=== PATIENT | female | born 1940 | race Caucasian/White ===

== ENCOUNTER 2017-09-27 11:45 | Emergency (ER) | payer MEDICARE, BC ==
[2017-09-27 11:53] VITALS: BP 145/64; PULSE 58; RESP 18; TEMP 97.5
--- NOTE | 2017-09-27 12:49 | ED ---
General Adult HPI - General Chief complaint: Recheck/Abnormal Lab/Rx Stated complaint: high liver enzymes Time Seen by Provider: 09/27/17 12:05 Source: patient Mode of arrival: ambulatory Limitations: no limitations - History of Present Illness Initial comments: Ewa Siegel is a 77 yo female with PMH listed below who presents to the emergency department today for evaluation of abnormal outpatient labs. Patient reports that she has been in her usual state of health lately, she has been able to attend her daily exercise classes and has been eating a normal diet. She denies any change from her daily routine her daily health. She reports that she had routine outpatient labs drawn on Wednesday in anticipation of seeing her roofer helper vinyl coating tomorrow. Her lab results were sent to her primary care physician's office and revealed acute elevation in her liver enzymes, she was called by a biomedical service engineer at her primary care office and advised to come to the ER for further evaluation as her primary care physician is currently out of the office for the week. Patient denies any complaints. She specifically denies any fevers, chills, nausea, vomiting, diarrhea, chest pain or shortness of breath. She denies any rashes or changes in her skin. She does report intermittent itching which seems to be worse on her lower back and thighs, however she attributes this to participating in a swim class multiple days out of the week and exposure to the chlorine in the pool. Patient denies any alcohol ingestion. She reports that she takes one to 2 Wysox pills daily and takes no other Tylenol. She denies any alcohol ingestion. She denies any IV drug use or high risk activity which would expose her to hepatitis. She denies any international travel or outdoor activities. - Related Data Home Medications Medication Instructions Recorded Confirmed Baclofen 10 mg PO HS 09/27/17 09/27/17 Furosemide [Lasix] 40 mg PO BID 09/27/17 09/27/17 HYDROcodone/APAP 7.5-325MG [Wysox 1 tab PO BID PRN 09/27/17 09/27/17 7.5-325] Krill Oil 500 mg PO DAILY 09/27/17 09/27/17 Metoprolol Tartrate [Lopressor] 25 mg PO TID 09/27/17 09/27/17 Potassium Chloride [K-Tab ER] 40 meq PO TID 09/27/17 09/27/17 Rivaroxaban [Xarelto] 20 mg PO AC-SUPPER 09/27/17 09/27/17 Allergies Allergy/AdvReac Type Severity Reaction Status Date / Time oxycodone Allergy Rash/Hives Verified 09/27/17 13:00 Penicillins Allergy Rash/Hives Verified 09/27/17 13:00 Review of Systems ROS Statement: Those systems with pertinent positive or pertinent negative responses have been documented in the HPI. ROS Other: All systems not noted in ROS Statement are negative. Past Medical History Past Medical History: Atrial Fibrillation, Hyperlipidemia, Osteoarthritis (OA) Additional Past Medical History / Comment(s): cardiac valve issues History of Any Multi-Drug Resistant Organisms: None Reported Past Surgical History: Back Surgery, Cardiac Valve Replacement, Joint Replacement Additional Past Surgical History / Comment(s): hipx2 knee replacement Past Psychological History: No Psychological Hx Reported Smoking Status: Never smoker Past Alcohol Use History: None Reported Past Drug Use History: None Reported General Exam Limitations: no limitations General appearance: alert, in no apparent distress Head exam: Present: atraumatic, normocephalic Eye exam: Present: normal appearance, PERRL, EOMI. Absent: scleral icterus, conjunctival injection, nystagmus ENT exam: Present: normal exam Neck exam: Present: normal inspection Respiratory exam: Present: normal lung sounds bilaterally. Absent: respiratory distress Cardiovascular Exam: Present: regular rate, normal rhythm, systolic murmur GI/Abdominal exam: Present: soft, normal bowel sounds. Absent: distended, tenderness, guarding, rebound, rigid, diminished bowel sounds, hyperactive bowel sounds, hypoactive bowel sounds, organomegaly, mass, bruit, pulsatile mass , hernia, other Rectal exam: Present: deferred Extremities exam: Present: normal inspection Neurological exam: Present: alert, oriented X3 Psychiatric exam: Present: normal affect, normal mood Skin exam: Present: warm, dry, intact, normal color, other (bruise to right AC consistent with recent blood draw) Course Vital Signs 09/27/17 09/27/17 11:49 14:49 Temperature 97.5 F L Pulse Rate 58 L Respiratory 18 18 Rate Blood Pressure 145/64 O2 Sat by Pulse 97 Oximetry Medical Decision Making - Medical Decision Making Patient was seen and evaluated, history was obtained from the patient as well as friend at bedside Patient in her usual state of health with no complaints, however outpatient labs revealed elevations of her liver enzymes and she was advised to come to the ER for further testing Patient with no risk factors for infectious hepatitis Patient with no scleral icterus, no abdominal pain, no GI symptoms Labs and ultrasound ordered Labs with elevation of the transaminases, elevated bilirubin, INR 1.7 Review of the patient's medications, she is onXarelto as well as Zetia both of which can cause mild elevations of the transaminases, this was discussed with the patient's roofer helper vinyl coating who states he does not feel that these medications are causing the elevations as he doesn't typically see elevations as high and does not usually see elevations of the bilirubin. He will evaluate the patient in office tomorrow and make further recommendations for any medication changes. In addition the patient will see her primary care physician next week for further evaluation. Results were discussed with patient as well as to her friends at bedside. At this point I do not feel there is any indication for admission to the hospital as the patient remains completely asymptomatic with no complaints. I discussed with the patient and her friends at bedside the need to return to the emergency department should she develop any abdominal pain, jaundice, easy bleeding or bruising or any new or concerning symptoms. Patient and her friends at bedside both were able to express understanding and agreement with the plan. Patient is scheduled to see her roofer helper vinyl coating tomorrow. All questions pertaining to care were answered to the best of my ability and the patient was discharged home in stable condition. - Lab Data Result diagrams: 09/27/17 12:50 09/27/17 12:50 Lab Results 09/27/17 09/27/17 09/27/17 Range/Units 12:50 12:50 12:50 WBC 7.7 (3.8-10.6) k/uL RBC 4.50 (3.80-5.40) m/uL Hgb 13.1 (11.4-16.0) gm/dL Hct 41.2 (34.0-46.0) % MCV 91.6 (80.0-100.0) fL MCH 29.2 (25.0-35.0) pg MCHC 31.9 (31.0-37.0) g/dL RDW 14.6 (11.5-15.5) % Plt Count 126 L (150-450) k/uL Neutrophils % (Manual) 70 % Lymphocytes % (Manual) 14 % Monocytes % (Manual) 14 % Eosinophils % (Manual) 2 % Neutrophils # (Manual) 5.39 (1.3-7.7) k/uL Lymphocytes # (Manual) 1.08 (1.0-4.8) k/uL Monocytes # (Manual) 1.08 H (0-1.0) k/uL Eosinophils # (Manual) 0.15 (0-0.7) k/uL Nucleated RBCs 0 (0-0) /100 WBC Poikilocytosis (manual Present Anisocytosis (manual) Present Target Cells Present PT (9.0-12.0) sec INR (<1.2) APTT (22.0-30.0) sec Sodium 142 (137-145) mmol/L Potassium 3.8 (3.5-5.1) mmol/L Chloride 100 (98-107) mmol/L Carbon Dioxide 30 (22-30) mmol/L Anion Gap 12 mmol/L BUN 28 H (7-17) mg/dL Creatinine 1.08 H (0.52-1.04) mg/dL Est GFR (CKD-EPI)AfAm 58 (>60 ml/min/1.73 sqM) Est GFR (CKD-EPI)NonAf 50 (>60 ml/min/1.73 sqM) Glucose 93 (74-99) mg/dL Calcium 9.4 (8.4-10.2) mg/dL Total Bilirubin 2.6 H (0.2-1.3) mg/dL AST 1435 H (14-36) U/L ALT 1329 H (9-52) U/L Alkaline Phosphatase 226 H (38-126) U/L Ammonia 13 (<30) umol/L Total Protein 7.1 (6.3-8.2) g/dL Albumin 3.6 (3.5-5.0) g/dL Lipase 96 (23-300) U/L 09/27/17 Range/Units 12:50 WBC (3.8-10.6) k/uL RBC (3.80-5.40) m/uL Hgb (11.4-16.0) gm/dL Hct (34.0-46.0) % MCV (80.0-100.0) fL MCH (25.0-35.0) pg MCHC (31.0-37.0) g/dL RDW (11.5-15.5) % Plt Count (150-450) k/uL Neutrophils % (Manual) % Lymphocytes % (Manual) % Monocytes % (Manual) % Eosinophils % (Manual) % Neutrophils # (Manual) (1.3-7.7) k/uL Lymphocytes # (Manual) (1.0-4.8) k/uL Monocytes # (Manual) (0-1.0) k/uL Eosinophils # (Manual) (0-0.7) k/uL Nucleated RBCs (0-0) /100 WBC Poikilocytosis (manual Anisocytosis (manual) Target Cells PT 15.6 H (9.0-12.0) sec INR 1.7 H (<1.2) APTT 29.5 (22.0-30.0) sec Sodium (137-145) mmol/L Potassium (3.5-5.1) mmol/L Chloride (98-107) mmol/L Carbon Dioxide (22-30) mmol/L Anion Gap mmol/L BUN (7-17) mg/dL Creatinine (0.52-1.04) mg/dL Est GFR (CKD-EPI)AfAm (>60 ml/min/1.73 sqM) Est GFR (CKD-EPI)NonAf (>60 ml/min/1.73 sqM) Glucose (74-99) mg/dL Calcium (8.4-10.2) mg/dL Total Bilirubin (0.2-1.3) mg/dL AST (14-36) U/L ALT (9-52) U/L Alkaline Phosphatase (38-126) U/L Ammonia (<30) umol/L Total Protein (6.3-8.2) g/dL Albumin (3.5-5.0) g/dL Lipase (23-300) U/L Disposition Clinical Impression: Liver enzyme elevation Disposition: HOME SELF-CARE Condition: Good Instructions: Jaundice (ED) Referrals: Bolivar Valiente DO [Primary Care Provider] - 1-2 days Time of Disposition: 15:18
[2017-09-27 13:20] LABS: HCT 41.2 % (34.0-46.0); HGB 13.1 gm/dL (11.4-16.0); MCH 29.2 pg (25.0-35.0); MCHC 31.9 g/dL (31.0-37.0); MCV 91.6 fL (80.0-100.0); Mean Platelet Volume 7.9; Platelet Count 126 k/uL (150-450); RDW 14.6 % (11.5-15.5); WBC 7.7 k/uL (3.8-10.6)
[2017-09-27 13:35] LABS: INR 1.7 (<1.2); Partial Thromboplastin Time 29.5 sec (22.0-30.0); Prothrombin Time 15.6 sec (9.0-12.0)
[2017-09-27 13:54] LABS: Albumin 3.6 g/dL (3.5-5.0); Calcium 9.4 mg/dL (8.4-10.2); Potassium 3.8 mmol/L (3.5-5.1); Total Bilirubin 2.6 mg/dL (0.2-1.3); Total Protein 7.1 g/dL (6.3-8.2)
[2017-09-27 13:57] LABS: Eosinophils # (M) 0.15 k/uL (0-0.7); Lymphocytes # (M) 1.08 k/uL (1.0-4.8); Monocytes # (M) 1.08 k/uL (0-1.0); Neutrophils # (M) 5.39 k/uL (1.3-7.7); Neutrophils % (M) 70 %; Nucleated Red Blood Cells 0 /100 WBC (0-0); Total Cells Counted 100
[2017-09-27 13:58] LABS: Anisocytosis (M) Present; Poikilocytosis (M) Present; Target Cells Present
--- NOTE | 2017-09-27 14:15 | US ---
EXAMINATION TYPE: US abdomen complete DATE OF EXAM: 09/27/2017 COMPARISON: NONE CLINICAL HISTORY: Pain. elevated enzymes EXAM MEASUREMENTS: Liver Length: 15.9 cm Gallbladder Wall: 0.1 cm CBD: 0.7 cm Spleen: 9.4 cm Right Kidney: 10.3 x 4.8 x 5.3 cm Left Kidney: 9.8 x 5.2 x 5.3 cm Pancreas: wnl Liver: 0.8 x 0.9 x 1.1 cm cyst left lobe, no masses identified Gallbladder: No stones seen Evidence for sonographic Coleman's sign: no CBD: Within normal limits for the patient's age Spleen: wnl Right Kidney: No hydronephrosis or masses seen Left Kidney: No hydronephrosis or masses seen Upper IVC: wnl Abd Aorta: Distal Aorta obscured by overlying bowel gas; proximal aorta measures 3.4 cm and mid jeanine ures 2.6 cm The liver is homogenous. The intrahepatic portion of the IVC and proximal abdominal aorta are within normal limits. There is no evidence of cholelithiasis. Common bile duct is unremarkable. The visu alized portions of the pancreas are homogenous. The spleen is unremarkable. Kidneys are symmetric a nd free of hydronephrosis. No renal lesions are seen. IMPRESSION: 1. Proximal abdominal aortic aneurysm measuring 3.4 cm. The mid abdominal aorta is within normal limi ts and distal abdominal aorta also appears within normal limits although the distal abdominal aorta p roximal to the aortoiliac bifurcation is obscured by bowel gas. 2. Simple benign-appearing left hepatic cyst.
== END 2017-09-27 15:45 | disposition home or self-care (01) ==
LOC: EC 11:45
DX: R17 Unspecified jaundice (principal); R74.0 Nonspecific elevation of levels of transaminase and lactic acid dehydrogenase [LDH]; I48.91 Unspecified atrial fibrillation; Z79.01 Long term (current) use of anticoagulants; Z79.899 Other long term (current) drug therapy; Z88.0 Allergy status to penicillin; Z88.8 Allergy status to other drugs, medicaments and biological substances
CPT/HCPCS: 36415; 76700; 80053; 82140; 83690; 85025; 85610; 85730; 99284

== ENCOUNTER 2021-01-31 01:35 | Emergency (ER) | payer MEDICARE ==
[2021-01-31 01:46] VITALS: BP 120/64; PULSE 91; RESP 17; TEMP 98.4
[2021-01-31] MEDS ORDERED: DIPH,PERTUS(ACELL)TETVAC-LF 0.5 ML VIAL IM ONE (02:03)
[2021-01-31] MEDS ORDERED: MORPHINE SULFATE 4 MG/ML SYRINGE IM STA (02:03)
[2021-01-31] MEDS ORDERED: BACITRACIN OINT 1 EACH PACKET TOPICAL ONE (02:04)
--- NOTE | 2021-01-31 02:34 | CT ---
EXAMINATION TYPE: CT brain linus sherman con DATE OF EXAM: 01/31/2021 COMPARISON: None HISTORY: fall. Headache. Neck pain CT DLP: 1580.3 mGycm Automated exposure control for dose reduction was used. Images obtained of the brain and cervical spine without contrast. There is mild cerebral atrophy. There is no mass effect nor midline shift. There is no sign of intrac ranial hemorrhage. Calvarium is intact. There is normal aeration of the mastoid sinuses. Skull base i s intact. Cervical vertebra have normal alignment. There is degenerative disc space narrowing from C4 to C7 wit h spurring of the endplates. Facet joints are intact. There is mild hypertrophic facet arthropathy. 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 No fracture. Mild cerebral atrophy appropriate for age. No acute intracranial abnormality.
--- NOTE | 2021-01-31 03:10 | XR ---
EXAMINATION TYPE: XR Hip LT and AP Pelvis DATE OF EXAM: 01/31/2021 COMPARISON: NONE HISTORY: Fall. Pain. TECHNIQUE: 3 views FINDINGS: The pelvic ring appears intact. There is bilateral hip prosthesis. There is a mild protrusi o of the right prosthetic acetabulum. Left hip prosthesis appears in good position. I see no fracture . Sacroiliac joints are intact. IMPRESSION: No acute abnormality the pelvis and left hip.
--- NOTE | 2021-01-31 03:14 | XR ---
EXAMINATION TYPE: XR shoulder complete BILAT DATE OF EXAM: 01/31/2021 COMPARISON: NONE HISTORY: Fall. Pain. TECHNIQUE: 3 views each shoulder FINDINGS: There is moderately severe narrowing of the shoulder joint spaces. There is severe subacrom ial joint space narrowing and impingement. 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 The humeral necks appear intact. The AC join ts are intact. 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 No fracture seen.
--- NOTE | 2021-01-31 03:15 | XR ---
EXAMINATION TYPE: XR knee complete LT DATE OF EXAM: 01/31/2021 COMPARISON: NONE HISTORY: Fall. Pain. TECHNIQUE: 3 views FINDINGS: There is left knee prosthesis. Components appear in anatomic position. There is no evidence of a fracture. IMPRESSION: No fracture seen.
--- NOTE | 2021-01-31 03:25 | ED ---
General Adult HPI - General Chief complaint: Fall Stated complaint: Fall Time Seen by Provider: 01/31/21 01:44 Source: patient, EMS, old records reviewed Mode of arrival: EMS Limitations: physical limitation - History of Present Illness Initial comments: 80-year-old female patient presents to the emergency department today for evaluation after having a fall this evening. Patient states approximately 45 minutes prior to arrival she was in her bathroom stumbled and fell landing between the counter and the toilet. States she injured both shoulders and is having left hip and left knee pain. She states that she did hit her head states that she "blacked out" for a couple of seconds. She denies any current headache, blurred vision, double vision, or neck pain. Patient has been having visual disturbance to the right eye for the last week or so. Does have an appointment with Dr. Gomes for this on Wednesday. States she did have a fall on Wednesday also from a trip and fall. States that she developed a hematoma to the left lower leg. She is unsure when her last tetanus vaccine was given. Patient denies any neck pain, back pain, chest pain, shortness of breath, dizziness, weakness, abdominal pain, nausea, vomiting, or difficulties with bowel movements or urination. - Related Data Home Medications Medication Instructions Recorded Confirmed Baclofen 10 mg PO HS 09/27/17 09/27/17 Furosemide [Lasix] 40 mg PO BID 09/27/17 09/27/17 HYDROcodone/APAP 7.5-325MG [Poth 1 tab PO BID PRN 09/27/17 09/27/17 7.5-325] Krill Oil 500 mg PO DAILY 09/27/17 09/27/17 Metoprolol Tartrate [Lopressor] 25 mg PO TID 09/27/17 09/27/17 Potassium Chloride [K-Tab ER] 40 meq PO TID 09/27/17 09/27/17 Rivaroxaban [Xarelto] 20 mg PO AC-SUPPER 09/27/17 09/27/17 Allergies Allergy/AdvReac Type Severity Reaction Status Date / Time oxycodone Allergy Rash/Hives Verified 09/27/17 13:00 Penicillins Allergy Rash/Hives Verified 09/27/17 13:00 Review of Systems ROS Statement: Those systems with pertinent positive or pertinent negative responses have been documented in the HPI. ROS Other: All systems not noted in ROS Statement are negative. Past Medical History Past Medical History: Atrial Fibrillation, Hyperlipidemia, Osteoarthritis (OA) Additional Past Medical History / Comment(s): cardiac valve issues History of Any Multi-Drug Resistant Organisms: None Reported Past Surgical History: Back Surgery, Cardiac Valve Replacement, Joint Replacement Additional Past Surgical History / Comment(s): hipx2 knee replacement Past Psychological History: No Psychological Hx Reported Smoking Status: Former smoker Past Alcohol Use History: None Reported Past Drug Use History: None Reported General Exam Limitations: physical limitation General appearance: alert, in no apparent distress, other (This is a well- developed, well-nourished elderly female patient in no acute distress. Vital signs upon presentation are temperature 98.4F, pulse 91, respirations 17, blood pressure 120/64, pulse ox 96% on room air.) Head exam: Present: atraumatic, normocephalic, normal inspection Eye exam: Present: normal appearance, PERRL, EOMI. Absent: scleral icterus, conjunctival injection, periorbital swelling ENT exam: Present: normal exam, normal oropharynx, mucous membranes moist Neck exam: Present: normal inspection, full ROM, other (Nontender, no step-off, no deformity to firm midline palpation of the posterior cervical spine. Full range of motion without pain or limitation.). Absent: tenderness, meningismus, lymphadenopathy Respiratory exam: Present: normal lung sounds bilaterally. Absent: respiratory distress, wheezes, rales, rhonchi, stridor Cardiovascular Exam: Present: regular rate, normal rhythm, normal heart sounds. Absent: systolic murmur, diastolic murmur, rubs, gallop, clicks GI/Abdominal exam: Present: soft, normal bowel sounds. Absent: distended, tenderness, guarding, rebound, rigid Extremities exam: Present: full ROM, tenderness (left lateral hip), normal capillary refill, other (Large hematoma to left anterior ankle with surrounding purple ecchymosis. Small skin tear left anterior lower leg. Small skin tear right elbow. Pedal and posttibial pulses 2+. Radial pulses 2+.). Absent: pedal edema, joint swelling, calf tenderness Back exam: Present: normal inspection. Absent: vertebral tenderness Neurological exam: Present: alert, oriented X3, CN II-XII intact Psychiatric exam: Present: normal affect, normal mood Skin exam: Present: warm, dry, intact, normal color. Absent: rash Course Vital Signs 01/31/21 01:37 Temperature 98.4 F Pulse Rate 91 Respiratory 17 Rate Blood Pressure 120/64 O2 Sat by Pulse 96 Oximetry Medical Decision Making - Medical Decision Making 80-year-old female patient presents for evaluation after experiencing a fall. She is reporting bilateral shoulder pain, left hip pain, left knee pain. Did have a large hematoma to the left ankle from a fall on Wednesday. She is neurologically intact with no focal deficits. Did have small skin tear to the right elbow, small skin tear to the left lower leg. Did update tetanus vaccine. CT brain and C-spine negative. X-rays of the bilateral shoulders, left hip and pelvis, left knee were all negative for any acute fractures. I did discuss findings and results with the patient. Applied pressure dressing over the hematoma and lower leg. Wounds were cleansed and dressed. She was discharged follow-up with her primary care physician for recheck in 1-2 days. Return parameters were discussed in detail. She verbalizes understanding and agrees with this plan. Case discussed with my attending Dr. Cuevas. - Radiology Data Radiology results: report reviewed, image reviewed Disposition Clinical Impression: Hematoma of left lower leg, Contusion of left hip, Skin tear of right elbow without complication, Contusion, knee Narrative: Bilateral knee Disposition: HOME SELF-CARE Condition: Good Instructions (If sedation given, give patient instructions): Fall Prevention for Older Adults (ED), Contusion in Adults (ED), Skin Tear (ED), Hematoma (ED) Additional Instructions: Keep wounds clean and dry. Cleanse twice daily with warm water and antibacterial soap. Use Moises wrap for compression of the left lower leg hematoma. Follow up with your primary care physician for recheck in 1-2 days. Return for any new, worsening, or concerning symptoms. Is patient prescribed a controlled substance at d/c from ED?: No Referrals: Bolivar Valiente DO [Primary Care Provider] - 1-2 days Time of Disposition: 03:25
[2021-01-31] MEDS ORDERED: ACET/COD 300 MG/30 MG STARTER PACK 6 TAB BTL PO STA (03:37)
== END 2021-01-31 03:57 | disposition home or self-care (01) ==
LOC: EC 01:35
DX: S51.011A Laceration without foreign body of right elbow, initial encounter (principal); S70.02XA Contusion of left hip, initial encounter; S80.02XA Contusion of left knee, initial encounter; I48.91 Unspecified atrial fibrillation; Z87.891 Personal history of nicotine dependence; Z88.0 Allergy status to penicillin; Z88.8 Allergy status to other drugs, medicaments and biological substances; Z79.01 Long term (current) use of anticoagulants; W01.198A Fall on same level from slipping, tripping and stumbling with subsequent striking against other object, initial encounter; Y92.091 Bathroom in other non-institutional residence as the place of occurrence of the external cause
CPT/HCPCS: 73030; 73502; 73562; 72125; 70450; 90715; 99284; 96372; 90471; J2270

== ENCOUNTER 2021-02-04 08:01 | Inpatient (IN) | payer MEDICARE ==
[2021-02-04 08:45] LABS: Basophils % (A) 0 %; Eosinophils # (A) 0.1 k/uL (0-0.7); Eosinophils % (A) 1 %; HCT 29.1 % (34.0-46.0); HGB 9.6 gm/dL (11.4-16.0); Hypochromasia Slight; Lymphocytes # (A) 1.5 k/uL (1.0-4.8); Lymphocytes % (A) 13 %; MCH 31.8 pg (25.0-35.0); MCHC 32.9 g/dL (31.0-37.0); MCV 96.6 fL (80.0-100.0); Mean Platelet Volume 8.2; Monocytes % (A) 9 %; Neutrophils # (A) 8.5 k/uL (1.3-7.7); Neutrophils % (A) 74 %; Platelet Count 332 k/uL (150-450); Poikilocytosis Slight; RBC 3.02 m/uL (3.80-5.40); RDW 13.8 % (11.5-15.5); WBC 11.6 k/uL (3.8-10.6)
--- NOTE | 2021-02-04 09:04 | ED ---
General Adult HPI - General Chief complaint: Fall Stated complaint: fall, back pain Time Seen by Provider: 02/04/21 08:04 Source: patient, EMS, RN notes reviewed, old records reviewed Mode of arrival: EMS Limitations: no limitations - History of Present Illness Initial comments: 72-year-old female presents status post fall. Patient has had several falls in the past one week. She is on Xarelto for history of atrial fibrillation. She states that she was seen in the emergency department earlier this week with a fall x-rays and CT imaging was performed at that time and the patient was subsequently discharged home. She does live at home alone. She states she has fallen again several times she has minor complaint of right lateral upper chest pain from the fall that occurred this morning which prompted an EMS call. Patient denies head trauma with this fall. She denies chest pain or abdominal pain. Denies focal numbness or weakness but states she is generally and having a difficult time getting around at home. Troponin minimally elevated in the setting of chronic kidney disease, no active chest pain. Repeat level will be ordered. - Related Data Home Medications Medication Instructions Recorded Confirmed Furosemide [Lasix] 40 mg PO BID 09/27/17 02/04/21 Metoprolol Tartrate [Lopressor] 50 mg PO BID 09/27/17 02/04/21 Potassium Chloride [K-Tab ER] 40 meq PO TID 09/27/17 02/04/21 DULoxetine HCL [Cymbalta] 30 mg PO BID 02/04/21 02/04/21 Rivaroxaban [Xarelto] 15 mg PO W/SUPPER 02/04/21 02/04/21 Spironolactone 25 mg PO DAILY 02/04/21 02/04/21 metOLazone [Zaroxolyn] 5 mg PO DIRECTED 02/04/21 02/04/21 Allergies Allergy/AdvReac Type Severity Reaction Status Date / Time oxycodone Allergy Rash/Hives Verified 02/04/21 09:27 Penicillins Allergy Rash/Hives Verified 02/04/21 09:27 Review of Systems ROS Statement: Those systems with pertinent positive or pertinent negative responses have been documented in the HPI. ROS Other: All systems not noted in ROS Statement are negative. Past Medical History Past Medical History: Atrial Fibrillation, Hyperlipidemia, Osteoarthritis (OA) Additional Past Medical History / Comment(s): cardiac valve issues History of Any Multi-Drug Resistant Organisms: None Reported Past Surgical History: Back Surgery, Cardiac Valve Replacement, Joint Replacement Additional Past Surgical History / Comment(s): hipx2 knee replacement Past Psychological History: No Psychological Hx Reported Smoking Status: Former smoker Past Alcohol Use History: None Reported Past Drug Use History: None Reported General Exam Limitations: no limitations General appearance: alert, in no apparent distress Head exam: Present: atraumatic, normocephalic Eye exam: Present: normal appearance, PERRL ENT exam: Present: mucous membranes dry Neck exam: Present: normal inspection. Absent: tenderness, meningismus Respiratory exam: Present: normal lung sounds bilaterally, chest wall tenderness (Right upper chest and axilla). Absent: respiratory distress, wheezes Cardiovascular Exam: Present: regular rate, irregular rhythm GI/Abdominal exam: Present: soft. Absent: distended, tenderness, guarding, rebound Extremities exam: Present: normal capillary refill. Absent: pedal edema Neurological exam: Present: alert, oriented X3, CN II-XII intact. Absent: motor sensory deficit Psychiatric exam: Present: normal affect, normal mood Skin exam: Present: warm, dry, other (Multiple skin tears and ecchymosis) Course Vital Signs 02/04/21 08:03 Temperature 98.0 F Pulse Rate 90 Respiratory 18 Rate Blood Pressure 108/63 O2 Sat by Pulse 100 Oximetry EKG Findings - EKG Comments: EKG Findings:: EKG: Atrial fibrillation, PVC, right bundle branch block, ventricular rate of 95, QRS duration 128, QTC 520, no ST segment elevation. Medical Decision Making - Medical Decision Making 80-year-old female presented with fall. This is a recurrent issue over the past one week. Chest x-ray obtained, negative for focal pneumonia, CT brain negative for renal hemorrhage or mass effect. Regarding her weakness and falls. She does have a mild leukocytosis, 11.6, hemoglobin 9.6 which appear stable for this patient. Her potassium is 2.2 which may be the cause of her weakness. She's given both oral and IV replacement. She will be admitted for a left lower replacement, monitoring possible placement. Primary care provider Dr. Valiente has been contacted. - Lab Data Result diagrams: 02/04/21 08:29 02/04/21 08:29 Lab Results 02/04/21 02/04/21 02/04/21 Range/Units 08:29 08:29 08:29 WBC 11.6 H (3.8-10.6) k/uL RBC 3.02 L (3.80-5.40) m/uL Hgb 9.6 L (11.4-16.0) gm/dL Hct 29.1 L (34.0-46.0) % MCV 96.6 (80.0-100.0) fL MCH 31.8 (25.0-35.0) pg MCHC 32.9 (31.0-37.0) g/dL RDW 13.8 (11.5-15.5) % Plt Count 332 (150-450) k/uL MPV 8.2 Neutrophils % 74 % Lymphocytes % 13 % Monocytes % 9 % Eosinophils % 1 % Basophils % 0 % Neutrophils # 8.5 H (1.3-7.7) k/uL Lymphocytes # 1.5 (1.0-4.8) k/uL Monocytes # 1.0 (0-1.0) k/uL Eosinophils # 0.1 (0-0.7) k/uL Basophils # 0.0 (0-0.2) k/uL Hypochromasia Slight Poikilocytosis Slight PT 12.7 H (9.0-12.0) sec INR 1.2 H (<1.2) APTT 24.9 (22.0-30.0) sec Sodium 133 L (137-145) mmol/L Potassium 2.2 L* (3.5-5.1) mmol/L Chloride 82 L (98-107) mmol/L Carbon Dioxide 39 H (22-30) mmol/L Anion Gap 12 mmol/L BUN 80 H (7-17) mg/dL Creatinine 1.78 H (0.52-1.04) mg/dL Est GFR (CKD-EPI)AfAm 31 (>60 ml/min/1.73 sqM) Est GFR (CKD-EPI)NonAf 27 (>60 ml/min/1.73 sqM) Glucose 125 H (74-99) mg/dL Plasma Lactic Acid Yonas (0.7-2.0) mmol/L Calcium 9.4 (8.4-10.2) mg/dL Magnesium 2.3 (1.6-2.3) mg/dL Total Bilirubin 0.9 (0.2-1.3) mg/dL AST 32 (14-36) U/L ALT 16 (4-34) U/L Alkaline Phosphatase 91 (38-126) U/L Troponin I (0.000-0.034) ng/mL Total Protein 6.6 (6.3-8.2) g/dL Albumin 3.9 (3.5-5.0) g/dL 02/04/21 02/04/21 Range/Units 08:29 08:29 WBC (3.8-10.6) k/uL RBC (3.80-5.40) m/uL Hgb (11.4-16.0) gm/dL Hct (34.0-46.0) % MCV (80.0-100.0) fL MCH (25.0-35.0) pg MCHC (31.0-37.0) g/dL RDW (11.5-15.5) % Plt Count (150-450) k/uL MPV Neutrophils % % Lymphocytes % % Monocytes % % Eosinophils % % Basophils % % Neutrophils # (1.3-7.7) k/uL Lymphocytes # (1.0-4.8) k/uL Monocytes # (0-1.0) k/uL Eosinophils # (0-0.7) k/uL Basophils # (0-0.2) k/uL Hypochromasia Poikilocytosis PT (9.0-12.0) sec INR (<1.2) APTT (22.0-30.0) sec Sodium (137-145) mmol/L Potassium (3.5-5.1) mmol/L Chloride (98-107) mmol/L Carbon Dioxide (22-30) mmol/L Anion Gap mmol/L BUN (7-17) mg/dL Creatinine (0.52-1.04) mg/dL Est GFR (CKD-EPI)AfAm (>60 ml/min/1.73 sqM) Est GFR (CKD-EPI)NonAf (>60 ml/min/1.73 sqM) Glucose (74-99) mg/dL Plasma Lactic Acid Yonas 1.5 (0.7-2.0) mmol/L Calcium (8.4-10.2) mg/dL Magnesium (1.6-2.3) mg/dL Total Bilirubin (0.2-1.3) mg/dL AST (14-36) U/L ALT (4-34) U/L Alkaline Phosphatase (38-126) U/L Troponin I 0.061 H* (0.000-0.034) ng/mL Total Protein (6.3-8.2) g/dL Albumin (3.5-5.0) g/dL Disposition Clinical Impression: Generalized weakness, Hypokalemia Disposition: ADMITTED IP TO THIS [facility] Condition: Stable Is patient prescribed a controlled substance at d/c from ED?: No Referrals: Bolivar Valiente DO [Primary Care Provider] - 1-2 days Decision to Admit Reason: Admit from EC Decision Date: 02/04/21 Decision Time: 10:09
[2021-02-04 09:06] LABS: Albumin 3.9 g/dL (3.5-5.0); Calcium 9.4 mg/dL (8.4-10.2); INR 1.2 (<1.2); Magnesium 2.3 mg/dL (1.6-2.3); Partial Thromboplastin Time 24.9 sec (22.0-30.0); Prothrombin Time 12.7 sec (9.0-12.0); Total Bilirubin 0.9 mg/dL (0.2-1.3); Total Protein 6.6 g/dL (6.3-8.2)
--- NOTE | 2021-02-04 09:23 | CT ---
EXAMINATION TYPE: CT brain linus wo con DATE OF EXAM: 02/04/2021 COMPARISON: 01/31/2021 HISTORY: Fall, back pain CT DLP: 1608 mGycm, Automated exposure control for dose reduction was used. CONTRAST: Patient injected with 0 mL of Isovue 300. CT of the brain is performed utilizing 3 mm thick sections through the posterior fossa and 3 mm thick sections through the remaining calvarium. Study is performed within 24 hours of arrival to the hospital. No abnormal hyperdensity is present to suggest an acute intracranial hemorrhage. No mass lesion is evident. No acute infarcts are evident. Tiny lacunar infarct is within the left caudate head. Ventricles and sulci and minimal prominence but are appropriate for the patient age. Paranasal sinuses and mastoid air cells within the [id number] are clear. IMPRESSIONS: 1. Normal CT brain. CT cervical spine. COMPARISON: None CT of the cervical spine is performed in the axial plane at 2 mm thick sections. Reconstructed image s in the coronal, and sagittal plane are reviewed on the computer. No acute fractures are evident. Vertebral body alignment is normal. Disc space narrowing is noted C5-6 C6-7 and C7-T1. Milder disc space narrowing may be present C4-5. A nterior vertebral body spurring is present C4 C5 C6. Prevertebral space appears normal. Vertebral body heights are preserved. No spinal canal stenosis is evident. Right foraminal stenosis from facet hypertrophy and uncovertebral joint hypertrophy is present at C3- 4. Mild foraminal narrowing is present on the right at C4-5 moderate to severe bilateral foraminal st enosis present C5-6 and C6-7. There is a calcification along the posterior lateral right T1 level on the right. Small meningioma co uld be considered. This was present previously significant posterior thecal sac compression is noted. IMPRESSIONS: 1. No acute osseous abnormality. 2. Degenerative disc changes mid to lower cervical spine. 3. Foraminal stenosis. C5-6 and C6-7 uncovertebral joint. 4. Tiny meningioma may be present in the posterior lateral right spinal canal without significant the kori sac compression T1 level.
[2021-02-04 09:28] LABS: Potassium 2.2 mmol/L (3.5-5.1)
--- NOTE | 2021-02-04 09:30 | XR ---
EXAMINATION TYPE: XR chest 2V DATE OF EXAM: 02/04/2021 COMPARISON: 05/30/2010 INDICATION: Weakness multiple falls TECHNIQUE: Frontal and lateral views of the chest are obtained. FINDINGS: The heart size is normal. The pulmonary vasculature is normal. The lungs are clear. No pneumothorax is evident. No displaced rib fractures are identified. Sternoto my wires are present from prior surgery. Chronic rotator cuff tears are likely present. IMPRESSION: 1. No acute pulmonary process.
[2021-02-04] MEDS ORDERED: HYDROmorphone 0.5 MG/0.5 ML SYRINGE IVP STA (09:33)
[2021-02-04] MEDS ORDERED: POTASSIUM CHLORIDE ER 20 MEQ TAB.ER PO STA (09:33)
[2021-02-04] MEDS ORDERED: NALOXONE 0.4 MG/ML 1 ML VIAL IV PRN (10:05)
[2021-02-04] MEDS: SODIUM CHLORIDE 0.9% 1,000 ML IV SCH (10:05)
[2021-02-04] MEDS ORDERED: ACETAMINOPHEN TAB 325 MG TAB PO PRN (10:05)
[2021-02-04] MEDS: POTASSIUM CHLORIDE 20 MEQ in WATER FOR INJECTION 1 100ML.BAG IVPB SCH ×2 (10:05→12:15)
[2021-02-04 10:27] LABS: Appearance,Urine Clear (Clear); Bilirubin,Urine Negative (Negative); Blood,Urine Negative (Negative); Color,Urine Yellow; Glucose,Urine (UA) Negative (Negative); Ketones,Urine Negative (Negative); Leukocyte Esterase,Urine Negative (Negative); Nitrite,Urine Negative (Negative); PH, Urine 6.5 (5.0-8.0); Protein,Urine Negative (Negative); Specific Gravity,Urine 1.012 (1.001-1.035); Urobilinogen,Urine <2.0 mg/dL (<2.0)
[2021-02-04] MEDS ORDERED: metOLazone 5 MG TAB PO SCH (21:00)
[2021-02-04] MEDS: METOPROLOL TARTRATE 50 MG TAB PO SCH (21:33)
[2021-02-04] MEDS: DULoxetine HCL 30 MG CAPSULE.DR PO SCH (21:33)
[2021-02-05] MEDS: SODIUM CHLORIDE 0.9% 1,000 ML IV SCH ×2 (01:26→10:00)
[2021-02-05 08:28] LABS: Basophils % (A) 0 %; Eosinophils # (A) 0.1 k/uL (0-0.7); Eosinophils % (A) 1 %; HCT 25.6 % (34.0-46.0); HGB 8.2 gm/dL (11.4-16.0); Hypochromasia Moderate; Lymphocytes # (A) 1.4 k/uL (1.0-4.8); Lymphocytes % (A) 14 %; MCH 31.8 pg (25.0-35.0); MCHC 31.9 g/dL (31.0-37.0); MCV 99.7 fL (80.0-100.0); Mean Platelet Volume 7.6; Monocytes # (A) 0.9 k/uL (0-1.0); Monocytes % (A) 9 %; Neutrophils # (A) 7.1 k/uL (1.3-7.7); Neutrophils % (A) 71 %; Platelet Count 298 k/uL (150-450); Poikilocytosis Slight; RBC 2.57 m/uL (3.80-5.40); RDW 13.3 % (11.5-15.5)
[2021-02-05 08:31] LABS: Albumin 3.3 g/dL (3.5-5.0); Calcium 8.9 mg/dL (8.4-10.2); Magnesium 2.3 mg/dL (1.6-2.3); Total Bilirubin 0.8 mg/dL (0.2-1.3); Total Protein 5.7 g/dL (6.3-8.2)
[2021-02-05 08:34] LABS: Potassium 2.7 mmol/L (3.5-5.1)
[2021-02-05] MEDS: METOPROLOL TARTRATE 50 MG TAB PO SCH ×2 (09:06→20:53)
[2021-02-05] MEDS: FUROSEMIDE 40 MG TAB PO SCH ×2 (09:07→16:55)
[2021-02-05] MEDS: SPIRONOLACTONE 25 MG TAB PO SCH (09:07)
[2021-02-05] MEDS: DULoxetine HCL 30 MG CAPSULE.DR PO SCH ×2 (09:07→20:52)
[2021-02-05] MEDS ORDERED: Potassium Replacement Protocol 1 EACH MISC MISCELLANE PRN (10:48)
--- NOTE | 2021-02-05 12:13 | XR ---
Left ankle HISTORY: Hematoma, trauma 3 views the left ankle There is soft tissue swelling present. Bone mineralization is reduced. Joint spaces and alignment are maintained. Lateral exam not optimally positioned. IMPRESSION: No fracture or dislocation. There is soft tissue swelling present.
--- NOTE | 2021-02-05 12:21 | P.CNOR ---
History of Present Illness - [facility] Consult date: 02/05/21 Consult reason: other (Left lower extremity hematoma, status post frequent falls) History of present illness: Patient is a 80-year-old female who presented to [facility] yesterday with regards to generalized weakness and frequent falls. Patient admits to multiple falls in the last week and half. She was evaluated and [facility] on 01/31/2021, should undergone multiple x-rays at that time and was subsequently discharged home. She presented on 02/04/2021 after sustaining another fall. Lab test did demonstrate severe abnormalities no electrolytes, she was admitted under internal medicine for further workup. Orthopedic team was consulted today with regards to the left lower extremity hematoma. Patient was evaluated today at bedside, she is resting comfortably. She notes most of discomfort in the lower left leg. At her visit on 01/31/2021, multiple x-rays were done, this including bilateral shoulders, hips/pelvis x-rays and also her left knee. X-rays were all negative for any acute fractures or dislocations. X-rays demonstrated severe osteoarthritis of the bilateral shoulders with rotator cuff arthropathy, left knee revealed stable total knee arthroplasty with no obvious signs of loosening. Pelvis and hip x-rays demonstrated stable total hip arthroplasty components with no obvious signs of loosening. With regards to bilateral hips, she's had both of her place, there was a revision surgery on her right hip in the early s Dr. Castro. Posterior t otal knee replacement surgery done by a surgeon at [facility], she feels that the most recent one was done in 2009. She has a known history of bilateral shoulder osteoarthritis, she does receive steroid injections in the bilateral shoulders from her medical provider a month to month basis. During her most recent fall yesterday, she did hit a chair in her home when she fell. She's having no worsening pain in the bilateral shoulders, bilateral hips or bilateral knees. She notes some discomfort in the left lower extremity. She denies any acute pain involving the right lower extremity. She denies any new onset cervical, thoracic or lumbar pain. She denies any numbness or tingling, loss of sensation in the bilateral upper or lower extremities. Review of Systems Constitutional: Reports as per HPI Past Medical History Past Medical History: Atrial Fibrillation, Hyperlipidemia, Osteoarthritis (OA) Additional Past Medical History / Comment(s): cardiac valve issues History of Any Multi-Drug Resistant Organisms: None Reported Past Surgical History: Back Surgery, Cardiac Valve Replacement, Joint Replacement Additional Past Surgical History / Comment(s): hipx2 knee replacement Past Anesthesia/Blood Transfusion Reactions: No Reported Reaction Past Psychological History: No Psychological Hx Reported Smoking Status: Former smoker Past Alcohol Use History: None Reported Past Drug Use History: None Reported Medications and Allergies Home Medications Medication Instructions Recorded Confirmed Type Furosemide [Lasix] 40 mg PO BID 09/27/17 02/04/21 History Metoprolol Tartrate [Lopressor] 50 mg PO BID 09/27/17 02/04/21 History Potassium Chloride [K-Tab ER] 40 meq PO TID 09/27/17 02/04/21 History DULoxetine HCL [Cymbalta] 30 mg PO BID 02/04/21 02/04/21 History Rivaroxaban [Xarelto] 15 mg PO W/SUPPER 02/04/21 02/04/21 History Spironolactone 25 mg PO DAILY 02/04/21 02/04/21 History metOLazone [Zaroxolyn] 5 mg PO DIRECTED 02/04/21 02/04/21 History Allergies Allergy/AdvReac Type Severity Reaction Status Date / Time oxycodone Allergy Rash/Hives Verified 02/04/21 09:27 Penicillins Allergy Rash/Hives Verified 02/04/21 09:27 Physical Examination General orthopedic exam: Exam of the left lower extremity demonstrates no obvious effusion present over the left knee, there is a well-healed incision over the anterior aspect. There is an obvious skin abrasion noted at the distal third of the tibia/fibula, there is a dressing placed on them. The dressing was removed and the lower leg, there is an obvious hematoma present just proximal to the left ankle, at the distal tibia and fibula. There is surrounding ecchymosis in that area. Patient has good sensation of light touch throughout that extremity. Plantar flexion, dorsiflexion, EHL, FHL are intact. She is nontender with palpation involving the medial and lateral malleolus. Calf is soft, no tenderness with palpation. Flexion and extension are intact at the knee, this is painless with range of motion. Logroll maneuver reproduces no pain. She is able to straight leg raise minimal difficulty. Dorsalis pedis pulses 2+ Right lower extremity demonstrates no obvious open lesions or sores, there is a well-healed incision over the anterior aspect of the knee. She is nontender with palpation throughout that extremity. Logroll maneuver reproduces no pain. Range of motion is intact with regards to hip flexion, knee extension, knee flexion, plantar flexion, dorsiflexion, EHL, FHL. Calf is soft, no tenderness with palpation. Sensory exam light touch is intact throughout the extremity, her dorsalis pedis pulses 2+. Bilateral upper extremity exam demonstrates no obvious open lesions or sores, there is no significant areas of soft tissue swelling or erythema. Her range of motion is limited in the bilateral shoulders. No severe point tenderness is appreciated, she does have generalized tenderness over the anterior glenoid humeral joint line of the bilateral shoulders. Sensation to light touch to bilateral upper extremities intact, her radial and ulnar pulses are 2+ aysha aterally Results - Labs Labs: Abnormal Lab Results - Last 24 Hours (Table) 02/04/21 02/05/21 02/05/21 Range/Units 13:40 07:01 07:01 RBC 2.57 L (3.80-5.40) m/uL Hgb 8.2 L (11.4-16.0) gm/dL Hct 25.6 L (34.0-46.0) % Sodium 133 L (137-145) mmol/L Potassium 2.7 L* (3.5-5.1) mmol/L Chloride 91 L (98-107) mmol/L Carbon Dioxide 32 H (22-30) mmol/L BUN 70 H (7-17) mg/dL Creatinine 1.44 H (0.52-1.04) mg/dL Glucose 108 H (74-99) mg/dL Troponin I 0.051 H* (0.000-0.034) ng/mL Total Protein 5.7 L (6.3-8.2) g/dL Albumin 3.3 L (3.5-5.0) g/dL H & H 02/04/21 02/05/21 Range/Units 08:29 07:01 Hgb 9.6 L 8.2 L (11.4-16.0) gm/dL Hct 29.1 L 25.6 L (34.0-46.0) % Coagulation 02/04/21 Range/Units 08:29 INR 1.2 H (<1.2) Result Diagrams: 02/05/21 07:01 02/05/21 07:01 - Diagnostic results Shoulder x-ray: report reviewed, image reviewed (Bilateral shoulder x-rays are reviewed from 01/31/2021, they demonstrate severe glenohumeral joint arthritis with evidence of a rotator cuff arthropathy. No acute fractures or dislocations present) Hip x-ray: report reviewed (X-rays reviewed of the pelvis along with left and right hip from 01/31/2021. Images demonstrate total hip arthroplasty components of the bilateral hips. 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 No acute fractures or dislocations are appreciated), image reviewed Knee x-ray: report reviewed, image reviewed (Left knee x-rays from 01/31/2021 were reviewed, images demonstrated no acute fractures or dislocations. No obvious evidence of loosening of components) Ankle/Foot x-ray: report reviewed, image reviewed (X-rays reviewed of the left ankle from 02/05/2021, no acute fractures or dislocations present. 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 Pa. No emergent orthopedic surgical intervention recommended at this time. I will order x-rays of the tib/fib on the left side for further evaluation Recommend local wound care to the skin abrasion on the lower left extremity Recommend consult for vascular surgery for left lower extremity hematoma Pain control, Tylenol and NSAIDs as needed GI and DVT prophylaxis per primary medical service Further recommendations to follow pending x-ray results Time with Patient: Less than 30
[2021-02-05] MEDS: POTASSIUM CHLORIDE ER 20 MEQ TAB.ER PO SCH ×5 (13:55→21:50)
--- NOTE | 2021-02-05 14:57 | XR ---
Left leg HISTORY: Trauma and hematoma, pain Frontal lateral views the left leg submitted on 4 images Patient is status post left knee arthroplasty. There is soft tissue swelling present. Bone mineraliza tion is reduced. No fracture or dislocation. There is anatomic alignment. IMPRESSION: Soft tissue swelling.
[2021-02-05] MEDS: Acetaminophen-Codeine 300-30mg TAB PO PRN ×2 (16:55→21:59)
[2021-02-05] MEDS: RIVAROXABAN 15 MG TAB PO SCH (16:55)
--- NOTE | 2021-02-05 17:03 | P.HPIM ---
History of Present Illness H&P Date: 02/05/21 Chief Complaint: Increasing weakness, status post fall, hypokalemia This is a 80-year-old female with past: History of chronic persistent atrial fibrillation, cardiac valve replacement, hyperlipidemia, former nicotine dependence, obesity, multiple joint replacements and multiple other medical issues, presented to the ER with complaints of increased weakness and discovered to be significant hypokalemic, with a potassium of 2.2. Patient states she was not taking her potassium supplements as ordered, because they were so big. Patient reports she has fallen 3 times in the last week without syncope. Denies head trauma. Patient had previously presented to the ER earlier in the week, and multiple radiology studies performed and released. Patient sustained another fall without syncope after being discharged from the ER sustaining injury of her left lower extremity. Denies chest pain, palpitations or shortness of breath. Troponins 0.061, 0.051. EKG reported atrial fibrillation with PVCs or aberrantly conducted complexes, right bundle branch block, inferior Afebrile, WBC initially 11.6, now within normal limits. Hemoglobin 8.2, platelets 298. Sodium 133. Received potassium supplements currently up to 2.7, receiving further supplements. On admission BUN 80, creatinine 1.78, improving with IV fluid hydration down to 70/1.44. Watch sugars controlled. Lactic acid within normal limits, magnesium 2.3. UA negative. Head CT reported normal CT of the brain, CT spine reported no acute osseous abnormality, degenerative disc changes made to lower cervical spine, foraminal stenosis C5-6 and C6-7 unconvertebral joint, tiny meningioma may be present in the posterior lateral right spinal canal without significant sac compression T1 level. Chest x-ray re ported no acute pulmonary process. Review of Systems ROS Statement: Those systems with pertinent positive or pertinent negative responses have been documented in the HPI. ROS Other: All systems not noted in ROS Statement are negative. Past Medical History Past Medical History: Atrial Fibrillation, Hyperlipidemia, Osteoarthritis (OA) Additional Past Medical History / Comment(s): cardiac valve issues History of Any Multi-Drug Resistant Organisms: None Reported Past Surgical History: Back Surgery, Cardiac Valve Replacement, Joint Replacement Additional Past Surgical History / Comment(s): hipx2 knee replacement Past Anesthesia/Blood Transfusion Reactions: No Reported Reaction Past Psychological History: No Psychological Hx Reported Smoking Status: Former smoker Past Alcohol Use History: None Reported Past Drug Use History: None Reported Medications and Allergies Home Medications Medication Instructions Recorded Confirmed Type Furosemide [Lasix] 40 mg PO BID 09/27/17 02/04/21 History Metoprolol Tartrate [Lopressor] 50 mg PO BID 09/27/17 02/04/21 History Potassium Chloride [K-Tab ER] 40 meq PO TID 09/27/17 02/04/21 History DULoxetine HCL [Cymbalta] 30 mg PO BID 02/04/21 02/04/21 History Rivaroxaban [Xarelto] 15 mg PO W/SUPPER 02/04/21 02/04/21 History Spironolactone 25 mg PO DAILY 02/04/21 02/04/21 History metOLazone [Zaroxolyn] 5 mg PO DIRECTED 02/04/21 02/04/21 History Allergies Allergy/AdvReac Type Severity Reaction Status Date / Time oxycodone Allergy Rash/Hives Verified 02/04/21 09:27 Penicillins Allergy Rash/Hives Verified 02/04/21 09:27 Physical Exam Vitals: Vital Signs Temp Pulse Resp BP Pulse Ox 02/05/21 14:00 82 18 02/05/21 12:00 82 18 109/57 100 02/05/21 08:10 95 02/05/21 08:00 98.1 F 94 18 113/53 99 02/05/21 04:00 89 18 111/59 95 02/04/21 23:46 99 18 93/51 95 02/04/21 20:00 98.2 F 98 18 113/60 100 Intake and Output 02/05/21 02/05/21 02/05/21 06:59 14:59 22:59 Intake Total 360 Balance 360 Intake: Oral 360 Other: Voiding Method Bedside Commode # Voids 1 4 Weight 175.5 kg PHYSICAL EXAM: VITAL SIGNS: As above GENERAL: Sitting up in bed, no acute distress HEENT: Conjunctivae normal. eyes normal. NECK: No JVD. No thyroid enlargement. No LNs CARDIOVASCULAR: S1, S2 regular, irregular.No murmur RESPIRATION: Breath sounds diminished in the bases. No rhonchi or crackles. No bronchial breathing. ABDOMEN: Soft, nontender . No guarding. no masses palpable. No ascites, No hepatosplenomegaly.Bowel sounds heard. LEGS: Positive edema, ecchymosis on multiple extremities, left anterior munson abrasion ,hematoma proximal to the left ankle, positive DP pulses. PSYCHIATRY: Alert and oriented X3, mood and affect normal. NERVOUS SYSTEM: Cranial N 2-12 grossly normal. Moves all 4 limbs. Diffuse weakness ,No focal deficits. Strength and sensation grossly intact.. Skin: Warm and dry,no rash Lymphatic system. No LN neck axilla. Results CBC & Chem 7: 02/05/21 07:01 02/05/21 07:01 Labs: Abnormal Lab Results - Last 24 Hours (Table) 02/05/21 02/05/21 Range/Units 07: 07:01 RBC 2.57 L (3.80-5.40) m/uL Hgb 8.2 L (11.4-16.0) gm/dL Hct 25.6 L (34.0-46.0) % Sodium 133 L (137-145) mmol/L Potassium 2.7 L* (3.5-5.1) mmol/L Chloride 91 L (98-107) mmol/L Carbon Dioxide 32 H (22-30) mmol/L BUN 70 H (7-17) mg/dL Creatinine 1.44 H (0.52-1.04) mg/dL Glucose 108 H (74-99) mg/dL Total Protein 5.7 L (6.3-8.2) g/dL Albumin 3.3 L (3.5-5.0) g/dL Thrombosis Risk Factor Assmnt - Choose All That Apply Each Risk Factor Represents 3 Points: Age 75 years or older Thrombosis Risk Factor Assessment Total Risk Factor Score: 3 Thrombosis Risk Factor Assessment Level: Moderate Risk Assessment and Plan Assessment: Increasing generalized weakness, status post multiple falls, suspect related to hypokalemia Severe Hypokalemia, potassium 2.2 on admission. Noncompliant with potassium supplements as ordered Mildly elevated troponins, denies chest pain, suspect related to acute renal failure. Third troponin and echo ordered. Left lower extremity hematoma Acute renal failure Possible chronic renal failure, stage IV Anemia, possibly of chronic disease Chronic persistent atrial fibrillation, anticoagulated on Xarelto Hyperlipidemia Hypertension Cardiac valve replacement Former nicotine dependence Multiple joint replacements Mild hyponatremia Morbid obesity, BMI 64.4 Plan: Continue on current medication regime ,monitoring and symptomatic treatment. Patient denies chest pain, third troponin level ordered . Echo ordered .Potassium supplements ordered, repeat follow-up potassium level at 1600. PT/OT/SW consulted for JESSIE at discharge. Left lower extremity x-ray/ankle x-ray ordered, orthopedic surgery consulted. Pain management. Home meds have been reviewed and resumed accordingly. Anticoagulated on Xarelto for chronic A. fib. Protonix added for GI prophylaxis. Close monitoring of renal function, electrolytes with repeat labs ordered for a.m. The impression and plan of care has been dictated as directed. : I performed a history and examination of this patient, discussed the same with the dictator. I agree with the dictator's note ,documented as a scribe. Any additional findings or plans will be noted.
[2021-02-05] MEDS ORDERED: PANTOPRAZOLE 40 MG/10 ML VIAL IVP SCH (17:15)
[2021-02-05] MEDS: POTASSIUM CHLORIDE 10 MEQ in WATER FOR INJECTION 1 100ML.BAG IVPB SCH ×2 (21:50→23:30)
[2021-02-05] MEDS ORDERED: POTASSIUM CHLORIDE ER 20 MEQ TAB.ER PO SCH (22:00)
[2021-02-06] MEDS: POTASSIUM CHLORIDE 10 MEQ in WATER FOR INJECTION 1 100ML.BAG IVPB SCH ×4 (00:40→04:05)
[2021-02-06] MEDS: SODIUM CHLORIDE 0.9% 1,000 ML IV SCH ×2 (02:44→16:53)
[2021-02-06] MEDS: Acetaminophen-Codeine 300-30mg TAB PO PRN ×2 (04:07→20:01)
[2021-02-06] MEDS: PANTOPRAZOLE 40 MG TABLET PO SCH (06:11)
[2021-02-06 08:13] LABS: Basophils # (A) 0.1 k/uL (0-0.2); Basophils % (A) 0 %; Eosinophils # (A) 0.2 k/uL (0-0.7); Eosinophils % (A) 2 %; HCT 23.6 % (34.0-46.0); HGB 7.6 gm/dL (11.4-16.0); Hypochromasia Moderate; Lymphocytes # (A) 1.7 k/uL (1.0-4.8); Lymphocytes % (A) 15 %; MCH 31.8 pg (25.0-35.0); MCHC 32.1 g/dL (31.0-37.0); MCV 99.2 fL (80.0-100.0); Mean Platelet Volume 7.5; Monocytes % (A) 9 %; Neutrophils # (A) 7.7 k/uL (1.3-7.7); Neutrophils % (A) 70 %; Platelet Count 269 k/uL (150-450); Poikilocytosis Slight; RBC 2.38 m/uL (3.80-5.40); RDW 13.9 % (11.5-15.5)
[2021-02-06 08:29] LABS: Calcium 8.8 mg/dL (8.4-10.2); Magnesium 2.1 mg/dL (1.6-2.3); Potassium 3.6 mmol/L (3.5-5.1)
[2021-02-06] MEDS: METOPROLOL TARTRATE 50 MG TAB PO SCH ×2 (09:27→20:01)
[2021-02-06] MEDS: POTASSIUM CHLORIDE ER 20 MEQ TAB.ER PO SCH ×3 (09:27→20:01)
[2021-02-06] MEDS: FUROSEMIDE 40 MG TAB PO SCH ×2 (09:27→16:52)
[2021-02-06] MEDS: SPIRONOLACTONE 25 MG TAB PO SCH (09:27)
[2021-02-06] MEDS: DULoxetine HCL 30 MG CAPSULE.DR PO SCH ×2 (09:27→20:01)
[2021-02-06] MEDS ORDERED: LIDOCAINE 1% INJ 10MG/ML (20 ML MDV) SQ ONE (10:49)
--- NOTE | 2021-02-06 11:06 | P.PN ---
Subjective Progress Note Date: 02/06/21 Principal diagnosis: Left lower extremity hematoma, left lower extremity skin abrasion Patient was evaluated today at bedside, discussing her hospital bed. Vascular surgery was inserting patient. X-rays were reviewed of the sided tibia and fibula, no acute fractures or dislocations are appreciated. Patient states that the foot and ankle are feeling a little bit better today. Objective - Vital Signs Vital signs: Vital Signs Temp 98.1 F 02/06/21 08:00 Pulse 104 H 02/06/21 08:00 Resp 18 02/06/21 08:00 BP 94/53 02/06/21 08:00 Pulse Ox 100 02/06/21 08:00 Intake & Output 02/05/21 02/06/21 02/06/21 18:59 06:59 18:59 Intake Total 600 120 Output Total 400 Balance 600 -280 Intake: Oral 600 120 Output: Urine 400 Other: Voiding Method Bedside Commode Bedside Commode Bedside Commode # Voids 4 2 1 - Exam General orthopedic exam: Exam of the left lower extremity demonstrates no obvious effusion present over the left knee, there is a well-healed incision over the anterior aspect. There is an obvious skin abrasion noted at the distal third of the tibia/fibula, there is a dressing placed on them. The dressing was removed and the lower leg, there is an obvious hematoma present just proximal to the left ankle, at the distal tibia and fibula. There is surrounding ecchymosis in that area. Patient has good sensation of light touch throughout that extremity. Plantar flexion, dorsiflexion, EHL, FHL are intact. She is nontender with palpation involving the medial and lateral malleolus. Calf is soft, no tenderness with palpation. Flexion and extension are intact at the knee, this is painless with range of motion. Logroll maneuver reproduces no pain. She is able to straight leg raise minimal difficulty. Dorsalis pedis pulses 2+ Right lower extremity demonstrates no obvious open lesions or sores, there is a well-healed incision over the anterior aspect of the knee. She is nontender with palpation throughout that extremity. Logroll maneuver reproduces no pain. Range of motion is intact with regards to hip flexion, knee extension, knee flexion, plantar flexion, dorsiflexion, EHL, FHL. Calf is soft, no tenderness with palpation. Sensory exam light touch is intact throughout the extremity, her dorsalis pedis pulses 2+. Bilateral upper extremity exam demonstrates no obvious open lesions or sores, t here is no significant areas of soft tissue swelling or erythema. Her range of motion is limited in the bilateral shoulders. No severe point tenderness is appreciated, she does have generalized tenderness over the anterior glenoid humeral joint line of the bilateral shoulders. Sensation to light touch to bilateral upper extremities intact, her radial and ulnar pulses are 2+ bilaterally - Labs CBC & Chem 7: 02/06/21 07:40 02/06/21 07:40 Labs: Abnormal Lab Results - Last 24 Hours (Table) 02/05/21 02/05/21 02/06/21 Range/Units 16:21 16:31 07:40 WBC 11.0 H (3.8-10.6) k/uL RBC 2.38 L (3.80-5.40) m/uL Hgb 7.6 L (11.4-16.0) gm/dL Hct 23.6 L (34.0-46.0) % Sodium (137-145) mmol/L Potassium 2.5 L* (3.5-5.1) mmol/L Chloride (98-107) mmol/L BUN (7-17) mg/dL Creatinine (0.52-1.04) mg/dL Glucose (74-99) mg/dL Troponin I 0.040 H* (0.000-0.034) ng/mL 02/06/21 Range/Units 07:40 WBC (3.8-10.6) k/uL RBC (3.80-5.40) m/uL Hgb (11.4-16.0) gm/dL Hct (34.0-46.0) % Sodium 136 L (137-145) mmol/L Potassium (3.5-5.1) mmol/L Chloride 96 L (98-107) mmol/L BUN 70 H (7-17) mg/dL Creatinine 1.48 H (0.52-1.04) mg/dL Glucose 128 H (74-99) mg/dL Troponin I (0.000-0.034) ng/mL Assessment and Plan Assessment: Left lower extremity hematoma Left lower extremity skin abrasion History of left total knee arthroplasty, stable appearing components History of bilateral hip arthroplasty, stable appearing components 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
--- NOTE | 2021-02-06 12:14 | P.GSCN ---
History of Present Illness Consult date: 02/06/21 Reason for Consult: Left ankle hematoma Requesting physician: Bolivar Valiente History of present illness: The C pleasant 80-year-old female who presented to the emergency department after having multiple falls within the couple weeks duration. Patient states that she's fallen at least 3 times and has multiple bruises on her body including a hematoma to the left ankle. Patient states she noticed a hematoma about 4 days ago and states it has been improving. He patient has a past medical history of atrial fibrillation, hyperlipidemia, and osteoarthritis. She's had a previous history of cardiac valve replacement , and surgery, and joint replacement including hip 2 in knee. He is a former smoker. Patient is on Xarelto for atrial fibrillation. She underwent x-ray of tibia/fibula on the left lower extremity showing soft tissue swelling. She also had an x-ray of the left ankle that shows no fracture or dislocation. Soft tissue swelling present. The patient states she does have some pain but nothing that's not controlled. She states she is unsure why she falls, she states she is not passing out but feels that her legs are weak and give out from under her. He currently denies any chest pain, shortness of breath, abdominal pain, nausea, or vomiting. She's been afebrile. Review of Systems A 14 point review of systems was completed, all pertinent positives and negatives as stated in the HPI. Past Medical History Past Medical History: Atrial Fibrillation, Hyperlipidemia, Osteoarthritis (OA) Additional Past Medical History / Comment(s): cardiac valve issues History of Any Multi-Drug Resistant Organisms: None Reported Past Surgical History: Back Surgery, Cardiac Valve Replacement, Joint Replacement Additional Past Surgical History / Comment(s): hipx2 knee replacement Past Anesthesia/Blood Transfusion Reactions: No Reported Reaction Past Psychological History: No Psychological Hx Reported Smoking Status: Former smoker Past Alcohol Use History: None Reported Past Drug Use History: None Reported Medications and Allergies Home Medications Medication Instructions Recorded Confirmed Type Furosemide [Lasix] 40 mg PO BID 09/27/17 02/04/21 History Metoprolol Tartrate [Lopressor] 50 mg PO BID 09/27/17 02/04/21 History Potassium Chloride [K-Tab ER] 40 meq PO TID 09/27/17 02/04/21 History DULoxetine HCL [Cymbalta] 30 mg PO BID 02/04/21 02/04/21 History Rivaroxaban [Xarelto] 15 mg PO W/SUPPER 02/04/21 02/04/21 History Spironolactone 25 mg PO DAILY 02/04/21 02/04/21 History metOLazone [Zaroxolyn] 5 mg PO DIRECTED 02/04/21 02/04/21 History Allergies Allergy/AdvReac Type Severity Reaction Status Date / Time oxycodone Allergy Rash/Hives Verified 02/04/21 09:27 Penicillins Allergy Rash/Hives Verified 02/04/21 09:27 Surgical - Exam Vital Signs Temp Pulse Resp BP Pulse Ox 98.0 F 90 18 108/63 100 02/04/21 08:03 02/04/21 08:03 02/04/21 08:03 02/04/21 08:03 02/04/21 08:03 General appearance: The patient is alert, oriented, in no acute distress. HET: Head is normocephalic and atraumatic. Pupils are equal and reactive. Neck: Supple without lymphadenopathy. Trachea midline. Heart: S1 S2. Regular rate and rhythm. Lungs: Clear to auscultation. Abdomen: Soft, nontender, nondistended with bowel sounds. No peritoneal signs. No palpable organomegaly or masses. Extremities: Normal skin color and turgor. Left medial aspect of left ankle with hematoma, small laceration to the left munson. Multiple bruises on upper extremities and lower extremities. Palpable bilateral dorsalis pedis pulses Neurological: No focal deficits. Results - Labs 02/06/21 07:40 02/06/21 07:40 Abnormal Lab Results - Last 24 Hours (Table) 02/05/21 02/05/21 02/05/21 Range/Units 07:01 16:21 16:31 WBC (3.8-10.6) k/uL RBC (3.80-5.40) m/uL Hgb (11.4-16.0) gm/dL Hct (34.0-46.0) % Sodium 133 L (137-145) mmol/L Potassium 2.7 L* 2.5 L* (3.5-5.1) mmol/L Chloride 91 L (98-107) mmol/L Carbon Dioxide 32 H (22-30) mmol/L BUN 70 H (7-17) mg/dL Creatinine 1.44 H (0.52-1.04) mg/dL Glucose 108 H (74-99) mg/dL Troponin I 0.040 H* (0.000-0.034) ng/mL Total Protein 5.7 L (6.3-8.2) g/dL Albumin 3.3 L (3.5-5.0) g/dL 02/06/21 02/06/21 Range/Units 07:40 07:40 WBC 11.0 H (3.8-10.6) k/uL RBC 2.38 L (3.80-5.40) m/uL Hgb 7.6 L (11.4-16.0) gm/dL Hct 23.6 L (34.0-46.0) % Sodium 136 L (137-145) mmol/L Potassium (3.5-5.1) mmol/L Chloride 96 L (98-107) mmol/L Carbon Dioxide (22-30) mmol/L BUN 70 H (7-17) mg/dL Creatinine 1.48 H (0.52-1.04) mg/dL Glucose 128 H (74-99) mg/dL Troponin I (0.000-0.034) ng/mL Total Protein (6.3-8.2) g/dL Albumin (3.5-5.0) g/dL Diabetes panel 02/05/21 02/05/21 02/06/21 Range/Units 07:01 16:21 07:40 Sodium 133 L 136 L (137-145) mmol/L Potassium 2.7 L* 2.5 L* 3.6 (3.5-5.1) mmol/L Chloride 91 L 96 L (98-107) mmol/L Carbon Dioxide 32 H (22-30) mmol/L BUN 70 H 70 H (7-17) mg/dL Creatinine 1.44 H 1.48 H (0.52-1.04) mg/dL Glucose 108 H 128 H (74-99) mg/dL Calcium 8.9 8.8 (8.4-10.2) mg/dL AST 30 (14-36) U/L ALT 12 (4-34) U/L Alkaline Phosphatase 74 (38-126) U/L Total Protein 5.7 L (6.3-8.2) g/dL Albumin 3.3 L (3.5-5.0) g/dL Calcium panel 02/05/21 02/06/21 Range/Units 07:01 07:40 Calcium 8.9 8.8 (8.4-10.2) mg/dL Albumin 3.3 L (3.5-5.0) g/dL Pituitary panel 02/05/21 02/05/21 02/06/21 Range/Units 07:01 16:21 07:40 Sodium 133 L 136 L (137-145) mmol/L Potassium 2.7 L* 2.5 L* 3.6 (3.5-5.1) mmol/L Chloride 91 L 96 L (98-107) mmol/L Carbon Dioxide 32 H (22-30) mmol/L BUN 70 H 70 H (7-17) mg/dL Creatinine 1.44 H 1.48 H (0.52-1.04) mg/dL Glucose 108 H 128 H (74-99) mg/dL Calcium 8.9 8.8 (8.4-10.2) mg/dL Adrenal panel 02/05/21 02/05/21 02/06/21 Range/Units 07:01 16: 07:40 Sodium 133 L 136 L (137-145) mmol/L Potassium 2.7 L* 2.5 L* 3.6 (3.5-5.1) mmol/L Chloride 91 L 96 L (98-107) mmol/L Carbon Dioxide 32 H (22-30) mmol/L BUN 70 H 70 H (7-17) mg/dL Creatinine 1.44 H 1.48 H (0.52-1.04) mg/dL Glucose 108 H 128 H (74-99) mg/dL Calcium 8.9 8.8 (8.4-10.2) mg/dL Total Bilirubin 0.8 (0.2-1.3) mg/dL AST 30 (14-36) U/L ALT 12 (4-34) U/L Alkaline Phosphatase 74 (38-126) U/L Total Protein 5.7 L (6.3-8.2) g/dL Albumin 3.3 L (3.5-5.0) g/dL - Imaging Comments: See HPI for details Assessment and Plan Assessment: 1. Left ankle hematoma 2. Multiple frequent falls 3. History atrial fibrillation on Xarelto Plan: 1. Continue symptomatic and supportive care 2. Recommend PT and OT 3. Continue recommendations per orthopedics 4. We'll plan to do bedside hematoma evacuation 5. Daily wet-to-dry dressing changes to left ankle Thank you for this consultation, and allowing us take part plan of care of your patient during her hospital stay. The impression and plan of care has been dictated as directed. I performed a history and examination of this patient, discussed the same with the dictator. I agree with the dictator's note ,documented as a scribe. Any additional findings or plans will be noted.
[2021-02-06] MEDS ORDERED: MORPHINE SULFATE 2 MG/ML SYRINGE IVP STA (14:05)
--- NOTE | 2021-02-06 16:30 | P.PN ---
Subjective Progress Note Date: 02/06/21 This is a 80-year-old female with past: History of chronic persistent atrial fibrillation, cardiac valve replacement, hyperlipidemia, former nicotine dependence, obesity, multiple joint replacements and multiple other medical issues, presented to the ER with complaints of increased weakness and discovered to be significant hypokalemic, with a potassium of 2.2. Patient states she was not taking her potassium supplements as ordered, because they were so big. Patient reports she has fallen 3 times in the last week without syncope. Denies head trauma. Patient had previously presented to the ER earlier in the week, and multiple radiology studies performed and released. Patient sustained another fall without syncope after being discharged from the ER sustaining injury of her left lower extremity. Denies chest pain, palpitations or shortness of breath. Troponins 0.061, 0.051. EKG reported atrial fibrillation with PVCs or aberrantly conducted complexes, right bundle branch block, inferior Afebrile, WBC initially 11.6, now within normal limits. Hemoglobin 8.2, platelets 298. Sodium 133. Received potassium supplements currently up to 2.7, receiving further supplements. On admission BUN 80, creatinine 1.78, improving with IV fluid hydration down to 70/1.44. Watch sugars controlled. Lactic acid within normal limits, magnesium 2.3. UA negative. Head CT reported normal CT of the brain, CT spine reported no acute osseous abnormality, degenerative disc changes made to lower cervical spine, foraminal stenosis C5-6 and C6-7 unconvertebral joint, tiny meningioma may be present in the posterior lateral right spinal canal without significant sac compression T1 level. Chest x-ray r eported no acute pulmonary process. 02/06/2021 Evaluated by orthopedic surgery, who consulted vascular surgery for further evaluation of left ankle hematoma.X-ray of x-ray of the left ankle reported no fracture or dislocation. Soft tissue swelling present. X-ray of tibia/fibula of the left lower extremity reporting soft tissue swelling. Pain controlled. Received multiple supplements throughout yesterday with current potassium up to 3.6, magnesium 2.1. BUN 70, creatinine 1.48. Denies chest pain, palpitations or shortness of breath. Denies lightheadedness, dizziness or focal deficits. Afebrile, WBC 11. Hemoglobin decreased to 7.6. Denies nausea,vomiting. Denies abdominal pain. Objective - Vital Signs Vital signs: Vital Signs Temp 98.1 F 02/06/21 08:00 Pulse 96 02/06/21 12:00 Resp 18 02/06/21 12:00 BP 102/67 02/06/21 12:00 Pulse Ox 98 02/06/21 12:00 Intake & Output 02/05/21 02/06/21 02/06/21 18:59 06:59 18:59 Intake Total 600 238 Output Total 400 Balance 600 -162 Intake: Oral 600 238 Output: Urine 400 Other: Voiding Method Bedside Commode Bedside Commode Bedside Commode # Voids 4 2 1 - Exam PHYSICAL EXAM: VITAL SIGNS: As above GENERAL: Sitting up in chair, no acute distress HEENT: Conjunctivae normal. eyes normal. NECK: No JVD. No thyroid enlargement. No LNs CARDIOVASCULAR: S1, S2 regular, irregular.No murmur RESPIRATION: Breath sounds diminished in the bases. No rhonchi or crackles. ABDOMEN: Soft, nontender . No guarding. no masses palpable. Positive Bowel sounds. LEGS: Positive edema, ecchymosis on multiple extremities, left anterior munson abrasion ,hematoma proximal to the left ankle, positive DP pulses. PSYCHIATRY: Alert and oriented X3, mood and affect normal. NERVOUS SYSTEM: Cranial N 2-12 grossly normal. Moves all 4 limbs. Diffuse weakness ,No focal deficits. Strength and sensation grossly intact.. Skin: Warm and dry,no rash - Labs CBC & Chem 7: 02/06/21 07:40 02/06/21 07:40 Labs: Abnormal Lab Results - Last 24 Hours (Table) 02/05/21 02/05/21 02/06/21 Range/Units 16:21 16:31 07:40 WBC 11.0 H (3.8-10.6) k/uL RBC 2.38 L (3.80-5.40) m/uL Hgb 7.6 L (11.4-16.0) gm/dL Hct 23.6 L (34.0-46.0) % Sodium (137-145) mmol/L Potassium 2.5 L* (3.5-5.1) mmol/L Chloride (98-107) mmol/L Carbon Dioxide (22-30) mmol/L BUN (7-17) mg/dL Creatinine (0.52-1.04) mg/dL Glucose (74-99) mg/dL Troponin I 0.040 H* (0.000-0.034) ng/mL 02/06/21 Range/Units 07:40 WBC (3.8-10.6) k/uL RBC (3.80-5.40) m/uL Hgb (11.4-16.0) gm/dL Hct (34.0-46.0) % Sodium 136 L (137-145) mmol/L Potassium (3.5-5.1) mmol/L Chloride 96 L (98-107) mmol/L Carbon Dioxide 32 H (22-30) mmol/L BUN 70 H (7-17) mg/dL Creatinine 1.48 H (0.52-1.04) mg/dL Glucose 128 H (74-99) mg/dL Troponin I (0.000-0.034) ng/mL Assessment and Plan Assessment: Increasing generalized weakness, status post multiple falls, suspect related to hypokalemia Severe Hypokalemia, potassium 2.2 on admission. Noncompliant with potassium supplements as ordered Mildly elevated troponins, denies chest pain, suspect related to acute renal failure. Third troponin and echo ordered. Left lower extremity hematoma Acute renal failure Possible chronic renal failure, stage IV Anemia, possibly of chronic disease Chronic persistent atrial fibrillation, anticoagulated on Xarelto Hyperlipidemia Hypertension Cardiac valve replacement Former nicotine dependence Multiple joint replacements Mild hyponatremia Morbid obesity, BMI 64.4 Plan: Continue on current medication regime ,monitoring and symptomatic treatment. Repeat potassium and hemoglobin at 1600. Hematoma evacuation pending.Echo results pending.close monitoring of renal function, electrolytes with repeat labs ordered for a.m. Pain management. Discharge planning in progress for tomorrow to subacute rehab. The impression and plan of care has been dictated as directed. : I performed a history and examination of this patient, discussed the same with the dictator. I agree with the dictator's note ,documented as a scribe. Any additional findings or plans will be noted.
[2021-02-06] MEDS: RIVAROXABAN 15 MG TAB PO SCH (16:52)
[2021-02-06 16:57] LABS: HCT 24.8 % (34.0-46.0); HGB 8.1 gm/dL (11.4-16.0); Hypochromasia Moderate; MCH 32.1 pg (25.0-35.0); MCHC 32.6 g/dL (31.0-37.0); MCV 98.6 fL (80.0-100.0); Mean Platelet Volume 7.8; Platelet Count 320 k/uL (150-450); Poikilocytosis Slight; RBC 2.52 m/uL (3.80-5.40); RDW 13.5 % (11.5-15.5); WBC 16.3 k/uL (3.8-10.6)
--- NOTE | 2021-02-06 17:44 | ECHOF ---
Referral Reason:cad, multiple falls MEASUREMENTS -------- HEIGHT: 165.1 cm WEIGHT: 175.1 kg BP: RVIDd: 2.2 cm (< 3.3) IVSd: 1.3 cm (0.6 - 1.1) LVIDd: 3.4 cm (3.9 - 5.3) LVPWd: 1.4 cm (0.6 - 1.1) IVSs: 1.7 cm LVIDs: 2.8 cm LVPWs: 2.0 cm LAESV Index (A-L): 31.98 ml/m Ao Diam: 3.0 cm (2.0 - 3.7) LA Diam: 4.3 cm (2.7 - 3.8) MV EXCURSION: 22.256 mm (> 18.000) MV EF SLOPE: 88 mm/s (70 - 150) EPSS: 0.6 cm MV E Franko: 1.59 m/s MV DecT: 209 ms MV A Franko: 0.76 m/s MV E/A Ratio: 2.08 AV maxP.31 mmHg AV meanP.36 mmHg AR PHT: 390 ms RAP: 15.00 mmHg RVSP: 55.27 mmHg FINDINGS -------- This was a technically difficult study with suboptimal views. The left ventricular size is normal. There is moderate concentric left ventricular hypertrophy. O verall left ventricular systolic function is normal with, an EF between 55 - 60 %. Normal LAP Grade 1 Diastolic Dysfunction. The right ventricle is normal in size. LA is midly dilated 29-33ml/m2. The right atrial size is normal. Lumason used Trace amount of aortic regurgitation. Peak/mean gradient across the Aortic Valve is 20.31mmHg / 10 .36mmHg. Echodense aortic annulus likely consistent with prior stentless bioprosthetic aortic valve with normally functioning aortic valve. The mitral valve is normal. The mitral valve leaflets are mildly thickened. Mild mitral regurgita tion is present. There is increased mitral annular echodenisty likely consistent with prior mitral ring. Mild tricuspid regurgitation present. There is moderate pulmonary hypertension. The right ventric ular systolic pressure, as measured by Doppler, is 55.27mmHg. There is increased echodensity of the tricuspid annulus which may be consistent with prior tricuspid ring vs calcification. There is incr eased diastolic color flow across the aortic valve concerning for some degree of tricuspid stenosis h owever diastolic dopplers were not obtained. There is a 1.3cm x 1.2 cm mobile echodensity which natalya ears attached to the tricuspid valve concerning for possible vegetation. Would recommend KISHORE if clin ically indicated. Trace/mild (physiologic) pulmonic regurgitation. The aortic root size is normal. The inferior vena cava is mildly dilated. There is no pericardial effusion. CONCLUSIONS -------- 1. The left ventricular size is normal. 2. There is moderate concentric left ventricular hypertrophy. 3. Overall left ventricular systolic function is normal with, an EF between 55 - 60 %. 4. Normal LAP Grade 1 Diastolic Dysfunction. 5. LA is midly dilated 29-33ml/m2. 6. Trace amount of aortic regurgitation. 7. Peak/mean gradient across the Aortic Valve is 20.31mmHg / 10.36mmHg. 8. Echodense aortic annulus likely consistent with prior stentless bioprosthetic aortic valve with no rmally functioning aortic valve. 9. The mitral valve leaflets are mildly thickened. 10. Mild mitral regurgitation is present. 11. There is increased mitral annular echodenisty likely consistent with prior mitral ring. 12. Mild tricuspid regurgitation present. 13. There is moderate pulmonary hypertension. 14. The right ventricular systolic pressure, as measured by Doppler, is 55.27mmHg. 15. There is increased echodensity of the tricuspid annulus which may be consistent with prior tricus pid ring vs calcification. There is increased diastolic color flow across the aortic valve concernin g for some degree of tricuspid stenosis however diastolic dopplers were not obtained. 16. There is a 1.3cm x 1.2 cm mobile echodensity which appears attached to the tricuspid valve concer yola for possible vegetation. Would recommend KISHORE if clinically indicated. 17. Trace/mild (physiologic) pulmonic regurgitation. 18. The inferior vena cava is mildly dilated. 19. There is no pericardial effusion. WEIGHT CONTROL LECTURER: Leigh Salcido RDCS
[2021-02-07] MEDS: SODIUM CHLORIDE 0.9% 1,000 ML IV SCH ×2 (05:00→17:01)
[2021-02-07] MEDS: PANTOPRAZOLE 40 MG TABLET PO SCH (05:50)
[2021-02-07 07:58] LABS: Basophils # (A) 0.1 k/uL (0-0.2); Basophils % (A) 0 %; Eosinophils # (A) 0.2 k/uL (0-0.7); Eosinophils % (A) 2 %; HCT 24.7 % (34.0-46.0); HGB 7.7 gm/dL (11.4-16.0); Hypochromasia Moderate; Lymphocytes # (A) 1.3 k/uL (1.0-4.8); Lymphocytes % (A) 11 %; MCH 30.9 pg (25.0-35.0); MCHC 31.4 g/dL (31.0-37.0); MCV 98.5 fL (80.0-100.0); Mean Platelet Volume 7.6; Monocytes % (A) 8 %; Neutrophils # (A) 9.2 k/uL (1.3-7.7); Neutrophils % (A) 76 %; Platelet Count 280 k/uL (150-450); Poikilocytosis Slight; RBC 2.51 m/uL (3.80-5.40); RDW 13.7 % (11.5-15.5); WBC 12.2 k/uL (3.8-10.6)
[2021-02-07 08:14] LABS: Potassium 3.2 mmol/L (3.5-5.1)
[2021-02-07] MEDS: DULoxetine HCL 30 MG CAPSULE.DR PO SCH ×2 (09:47→19:52)
[2021-02-07] MEDS: METOPROLOL TARTRATE 50 MG TAB PO SCH ×2 (09:47→19:52)
[2021-02-07] MEDS: SPIRONOLACTONE 25 MG TAB PO SCH (09:47)
[2021-02-07] MEDS: POTASSIUM CHLORIDE ER 20 MEQ TAB.ER PO SCH ×5 (09:47→19:52)
[2021-02-07] MEDS: FUROSEMIDE 40 MG TAB PO SCH ×2 (09:47→17:01)
--- NOTE | 2021-02-07 10:06 | P.DS ---
Providers Date of admission: 02/04/21 10:05 Expected date of discharge: 02/07/21 Attending physician: Bolivar Valiente Consults: 02/05/21 10:51 Consult Physician Routine Consulting Provider: Karlos Freed Consult Reason/Comments: LLL hematoma,s/p fall Do you want consulting provider notified?: Yes 02/05/21 13:05 Consult Physician Routine Consulting Provider: Jillian Kaiser Consult Reason/Comments: left ankle hematoma Do you want consulting provider notified?: Yes Primary care physician: Bolivar Valiente Hospital Course: Final Diagnoses: Increasing generalized weakness, status post multiple falls, suspect related to hypokalemia Severe Hypokalemia, potassium 2.2 on admission. Noncompliant with potassium supplements as ordered Mildly elevated troponins, denies chest pain, suspect related to acute renal failure. Echo suggestive of possible vegetation of the tricuspid valve- Cardiology following. Left lower extremity hematoma Acute renal failure Possible chronic renal failure, stage IV Anemia, possibly of chronic disease Chronic persistent atrial fibrillation, anticoagulated on Xarelto Hyperlipidemia Hypertension Cardiac valve replacement Former nicotine dependence Multiple joint replacements Mild hyponatremia Morbid obesity, BMI 64.4 Moderate pulmonary hypertension Hospital course:This is a 80-year-old female with past: History of chronic persistent atrial fibrillation, cardiac valve replacement, hyperlipidemia, former nicotine dependence, obesity, multiple joint replacements and multiple other medical issues, presented to the ER with complaints of increased weakness and discovered to be significant hypokalemic, with a potassium of 2.2. Patient states she was not taking her potassium supplements as ordered, because they were so big. Patient reports she has fallen 3 times in the last week without syncope. Denies head trauma. Patient had previously presented to the ER earlier in the week, and multiple radiology studies performed and released. Patient sustained another fall without syncope after being discharged from the ER sustaining injury of her left lower extremity. Denies chest pain, palpitations or shortness of breath. Troponins 0.061, 0.051. EKG reported atrial fibrillation with PVCs or aberrantly conducted complexes, right bundle branch block, inferior Afebrile, WBC initially 11.6, now within normal limits. Hemoglobin 8.2, platelets 298. Sodium 133. Received potassium supplements currently up to 2.7, receiving further supplements. On admission BUN 80, creatinine 1.78, improving with IV fluid hydration down to 70/1.44. Watch sugars controlled. Lactic acid within normal limits, magnesium 2.3. UA negative. Head CT reported normal CT of the brain, CT spine reported no acute osseous abnormality, degenerative disc changes made to lower cervical spine, foraminal stenosis C5-6 and C6-7 unconvertebral joint, tiny meningioma may be present in the posterior lateral right spinal canal without significant sac com pression T1 level. Chest x-ray reported no acute pulmonary process. 02/06/2021 Evaluated by orthopedic surgery, who consulted vascular surgery for further evaluation of left ankle hematoma.X-ray of x-ray of the left ankle reported no fracture or dislocation. Soft tissue swelling present. X-ray of tibia/fibula of the left lower extremity reporting soft tissue swelling. Pain controlled. Received multiple supplements throughout yesterday with current potassium up to 3.6, magnesium 2.1. BUN 70, creatinine 1.48. Denies chest pain, palpitations or shortness of breath. Denies lightheadedness, dizziness or focal deficits. Afebrile, WBC 11. Hemoglobin decreased to 7.6. Denies nausea,vomiting. Denies abdominal pain. Echo reported normal LV systolic function with EF between 55 and 60%, increased mitral annular echodensity likely consistent with prior mitral ring, moderate pulmonary hypertension, increased echodensity of the tricuspid annulus consistent with prior tricuspid ring versus calcification, possible tricuspid stenosis, 1.3 cm 1.2 cm mobile echodensity attached to the tricuspid valve concerning for possible vegetation. Evaluated by cardiology with echo reviewed.Evaluated by vascular surgery with hematoma evacuation performed. Tolerated procedure well. Recommending daily wet-to-dry dressings of the surgical site. Potassium 3.2, receiving additional supplements this morning. Significant clinical improvement. Cleared by vascular and orthopedic surgery. Patient will be discharged to subacute rehab today in a stable condition with guarded prognosis pending cardiology final DC recommendations, clearance and authorization. The impression and plan of care has been dictated as directed. : I performed a history and examination of this patient, discussed the same with the dictator. I agree with the dictator's note ,documented as a scribe. Any additional findings or plans will be noted. Patient Condition at Discharge: Stable Plan - Discharge Summary Discharge Rx Participant: No New Discharge Prescriptions: Gibran Pantoprazole [Protonix] 40 mg PO AC-BRKFST tablet. Acetaminophen Tab [Tylenol] 650 mg PO Q6HR PRN tab PRN Reason: Mild Pain Or Fever > 100.5 Acetaminophen-Codeine 300-30mg [Tylenol w/codeine #3] 1 each PO Q8H PRN #9 tab PRN Reason: Pain Continue Metoprolol Tartrate [Lopressor] 50 mg PO BID Furosemide [Lasix] 40 mg PO BID Potassium Chloride [K-Tab ER] 40 meq PO TID Rivaroxaban [Xarelto] 15 mg PO W/SUPPER DULoxetine HCL [Cymbalta] 30 mg PO BID Spironolactone 25 mg PO DAILY Discontinued metOLazone [Zaroxolyn] 5 mg PO DIRECTED Discharge Medication List Furosemide [Lasix] 40 mg PO BID 09/27/17 [History] Metoprolol Tartrate [Lopressor] 50 mg PO BID 09/27/17 [History] Potassium Chloride [K-Tab ER] 40 meq PO TID 09/27/17 [History] DULoxetine HCL [Cymbalta] 30 mg PO BID 02/04/21 [History] Rivaroxaban [Xarelto] 15 mg PO W/SUPPER 02/04/21 [History] Spironolactone 25 mg PO DAILY 02/04/21 [History] Acetaminophen Tab [Tylenol] 650 mg PO Q6HR PRN tab 02/07/21 [Rx] Acetaminophen-Codeine 300-30mg [Tylenol w/codeine #3] 1 each PO Q8H PRN #9 tab 02/07/21 [Rx] Pantoprazole [Protonix] 40 mg PO AC-BRKFST tablet. 02/07/21 [Rx] Follow up Appointment(s)/Referral(s): Bolivar Valiente DO [Primary Care Provider] - 1 Week (After discharge from subacute rehab) Activity/Diet/Wound Care/Special Instructions: ECF: CBC, BMP in 2 days Wet to dry dressing daily to left lower extremity as recommended per vascular surgery
--- NOTE | 2021-02-07 12:15 | P.PN ---
Subjective Progress Note Date: 02/07/21 Principal diagnosis: left ankle hematoma Patient seen and examined at the bedside. She is status post evacuation of hematoma on the left ankle. She states she is doing well, she denies any pain. We'll continue wet-to-dry dressings. Objective - Vital Signs Vital signs: Vital Signs Temp 98.6 F 02/07/21 04:00 Pulse 98 02/07/21 04:00 Resp 18 02/07/21 04:00 BP 102/62 02/07/21 04:00 Pulse Ox 96 02/07/21 04:00 Intake & Output 02/06/21 02/07/21 02/07/21 18:59 06:59 18:59 Intake Total 358 180 Output Total 400 1000 400 Balance -42 -1000 -220 Weight 175 kg Intake: Oral 358 180 Output: Urine 400 1000 400 Other: Voiding Method Bedside Commode Bedside Commode # Voids 2 1 - Exam General appearance: The patient is alert, oriented, in no acute distress. HET: Head is normocephalic and atraumatic. Pupils are equal and reactive. Oropharynx is clear without lesions. Extremities: Normal skin color and turgor. Lower extremity with dressing clean dry and intact. Neurological: No focal deficits. Strength and sensation are grossly intact. - Labs CBC & Chem 7: 02/07/21 07:31 02/07/21 07:31 Labs: Abnormal Lab Results - Last 24 Hours (Table) 02/06/21 02/06/21 02/07/21 Range/Units 07:40 16:46 07:31 WBC 16.3 H 12.2 H (3.8-10.6) k/uL RBC 2.52 L 2.51 L (3.80-5.40) m/uL Hgb 8.1 L 7.7 L (11.4-16.0) gm/dL Hct 24.8 L 24.7 L (34.0-46.0) % Neutrophils # 9.2 H (1.3-7.7) k/uL Sodium (137-145) mmol/L Potassium (3.5-5.1) mmol/L Chloride (98-107) mmol/L Carbon Dioxide 32 H (22-30) mmol/L BUN (7-17) mg/dL Creatinine (0.52-1.04) mg/dL Glucose (74-99) mg/dL 02/07/21 Range/Units 07:31 WBC (3.8-10.6) k/uL RBC (3.80-5.40) m/uL Hgb (11.4-16.0) gm/dL Hct (34.0-46.0) % Neutrophils # (1.3-7.7) k/uL Sodium 136 L (137-145) mmol/L Potassium 3.2 L (3.5-5.1) mmol/L Chloride 94 L (98-107) mmol/L Carbon Dioxide 33 H (22-30) mmol/L BUN 67 H (7-17) mg/dL Creatinine 1.37 H (0.52-1.04) mg/dL Glucose 126 H (74-99) mg/dL Assessment and Plan Assessment: 1. Left ankle hematoma 2. Multiple frequent falls 3. History atrial fibrillation on Xarelto Plan: 1. Continue symptomatic and supportive care 2. Recommend PT and OT 3. Continue recommendations per orthopedics 4. Daily wet-to-dry dressing changes to left ankle Thank you for this consultation, patient is cleared by vascular surgery for discharge. We will sign off at this time. The impression and plan of care has been dictated as directed. Dr. Alford I performed a history and examination of this patient, discussed the same with the dictator. I agree with the dictator's note ,documented as a scribe. Any additional findings or plans will be noted.
[2021-02-07] MEDS: RIVAROXABAN 15 MG TAB PO SCH (17:01)
--- NOTE | 2021-02-07 19:01 | CONS ---
CONSULTATION Mrs. Siegel is a 80-year-old female with known history of chronic persistent atrial fibrillation, anticoagulated, history of mitral valve disease. She underwent aortic valve replacement, mitral valve repair and tricuspid valve repair with ascending aortic replacement done in June 2010 at [facility]. She had no significant obstructive coronary artery disease. She presented to the hospital because of recurrent falls. The patient has had multiple knee surgeries at [facility] with significant limitation in her activity. She has a history of hyperlipidemia and a history of peripheral vascular disease. Cardiology consultation was requested because of an abnormal echocardiogram. Her echocardiogram that was performed yesterday showed a preserved left ventricular size and systolic function with a normally functioning bioprosthetic aortic valve and mitral valve repair. There was an echodensity of the tricuspid anulus consistent with the tricuspid ring. An echodensity attached to the tricuspid valve was noted, raising the possibility of vegetation. The patient denies any recent fever or cough. She denies any change in her breathing. She has chronic dyspnea on exertion, unchanged. She denies any change in her overall status except the falls. Her activity has been limited for a while. She underwent prior cardioversion to restore sinus mechanism, but recently she has been in atrial fibrillation, persistent, and controlled ventricular response, and no further intervention was done on that. She has been afebrile during this admission and she has no history of to suggest any infectious process. MEDICATIONS: Medications as an outpatient included spironolactone 25 mg daily, Xarelto 15 mg daily, potassium, metoprolol tartrate 50 mg 3 times a day, Lasix 40 mg twice a day, Cymbalta, Protonix. REVIEW OF SYSTEMS: RESPIRATORY SYSTEM: She has chronic dyspnea on exertion, unchanged. GI SYSTEM: No recent nausea. No vomiting. No GI bleeding. SYSTEM: No dysuria or hematuria. NERVOUS SYSTEM: No history of seizure. PHYSICAL EXAMINATION: She is a 80-year-old female, alert, oriented, obese, in no apparent distress. Blood pressure 100 to 110 over 60 with a heart rate in the 80s. HEAD: Normocephalic. EYES: Sclerae anicteric. NECK: Good carotid upstroke. No bruits. LUNGS: Clear to auscultation. HEART: Irregularly irregular. S1, S2. No S3, with systolic murmur heard at the left upper sternal border. No diastolic murmur. No rub. ABDOMEN: Soft, obese, nontender. Positive bowel sounds. No organomegaly. EXTREMITIES: Trace edema; much improved from her baseline. Dressing noted on the left ankle following a hematoma from the fall. Pulse intact. LAB DATA: Hemoglobin of 7.7, white blood cells of 12.2, BUN and creatinine of 67 and 1.37, improved compared to yesterday. Troponin 0.061, 0.051 and 0.040. Her EKG revealed atrial fibrillation with right bundle branch block, occasional PVCs and nonspecific ST- T wave changes. IMPRESSION: 1. Recurrent falls with no syncope. 2. Abnormal echocardiogram raising the possibility of tricuspid regurgitation on the repaired tricuspid valve. The patient has no symptoms or history of endocarditis. The etiology of that finding is unclear. It could be related to the prior surgical intervention. 3. History of chronic persistent atrial fibrillation. 4. Mitral valve disease with aortic valve replacement and mitral and tricuspid valve repair as well as ascending aorta repair. 5. History of hyperlipidemia. 6. Severe arthritic pain with prior multiple surgeries on the knees. 7. Hematoma on the ankle, stable. 8. History of chronic kidney disease. RECOMMENDATIONS: From the cardiac standpoint, I will continue her on the present regimen, including her anticoagulation. I do not see any evidence to suggest acute endocarditis. I will obtain a blood culture to rule out any active infection, although clinically she has no evidence to suggest such. If there is no evidence of abnormality, then I do not see any reason she should not be able to be transferred to the rehab today and be followed as an outpatient to see if any further workup will be needed. Thank you for this consult. Will follow with you. MMODL / IJN: [id number] /
[2021-02-07 22:31] LABS: Magnesium 1.7 mg/dL (1.6-2.3); Potassium 3.5 mmol/L (3.5-5.1)
[2021-02-08] MEDS: POTASSIUM CHLORIDE ER 20 MEQ TAB.ER PO SCH ×5 (00:30→20:09)
[2021-02-08 01:18] LABS: Basophils # (A) 0.1 k/uL (0-0.2); Basophils % (A) 0 %; Eosinophils # (A) 0.2 k/uL (0-0.7); Eosinophils % (A) 1 %; HCT 24.7 % (34.0-46.0); HGB 7.8 gm/dL (11.4-16.0); Hypochromasia Moderate; Lymphocytes # (A) 1.3 k/uL (1.0-4.8); Lymphocytes % (A) 10 %; MCH 30.9 pg (25.0-35.0); MCHC 31.7 g/dL (31.0-37.0); MCV 97.5 fL (80.0-100.0); Monocytes # (A) 0.9 k/uL (0-1.0); Monocytes % (A) 7 %; Neutrophils # (A) 9.5 k/uL (1.3-7.7); Neutrophils % (A) 77 %; Platelet Count 281 k/uL (150-450); Poikilocytosis Slight; RBC 2.53 m/uL (3.80-5.40); WBC 12.4 k/uL (3.8-10.6)
[2021-02-08] MEDS: PANTOPRAZOLE 40 MG TABLET PO SCH (05:25)
[2021-02-08 08:18] LABS: Albumin 3.4 g/dL (3.5-5.0); Calcium 9.1 mg/dL (8.4-10.2); Potassium 4.1 mmol/L (3.5-5.1); Total Bilirubin 0.9 mg/dL (0.2-1.3)
[2021-02-08] MEDS: METOPROLOL TARTRATE 50 MG TAB PO SCH ×2 (08:22→20:09)
[2021-02-08] MEDS: DULoxetine HCL 30 MG CAPSULE.DR PO SCH ×2 (08:22→20:09)
[2021-02-08] MEDS: SPIRONOLACTONE 25 MG TAB PO SCH (08:22)
[2021-02-08] MEDS: FUROSEMIDE 40 MG TAB PO SCH ×2 (08:23→16:22)
[2021-02-08] MEDS: Acetaminophen-Codeine 300-30mg TAB PO PRN ×2 (14:24→18:36)
--- NOTE | 2021-02-08 14:45 | P.PN ---
Subjective HISTORY OF PRESENTING ILLNESS Patient is a pleasant 72-year-old female with history of persistent atrial fibrillation, mitral valve disease, aortic valve replacement, mitral valve repair and tricuspid valve repair with an ascending aortic replacement in June 2010. She has been doing fairly well since that time and follows with Dr. Villanueva. She presented secondary to recurrent falls and what appeared to be a mechanical fall, denies any lightheadedness or dizziness. She has been doing well without any chest pain, pressure. She did have echocardiogram performed 02/06/2021 with left ventricular ejection fraction 55-60%, with normally funct ioning bioprosthetic aortic valve, 1.3 x 1.2 cm echodensity attached to the tricuspid valve. Therefore blood culture 1 was drawn which has no growth to date. She denies any fevers or chills. REVIEW OF SYSTEMS At the time of my exam: CONSTITUTIONAL: Denies fever or chills. CARDIOVASCULAR: Denies chest pain, shortness of breath, orthopnea, PND or palpitations. RESPIRATORY: Denies cough. GASTROINTESTINAL: Denies abdominal pain, diarrhea, constipation, nausea or vomiting. MUSCULOSKELETAL: Denies myalgias. NEUROLOGIC: Denies numbness, tingling or weakness. ENDOCRINE: Denies fatigue, weight change, polydipsia or polyurina. GENITOURINARY: Denies burning, hematuria or urgency with micturation. HEMATOLOGIC: Denies history of anemia or bleeding. PHYSICAL EXAMINATION Vital signs reviewed. CONSTITUTIONAL: No apparent distress. HEENT: Head is normocephalic. Pupils are equal, round. Sclerae anicteric. Mucous membranes of the mouth are moist. No JVD. No carotid bruit. CHEST EXAMINATION: Lungs are clear to auscultation. No chest wall tenderness is noted on palpation or with deep breathing. HEART EXAMINATION: Regular rate and rhythm. S1, S2 heard. No murmurs, gallops or rub. ABDOMEN: Soft, nontender. Positive bowel sounds. EXTREMITIES: 2+ peripheral pulses, no lower extremity edema and no calf tenderness. NEUROLOGIC EXAMINATION: Patient is awake, alert and oriented x3. ASSESSMENT 1. Recurrent falls 2. Abnormal echo with concern of tricuspid echo density, likely related to prior surgical intervention 3. Persistent atrial fibrillation 4. Status post mitral valve ring, aortic valve replacement, aortic root replacement 5. Hyperlipidemia 6. Arthritis 7. CKD PLAN Patient with recurrent falls appears related to debility and weakness. Patient been evaluated for likely subacute rehab. No shortness breath or anginal type symptoms. No syncope. Patient with incidental echocardiographic findings and continue to monitor results of blood cultures however no growth to date. Patient may be discharged to subacute rehab from cardiology standpoint. No further recommendations. Please call with any questions. Objective - Vital Signs Vital signs: Vital Signs Temp 98.2 F 02/08/21 11:48 Pulse 81 02/08/21 13:15 Resp 16 02/08/21 13:15 BP 97/48 02/08/21 11:48 Pulse Ox 100 02/08/21 11:48 Intake & Output 02/07/21 02/08/21 02/08/21 18:59 06:59 18:59 Intake Total 1080 420 Output Total 1000 700 700 Balance 80 -700 -280 Weight 119 kg Intake: Oral 1080 420 Output: Urine 1000 700 700 Other: Voiding Method Bedside Commode Bedside Commode Bedside Commode # Bowel Movements 1 - Labs CBC & Chem 7: 02/08/21 00:56 02/08/21 06:54 Labs: Abnormal Lab Results - Last 24 Hours (Table) 02/07/21 02/08/21 02/08/21 Range/Units 16:00 00:56 06:54 WBC 12.4 H (3.8-10.6) k/uL RBC 2.53 L (3.80-5.40) m/uL Hgb 7.8 L (11.4-16.0) gm/dL Hct 24.7 L (34.0-46.0) % Neutrophils # 9.5 H (1.3-7.7) k/uL D-Dimer (<0.60) mg/L FEU Sodium 135 L (137-145) mmol/L Potassium 3.1 L (3.5-5.1) mmol/L Chloride 96 L (98-107) mmol/L Carbon Dioxide 31 H (22-30) mmol/L BUN 63 H (7-17) mg/dL Creatinine 1.48 H (0.52-1.04) mg/dL Glucose 116 H (74-99) mg/dL Total Protein 6.0 L (6.3-8.2) g/dL Albumin 3.4 L (3.5-5.0) g/dL 02/08/21 Range/Units 14:02 WBC (3.8-10.6) k/uL RBC (3.80-5.40) m/uL Hgb (11.4-16.0) gm/dL Hct (34.0-46.0) % Neutrophils # (1.3-7.7) k/uL D-Dimer 0.78 H (<0.60) mg/L FEU Sodium (137-145) mmol/L Potassium (3.5-5.1) mmol/L Chloride (98-107) mmol/L Carbon Dioxide (22-30) mmol/L BUN (7-17) mg/dL Creatinine (0.52-1.04) mg/dL Glucose (74-99) mg/dL Total Protein (6.3-8.2) g/dL Albumin (3.5-5.0) g/dL Microbiology - Last 24 Hours (Table) 02/07/21 11:31 Blood Culture - Preliminary Blood No Growth after 24 hours
[2021-02-08] MEDS: RIVAROXABAN 15 MG TAB PO SCH (16:22)
--- NOTE | 2021-02-08 16:23 | PN ---
PROGRESS NOTE I am covering for Dr. Valiente. DATE OF SERVICE: 02/08/2021 This 80-year-old woman who was admitted with recurrent falls and syncope also had suspicious on 2D echo. Patient had extensive valvular surgery, including a tricuspid valve and aortic valve, at [facility]. Blood culture has been obtained; the result is not available. The patient also had a high white count. The patient does not have any fever or any other signs of endocarditis. Patient is being closely monitored at this time. The patient has severe hypokalemia and severe hyponatremia, present on admission. The patient also had renal failure which is slightly improved. Potassium has been supplemented. Troponin was 0.051, present on admission. There is no history of any fever, rigors or chills. Past medical history reviewed. REVIEW OF SYSTEMS: CARDIOVASCULAR SYSTEM: No angina, palpitations. RESPIRATORY SYSTEM: As mentioned earlier. GI: As mentioned earlier. : No dysuria. NERVOUS SYSTEM: No numbness, weakness. CURRENT MEDICATIONS: Current medications are reviewed and include Tylenol, Cymbalta, Lasix, Lopressor, Narcan, Protonix. Doses are reviewed. PHYSICAL EXAMINATION: Patient is alert and oriented x3. Pulse 81, blood pressure 97/48, respirations 16, temperature 98.2, pulse ox 100% on room air. HEENT: Conjunctivae normal. NECK: No jugular venous distention. CARDIOVASCULAR: S1, S2 muffled. Ejection systolic murmur present. RESPIRATION: Breath sounds diminished at the bases. No rhonchi. No crackles. ABDOMEN: Soft, nontender. No mass palpable. LEGS: No edema. No swelling. NERVOUS SYSTEM: No focal deficit. LAB STUDIES: WBC 12.4, hemoglobin 7.8. Hemoglobin was 9.6, present on admission. Last year it was normal. ASSESSMENT: 1. 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 2. Severe hypokalemia and hyponatremia, present on admission. 3. Rule out tricuspid valve vegetations. 4. History of multi-valvular surgery previously. 5. Left lower extremity hematoma. 6. Possible chronic kidney disease, stage IV. 7. Acute renal failure. 8. Anemia. Rule out chronic blood-loss anemia. 9. Increased white cell count. 10.Hyponatremia. 11.History atrial fibrillation. 12.Hyperlipidemia. 13.History of degenerative joint disease. 14.History of back surgery. 15.History of joint replacement and degenerative joint disease. 16.Obesity. BMI 43.7. 17.NO CODE, NO CPR, NO VENT. RECOMMENDATIONS AND DISCUSSION: I recommend to continue current medications, continue with symptomatic treatment. Repeat labs. Repeat electrolytes tomorrow. Otherwise, I would recommend a D- dimer and CRP also. Otherwise, stool occult blood is also requested. Prognosis is guarded because of multiple complex medical issues. The patient was started on Xarelto also. Further recommendations to follow. MMODL / IJN: [id number] / OZ
[2021-02-08] MEDS: SODIUM CHLORIDE 0.9% 1,000 ML IV SCH ×2 (16:48→21:43)
[2021-02-09] MEDS: PANTOPRAZOLE 40 MG TABLET PO SCH (06:29)
[2021-02-09 07:14] LABS: Basophils % (A) 0 %; Eosinophils # (A) 0.1 k/uL (0-0.7); Eosinophils % (A) 1 %; Hypochromasia Moderate; Lymphocytes % (A) 9 %; MCHC 32.1 g/dL (31.0-37.0); MCV 96.4 fL (80.0-100.0); Mean Platelet Volume 7.1; Monocytes # (A) 0.9 k/uL (0-1.0); Monocytes % (A) 8 %; Neutrophils # (A) 8.2 k/uL (1.3-7.7); Neutrophils % (A) 77 %; Platelet Count 268 k/uL (150-450); Poikilocytosis Slight; RBC 2.59 m/uL (3.80-5.40); RDW 14.2 % (11.5-15.5); WBC 10.8 k/uL (3.8-10.6)
[2021-02-09 07:42] LABS: Calcium 8.9 mg/dL (8.4-10.2); Potassium 3.4 mmol/L (3.5-5.1)
[2021-02-09] MEDS: SPIRONOLACTONE 25 MG TAB PO SCH (08:19)
[2021-02-09] MEDS: POTASSIUM CHLORIDE ER 20 MEQ TAB.ER PO SCH ×3 (08:19→20:10)
[2021-02-09] MEDS: FUROSEMIDE 40 MG TAB PO SCH ×2 (08:19→15:04)
[2021-02-09] MEDS: DULoxetine HCL 30 MG CAPSULE.DR PO SCH ×2 (08:19→20:10)
[2021-02-09] MEDS: METOPROLOL TARTRATE 50 MG TAB PO SCH ×2 (08:19→20:10)
[2021-02-09] MEDS: SODIUM CHLORIDE 0.9% 1,000 ML IV SCH (11:20)
--- NOTE | 2021-02-09 14:47 | PN ---
PROGRESS NOTE I am covering for Dr. Valiente. DATE OF SERVICE: 02/09/2021 This 80-year-old woman who was admitted with a history of recurrent falls also had a suspicious lesion in the tricuspid valve area; vegetation unlikely per Cardiology. Cultures are pending at this time. No chest pain. No palpitations. No fever. REVIEW OF SYSTEMS: CARDIOVASCULAR SYSTEM: As mentioned earlier. RESPIRATORY SYSTEM: As mentioned earlier. GI: As mentioned earlier. : No dysuria. NERVOUS SYSTEM: No numbness, weakness. MEDICATIONS: Current medications are reviewed and include Tylenol No.3, Cymbalta, Lasix, Lopressor, Narcan, Protonix, Xarelto. Doses are reviewed. PHYSICAL EXAMINATION: Alert and oriented x3. Pulse 73, blood pressure 115/59, respirations 16, temperature 98.1, pulse ox 97% on room air. HEENT: Conjunctivae normal. NECK: No jugular venous distention. CARDIOVASCULAR: S1, S2 muffled. RESPIRATORY SYSTEM: Breath sounds diminished at the bases. A few scattered rhonchi. ABDOMEN: Soft, nontender. LEGS: No edema. No swelling. NERVOUS SYSTEM: No focal deficit. LAB STUDIES: is 8, hemoglobin 10.8. D-dimer is 0.78. ESR is 120. Sodium 135, potassium 3.4. C-reactive protein 6.1. ASSESSMENT: 1. 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 2. Severe hypokalemia and hyponatremia, present on admission. 3. Rule out tricuspid valve vegetation. 4. History of multivalvular surgery previously. 5. Elevated ESR, CRP. 6. Left lower leg hematoma. 7. Possible chronic kidney disease, stage 4. 8. Acute renal failure. 9. Anemia. Rule out chronic blood-loss anemia. 10.Increased white count. 12.History of atrial fibrillation. 13.Hyperlipidemia. 14.History of degenerative joint disease. 15.History of back surgery. 16.History of joint replacement, degenerative joint disease. 17.Obesity with body mass index of 43.7. 18.NO CODE, NO CPR, NO VENT. RECOMMENDATIONS AND DISCUSSION: I recommend to continue current medications, continue with symptomatic treatment. Otherwise at this time supplement potassium. I would also recommend infectious disease evaluation for possible evaluation and antibiotic treatment. Follow closely with Cardiology. Otherwise, prognosis is guarded. Further recommendations to follow. MMODL / IJN: [id number] / [email or web address]
[2021-02-09] MEDS: RIVAROXABAN 15 MG TAB PO SCH (15:05)
[2021-02-09] MEDS: Acetaminophen-Codeine 300-30mg TAB PO PRN (20:09)
--- NOTE | 2021-02-10 00:08 | P.CONS ---
History of Present Illness - Reason for Consult Consult date: 02/09/21 ? endocarditis Requesting physician: Ricardo Martin - Chief Complaint multiple falls x 1 week - History of Present Illness History of present illness : Patient is 80-year female presented to the ER about 5 days ago for evaluation of fall in this patient who did have a multiple falls over the last 1 week patient did mention that last fall seem to be slightly serious and she wanted to be checked out patient denies having any loss of consciousness or hitting her head patient denies having any fever or any chills and no fever has been recorded during this admission patient did have mild leukocytosis during this admission did have a negative UA and arevalo PCR patient did have a chest x-ray no acute cardiopulmonary process patient did have an echocardiogram completed on the which did show echodense aortic annulus likely consistent with the prior status bioprosthetic aortic wall there was also mobile echodensity attached to the tricuspid valve concerning for possible vegetation patient did have blood cultures drawn that has been negative so far infectious disease was consulted today because of this abnormality and need for further work-up patient did have a elevated sed rate of 120 and a CRP of 6.1 Review of system: Positive point has been mentioned in HPI rest of the systems are negative Past medical history : Reviewed, documented below Past surgical history : Reviewed, documented below Social history: Reviewed, documented below Medications: Reviewed, as documented below GENERAL DESCRIPTION: Elderly female up in bed, no distress. No tachypnea or accessory muscle of respiration use. HEENT: Shows Pallor , no scleral icterus. Oral mucous membrane is dry. NECK: Trachea central, no thyromegaly. LUNGS: Unlabored breathing. Decreased breath sounds no wheeze. No wheeze or crackle. HEART: S1, S2, regular rate and rhythm. ABDOMEN: Soft, no tenderness , guarding or rigidity EXTREMITIES: No edema of feet. SKIN: No rash, no masses palpable. NEUROLOGICAL: The patient is awake, alert, oriented x3, mood and affect normal. LABS AND RADIOLOGY: Reviewed results see below Assessment : Patient presented to hospital with multiple falls in this patient did have echocardiogram with concern for mobile echodensity to the tricuspid valve and concern for possible vegetation patient did have a negative blood culture so far however the patient did have a elevated sed rate and a CRP with currently no other obvious focus of infection endocarditis less likely but needs to be ruled out Plan: 1-blood cultures will be repeated as well as CRP and sed rate 2-patient will benefit from a KISHORE We will follow on clinical condition and cultures to further adjust medication if needed Thank you for this consultation we will follow the patient along with you Past Medical History Past Medical History: Atrial Fibrillation, Hyperlipidemia, Osteoarthritis (OA) Additional Past Medical History / Comment(s): cardiac valve issues History of Any Multi-Drug Resistant Organisms: None Reported Past Surgical History: Back Surgery, Cardiac Valve Replacement, Joint Replacement Additional Past Surgical History / Comment(s): hipx2 knee replacement Past Anesthesia/Blood Transfusion Reactions: No Reported Reaction Past Psychological History: No Psychological Hx Reported Smoking Status: Former smoker Past Alcohol Use History: None Reported Past Drug Use History: None Reported Medications and Allergies Home Medications Medication Instructions Recorded Confirmed Type Furosemide [Lasix] 40 mg PO BID 09/27/17 02/04/21 History Metoprolol Tartrate [Lopressor] 50 mg PO BID 09/27/17 02/04/21 History Potassium Chloride [K-Tab ER] 40 meq PO TID 09/27/17 02/04/21 History DULoxetine HCL [Cymbalta] 30 mg PO BID 02/04/21 02/04/21 History Rivaroxaban [Xarelto] 15 mg PO W/SUPPER 02/04/21 02/04/21 History Spironolactone 25 mg PO DAILY 02/04/21 02/04/21 History Acetaminophen Tab [Tylenol] 650 mg PO Q6HR PRN tab 02/07/21 Rx Acetaminophen-Codeine 300-30mg 1 each PO Q8H PRN #9 tab 02/07/21 Rx [Tylenol w/codeine #3] Pantoprazole [Protonix] 40 mg PO AC-BRKFST tablet. 02/07/21 Rx Allergies Allergy/AdvReac Type Severity Reaction Status Date / Time oxycodone Allergy Rash/Hives Verified 02/04/21 09:27 Penicillins Allergy Rash/Hives Verified 02/04/21 09:27 Physical Exam Vitals: Vital Signs Temp Pulse Resp BP Pulse Ox 02/09/21 14:00 73 16 02/09/21 12:00 98.1 F 73 16 115/59 97 02/09/21 08:17 98.0 F 98 16 104/51 97 02/09/21 08:00 98 16 02/09/21 03:25 98.1 F 77 18 134/71 96 02/09/21 02:00 20 02/08/21 23:38 97.6 F 98 20 105/53 95 02/08/21 20:00 98 F 105 H 18 110/55 95 02/08/21 16:20 98.6 F 90 16 116/59 100 Intake and Output 02/09/21 02/09/21 02/09/21 06:59 14:59 22:59 Intake Total 480 Output Total 2100 400 Balance -2100 80 Intake: Oral 480 Output: Urine 2100 400 Other: Voiding Method Bedside Commode Bedside Commode # Bowel Movements 1 Weight 119 kg Results CBC & Chem 7: 02/09/21 06:57 02/09/21 06:57 Labs: Abnormal Lab Results - Last 24 Hours (Table) 02/09/21 02/09/21 Range/Units 06:57 06:57 WBC 10.8 H (3.8-10.6) k/uL RBC 2.59 L (3.80-5.40) m/uL Hgb 8.0 L (11.4-16.0) gm/dL Hct 25.0 L (34.0-46.0) % Neutrophils # 8.2 H (1.3-7.7) k/uL Sodium 135 L (137-145) mmol/L Potassium 3.4 L (3.5-5.1) mmol/L Chloride 96 L (98-107) mmol/L BUN 57 H (7-17) mg/dL Creatinine 1.46 H (0.52-1.04) mg/dL Glucose 116 H (74-99) mg/dL Microbiology - Last 24 Hours (Table) 02/07/21 11:31 Blood Culture - Preliminary Blood No Growth after 48 hours
[2021-02-10] MEDS: SODIUM CHLORIDE 0.9% 1,000 ML IV SCH ×3 (01:05→21:16)
[2021-02-10] MEDS: PANTOPRAZOLE 40 MG TABLET PO SCH (06:00)
[2021-02-10 06:09] LABS: HCT 22.4 % (34.0-46.0); HGB 7.4 gm/dL (11.4-16.0); Hypochromasia Moderate; MCH 31.4 pg (25.0-35.0); MCV 95.1 fL (80.0-100.0); Mean Platelet Volume 8.3; Platelet Count 256 k/uL (150-450); Poikilocytosis Moderate; RBC 2.36 m/uL (3.80-5.40); RDW 14.2 % (11.5-15.5); WBC 9.1 k/uL (3.8-10.6)
[2021-02-10 06:38] LABS: Eosinophils # (M) 0.09 k/uL (0-0.7); Lymphocytes # (M) 1.64 k/uL (1.0-4.8); Monocytes # (M) 0.55 k/uL (0-1.0); Neutrophils # (M) 6.83 k/uL (1.3-7.7); Neutrophils % (M) 75 %; Nucleated Red Blood Cells 0 /100 WBC (0-0); Reactive Lymphocytes Present; Total Cells Counted 100
[2021-02-10 06:49] LABS: Erythrocyte Sedimentation Rate 121 mm/hr (0-20)
[2021-02-10 06:51] LABS: Potassium 3.5 mmol/L (3.5-5.1)
[2021-02-10 07:25] LABS: C Reactive Protein 6.7 mg/dL (<1.0)
[2021-02-10] MEDS: SPIRONOLACTONE 25 MG TAB PO SCH (08:17)
[2021-02-10] MEDS: DULoxetine HCL 30 MG CAPSULE.DR PO SCH ×2 (08:17→21:14)
[2021-02-10] MEDS: POTASSIUM CHLORIDE ER 20 MEQ TAB.ER PO SCH ×3 (08:17→21:14)
[2021-02-10] MEDS: FUROSEMIDE 40 MG TAB PO SCH ×2 (08:17→16:39)
[2021-02-10] MEDS: METOPROLOL TARTRATE 50 MG TAB PO SCH ×2 (08:17→21:14)
[2021-02-10] MEDS: RIVAROXABAN 15 MG TAB PO SCH (16:39)
--- NOTE | 2021-02-10 18:26 | PN ---
PROGRESS NOTE DATE OF SERVICE: 02/10/2021 REASON FOR FOLLOWUP: Abnormal echo with a possible tricuspid valve vegetation. INTERVAL HISTORY: The patient is afebrile. The patient mentioned she is feeling better, breathing comfortably. No chest pain, shortness of breath or cough. No abdominal pain or diarrhea. PHYSICAL EXAMINATION: On examination, blood pressure 103/57 with a pulse of 103, temperature 97.9. She is 97% on room air. GENERAL DESCRIPTION: General description is an elderly female up in the chair in no distress. RESPIRATORY SYSTEM: Unlabored breathing. Decreased breath sounds at the bases. No wheeze. HEART: S1, S2. Regular rate and rhythm. ABDOMEN: Soft. No tenderness. EXTREMITIES: Some chronic swelling. No redness. LABS: Hemoglobin is 7.4, white count 9.1. Sedimentation rate is up to 121. BUN of 53, creatinine 1.83. Procalcitonin was mildly elevated. DIAGNOSTIC IMPRESSION AND PLAN: Patient with an abnormal echo with concern for possible vegetation on tricuspid valve. Patient would benefit from a KISHORE. In view of the elevated inflammatory markers, blood culture has been repeated and will be followed. Will monitor clinical course closely. MMODL / IJN: [id number] /
[2021-02-10] MEDS: Acetaminophen-Codeine 300-30mg TAB PO PRN (23:37)
[2021-02-11] MEDS: PANTOPRAZOLE 40 MG TABLET PO SCH (06:27)
[2021-02-11] MEDS: POTASSIUM CHLORIDE ER 20 MEQ TAB.ER PO SCH (08:32)
[2021-02-11] MEDS: FUROSEMIDE 40 MG TAB PO SCH (08:32)
[2021-02-11] MEDS: METOPROLOL TARTRATE 50 MG TAB PO SCH (08:32)
[2021-02-11] MEDS: SPIRONOLACTONE 25 MG TAB PO SCH (08:32)
[2021-02-11] MEDS: DULoxetine HCL 30 MG CAPSULE.DR PO SCH (08:32)
[2021-02-11 08:52] VITALS: RESP 18
[2021-02-11 11:14] VITALS: BP 99/63; PULSE 82; TEMP 98.1
[2021-02-11 11:32] VITALS: BMI 43.4
[2021-02-11] MEDS: SODIUM CHLORIDE 0.9% 1,000 ML IV SCH (11:38)
--- NOTE | 2021-02-11 13:04 | P.DS ---
Providers Date of admission: 02/04/21 10:05 Expected date of discharge: 02/11/21 Attending physician: Bolivar Valiente Consults: 02/05/21 10:51 Consult Physician Routine Consulting Provider: Karlos Freed Consult Reason/Comments: LLL hematoma,s/p fall Do you want consulting provider notified?: Yes 02/09/21 13:51 Consult Physician Routine Consulting Provider: Yennifer Mendosa Consult Reason/Comments: inf endocarditis?? Do you want consulting provider notified?: Yes Primary care physician: Bolivar Valiente - Discharge Diagnosis(es) (1) Generalized weakness Current Visit: Yes Status: Acute (2) Hypokalemia Current Visit: Yes Status: Acute (3) Contusion of left hip Current Visit: No Status: Acute (4) Contusion, knee Current Visit: No Status: Acute (5) Hematoma of left lower leg Current Visit: No Status: Acute (6) Skin tear of right elbow without complication Current Visit: No Status: Acute (7) Multiple falls Current Visit: Yes Status: Acute (8) Morbid obesity Current Visit: Yes Status: Acute Patient Condition at Discharge: Stable Plan - Discharge Summary Discharge Rx Participant: No New Discharge Prescriptions: New Pantoprazole [Protonix] 40 mg PO AC-BRKFST tablet. Acetaminophen Tab [Tylenol] 650 mg PO Q6HR PRN tab PRN Reason: Mild Pain Or Fever > 100.5 Acetaminophen-Codeine 300-30mg [Tylenol w/codeine #3] 1 each PO Q8H PRN #9 tab PRN Reason: Pain Continue Metoprolol Tartrate [Lopressor] 50 mg PO BID Furosemide [Lasix] 40 mg PO BID Potassium Chloride [K-Tab ER] 40 meq PO TID Rivaroxaban [Xarelto] 15 mg PO W/SUPPER DULoxetine HCL [Cymbalta] 30 mg PO BID Spironolactone 25 mg PO DAILY Discontinued metOLazone [Zaroxolyn] 5 mg PO DIRECTED Discharge Medication List Furosemide [Lasix] 40 mg PO BID 09/27/17 [History] Metoprolol Tartrate [Lopressor] 50 mg PO BID 09/27/17 [History] Potassium Chloride [K-Tab ER] 40 meq PO TID 09/27/17 [History] DULoxetine HCL [Cymbalta] 30 mg PO BID 02/04/21 [History] Rivaroxaban [Xarelto] 15 mg PO W/SUPPER 02/04/21 [History] Spironolactone 25 mg PO DAILY 02/04/21 [History] Acetaminophen Tab [Tylenol] 650 mg PO Q6HR PRN tab 02/07/21 [Rx] Acetaminophen-Codeine 300-30mg [Tylenol w/codeine #3] 1 each PO Q8H PRN #9 tab 02/07/21 [Rx] Pantoprazole [Protonix] 40 mg PO AC-BRKFST tablet. 02/07/21 [Rx] Follow up Appointment(s)/Referral(s): Anay Villanueva MD [STAFF PHYSICIAN] - 1 Week Bolivar Valiente DO [Primary Care Provider] - 1 Week (After discharge from subacute rehab) Activity/Diet/Wound Care/Special Instructions: ECF: BC obtained prior to dc with results to Cardiology and PCP CBC, BMP in 2 days Wet to dry dressing daily to left lower extremity as recommended per vascular surgery Discharge Disposition: TRANSFER TO SNF/ECF
--- NOTE | 2021-02-11 21:49 | P.PN ---
Progress Note - Text Progress Note Date: 02/11/21 REASON FOR FOLLOWUP: Abnormal echo with a possible tricuspid valve vegetation. INTERVAL HISTORY: The patient remains to be afebrile. The patient is feeling better, breathing comfortably. No chest pain, shortness of breath or cough. No abdominal pain or diarrhea. PHYSICAL EXAMINATION: On examination, blood pressure 105/50 with a pulse of 90, temperature 97.9. She is 97% on room air. GENERAL DESCRIPTION: General description is an elderly female up in the chair in no distress. RESPIRATORY SYSTEM: Unlabored breathing. Decreased breath sounds at the bases. No wheeze. HEART: S1, S2. Regular rate and rhythm. ABDOMEN: Soft. No tenderness. EXTREMITIES: Some chronic swelling. No redness. LABS: blood cultures negtaive DIAGNOSTIC IMPRESSION AND PLAN: Patient with an abnormal echo with concern for possible vegetation on tricuspid valve. Patient would benefit from a KISHORE. In view of the elevated inflammatory markers, blood culture has been negative so far, monitor clinical course closely. questions answered
--- NOTE | 2021-02-14 12:37 | CDI ---
Documentation Clarification Form Date: 02/14/21 From: Shirin Johns Admit Date: 02/04/2021 10:05:00 AM Patient Name: Ewa Siegel Visit Number: [id number] Discharge Date: 02/11/2021 03:35:00 PM ATTENTION: The Clinical Documentation Specialists (CDI) and [facility] Coding Staff appreciate your assistance in clarifying documentation. Please respond to the clarification below the line at the bottom and electronically sign. The CDI & [facility] Coding staff will review the response and follow-up if needed. Please note: Queries are made part of the Legal Health Record. If you have any questions, please contact the author of this message via ITS. Dr. Rocco Longo, Per your consult a bedside hematoma evacuation was to be performed. Dr Alford documents in 02/07 progress note " status post of hematoma evacuation on the left ankle". Additional clarification regarding the procedure is requested. History/Risk factors: S/P multiple falls, hypokalemia Pre-Operative Diagnosis: none available Postoperative Diagnosis: none available Clinical Indicators: Left lower extremity hematoma Treatment: Bedside hematoma evacuation Please clarify the following: document procedure performed at beside: [ ] Include date performed [ ] Clarify the method of surgical approach (e.g. open, percutaneous, via natural orifice) [ ] Device(s) used [ ] Identify the mechanism used (e.g. stripping, cutting, or destruction) [ ] Intended and performed procedure (Identify/document why they varied if applicable) Preoperative diagnosis hematoma: Traumatic hematoma left medial malleolus area. Postoperative diagnosis: Same. Operative procedure: Incision and drainage of left medial malleoli area hematoma, with evacuation of hematoma. Surgeon: Rocco Longo D.O. Complications: None apparent. Specimen: None. Indications: Patient is a history of traumatic hematoma along the medial aspect of the left malleoli over area. This is enlarged over time and is somewhat tender for the patient. Physical examination was unremarkable with the exception of this hematoma. Because of the pain associated with hematoma patient is offered incision and drainage. Procedure: Patient was placed supine in her bed. The left medial malleolus area was sterilely prepped and draped in the usual manner. 1% Xylocaine was utilized for local anesthesia of the tissues overlying the hematoma. Through this anesthetized area skin incision was made and the hematoma was fully evacuated this was performed with manual compression and no instruments per se were used. Appropriate dressing was applied. Patient tolerated procedure well. OZ
== END 2021-02-11 15:35 | DRG 641 ==
LOC: EC 08:01 → 3SCARD 10:05
PROVIDERS: ADMIT Family Medicine; ATTEND Family Medicine
PROC: 0Y9L0ZZ Drainage of Left Ankle Region, Open Approach (ICD-10-PCS; principal; 2021-02-07)
DX: E87.6 Hypokalemia (principal); N17.9 Acute kidney failure, unspecified; N18.4 Chronic kidney disease, stage 4 (severe); I48.19 Other persistent atrial fibrillation; Z68.41 Body mass index [BMI] 40.0-44.9, adult; I27.20 Pulmonary hypertension, unspecified; D63.1 Anemia in chronic kidney disease; E66.01 Morbid (severe) obesity due to excess calories; I73.9 Peripheral vascular disease, unspecified; D32.1 Benign neoplasm of spinal meninges; Z20.822 Contact with and (suspected) exposure to COVID-19; I12.9 Hypertensive chronic kidney disease with stage 1 through stage 4 chronic kidney disease, or unspecified chronic kidney disease; E87.1 Hypo-osmolality and hyponatremia; E78.5 Hyperlipidemia, unspecified; I45.10 Unspecified right bundle-branch block; I49.3 Ventricular premature depolarization; T50.3X6A Underdosing of electrolytic, caloric and water-balance agents, initial encounter; Z91.128 Patient's intentional underdosing of medication regimen for other reason; S90.02XA Contusion of left ankle, initial encounter; S51.011A Laceration without foreign body of right elbow, initial encounter; S70.02XA Contusion of left hip, initial encounter; M50.30 Other cervical disc degeneration, unspecified cervical region; M54.9 Dorsalgia, unspecified; R77.8 Other specified abnormalities of plasma proteins; D72.829 Elevated white blood cell count, unspecified; M19.011 Primary osteoarthritis, right shoulder; M19.012 Primary osteoarthritis, left shoulder; R29.6 Repeated falls; Z79.01 Long term (current) use of anticoagulants; Z79.899 Other long term (current) drug therapy; Z91.81 History of falling; Z96.643 Presence of artificial hip joint, bilateral; Z96.652 Presence of left artificial knee joint; Z95.3 Presence of xenogenic heart valve; Z87.891 Personal history of nicotine dependence; Z86.79 Personal history of other diseases of the circulatory system; Z98.890 Other specified postprocedural states; Z71.3 Dietary counseling and surveillance; W19.XXXA Unspecified fall, initial encounter; Z88.5 Allergy status to narcotic agent; Z88.0 Allergy status to penicillin
CPT/HCPCS: 36415; 70450; 71046; 72125; 80048; 80053; 81003; 83605; 83735; 84132; 84145; 84484; 85025; 85027; 85379; 85610; 85652; 85730; 86140; 87040; 87635; 93005; 93306; 94760; 96361; 96374; 99285

== ENCOUNTER 2021-02-18 03:06 | Inpatient (IN) | payer MEDICARE ==
[2021-02-18] MEDS ORDERED: SODIUM CHLORIDE 0.9% 1,000 ML IV STA (03:10)
--- NOTE | 2021-02-18 03:17 | ED ---
Recheck HPI - General Stated Complaint: Abnormal Labs Time Seen by Provider: 02/18/21 03:08 Source: RN notes reviewed, old records reviewed Mode of arrival: EMS Limitations: no limitations - History of Present Illness Initial Comments: This 72-year-old today. Patient Dese for evaluation of abnormal outpatient lab tests that lab tests is hemoglobin low hemoglobin. Platelet she has active bleeding denies nausea or vomiting. But does admit to severity of weakness, history of anemia MD Complaint: abnormal lab -: unknown Returns Today for: Called Because of Abnormal Lab/Test Symptoms Since Prior Visit: no new symptoms Context: called for abnormal lab result Associated Symptoms: malaise Treatments Prior to Arrival: other (none) - Related Data Home Medications Medication Instructions Recorded Confirmed DULoxetine HCL [Cymbalta] 30 mg PO BID@0800,209902/04/21 02/28/21 Rivaroxaban [Xarelto] 15 mg PO HS@17002/04/21 02/28/21 Magnesium Hydroxide [Milk of 7,200 mg PO Q48H PRN 02/18/21 02/28/21 Magnesia Concentrate] Metoprolol Tartrate [Lopressor] 50 mg PO BID@0800,1700 02/18/21 02/28/21 Na Phos,M-B/Na Phos,Di-Ba [Fleet 133 ml RECTAL DAILY PRN 02/18/21 02/28/21 Adult] Pantoprazole [Protonix] 40 mg PO AC-BRKFST@0602/18/21 02/28/21 bisacodyL [Dulcolax] 10 mg RECTAL DAILY PRN 02/18/21 02/28/21 Bacitracin Ointment 500unit/Gram 1 applic TOPICAL BID@0800,209902/28/21 02/28/21 Doxycycline Hyclate 100 mg PO BID@0800,209902/28/21 02/28/21 Ferrous Sulfate [Feosol] 325 mg PO DAILY@1700 02/28/21 02/28/21 Furosemide [Lasix] 20 mg PO DAILY@1400 02/28/21 02/28/21 Furosemide [Lasix] 40 mg PO DAILY@0600 02/28/21 02/28/21 Potassium Chloride ER [K-Dur 20] 40 meq PO BID@0800,1700 02/28/21 02/28/21 Sennosides-Docusate Sodium 2 tab PO BID@0800,1700 02/28/21 02/28/21 [Senokot-S] Spironolactone [Aldactone] 12.5 mg PO DAILY@0800 02/28/21 02/28/21 Previous Rx's Medication Instructions Recorded Acetaminophen Tab [Tylenol] 650 mg PO Q6HR PRN tab 02/07/21 Acetaminophen-Codeine 300-30mg 1 tab PO Q8H PRN #9 tab 02/21/21 [Tylenol w/codeine #3] Allergies Allergy/AdvReac Type Severity Reaction Status Date / Time oxycodone Allergy Rash/Hives Verified 02/28/21 21:17 Penicillins Allergy Rash/Hives Verified 02/28/21 21:17 Review of Systems ROS Statement: Those systems with pertinent positive or pertinent negative responses have been documented in the HPI. ROS Other: All systems not noted in ROS Statement are negative. Past Medical History Past Medical History: Atrial Fibrillation, Hyperlipidemia, Osteoarthritis (OA) Additional Past Medical History / Comment(s): cardiac valve issues History of Any Multi-Drug Resistant Organisms: None Reported Past Surgical History: Back Surgery, Cardiac Valve Replacement, Joint Replacement Additional Past Surgical History / Comment(s): hipx2 knee replacement Past Anesthesia/Blood Transfusion Reactions: No Reported Reaction Past Psychological History: No Psychological Hx Reported Smoking Status: Former smoker Past Alcohol Use History: None Reported Past Drug Use History: None Reported General Exam Limitations: physical limitation General appearance: alert, in no apparent distress, lethargic Head exam: Present: atraumatic, normocephalic, normal inspection Eye exam: Present: normal appearance, PERRL, EOMI. Absent: scleral icterus, conjunctival injection, periorbital swelling ENT exam: Present: normal exam, mucous membranes moist Neck exam: Present: normal inspection. Absent: tenderness, meningismus, lymphadenopathy Respiratory exam: Present: normal lung sounds bilaterally. Absent: respiratory distress, wheezes, rales, rhonchi, stridor Cardiovascular Exam: Present: regular rate, normal rhythm, normal heart sounds. Absent: systolic murmur, diastolic murmur, rubs, gallop, clicks GI/Abdominal exam: Present: soft, normal bowel sounds. Absent: distended, tenderness, guarding, rebound, rigid Extremities exam: Present: normal inspection, full ROM, normal capillary refill. Absent: tenderness, pedal edema, joint swelling, calf tenderness Back exam: Present: normal inspection Neurological exam: Present: alert, oriented X3, CN II-XII intact Psychiatric exam: Present: normal affect, normal mood Skin exam: Present: warm, dry, intact, normal color. Absent: rash Course Vital Signs 02/18/21 02/18/21 02/18/21 03:27 04:30 05:30 Temperature 98.3 F Pulse Rate 90 95 89 Respiratory 18 18 18 Rate Blood Pressure 101/54 93/54 100/47 O2 Sat by Pulse 97 99 98 Oximetry 02/18/21 02/18/21 02/18/21 06:22 06:33 07:03 Temperature 97.5 F L 98.3 F 97.5 F L Pulse Rate 88 98 98 Respiratory 18 18 18 Rate Blood Pressure 100/47 82/58 92/48 O2 Sat by Pulse 98 99 97 Oximetry 02/18/21 02/18/21 02/18/21 08:22 08:23 09:14 Temperature 98 F Pulse Rate 99 90 90 Respiratory 18 18 16 Rate Blood Pressure 95/51 95/51 121/61 O2 Sat by Pulse 97 97 99 Oximetry 02/18/21 02/18/21 02/18/21 09:31 09:41 09:43 Temperature 98 F 97.3 F L 98 F Pulse Rate 97 99 99 Respiratory 18 24 18 Rate Blood Pressure 141/47 106/47 131/93 O2 Sat by Pulse 100 99 100 Oximetry 02/18/21 02/18/21 02/18/21 11:24 12:17 14:11 Temperature 98.7 F 96.8 F L Pulse Rate 100 102 H 97 Respiratory 22 21 18 Rate Blood Pressure 148/98 100/47 100/47 O2 Sat by Pulse 98 98 98 Oximetry 02/18/21 02/18/21 02/18/21 15:55 17:37 20:30 Temperature 97.5 F L 98.1 F 97.8 F Pulse Rate 80 98 90 Respiratory 20 18 20 Rate Blood Pressure 102/65 114/67 132/80 O2 Sat by Pulse 98 97 98 Oximetry 02/18/21 23:38 Temperature 98.4 F Pulse Rate 92 Respiratory 16 Rate Blood Pressure 118/77 O2 Sat by Pulse 98 Oximetry - Reevaluation(s) Reevaluation #1: 02/18/21 Record is reviewed Patient symptoms are improved here in the emergency department Patient informed of results and questions answered Patient is in no acute distress Medical Decision Making - Medical Decision Making 80 female DF for evaluation. Patient is found to have severe anemia sent in for evaluation regards to anemia will admit for transfusion and traction of electrolytes - Lab Data Result diagrams: 02/22/21 05:47 02/24/21 05:47 Lab Results 02/18/21 02/18/21 02/18/21 Range/Units 03:18 03:23 03:23 WBC 8.5 (3.8-10.6) k/uL RBC 2.22 L (3.80-5.40) m/uL Hgb 6.2 L* (11.4-16.0) gm/dL Hct 20.4 L (34.0-46.0) % MCV 91.9 (80.0-100.0) fL MCH 28.1 (25.0-35.0) pg MCHC 30.6 L (31.0-37.0) g/dL RDW 15.5 (11.5-15.5) % Plt Count 220 (150-450) k/uL MPV 8.4 Neutrophils % Not Reportable Neutrophils % (Manual) 75 % Lymphocytes % Not Reportable Lymphocytes % (Manual) 19 % Monocytes % Not Reportable Monocytes % (Manual) 6 % Eosinophils % Not Reportable Eosinophils % (Manual) 1 % Basophils % Not Reportable Neutrophils # Not Reportable Neutrophils # (Manual) 6.38 (1.3-7.7) k/uL Lymphocytes # Not Reportable Lymphocytes # (Manual) 1.62 (1.0-4.8) k/uL Monocytes # Not Reportable Monocytes # (Manual) 0.51 (0-1.0) k/uL Eosinophils # Not Reportable Eosinophils # (Manual) 0.09 (0-0.7) k/uL Basophils # Not Reportable Nucleated RBCs 0 (0-0) /100 WBC Manual Slide Review Performed Polychromasia Present Hypochromasia Marked Poikilocytosis Moderate Anisocytosis (manual) Present Sodium 132 L (137-145) mmol/L Potassium 3.8 (3.5-5.1) mmol/L Chloride 101 (98-107) mmol/L Carbon Dioxide 23 (22-30) mmol/L Anion Gap 8 mmol/L BUN 46 H (7-17) mg/dL Creatinine 1.63 H (0.52-1.04) mg/dL Est GFR (CKD-EPI)AfAm 35 (>60 ml/min/1.73 sqM) Est GFR (CKD-EPI)NonAf 30 (>60 ml/min/1.73 sqM) BUN/Creatinine Ratio (12.00-20.00) Ratio Glucose 109 H (74-99) mg/dL Calcium 8.9 (8.4-10.2) mg/dL Phosphorus (2.4-5.1) mg/dL Magnesium 1.6 (1.6-2.3) mg/dL Iron (50-170) ug/dL TIBC (228-460) ug/dL % Saturation (12.00-45.00) Ferritin (10.0-291.0) ng/mL Total Bilirubin 0.4 (0.2-1.3) mg/dL AST 25 (14-36) U/L ALT 11 (4-34) U/L Alkaline Phosphatase 73 (38-126) U/L Total Protein 5.7 L (6.3-8.2) g/dL Albumin 3.2 L (3.5-5.0) g/dL Lipase 307 H (23-300) U/L Blood Type Blood Type Confirm O Positive Blood Type Recheck Bld Type Recheck Status Antibody Screen Crossmatch Spec Expiration Date 02/18/21 02/18/21 02/18/21 Range/Units 03:23 03:23 19:34 WBC 8.5 (3.8-10.6) k/uL RBC 2.84 L (3.80-5.40) m/uL Hgb 8.5 L D (11.4-16.0) gm/dL Hct 25.8 L (34.0-46.0) % MCV 90.9 (80.0-100.0) fL MCH 30.1 (25.0-35.0) pg MCHC 33.1 (31.0-37.0) g/dL RDW 15.3 (11.5-15.5) % Plt Count 224 (150-450) k/uL MPV 8.5 Neutrophils % 75 Neutrophils % (Manual) % Lymphocytes % 12 Lymphocytes % (Manual) % Monocytes % 7 Monocytes % (Manual) % Eosinophils % 2 Eosinophils % (Manual) % Basophils % 0 Neutrophils # 6.4 Neutrophils # (Manual) (1.3-7.7) k/uL Lymphocytes # 1.0 Lymphocytes # (Manual) (1.0-4.8) k/uL Monocytes # 0.6 Monocytes # (Manual) (0-1.0) k/uL Eosinophils # 0.1 Eosinophils # (Manual) (0-0.7) k/uL Basophils # 0.0 Nucleated RBCs (0-0) /100 WBC Manual Slide Review Polychromasia Hypochromasia Marked Poikilocytosis Marked Anisocytosis (manual) Sodium (137-145) mmol/L Potassium (3.5-5.1) mmol/L Chloride (98-107) mmol/L Carbon Dioxide (22-30) mmol/L Anion Gap mmol/L BUN (7-17) mg/dL Creatinine (0.52-1.04) mg/dL Est GFR (CKD-EPI)AfAm (>60 ml/min/1.73 sqM) Est GFR (CKD-EPI)NonAf (>60 ml/min/1.73 sqM) BUN/Creatinine Ratio (12.00-20.00) Ratio Glucose (74-99) mg/dL Calcium (8.4-10.2) mg/dL Phosphorus (2.4-5.1) mg/dL Magnesium (1.6-2.3) mg/dL Iron 11 L (50-170) ug/dL TIBC 398 (228-460) ug/dL % Saturation 2.76 L (12.00-45.00) Ferritin 28.6 (10.0-291.0) ng/mL Total Bilirubin (0.2-1.3) mg/dL AST (14-36) U/L ALT (4-34) U/L Alkaline Phosphatase (38-126) U/L Total Protein (6.3-8.2) g/dL Albumin (3.5-5.0) g/dL Lipase (23-300) U/L Blood Type O Positive Blood Type Confirm Blood Type Recheck No Previous Record Bld Type Recheck Status CABO Indicated Antibody Screen NEGATIVE Crossmatch See Detail Spec Expiration Date 02/21/2021 - 232202/19/21 02/19/21 Range/Units 07:11 07:11 WBC 8.5 (3.8-10.6) k/uL RBC 2.66 L (3.80-5.40) m/uL Hgb 7.9 L (11.4-16.0) gm/dL Hct 24.1 L (34.0-46.0) % MCV 90.8 (80.0-100.0) fL MCH 29.9 (25.0-35.0) pg MCHC 32.9 (31.0-37.0) g/dL RDW 15.6 H (11.5-15.5) % Plt Count 201 (150-450) k/uL MPV 8.4 Neutrophils % 73 Neutrophils % (Manual) % Lymphocytes % 15 Lymphocytes % (Manual) % Monocytes % 7 Monocytes % (Manual) % Eosinophils % 2 Eosinophils % (Manual) % Basophils % 0 Neutrophils # 6.1 Neutrophils # (Manual) (1.3-7.7) k/uL Lymphocytes # 1.2 Lymphocytes # (Manual) (1.0-4.8) k/uL Monocytes # 0.6 Monocytes # (Manual) (0-1.0) k/uL Eosinophils # 0.2 Eosinophils # (Manual) (0-0.7) k/uL Basophils # 0.0 Nucleated RBCs (0-0) /100 WBC Manual Slide Review Polychromasia Hypochromasia Marked Poikilocytosis Marked Anisocytosis (manual) Sodium 141 (137-145) mmol/L Potassium 3.8 (3.5-5.1) mmol/L Chloride 104 (98-107) mmol/L Carbon Dioxide 25.9 (22-30) mmol/L Anion Gap 11.10 mmol/L BUN 31.0 H (7-17) mg/dL Creatinine 1.3 (0.52-1.04) mg/dL Est GFR (CKD-EPI)AfAm 45.5 L (>60 ml/min/1.73 sqM) Est GFR (CKD-EPI)NonAf 39.3 L (>60 ml/min/1.73 sqM) BUN/Creatinine Ratio 23.85 H (12.00-20.00) Ratio Glucose 99 (74-99) mg/dL Calcium 9.0 (8.4-10.2) mg/dL Phosphorus 3.4 (2.4-5.1) mg/dL Magnesium 1.7 (1.6-2.3) mg/dL Iron (50-170) ug/dL TIBC (228-460) ug/dL % Saturation (12.00-45.00) Ferritin (10.0-291.0) ng/mL Total Bilirubin (0.2-1.3) mg/dL AST (14-36) U/L ALT (4-34) U/L Alkaline Phosphatase (38-126) U/L Total Protein (6.3-8.2) g/dL Albumin (3.5-5.0) g/dL Lipase (23-300) U/L Blood Type Blood Type Confirm Blood Type Recheck Bld Type Recheck Status Antibody Screen Crossmatch Spec Expiration Date Disposition Clinical Impression: Anemia, Weakness, Multiple falls, Melena, Hypokalemia, Morbid obesity Disposition: ADMITTED IP TO THIS [facility] Condition: Stable Is patient prescribed a controlled substance at d/c from ED?: No
[2021-02-18 03:34] LABS: HCT 20.4 % (34.0-46.0); Hypochromasia Marked; MCH 28.1 pg (25.0-35.0); MCHC 30.6 g/dL (31.0-37.0); MCV 91.9 fL (80.0-100.0); Mean Platelet Volume 8.4; Platelet Count 220 k/uL (150-450); Poikilocytosis Moderate; RBC 2.22 m/uL (3.80-5.40); RDW 15.5 % (11.5-15.5); WBC 8.5 k/uL (3.8-10.6)
[2021-02-18 03:51] LABS: Albumin 3.2 g/dL (3.5-5.0); Calcium 8.9 mg/dL (8.4-10.2); Magnesium 1.6 mg/dL (1.6-2.3); Potassium 3.8 mmol/L (3.5-5.1); Total Bilirubin 0.4 mg/dL (0.2-1.3); Total Protein 5.7 g/dL (6.3-8.2)
[2021-02-18 03:59] LABS: HGB 6.2 gm/dL (11.4-16.0)
[2021-02-18] MEDS ORDERED: ONDANSETRON 4 MG/2 ML VIAL IVP PRN (05:15)
[2021-02-18] MEDS ORDERED: SODIUM CHLORIDE 0.9% 1,000 ML IV SCH (05:15)
[2021-02-18] MEDS ORDERED: MORPHINE SULFATE 4 MG/ML SYRINGE IV PRN (05:15)
[2021-02-18] MEDS ORDERED: NALOXONE 0.4 MG/ML 1 ML VIAL IV PRN (05:15)
[2021-02-18 06:05] LABS: Anisocytosis (M) Present; Eosinophils # (M) 0.09 k/uL (0-0.7); Lymphocytes # (M) 1.62 k/uL (1.0-4.8); Monocytes # (M) 0.51 k/uL (0-1.0); Neutrophils # (M) 6.38 k/uL (1.3-7.7); Neutrophils % (M) 75 %; Nucleated Red Blood Cells 0 /100 WBC (0-0); Polychromasia Present; Total Cells Counted 200
[2021-02-18] MEDS ORDERED: PANTOPRAZOLE 40 MG/10 ML VIAL IVP SCH (10:30)
[2021-02-18] MEDS ORDERED: FUROSEMIDE 10 MG/ML 2 ML VIAL IV ONE (11:42)
[2021-02-18] MEDS: METOPROLOL TARTRATE 50 MG TAB PO SCH ×2 (11:48→17:34)
--- NOTE | 2021-02-18 13:06 | P.CONS ---
History of Present Illness - Reason for Consult Consult date: 02/18/21 Anemia Requesting physician: Bolivar Valiente - Chief Complaint Abnormal labs - History of Present Illness This is 80-year-old white woman with a past medical history of atrial f ibrillation on Xarelto, hyperlipidemia, osteoarthritis, heart valve replacement, and multiple frequent falls who presented to the emergency department with abnormal labs from [facility]. The patient states she has been extremely fatigued with lack of energy over the last 2-3 weeks duration. States she's noticed it even more during the last week. She was recently admitted for multiple falls and her last admission she had a hematoma on her left ankle which was evacuated. She went to an [facility] for rehab following that admission and states that it has been difficult for her to even have any energy after just getting up and showering. She denies any previous history of anemia, she denies any NSAID use or previous GI bleed. She does state that she had an ulcer 25-30 years ago and had an upper endoscopy at that time with Dr. Velazquez. She is not on any PPI. She does state that she has been having dark stools over the last 1 month's duration. She currently denies any abdominal pain, nausea, or vomiting. Admitting labs WBC 8.5, hemoglobin 6.2, hematocrit 20, platelet count 220,000, total bilirubin 0.4, alkaline phosphatase 73, AST 25, ALT 11. Patient is currently receiving her second unit of PRBC transfusion. Review of Systems REVIEW OF SYSTEMS: CARDIOPULMONARY: No chest pain or shortness of breath. Gastrointestinal: No abdominal pain. No nausea or vomiting. No hematemesis, coffee-ground emesis. No rectal bleeding,. Patient reports dark stool for the last 1 month duration. GENITOURINARY: No dysuria or hematuria. MUSCULOSKELETAL: Reports normal range of motion., Joint pain. SKIN: No rashes. No jaundice. ENDOCRINE: No chills, fevers. No excessive weight gain or loss. No polydipsia or polyuria. PSYCHIATRIC: Unremarkable. NEUROLOGY: No change in mental status. Denies dizziness, headache. ENT: Vision unremarkable. CONSTITUTIONAL: No recent weight loss. No fever, chills, night sweats. Increased fatigue and weakness. Patient has had multiple falls in the last 1-2 months. Past Medical History Past Medical History: Atrial Fibrillation, Hyperlipidemia, Osteoarthritis (OA) Additional Past Medical History / Comment(s): cardiac valve issues History of Any Multi-Drug Resistant Organisms: None Reported Past Surgical History: Back Surgery, Cardiac Valve Replacement, Joint Replacement Additional Past Surgical History / Comment(s): hipx2 knee replacement Past Anesthesia/Blood Transfusion Reactions: No Reported Reaction Past Psychological History: No Psychological Hx Reported Smoking Status: Former smoker Past Alcohol Use History: None Reported Past Drug Use History: None Reported Medications and Allergies Home Medications Medication Instructions Recorded Confirmed Type Furosemide [Lasix] 40 mg PO BID@0600,1400 09/27/17 02/18/21 History Potassium Chloride [K-Tab ER] 40 meq PO TID@0800,1200,1700 09/27/17 02/18/21 History DULoxetine HCL [Cymbalta] 30 mg PO BID@0800,2100 02/04/21 02/18/21 History Rivaroxaban [Xarelto] 15 mg PO HS@1700 02/04/21 02/18/21 History Spironolactone 25 mg PO DAILY@0800 02/04/21 02/18/21 History Acetaminophen Tab [Tylenol] 650 mg PO Q6HR PRN tab 02/07/21 02/18/21 Rx Acetaminophen-Codeine 300-30mg 1 tab PO Q8H PRN 02/18/21 02/18/21 History [Tylenol w/codeine #3] Magnesium Hydroxide [Milk of 7,200 mg PO Q48H PRN 02/18/21 02/18/21 History Magnesia Concentrate] Metoprolol Tartrate [Lopressor] 50 mg PO BID@0800,1700 02/18/21 02/18/21 History Na Phos,M-B/Na Phos,Di-Ba [Fleet 133 ml RECTAL DAILY PRN 02/18/21 02/18/21 History Adult] Pantoprazole [Protonix] 40 mg PO AC-BRKFST@0600 02/18/21 02/18/21 History bisacodyL [Dulcolax] 10 mg RECTAL DAILY PRN 02/18/21 02/18/21 History Allergies Allergy/AdvReac Type Severity Reaction Status Date / Time oxycodone Allergy Rash/Hives Verified 02/18/21 07:50 Penicillins Allergy Rash/Hives Verified 02/18/21 07:50 Physical Exam Vitals: Vital Signs Temp Pulse Resp BP Pulse Ox 02/18/21 12:17 96.8 F L 102 H 21 100/47 98 02/18/21 11:24 98.7 F 100 22 148/98 98 02/18/21 09:43 98 F 99 18 131/93 100 02/18/21 09:41 97.3 F L 99 24 106/47 99 02/18/21 09:31 98 F 97 18 141/47 100 02/18/21 09:14 98 F 90 16 121/61 99 02/18/21 08:23 90 18 95/51 97 02/18/21 08:22 99 18 95/51 97 02/18/21 07:03 97.5 F L 98 18 92/48 97 02/18/21 06:33 98.3 F 98 18 82/58 99 02/18/21 06:22 97.5 F L 88 18 100/47 98 02/18/21 05:30 89 18 100/47 98 02/18/21 04:30 95 18 93/54 99 02/18/21 03:27 98.3 F 90 18 101/54 97 Intake and Output 02/17/21 02/18/21 02/18/21 22:59 06:59 14:59 Intake Total 0 559 Balance 0 559 Intake: Blood Product 0 559 Rc Pheresis 2 As3 Unit 0 279 [id number] Rc Pheresis As-3 Unit 280 [id number] Other: Weight 108.862 kg General appearance: The patient is alert, oriented, appears in no acute distress. HET: Head is normocephalic and atraumatic. Conjunctiva pink. Sclera anicteric. Neck: Supple without lymphadenopathy. Trachea midline. Heart: S1 S2. Regular rate and rhythm. Lungs: Clear to auscultation. Abdomen: Soft, epigastric tenderness, nondistended with bowel sounds. No guarding or rigidity. Skin: No rashes. No jaundice. Extremities: Normal skin color and turgor. No pedal edema. Neurological: No focal deficits. Alert and oriented 3.. Results CBC & Chem 7: 02/18/21 03:23 02/18/21 03:23 Labs: Abnormal Lab Results - Last 24 Hours (Table) 08/24/21 08/24/21 08/24/21 Range/Units 03:23 03:23 03:23 RBC 2.22 L (3.80-5.40) m/uL Hgb 6.2 L* (11.4-16.0) gm/dL Hct 20.4 L (34.0-46.0) % MCHC 30.6 L (31.0-37.0) g/dL Sodium 132 L (137-145) mmol/L BUN 46 H (7-17) mg/dL Creatinine 1.63 H (0.52-1.04) mg/dL Glucose 109 H (74-99) mg/dL Total Protein 5.7 L (6.3-8.2) g/dL Albumin 3.2 L (3.5-5.0) g/dL Lipase 307 H (23-300) U/L Crossmatch See Detail Assessment and Plan (1) Anemia Narrative/Plan: 80-year-old female who presented to the emergency department from [facility] with low hemoglobin. Patient states she's been feeling extremely weak and fatigued over the last 1-2 weeks. Patient has had multiple falls in the last 1 month's duration and suffered a hematoma to her left ankle which was evacuated 1-2 weeks ago. She states she's not had any further falls. She states she has a history of ulcers 25-30 years ago and underwent an EGD with . She denies ever having a colonoscopy, she denies any acid reflux or use of NSAIDs. She is on Xarelto for atrial fibrillation, last dose taken yesterday evening. She denies any previous history of GI bleed. She is stating that for the last month or so she's had dark stools, denies any bright red blood. On presentation to the emergency department her hemoglobin was noted to be 6.2, she is receiving her second unit of PRBC transfusion. Iron studies will be obtained. Continue to hold it anticoagulation. Possible etiologies include peptic ulcer disease, gastritis, esophagitis, AVM or other possible etiologies. patient will be scheduled for upper endoscopy in the next 1-2 days. Current Visit: Yes Status: Acute Code(s): D64.9 - ANEMIA, UNSPECIFIED SNOMED Code(s): 672704875 (2) Melena Current Visit: Yes Status: Acute Code(s): K92.1 - MELENA SNOMED Code(s): 8291816 (3) Generalized weakness Current Visit: Yes Status: Acute Code(s): R53.1 - WEAKNESS SNOMED Code(s): 70579925 Plan: 1. Continue symptomatic and supportive care 2. Agree with PRBC transfusion 3. Repeat CBC daily, transfuse for hemoglobin less than 7 4. Iron studies ordered 5. Protonix 40 mg twice a day 6. Patient may have clear liquid diet, nothing by mouth after midnight 7. Hold Xarelto 8. Patient will be scheduled for upper endoscopy tomorrow afternoon Thank you for this consultation, we will continue to follow. Dr. Rylee Carbjaal I agree with the dictator's note, documented as a scribe by Amber Sears.
[2021-02-18] MEDS: LACTATED RINGERS 1,000 ML IV SCH (18:00)
--- NOTE | 2021-02-18 18:06 | P.HPIM ---
History of Present Illness H&P Date: 02/18/21 Chief Complaint: Abnormal labs at the [facility] This is a 80-year-old female recently admitted for increasing generalized weakness status post multiple falls attributed to severe hypokalemia with subsequent left lower extremity hematoma requiring evacuation ,acute renal failure, anemia, chronic persistent atrial fibrillation-anticoagulated on Xarelto with history of heart valve replacement, osteoarthritis and multiple other medical issues sent to the ER related to abnormal labs from [facility]. Patient had been discharged on Protonix 40 mg daily. Patient stated that while at the [facility] developed dark bowel movements outlined in a bright red accompanied by increasing fatigue and weakness. Reports her last colonoscopy was more than [address] Nichols regarding an ulcer. Denies any nausea vomiting or diarrhea. Hemoglobin on admission 6.2, hematocrit 20, platelets 220. Receiving her second unit of packed RBCs.Afebrile, normal WBC. Sodium 132, BUN 46, creatinine 1.68, glucose 109. Denies chest pain, palpitations or shortness of breath. Denies lightheadedness, dizziness or focal deficits. Xarelto placed on hold, last taken yesterday. GI consulted for endoscopy. Review of Systems ROS Statement: Those systems with pertinent positive or pertinent negative responses have been documented in the HPI. ROS Other: All systems not noted in ROS Statement are negative. Past Medical History Past Medical History: Atrial Fibrillation, Hyperlipidemia, Osteoarthritis (OA) Additional Past Medical History / Comment(s): cardiac valve issues History of Any Multi-Drug Resistant Organisms: None Reported Past Surgical History: Back Surgery, Cardiac Valve Replacement, Joint Re placement Additional Past Surgical History / Comment(s): hipx2 knee replacement Past Anesthesia/Blood Transfusion Reactions: No Reported Reaction Past Psychological History: No Psychological Hx Reported Smoking Status: Former smoker Past Alcohol Use History: None Reported Past Drug Use History: None Reported Medications and Allergies Home Medications Medication Instructions Recorded Confirmed Type Furosemide [Lasix] 40 mg PO BID@0600,1400 09/27/17 02/18/21 History Potassium Chloride [K-Tab ER] 40 meq PO TID@0800,1200,1700 09/27/17 02/18/21 History DULoxetine HCL [Cymbalta] 30 mg PO BID@0800,2100 02/04/21 02/18/21 History Rivaroxaban [Xarelto] 15 mg PO HS@1700 02/04/21 02/18/21 History Spironolactone 25 mg PO DAILY@0800 02/04/21 02/18/21 History Acetaminophen Tab [Tylenol] 650 mg PO Q6HR PRN tab 02/07/21 02/18/21 Rx Acetaminophen-Codeine 300-30mg 1 tab PO Q8H PRN 02/18/21 02/18/21 History [Tylenol w/codeine #3] Magnesium Hydroxide [Milk of 7,200 mg PO Q48H PRN 02/18/21 02/18/21 History Magnesia Concentrate] Metoprolol Tartrate [Lopressor] 50 mg PO BID@0800,1700 02/18/21 02/18/21 History Na Phos,M-B/Na Phos,Di-Ba [Fleet 133 ml RECTAL DAILY PRN 02/18/21 02/18/21 History Adult] Pantoprazole [Protonix] 40 mg PO AC-BRKFST@0600 02/18/21 02/18/21 History bisacodyL [Dulcolax] 10 mg RECTAL DAILY PRN 02/18/21 02/18/21 History Allergies Allergy/AdvReac Type Severity Reaction Status Date / Time oxycodone Allergy Rash/Hives Verified 02/18/21 07:50 Penicillins Allergy Rash/Hives Verified 02/18/21 07:50 Physical Exam Vitals: Vital Signs Temp Pulse Resp BP Pulse Ox 02/18/21 09:43 98 F 99 18 131/93 100 02/18/21 09:14 98 F 90 16 121/61 99 02/18/21 08:23 90 18 95/51 97 02/18/21 08:22 99 18 95/51 97 02/18/21 07:03 97.5 F L 98 18 92/48 97 02/18/21 06:33 98.3 F 98 18 82/58 99 02/18/21 06:22 97.5 F L 88 18 100/47 98 02/18/21 05:30 89 18 100/47 98 02/18/21 04:30 95 18 93/54 99 02/18/21 03:27 98.3 F 90 18 101/54 97 Intake and Output 02/17/21 02/18/21 02/18/21 22:59 06:59 14:59 Intake Total 0 279 Balance 0 279 Intake: Blood Product 0 279 Rc Pheresis 2 As3 Unit 0 279 [id number] Rc Pheresis As-3 Unit 0 [id number] Other: Weight 108.862 kg PHYSICAL EXAM: VITAL SIGNS: As above GENERAL: Sitting up in bed, no acute distress HEENT: Conjunctivae normal. eyes normal. NECK: No JVD. No thyroid enlargement. No LNs CARDIOVASCULAR: S1, S2 regular, irregular.No murmur RESPIRATION: Breath sounds diminished in the bases. No rhonchi or crackles. No bronchial breathing. ABDOMEN: Soft, nondistended, minimal epigastric tenderness. No guarding. no masses palpable. No ascites, No hepatosplenomegaly.Bowel sounds heard. EXTREM: Left lower extremity dressing clean dry and intact-prior to evacuation of hematoma on left ankle site, positive DP pulses. PSYCHIATRY: Alert and oriented X3, mood and affect normal. NERVOUS SYSTEM: Cranial N 2-12 grossly normal. Moves all 4 limbs. Diffuse we akness ,No focal deficits. Strength and sensation grossly intact.. Skin: Warm and dry,no rash Lymphatic system. No LN neck axilla. Results CBC & Chem 7: 02/18/21 03:23 02/18/21 03:23 Labs: Abnormal Lab Results - Last 24 Hours (Table) 02/18/21 02/18/21 02/18/21 Range/Units 03:23 03:23 03:23 RBC 2.22 L (3.80-5.40) m/uL Hgb 6.2 L* (11.4-16.0) gm/dL Hct 20.4 L (34.0-46.0) % MCHC 30.6 L (31.0-37.0) g/dL Sodium 132 L (137-145) mmol/L BUN 46 H (7-17) mg/dL Creatinine 1.63 H (0.52-1.04) mg/dL Glucose 109 H (74-99) mg/dL Total Protein 5.7 L (6.3-8.2) g/dL Albumin 3.2 L (3.5-5.0) g/dL Lipase 307 H (23-300) U/L Crossmatch See Detail Assessment and Plan Assessment: Acute blood loss anemia, etiology unclear in a patient with suspected chronic anemia, possible peptic ulcer disease, possible gastritis. Recent Echo suggestive of possible vegetation of the tricuspid valve- Cardiology following OP Recent evacuation of Left lower extremity hematoma Acute renal failure Possible chronic renal failure, stage IV Chronic persistent atrial fibrillation, anticoagulated on Xarelto-currently on hold Hyperlipidemia Hypertension Cardiac valve replacement Former nicotine dependence Multiple joint replacements Mild hyponatremia Morbid obesity, BMI 64.4 Moderate pulmonary hypertension Plan: Continue on current medication regime ,monitoring and symptomatic treatment. Hold Xarelto.Receiving 2nd unit of packed RBCs with follow-up CBC ordered. Lasix 20 mg IV push after transfusion. GI consulted for endoscopy. PPI for GI prophylaxis. Gentle IV fluid hydration. Close monitoring of coag's, renal function, electrolytes with repeat labs ordered for a.m. The impression and plan of care has been dictated as directed. : I performed a history and examination of this patient, discussed the same with the dictator. I agree with the dictator's note ,documented as a scribe. Any additional findings or plans will be noted.
[2021-02-18 20:19] LABS: Basophils % (A) 0 %; Eosinophils # (A) 0.1 k/uL (0-0.7); Eosinophils % (A) 2 %; HCT 25.8 % (34.0-46.0); Hypochromasia Marked; Lymphocytes % (A) 12 %; MCH 30.1 pg (25.0-35.0); MCHC 33.1 g/dL (31.0-37.0); MCV 90.9 fL (80.0-100.0); Mean Platelet Volume 8.5; Monocytes # (A) 0.6 k/uL (0-1.0); Monocytes % (A) 7 %; Neutrophils # (A) 6.4 k/uL (1.3-7.7); Neutrophils % (A) 75 %; Platelet Count 224 k/uL (150-450); Poikilocytosis Marked; RBC 2.84 m/uL (3.80-5.40); RDW 15.3 % (11.5-15.5); WBC 8.5 k/uL (3.8-10.6)
[2021-02-18 20:21] LABS: HGB 8.5 gm/dL (11.4-16.0)
[2021-02-18 20:36] LABS: Ferritin 28.6 ng/mL (10.0-291.0)
[2021-02-18] MEDS: PANTOPRAZOLE 40 MG/10 ML VIAL IVP SCH (21:48)
[2021-02-18 22:04] LABS: % Iron Saturation 2.76 (12.00-45.00)
[2021-02-19] MEDS: METOPROLOL TARTRATE 50 MG TAB PO SCH ×2 (07:23→16:56)
[2021-02-19 07:25] LABS: Basophils % (A) 0 %; Eosinophils # (A) 0.2 k/uL (0-0.7); Eosinophils % (A) 2 %; HCT 24.1 % (34.0-46.0); HGB 7.9 gm/dL (11.4-16.0); Hypochromasia Marked; Lymphocytes # (A) 1.2 k/uL (1.0-4.8); Lymphocytes % (A) 15 %; MCH 29.9 pg (25.0-35.0); MCHC 32.9 g/dL (31.0-37.0); MCV 90.8 fL (80.0-100.0); Mean Platelet Volume 8.4; Monocytes # (A) 0.6 k/uL (0-1.0); Monocytes % (A) 7 %; Neutrophils # (A) 6.1 k/uL (1.3-7.7); Neutrophils % (A) 73 %; Platelet Count 201 k/uL (150-450); Poikilocytosis Marked; RBC 2.66 m/uL (3.80-5.40); RDW 15.6 % (11.5-15.5); WBC 8.5 k/uL (3.8-10.6)
[2021-02-19] MEDS: PANTOPRAZOLE 40 MG/10 ML VIAL IVP SCH ×2 (07:32→21:34)
[2021-02-19] MEDS ORDERED: PHENYLEPHRINE-0.9% NACL SYG 1,000 MCG/10 ML SYRINGE ONE (11:31)
[2021-02-19] MEDS ORDERED: IV FLUID CONTINUATION 700 ML IV ONE (11:31)
[2021-02-19] MEDS ORDERED: PROPOFOL 10 MG/ML 20 ML VIAL IV ONE (11:31)
[2021-02-19] MEDS ORDERED: LIDOCAINE 1% INJ 10MG/ML (20 ML MDV) ONE (11:31)
--- NOTE | 2021-02-19 11:43 | P.PCN ---
Date of Procedure: 02/19/21 Procedure(s) Performed: BRIEF HISTORY: Patient is a 80-year-old, pleasant, she is noted to have black tarry stools for the last 1 month duration. History of fall A. fib and valve replacement and is on Xarelto for the last dose was 36 hours ago. She is scheduled for an upper endoscopy to evaluate further.. PROCEDURE PERFORMED: Esophagogastroduodenoscopy. PREOPERATIVE DIAGNOSIS: Severe symptomatic anemia and black tarry stools. IV sedation per anesthesia. PROCEDURE: After informed consent was obtained, the patient was brought into the endoscopy unit. IV sedation was administered by Anesthesia under continuous monitoring. Initially the Olympus GIF-140 video endoscope was inserted into the mouth. Esophagus intubated without any difficulty. It was gradually advanced into the stomach and duodenum and carefully examined. The bulb and the second part of the duodenum appeared normal. The scope at this time was withdrawn to the stomach, adequately insufflated with air, and upon careful examination, mucosa of the antrum, body, cardia and the fundus appeared normal. The scope was then withdrawn into the esophagus. The GE junction was located at 39 cm from the incisors. The esophagus appeared normal. There were no erosions or ulcerations seen and the patient tolerated the procedure well. IMPRESSION: 1. Normal-appearing esophagus, stomach and duodenum with no evidence of peptic ulcer disease, esophagitis or angiectasia. RECOMMENDATIONS: The findings of this examination were discussed with the patient . She will be scheduled for a colonoscopy tomorrow and if that is negative I'll consider small bowel capsule endoscopy. She'll be started on a clear liquid diet today. Monitor CBC daily..
[2021-02-19 12:17] LABS: African American GFR (CKD) 45.5 (60.0-200.0); Anion Gap 11.1 mmol/L (4.00-12.00); BUN/Creat Ratio 23.85 Ratio (12.00-20.00); Carbon Dioxide 25.9 mmol/L (21.6-31.8); Magnesium 1.7 mg/dL (1.5-2.4); Non-African American GFR(CKD) 39.3 (60.0-200.0); Phosphorus 3.4 mg/dL (2.4-5.1); Potassium 3.8 mmol/L (3.5-5.5)
[2021-02-19] MEDS: LACTATED RINGERS 1,000 ML IV SCH (16:58)
[2021-02-19] MEDS ORDERED: PEG 3350-NA SULF,BICARB,CL/KCL 4,000 ML BOTTLE PO ONE (17:00)
--- NOTE | 2021-02-19 20:55 | P.PN ---
Subjective Progress Note Date: 02/19/21 This is a 80-year-old female recently admitted for increasing generalized weakness status post multiple falls attributed to severe hypokalemia with subsequent left lower extremity hematoma requiring evacuation ,acute renal failure, anemia, chronic persistent atrial fibrillation-anticoagulated on Xarelto with history of heart valve replacement, osteoarthritis and multiple other medical issues sent to the ER related to abnormal labs from [facility]. Patient had been discharged on Protonix 40 mg daily. Patient stated that while at the [facility] developed dark bowel movements outlined in a bright red accompanied by increasing fatigue and weakness. Reports her last colonoscopy was more than [address] Nichols regarding an ulcer. Denies any nausea vomiting or diarrhea. Hemoglobin on admission 6.2, hematocrit 20, platelets 220. Receiving her second unit of packed RBCs.Afebrile, normal WBC. Sodium 132, BUN 46, creatinine 1.68, glucose 109. Denies chest pain, palpitations or shortness of breath. Denies lightheadedness, dizziness or focal deficits. Xarelto placed on hold, last taken yesterday. GI consulted for endoscopy. 02/19/2021 scheduled for EGD today, NPO. Reports no further bleeding, hemoglobin 7.9. Renal function improving with BUN and creatinine down to 31 and 1.3. Sodium up to 141 .Denies chest pain, palpitations or shortness of breath. Objective - Vital Signs Vital signs: Vital Signs Temp 98.6 F 02/19/21 15:11 Pulse 111 H 02/19/21 15:11 Resp 17 02/19/21 15:11 BP 100/64 02/19/21 15:11 Pulse Ox 95 02/19/21 15:11 Intake & Output 02/19/21 02/19/21 02/20/21 06:59 18:59 06:59 Intake Total 600 Output Total 200 Balance -200 600 Intake: IV 100 Oral 500 Output: Urine 200 Other: # Voids 2 # Bowel Movements 1 - Exam PHYSICAL EXAM: VITAL SIGNS: As above GENERAL: Sitting up in bed, no acute distress HEENT: Conjunctivae normal. eyes normal. NECK: Supple, No JVD. CARDIOVASCULAR: S1, S2 regular, irregular.No murmur RESPIRATION: Breath sounds diminished in the bases. ABDOMEN: Soft, nondistended, minimal epigastric tenderness. No guarding. no masses palpable.Bowel sounds heard. EXTREM: Left lower extremity dressing clean dry and intact-prior to evacuation of hematoma on left ankle site, positive DP pulses. PSYCHIATRY: Alert and oriented X3, mood and affect normal. NERVOUS SYSTEM: Cranial N 2-12 grossly normal. Moves all 4 limbs. Diffuse weakness ,No focal deficits. Strength and sensation grossly intact.. Skin: Warm and dry,no rash - Labs CBC & Chem 7: 02/19/21 07:11 02/19/21 07:11 Labs: Abnormal Lab Results - Last 24 Hours (Table) 02/18/21 02/19/21 02/19/21 Range/Units 03:23 07:11 07:11 RBC 2.66 L (3.80-5.40) m/uL Hgb 7.9 L (11.4-16.0) gm/dL Hct 24.1 L (34.0-46.0) % RDW 15.6 H (11.5-15.5) % BUN 31.0 H (9.0-27.0) mg/dL Est GFR (CKD-EPI)AfAm 45.5 L (60.0-200.0) Est GFR (CKD-EPI)NonAf 39.3 L (60.0-200.0) BUN/Creatinine Ratio 23.85 H (12.00-20.00) Ratio Iron 11 L (50-170) ug/dL % Saturation 2.76 L (12.00-45.00) Assessment and Plan Assessment: Acute blood loss anemia, etiology unclear in a patient with suspected chronic anemia, possible peptic ulcer disease, possible gastritis. Status post 2 units of packed RBCs Recent Echo suggestive of possible vegetation of the tricuspid valve- Cardiology following OP Recent evacuation of Left lower extremity hematoma Acute renal failure Possible chronic renal failure, stage IV Chronic persistent atrial fibrillation, anticoagulated on Xarelto-currently on hold Hyperlipidemia Hypertension Cardiac valve replacement Former nicotine dependence Multiple joint replacements Mild hyponatremia Morbid obesity, BMI 64.4 Moderate pulmonary hypertension Plan: Continue on current medication regime ,monitoring and symptomatic treatment. Continue Xarelto on hold . Gentle IV fluid hydration. Nothing by mouth, EGD pending. Possible colonoscopy pending EGD results Maintain close monitoring of coag's, renal function, electrolytes with repeat labs ordered for a.m. The impression and plan of care has been dictated as directed. : I performed a history and examination of this patient, discussed the same with the dictator. I agree with the dictator's note ,documented as a scribe. Any additional findings or plans will be noted.
[2021-02-20] MEDS: METOPROLOL TARTRATE 50 MG TAB PO SCH ×2 (09:08→17:01)
[2021-02-20] MEDS: POTASSIUM CHLORIDE ER 20 MEQ TAB.ER PO SCH ×6 (09:08→18:19)
[2021-02-20] MEDS: SODIUM CHLORIDE 0.9% 1,000 ML IV SCH ×2 (09:09→20:20)
[2021-02-20] MEDS: PANTOPRAZOLE 40 MG/10 ML VIAL IVP SCH ×2 (09:09→20:19)
[2021-02-20] MEDS: SPIRONOLACTONE 25 MG TAB PO SCH (09:09)
[2021-02-20] MEDS: DULoxetine HCL 30 MG CAPSULE.DR PO SCH ×2 (09:21→20:40)
--- NOTE | 2021-02-20 10:43 | XR ---
EXAMINATION TYPE: XR foot complete LT DATE OF EXAM: 02/20/2021 CLINICAL HISTORY: pain TECHNIQUE: Frontal, lateral and oblique images of the left foot are obtained. COMPARISON: None. FINDINGS: There is no acute fracture/dislocation evident. Severe hallux valgus deformity of the firs t metatarsal phalangeal joint. The overlying soft tissue appears unremarkable. IMPRESSION: There is no acute fracture or dislocation. ICD 10 NO FRACTURE, INITIAL EVALUATION
[2021-02-20] MEDS: ACETAMINOPHEN IV (For NPO) 1,000 MG in EMPTY BAG 1 BAG IVPB SCH ×3 (10:52→23:03)
[2021-02-20 11:16] LABS: Basophils # (A) 0.03 X 10*3/uL (0.00-0.10); Basophils % (A) 0.3 %; Eosinophils # (A) 0.17 X 10*3/uL (0.04-0.35); Eosinophils % (A) 1.9 %; HCT 23.5 % (37.2-46.3); HGB 7.2 g/dL (12.0-15.0); Lymphocytes # (A) 1.39 X 10*3/uL (0.90-5.00); Lymphocytes % (A) 15.4 %; MCH 28.9 pg (27.0-32.0); MCHC 30.6 g/dL (32.0-37.0); MCV 94.4 fL (80.0-97.0); Mean Platelet Volume 9.7 fL (9.5-12.2); Monocytes # (A) 1.14 X 10*3/uL (0.20-1.00); Monocytes % (A) 12.6 %; Neutrophils # (A) 6.25 X 10*3/uL (1.80-7.70); Neutrophils % (A) 69.4 %; Platelet Count 185 X 10*3/uL (140-440); RBC 2.49 X 10*6/uL (4.10-5.20); RDW 15.3 % (11.5-14.5); WBC 9.02 X 10*3/uL (4.50-10.00)
[2021-02-20 12:50] LABS: African American GFR (CKD) 55.7 (60.0-200.0); Anion Gap 11.1 mmol/L (4.00-12.00); BUN/Creat Ratio 18.18 Ratio (12.00-20.00); Calcium 8.9 mg/dL (8.7-10.3); Carbon Dioxide 26.9 mmol/L (21.6-31.8)
[2021-02-20] MEDS ORDERED: PROPOFOL 10 MG/ML 20 ML VIAL IV ONE (14:19)
[2021-02-20] MEDS ORDERED: IV FLUID CONTINUATION 700 ML IV ONE (14:21)
--- NOTE | 2021-02-20 14:43 | P.PCN ---
Date of Procedure: 02/20/21 Procedure(s) Performed: BRIEF HISTORY: Patient is a 80-year-old pleasant white female admitted hospital with severe symptomatic anemia and black tarry stools. No blood was 6.2 g/dL. Xarelto has been on hold for 3 days. She had an upper endoscopy yesterday was unremarkable. She is hence scheduled for colonoscopy to evaluate further. PROCEDURE PERFORMED: Colonoscopy snare polypectomy. PREOPERATIVE DIAGNOSIS: Severe symptomatic anemia and a negative upper endoscopy done yesterday IV sedation per Anesthesia. PROCEDURE: After informed consent was obtained, the patient, was brought into the endoscopy unit. IV sedation was administered by Anesthesia under continuous monitoring. Digital rectal examination was normal. Initially the Olympus CF-160 flexible video colonoscope was then inserted in the rectum, gradually advanced into the cecum without any difficulty. Careful examination was performed as the scope was gradually being withdrawn. Ileocecal valve and the appendiceal orifice were visualized and appeared normal. Prep was excellent. Mucosa of the cecum, ascending colon, transverse colon, descending colon, sigmoid colon, and rectum appeared normal. Moderate sigmoidal mucosa seen. In the distal sigmoid colon there was a 1 cm polyp removed by snare polypectomy. Retroflexion was performed in the rectum and grade 2 internal hemorrhoids were seen. The patient tolerated the procedure well. IMPRESSION: 1 cm distal sigmoid colon polyp status post polypectomy Sigmoid diverticulosis Grade 2 internal hemorrhoids RECOMMENDATIONS: Findings of this examination were discussed with the patient as well as a family. She was advised to follow with the biopsy results. Anticoagulation can be resumed. Diet will be advanced as tolerated
[2021-02-20] MEDS ORDERED: Potassium Replacement Protocol 1 EACH MISC MISCELLANE PRN (15:03)
[2021-02-20] MEDS: FUROSEMIDE 40 MG TAB PO SCH (15:08)
[2021-02-20] MEDS: Acetaminophen-Codeine 300-30mg TAB PO PRN (18:54)
--- NOTE | 2021-02-20 19:12 | P.PN ---
Subjective Progress Note Date: 02/20/21 This is a 80-year-old female recently admitted for increasing generalized weakness status post multiple falls attributed to severe hypokalemia with subsequent left lower extremity hematoma requiring evacuation ,acute renal failure, anemia, chronic persistent atrial fibrillation-anticoagulated on Xarelto with history of heart valve replacement, osteoarthritis and multiple other medical issues sent to the ER related to abnormal labs from [facility]. Patient had been discharged on Protonix 40 mg daily. Patient stated that while at the [facility] developed dark bowel movements outlined in a bright red accompanied by increasing fatigue and weakness. Reports her last colonoscopy was more than [address] Nichols regarding an ulcer. Denies any nausea vomiting or diarrhea. Hemoglobin on admission 6.2, hematocrit 20, platelets 220. Receiving her second unit of packed RBCs.Afebrile, normal WBC. Sodium 132, BUN 46, creatinine 1.68, glucose 109. Denies chest pain, palpitations or shortness of breath. Denies lightheadedness, dizziness or focal deficits. Xarelto placed on hold, last taken yesterday. GI consulted for endoscopy. 02/19/2021 scheduled for EGD today, NPO. Reports no further bleeding, hemoglobin 7.9. Renal function improving with BUN and creatinine down to 31 and 1.3. Sodium up to 141 .Denies chest pain, palpitations or shortness of breath. 02/20/2021 NPO, scheduled for colonoscopy. Completed prep. Reports no further bleeding. Labs pending. Objective - Vital Signs Vital signs: Vital Signs Temp 98.9 F 02/20/21 15:10 Pulse 93 02/20/21 15:10 Resp 18 02/20/21 15:10 BP 110/72 02/20/21 15:10 Pulse Ox 91 L 02/20/21 15:10 Intake & Output 02/20/21 02/20/21 02/21/21 06:59 18:59 06:59 Intake Total 200 Balance 200 Intake: IV 200 Other: Voiding Method External Catheter # Voids 3 # Bowel Movements 1 1 - Exam PHYSICAL EXAM: VITAL SIGNS: As above GENERAL: Sitting up in bed, no acute distress HEENT: Conjunctivae normal. eyes normal. Oral mucosa dry NECK: Supple, No JVD. CARDIOVASCULAR: S1, S2 regular, irregular.No murmur RESPIRATION: Breath sounds diminished in the bases. ABDOMEN: Soft, nondistended, nontender, No guarding. no masses palpable.Bowel sounds heard. EXTREM: Left lower extremity dressing clean dry and intact,positive DP pulses. PSYCHIATRY: Alert and oriented X3, mood and affect normal. NERVOUS SYSTEM: Cranial N 2-12 grossly normal. Moves all 4 limbs. Diffuse weakness ,No focal deficits. Strength and sensation grossly intact. Skin: Warm and dry,no rash - Labs CBC & Chem 7: 02/20/21 07:06 02/20/21 07:06 Labs: Abnormal Lab Results - Last 24 Hours (Table) 02/20/21 02/20/21 Range/Units 07:06 07:06 RBC 2.49 L (4.10-5.20) X 10*6/uL Hgb 7.2 L (12.0-15.0) g/dL Hct 23.5 L (37.2-46.3) % MCHC 30.6 L (32.0-37.0) g/dL RDW 15.3 H (11.5-14.5) % Monocytes # 1.14 H (0.20-1.00) X 10*3/uL Potassium 3.0 L (3.5-5.5) mmol/L Est GFR (CKD-EPI)AfAm 55.7 L (60.0-200.0) Est GFR (CKD-EPI)NonAf 48.0 L (60.0-200.0) Assessment and Plan Assessment: Acute blood loss anemia, etiology unclear in a patient with suspected chronic anemia, possible peptic ulcer disease, possible gastritis. Status post 2 units of packed RBCs Recent Echo suggestive of possible vegetation of the tricuspid valve- Cardiology following OP Recent evacuation of Left lower extremity hematoma Acute renal failure Possible chronic renal failure, stage IV Chronic persistent atrial fibrillation, anticoagulated on Xarelto-currently on hold Hyperlipidemia Hypertension Cardiac valve replacement Former nicotine dependence Multiple joint replacements Mild hyponatremia Morbid obesity, BMI 64.4 Moderate pulmonary hypertension Plan: Continue on current medication regime ,monitoring and symptomatic treatment. Labs pending. Xarelto remains on hold.NPO, colonoscopy pending. Gentle IV fluid hydration. Discharge planning in progress pending endoscopy results, GI recommendations and clearance for discharge. The impression and plan of care has been dictated as directed. : I performed a history and examination of this patient, discussed the same with the dictator. I agree with the dictator's note ,documented as a scribe. Any additional findings or plans will be noted.
[2021-02-21] MEDS: ACETAMINOPHEN IV (For NPO) 1,000 MG in EMPTY BAG 1 BAG IVPB SCH (05:27)
[2021-02-21] MEDS: FUROSEMIDE 40 MG TAB PO SCH ×2 (05:53→16:09)
[2021-02-21] MEDS: POTASSIUM CHLORIDE ER 20 MEQ TAB.ER PO SCH ×3 (09:14→18:49)
[2021-02-21] MEDS: PANTOPRAZOLE 40 MG TABLET PO SCH (09:14)
[2021-02-21] MEDS: METOPROLOL TARTRATE 50 MG TAB PO SCH ×2 (09:14→16:09)
[2021-02-21] MEDS: SPIRONOLACTONE 25 MG TAB PO SCH (09:14)
[2021-02-21] MEDS: DULoxetine HCL 30 MG CAPSULE.DR PO SCH ×2 (09:15→22:02)
[2021-02-21 09:23] LABS: Basophils # (A) 0.04 X 10*3/uL (0.00-0.10); Basophils % (A) 0.5 %; Eosinophils # (A) 0.19 X 10*3/uL (0.04-0.35); Eosinophils % (A) 2.2 %; HCT 23.2 % (37.2-46.3); HGB 7.1 g/dL (12.0-15.0); Lymphocytes # (A) 1.24 X 10*3/uL (0.90-5.00); Lymphocytes % (A) 14.6 %; MCH 29.1 pg (27.0-32.0); MCHC 30.6 g/dL (32.0-37.0); MCV 95.1 fL (80.0-97.0); Mean Platelet Volume 10.1 fL (9.5-12.2); Monocytes % (A) 12.9 %; Neutrophils # (A) 5.89 X 10*3/uL (1.80-7.70); Neutrophils % (A) 69.3 %; Platelet Count 174 X 10*3/uL (140-440); RBC 2.44 X 10*6/uL (4.10-5.20); RDW 15.3 % (11.5-14.5)
[2021-02-21] MEDS: SODIUM FERRIC GLUCONAT-SUCROSE 125 MG in SODIUM CHLORIDE 0.9% 100 ML IVPB SCH (10:15)
[2021-02-21 10:24] LABS: African American GFR (CKD) 55.7 (60.0-200.0); Anion Gap 7.1 mmol/L (4.00-12.00); BUN/Creat Ratio 14.55 Ratio (12.00-20.00); Carbon Dioxide 25.9 mmol/L (21.6-31.8); Potassium 3.9 mmol/L (3.5-5.5)
--- NOTE | 2021-02-21 10:55 | P.DS ---
Providers Date of admission: 02/19/21 16:28 Expected date of discharge: 02/21/21 Attending physician: Bolivar Valiente Consults: 02/18/21 08:30 Consult Physician Stat Consulting Provider: Dora Carbajal Consult Reason/Comments: GI bleed Do you want consulting provider notified?: Yes Primary care physician: Bolivar Valiente [facility] Course: Final Diagnoses: Acute blood loss anemia, Status post 2 units of packed RBCs. Status post EGD and colonoscopy. Colonoscopy reported 1 cm distal sigmoid colon polyp status post polypectomy, biopsy results pending, sigmoid diverticulosis and grade 2 internal hemorrhoids. Anticoagulation resumed. Recent Echo suggestive of possible vegetation of the tricuspid valve- Cardiology following OP Recent evacuation of Left lower extremity hematoma Acute renal failure Possible chronic renal failure, stage IV Chronic anemia secondary to the above, iron deficient Chronic persistent atrial fibrillation, anticoagulated on Xarelto. Hyperlipidemia Hypertension Cardiac valve replacement Former nicotine dependence Multiple joint replacements Mild hyponatremia Morbid obesity, BMI 64.4 Moderate pulmonary hypertension Hospital course:This is a 80-year-old female recently admitted for increasing generalized weakness status post multiple falls attributed to severe hypokalemia with subsequent left lower extremity hematoma requiring evacuation ,acute renal failure, anemia, chronic persistent atrial fibrillation-anticoagulated on Xarelto with history of heart valve replacement, osteoarthritis and multiple other medical issues sent to the ER related to abnormal labs from [facility]. Patient had been discharged on Protonix 40 mg daily. Patient stated that while at the [facility] developed dark bowel movements outlined in a bright red accompanied by increasing fatigue and weakness. Reports her last colonoscopy was more than [address] Nichols regarding an ulcer. Denies any nausea vomiting or diarrhea. Hemoglobin on admission 6.2, hematocrit 20, platelets 220. Receiving her second unit of packed RBCs.Afebrile, normal WBC. Sodium 132, BUN 46, creatinine 1.68, glucose 109. Denies chest pain, palpitations or shortness of breath. Denies lightheadedness, dizziness or focal deficits. Xarelto placed on hold, last taken yesterday. GI consulted for endoscopy. 02/19/2021 scheduled for EGD today, NPO. Reports no further bleeding, hemoglobin 7.9. Renal function improving with BUN and creatinine down to 31 and 1.3. Sodium up to 141 .Denies chest pain, palpitations or shortness of breath. 02/20/2021 NPO, scheduled for colonoscopy. Completed prep. Reports no further bleeding. Labs pending. Colonoscopy reported 1 cm distal sigmoid colon polyp status post polypectomy, biopsy results pending, sigmoid diverticulosis and grade 2 internal hemorrhoids. Cleared by GI to resume Anticoagulation. Hemoglobin 7.1, no further bleeding reported. Cleared by GI for discharge to subacute rehab today in a stable condition with guarded prognosis after iron supplement. The impression and plan of care has been dictated as directed. : I performed a history and examination of this patient, discussed the same with the dictator. I agree with the dictator's note ,documented as a scribe. Any additional findings or plans will be noted. Patient Condition at Discharge: Stable Plan - Discharge Summary Discharge Rx Participant: No New Discharge Prescriptions: Continue Furosemide [Lasix] 40 mg PO BID@0600,1400 Potassium Chloride [K-Tab ER] 40 meq PO TID@0800,1200,1700 Rivaroxaban [Xarelto] 15 mg PO HS@1700 DULoxetine HCL [Cymbalta] 30 mg PO BID@0800,2100 Spironolactone 25 mg PO DAILY@0800 Acetaminophen Tab [Tylenol] 650 mg PO Q6HR PRN tab PRN Reason: Mild Pain Or Fever > 100.5 bisacodyL [Dulcolax] 10 mg RECTAL DAILY PRN PRN Reason: Constipation Magnesium Hydroxide [Milk of Magnesia Concentrate] 7,200 mg PO Q48H PRN PRN Reason: Constipation Metoprolol Tartrate [Lopressor] 50 mg PO BID@0800,1700 Na Phos,M-B/Na Phos,Di-Ba [Fleet Adult] 133 ml RECTAL DAILY PRN PRN Reason: Constipation Pantoprazole [Protonix] 40 mg PO AC-BRKFST@0600 Changed Acetaminophen-Codeine 300-30mg [Tylenol w/codeine #3] 1 tab PO Q8H PRN #9 tab PRN Reason: Pain Discharge Medication List Furosemide [Lasix] 40 mg PO BID@0600,1400 09/27/17 [History] Potassium Chloride [K-Tab ER] 40 meq PO TID@0800,1200,1700 09/27/17 [History] DULoxetine HCL [Cymbalta] 30 mg PO BID@0800,2100 02/04/21 [History] Rivaroxaban [Xarelto] 15 mg PO HS@1700 02/04/21 [History] Spironolactone 25 mg PO DAILY@0800 02/04/21 [History] Acetaminophen Tab [Tylenol] 650 mg PO Q6HR PRN tab 02/07/21 [Rx] Magnesium Hydroxide [Milk of Magnesia Concentrate] 7,200 mg PO Q48H PRN 02/18/21 [History] Metoprolol Tartrate [Lopressor] 50 mg PO BID@0800,1700 02/18/21 [History] Na Phos,M-B/Na Phos,Di-Ba [Fleet Adult] 133 ml RECTAL DAILY PRN 02/18/21 [History] Pantoprazole [Protonix] 40 mg PO AC-BRKFST@0600 02/18/21 [History] bisacodyL [Dulcolax] 10 mg RECTAL DAILY PRN 02/18/21 [History] Acetaminophen-Codeine 300-30mg [Tylenol w/codeine #3] 1 tab PO Q8H PRN #9 tab 02/21/21 [Rx] Follow up Appointment(s)/Referral(s): Bolivar Valiente DO [Primary Care Provider] - 1 Week (After discharge from [facility]) Dora Carbajal MD [STAFF PHYSICIAN] - 2 Weeks Activity/Diet/Wound Care/Special Instructions: Sandy CBC, BMP in 3 days
[2021-02-21] MEDS: PANTOPRAZOLE 40 MG/10 ML VIAL IVP SCH ×2 (14:32→22:02)
--- NOTE | 2021-02-21 16:46 | P.PN ---
Subjective Progress Note Date: 02/21/21 Principal diagnosis: Anemia, GI bleed 80-year-old who presented to the emergency department complaints of weakness, dizziness shortness of breath and black stools for the last 1 month's duration. She was admitted earlier this year for anemia and had extensive workup including EGD, colonoscopy, and small bowel video capsule endoscopy with no findings of any old or active bleeding. She has a history of atrial fibrillation and has been on Xarelto which has been discontinued indefinitely. She underwent EGD and colonoscopy. EGD showed normal appearing esophagus, stomach and went numb with no evidence of peptic ulcer disease, esophagitis or angiectasia. She then underwent a colonoscopy showing a distal sigmoid colon polyp status post polypectomy, sigmoid diverticulosis, and grade 2 internal hemorrhoids. Patient denies any bowel movements and she's been here. States she does have chronic constipation and normally goes every 3-4 days. She denies any abdominal pain, nausea, or vomiting. She has been started on IV iron, hemoglobin today was 7.0. Hematology is following. Objective - Vital Signs Vital signs: Vital Signs Temp 99.0 F 02/21/21 08:00 Pulse 103 H 02/21/21 08:00 Resp 18 02/21/21 08:00 BP 101/67 02/21/21 08:00 Pulse Ox 95 02/21/21 08:00 Intake & Output 02/20/21 02/21/21 02/21/21 18:59 06:59 18:59 Intake Total 200 Output Total 400 Balance 200 -400 Intake: IV 200 Output: Urine 400 Other: Voiding Method External Catheter External Catheter # Voids 3 # Bowel Movements 1 - Exam General appearance: The patient is alert, oriented, appears in no acute distress. HET: Head is normocephalic and atraumatic. Conjunctiva pink. Sclera anicteric. Neck: Supple without lymphadenopathy. Abdomen: Soft, nontender, nondistended with bowel sounds. No guarding or rigidity. Extremities: Normal skin color and turgor. No pedal edema Skin: No rashes, no jaundice Neurological: No focal deficits. Alert and oriented 3. - Labs CBC & Chem 7: 02/21/21 06:40 02/21/21 06:40 Labs: Abnormal Lab Results - Last 24 Hours (Table) 02/20/21 02/20/21 02/21/21 Range/Units 07:06 07:06 06:40 RBC 2.49 L 2.44 L (4.10-5.20) X 10*6/uL Hgb 7.2 L 7.1 L (12.0-15.0) g/dL Hct 23.5 L 23.2 L (37.2-46.3) % MCHC 30.6 L 30.6 L (32.0-37.0) g/dL RDW 15.3 H 15.3 H (11.5-14.5) % Monocytes # 1.14 H 1.10 H (0.20-1.00) X 10*3/uL Potassium 3.0 L (3.5-5.5) mmol/L Est GFR (CKD-EPI)AfAm 55.7 L (60.0-200.0) Est GFR (CKD-EPI)NonAf 48.0 L (60.0-200.0) Assessment and Plan (1) Anemia Narrative/Plan: 80-year-old female who presented to the emergency department from [facility] with low hemoglobin. Patient states she's been feeling extremely weak and fatigued over the last 1-2 weeks. Patient has had multiple falls in the last 1 month's duration and suffered a hematoma to her left ankle which was evacuated 1-2 weeks ago. She states she's not had any further falls. She states she has a history of ulcers 25-30 years ago and underwent an EGD with . She denies ever lan ving a colonoscopy, she denies any acid reflux or use of NSAIDs. She is on Xarelto for atrial fibrillation, last dose taken yesterday evening. She denies any previous history of GI bleed. She is stating that for the last month or so she's had dark stools, denies any bright red blood. On presentation to the emergency department her hemoglobin was noted to be 6.2, she is receiving her second unit of PRBC transfusion. Iron studies will be obtained. Continue to hold it anticoagulation. Possible etiologies include peptic ulcer disease, gastritis, esophagitis, AVM or other possible etiologies. patient will be scheduled for upper endoscopy in the next 1-2 days. Patient is status post upper and lower endoscopy. EGD showed normal-appearing esophagus stomach and went numb with no evidence of peptic ulcer disease esophagitis or angiectasia. Colonoscopy showed sigmoid colon polyp status post polypectomy, sigmoid diverticulosis and grade 2 internal hemorrhoids. Patient was previously on Xarelto and cardiology has discontinued indefinitely. Patient likely has had some AVMs causing acute blood loss. Patient had iron studies consistent with iron deficiency anemia, any iron has been initiated. Current Visit: Yes Status: Acute Code(s): D64.9 - ANEMIA, UNSPECIFIED SNOMED Code(s): 650264748 (2) Melena Current Visit: Yes Status: Acute Code(s): K92.1 - MELENA SNOMED Code(s): 5580914 (3) Generalized weakness Current Visit: Yes Status: Acute Code(s): R53.1 - WEAKNESS SNOMED Code(s): 13740224 Plan: 1. Continue symptomatic and supportive care 2. Transfuse 1 unit of PRBC 3. Diet as tolerated 4. Hold Xarelto 5. Patient is status post EGD and colonoscopy Thank you for this consultation, we will sign off at this time. Dr. Rylee Carbajal I agree with the dictator's note, documented as a scribe by Amber Sears.
--- NOTE | 2021-02-21 16:56 | P.PN ---
Subjective Progress Note Date: 02/21/21 Principal diagnosis: Anemia, GI bleed 80-year-old who presented to the emergency department complaints of weakness, dizziness shortness of breath and black stools for the last 1 month's duration. She was currently taking Xarelto for atrial fibrillation She then underwent a colonoscopy showing a distal sigmoid colon polyp status post polypectomy, sigmoid diverticulosis, and grade 2 internal hemorrhoids. She is seen and examined today without any complaints of abdominal pain, nausea, vomiting, and denies any blood or black stools. Her repeat hemoglobin is stable at 7.1. Iron studies are consistent with iron deficiency anemia. Objective - Vital Signs Vital signs: Vital Signs Temp 99.0 F 02/21/21 08:00 Pulse 103 H 02/21/21 08:00 Resp 18 02/21/21 08:00 BP 101/67 02/21/21 08:00 Pulse Ox 95 02/21/21 08:00 Intake & Output 02/20/21 02/21/21 02/21/21 18:59 06:59 18:59 Intake Total 200 Output Total 400 Balance 200 -400 Intake: IV 200 Output: Urine 400 Other: Voiding Method External Catheter External Catheter External Catheter # Voids 3 # Bowel Movements 1 - Exam General appearance: The patient is alert, oriented, appears in no acute distress. HET: Head is normocephalic and atraumatic. Conjunctiva pink. Sclera anicteric. Neck: Supple without lymphadenopathy. Abdomen: Soft, nontender, nondistended with bowel sounds. No guarding or rigidity. Extremities: Normal skin color and turgor. No pedal edema Skin: No rashes, no jaundice Neurological: No focal deficits. Alert and oriented 3. - Labs CBC & Chem 7: 02/21/21 06:40 02/21/21 06:40 Labs: Abnormal Lab Results - Last 24 Hours (Table) 02/21/21 02/21/21 Range/Units 06:40 06:40 RBC 2.44 L (4.10-5.20) X 10*6/uL Hgb 7.1 L (12.0-15.0) g/dL Hct 23.2 L (37.2-46.3) % MCHC 30.6 L (32.0-37.0) g/dL RDW 15.3 H (11.5-14.5) % Monocytes # 1.10 H (0.20-1.00) X 10*3/uL Est GFR (CKD-EPI)AfAm 55.7 L (60.0-200.0) Est GFR (CKD-EPI)NonAf 48.0 L (60.0-200.0) Calcium 8.0 L (8.7-10.3) mg/dL Assessment and Plan (1) Anemia Narrative/Plan: 80-year-old female who presented to the emergency department from [facility] with low hemoglobin. Patient states she's been feeling extremely weak and fatigued over the last 1-2 weeks. Patient has had multiple falls in the last 1 month's duration and suffered a hematoma to her left ankle which was evacuated 1-2 weeks ago. She states she's not had any further falls. She states she has a history of ulcers 25-30 years ago and underwent an EGD with . She denies ever having a colonoscopy, she denies any acid reflux or use of NSAIDs. She is on Xarelto for atrial fibrillation, last dose taken yesterday evening. She denies any previous history of GI bleed. She is stating that for the last month or so she's had dark stools, denies any bright red blood. On presentation to the emergency department her hemoglobin was noted to be 6.2, she is receiving her second unit of PRBC transfusion. Iron studies will be obtained. Continue to hold it anticoagulation. Possible etiologies include peptic ulcer disease, gastritis, esophagitis, AVM or other possible etiologies. patient will be scheduled for upper endoscopy in the next 1-2 days. Patient is status post upper and lower endoscopy. EGD showed normal-appearing esophagus stomach and went numb with no evidence of peptic ulcer disease esophagitis or angiectasia. Colonoscopy showed sigmoid colon polyp status post polypectomy, sigmoid diverticulosis and grade 2 internal hemorrhoids. Patient had iron studies consistent with iron deficiency anemia, any iron has been initiated. Current Visit: Yes Status: Acute Code(s): D64.9 - ANEMIA, UNSPECIFIED SNOMED Code(s): 531467522 (2) Melena Current Visit: Yes Status: Acute Code(s): K92.1 - MELENA SNOMED Code(s): 2581239 (3) Generalized weakness Current Visit: Yes Status: Acute Code(s): R53.1 - WEAKNESS SNOMED Code(s): 30139814 Plan: 1. Continue symptomatic and supportive care 2. IV iron ordered, recommend discharge on oral iron BID 3. Diet as tolerated 4. May resume anticoagulation 5. Patient is status post EGD and colonoscopy, no plans on further endoscopic evaluation at this time 6. Patient to call gastroenterology office for biopsy results Thank you for this consultation, the patient is cleared for discharge from gastroenterology. Dr. Rylee Carbajal I agree with the dictator's note, documented as a scribe by Amber Sears.
[2021-02-21] MEDS: SODIUM CHLORIDE 0.9% 1,000 ML IV SCH ×2 (19:01→22:05)
[2021-02-21] MEDS: RIVAROXABAN 15 MG TAB PO SCH (22:02)
[2021-02-22 06:03] LABS: Basophils % (A) 0 %; Eosinophils # (A) 0.2 k/uL (0-0.7); Eosinophils % (A) 2 %; HCT 25.1 % (34.0-46.0); HGB 7.7 gm/dL (11.4-16.0); Hypochromasia Marked; Lymphocytes % (A) 11 %; MCH 28.7 pg (25.0-35.0); MCHC 30.7 g/dL (31.0-37.0); MCV 93.4 fL (80.0-100.0); Mean Platelet Volume 8.4; Monocytes # (A) 0.7 k/uL (0-1.0); Monocytes % (A) 7 %; Neutrophils # (A) 6.8 k/uL (1.3-7.7); Neutrophils % (A) 76 %; Platelet Count 176 k/uL (150-450); Poikilocytosis Moderate; RBC 2.69 m/uL (3.80-5.40); RDW 15.9 % (11.5-15.5)
[2021-02-22] MEDS: PANTOPRAZOLE 40 MG/10 ML VIAL IVP SCH (08:06)
[2021-02-22] MEDS: METOPROLOL TARTRATE 50 MG TAB PO SCH ×2 (08:10→17:20)
[2021-02-22] MEDS: SPIRONOLACTONE 25 MG TAB PO SCH (08:10)
[2021-02-22] MEDS: POTASSIUM CHLORIDE ER 20 MEQ TAB.ER PO SCH ×3 (08:10→17:21)
[2021-02-22] MEDS: PANTOPRAZOLE 40 MG TABLET PO SCH ×2 (08:10→17:21)
[2021-02-22] MEDS: FUROSEMIDE 40 MG TAB PO SCH ×3 (08:10→15:57)
[2021-02-22] MEDS: SODIUM FERRIC GLUCONAT-SUCROSE 125 MG in SODIUM CHLORIDE 0.9% 100 ML IVPB SCH (09:13)
[2021-02-22] MEDS: SODIUM CHLORIDE 0.9% 1,000 ML IV SCH (09:59)
[2021-02-22] MEDS: Acetaminophen-Codeine 300-30mg TAB PO PRN (11:23)
--- NOTE | 2021-02-22 12:31 | P.CRDCN ---
History of Present Illness Consult date: 02/22/21 Requesting physician: Domo E Sheet Reason for Consult (text): abnormal EKG Chief complaint: abnormal labs History of present illness: This is a pleasant 80-year-old female patient who follows with Dr. Villanueva in the office. Has a history of chronic persistent atrial fibrillation, anticoagulated on Xarelto, mitral valve disease, previous aortic valve replacement, mitral valve repair and tricuspid valve repair with ascending aortic replacement done in June 2010 at [facility]. Recently admitted earlier this month due to recurrent falls. At that time she underwent echocardiogram which raised the question of possible vegetation on the tricuspid valve but was felt to be related to prior surgical intervention and not reflective of vegetation. She had no symptoms of endocarditis. She has since been at [facility] for rehab. She was readmitted with dark stools and low hemoglobin. On admission hemoglobin was 6.2. She underwent EGD on 02/19/2021 which showed normal-appearing esophagus, stomach and duodenum with no evidence of peptic ulcer disease, esophagitis or angiectasia. She subsequently underwent colonoscopy which showed 1 cm distal sigmoid colon polyp, sigmoid diverticulosis and grade 2 internal hemorrhoids. Based on his anticoagulation was resumed. We were asked see the patient in consultation today which was initially anticipated date of discharge due to heart rates running in the low 100s as well as a 16 beat run of nonsustained ventricular tachycardia this morning. Overall the patient has been feeling fairly well. Her breathing is mostly at baseline but she was somewhat short of breath this morning. Her hemoglobin is stable in the 70s. She is currently on metoprolol tartrate 50 mg by mouth twice a day and her blood pressure is marginal. Past Medical History Past Medical History: Atrial Fibrillation, Hyperlipidemia, Osteoarthritis (OA) Additional Past Medical History / Comment(s): cardiac valve issues History of Any Multi-Drug Resistant Organisms: None Reported Past Surgical History: Back Surgery, Cardiac Valve Replacement, Joint Replacement Additional Past Surgical History / Comment(s): hipx2 knee replacement Past Anesthesia/Blood Transfusion Reactions: No Reported Reaction Past Psychological History: No Psychological Hx Reported Smoking Status: Former smoker Past Alcohol Use History: None Reported Past Drug Use History: None Reported Medications and Allergies Home Medications Medication Instructions Recorded Confirmed Type Furosemide [Lasix] 40 mg PO BID@0600,1400 09/27/17 02/18/21 History Potassium Chloride [K-Tab ER] 40 meq PO TID@0800,1200,1700 09/27/17 02/18/21 History DULoxetine HCL [Cymbalta] 30 mg PO BID@0800,2100 02/04/21 02/18/21 History Rivaroxaban [Xarelto] 15 mg PO HS@1700 02/04/21 02/18/21 History Spironolactone 25 mg PO DAILY@0800 02/04/21 02/18/21 History Acetaminophen Tab [Tylenol] 650 mg PO Q6HR PRN tab 02/07/21 02/18/21 Rx Magnesium Hydroxide [Milk of 7,200 mg PO Q48H PRN 02/18/21 02/18/21 History Magnesia Concentrate] Metoprolol Tartrate [Lopressor] 50 mg PO BID@0800,1700 02/18/21 02/18/21 History Na Phos,M-B/Na Phos,Di-Ba [Fleet 133 ml RECTAL DAILY PRN 02/18/21 02/18/21 History Adult] Pantoprazole [Protonix] 40 mg PO AC-BRKFST@0600 02/18/21 02/18/21 History bisacodyL [Dulcolax] 10 mg RECTAL DAILY PRN 02/18/21 02/18/21 History Acetaminophen-Codeine 300-30mg 1 tab PO Q8H PRN #9 tab 02/21/21 Rx [Tylenol w/codeine #3] Ferrous Sulfate [Feosol] 325 mg PO DAILY #30 tab 02/21/21 Rx Sennosides-Docusate Sodium 2 tab PO BID #1 tablet 02/21/21 Rx [Senokot-S] Allergies Allergy/AdvReac Type Severity Reaction Status Date / Time oxycodone Allergy Rash/Hives Verified 02/18/21 07:50 Penicillins Allergy Rash/Hives Verified 02/18/21 07:50 Physical Exam Vitals: Vital Signs Temp Pulse Resp BP Pulse Ox 02/22/21 07:42 97.8 F 113 H 19 105/63 94 L 02/22/21 00:58 97.7 F 105 H 16 117/76 96 02/21/21 19:14 97.5 F L 109 H 18 109/70 96 02/21/21 14:00 98.8 F 110 H 18 96/64 93 L Intake and Output 02/21/21 02/22/21 02/22/21 22:59 06:59 14:59 Output Total 400 Balance -400 Output: Urine 400 Other: Voiding Method Bedside Commode # Voids 1 1 # Bowel Movements 1 PHYSICAL EXAMINATION: This is a 80-year-old female in no apparent distress at the time of my examination. VITAL SIGNS: Blood pressure 105/63, heart rate 113, respirations 19, temp 97. 8F. Patient is 94 % on room air. HEENT: Head is atraumatic, normocephalic. Pupils are equal, round. Sclerae anicteric. Conjunctivae are clear. Mucous membranes of the mouth are moist. Neck is supple. There is no elevated jugular venous pressure. No carotid bruit is heard. CHEST EXAMINATION: Clear to auscultation bilaterally. No wheezes rales or rhonchi. Respirations even and nonlabored. HEART EXAMINATION: Heart irregular rate and rhythm, positive S1 and S2. No S3. No S4. With a systolic murmur at the left upper sternal border. ABDOMEN: Soft, obese, nontender. Bowel sounds are heard. No organomegaly noted. EXTREMITIES: 2+ peripheral pulses with evidence of moderate peripheral edema and no calf tenderness noted. She does typically have mild to moderate lower extremity edema. NEUROLOGIC EXAMINATION: Patient is awake, alert and oriented x3. Results 02/22/21 05:47 02/21/21 06:40 CBC 02/22/21 Range/Units 05:47 WBC 9.0 (3.8-10.6) k/uL RBC 2.69 L (3.80-5.40) m/uL Hgb 7.7 L (11.4-16.0) gm/dL Hct 25.1 L (34.0-46.0) % Plt Count 176 (150-450) k/uL Current Medications Generic Name Dose Route Start Last Admin Trade Name Freq PRN Reason Stop Dose Admin Acetaminophen/Codeine Phosphate 1 each 02/20/21 18:31 02/22/21 11:23 Acetaminophen-Codeine 300-30mg Tab PO 1 each Q8H PRN Administration Pain Duloxetine HCl 30 mg 02/20/21 08:00 02/21/21 22:02 Duloxetine Hcl 30 Mg Capsule.Dr PO 30 mg BID@0800,2100 ORION Administration Furosemide 40 mg 02/20/21 14:00 02/22/21 08:10 Furosemide 40 Mg Tab PO 40 mg BID@0600,1400 ORION Administration Sodium Chloride 1,000 mls @ 80 mls/hr 02/20/21 08:00 02/22/21 09:59 Saline 0.9% IV 80 mls/hr .[id number] ORION Administration Ferric Sodium Gluconate 125 mg 110 mls @ 100 mls/hr 02/21/21 10:15 02/22/21 09:13 / Sodium Chloride IVPB 02/23/21 10:05 100 mls/hr DAILY ORION Administration Metoprolol Tartrate 50 mg 02/18/21 10:21 02/22/21 08:10 Metoprolol Tartrate 50 Mg Tab PO 50 mg BID@0800,1700 ORION Administration Miscellaneous Information 1 each 02/20/21 15:03 Potassium Replacement Protocol 1 Each Misc MISCELLANE DAILY PRN Per Protocol Protocol Naloxone HCl 0.2 mg 02/18/21 05:15 Naloxone 0.4 Mg/Ml 1 Ml Vial IV Q2M PRN Opioid Reversal Ondansetron HCl 4 mg 02/18/21 05:15 Ondansetron 4 Mg/2 Ml Vial IVP Q8HR PRN Nausea And Vomiting Pantoprazole Sodium 40 mg 02/18/21 21:00 02/22/21 08:06 Pantoprazole 40 Mg/10 Ml Vial IVP Not Given BID [facility] Potassium Chloride 40 meq 02/20/21 08:00 02/22/21 11:24 Potassium Chloride Er 20 Meq Tab.Er PO 40 meq TID@0800,1200,1700 ORION Administration Rivaroxaban 15 mg 02/21/21 17:00 02/21/21 22:02 Rivaroxaban 15 Mg Tab PO 15 mg HS@1700 ORION Administration Protocol Spironolactone 25 mg 02/20/21 08:00 02/22/21 08:10 Spironolactone 25 Mg Tab PO 25 mg DAILY@0800 ORION Administration Intake and Output 02/21/21 02/22/21 02/22/21 22:59 06:59 14:59 Output Total 400 Balance -400 Output: Urine 400 Other: Voiding Method Bedside Commode # Voids 1 1 # Bowel Movements 1 02/22/21 05:47 08/27/21 06:40 Assessment and Plan Assessment: #1 chronic persistent atrial fibrillation, heart rates reasonably well controlled in the low 100s #2 16 beat run of nonsustained ventricular tachycardia #3 valvular heart disease, status post aortic valve replacement, mitral valve and tricuspid valve repairs #4 hyperlipidemia #5 chronic kidney disease Plan: From cardiology perspective medications were reviewed and we will continue the same due to marginal blood pressure. We will check labs including renal function and electrolytes with magnesium. Chest x-ray from this morning is pending. We'll continue to follow the patient referred further recommendations accordingly. The above dictated assessment and findings were discussed with signing physician. The impression and plan of care have been directed as dictated. Herminia Hong, Nurse Practitioner, acting as scribe for signing physician.
--- NOTE | 2021-02-22 12:38 | XR ---
EXAMINATION TYPE: XR chest 2V DATE OF EXAM: 02/22/2021 COMPARISON: Chest x-ray 02/04/2021, CT 02/04/2021 HISTORY: Shortness of breath, difficulty breathing TECHNIQUE: Frontal and lateral views of the chest are obtained. FINDINGS: Prominent lung volumes are again noted. There is blunting the posterior costophrenic angle s with flattening the hemidiaphragms. Patient shows cardiac valve replacement, post median sternotomy change. Aorta is dense and ectatic. Cardiac mediastinal silhouette shows a similar appearance, heart is enlarged, patient is rotated. No evident pneumothorax. Arthropathy noted within the shoulders. Qu estionable prominence of interstitium. IMPRESSION: Correlate for possible congestive heart failure in a patient with pre-existing COPD, the re is suggestion of small posterior basilar effusions and associated atelectasis. There is aortic ane urysm.
[2021-02-22 12:42] LABS: African American GFR (CKD) 56 (>60 ml/min/1.73 sqM); Anion Gap 7 mmol/L; Blood Urea Nitrogen 16 mg/dL (7-17); Calcium 8.7 mg/dL (8.4-10.2); Carbon Dioxide 23 mmol/L (22-30); Chloride 105 mmol/L (98-107); Glucose 101 mg/dL (74-99); Magnesium 1.5 mg/dL (1.6-2.3); Non-African American GFR(CKD) 49 (>60 ml/min/1.73 sqM); Sodium 135 mmol/L (137-145)
[2021-02-22] MEDS ORDERED: FUROSEMIDE 10 MG/ML 2 ML VIAL IV ONE (13:56)
[2021-02-22] MEDS ORDERED: FUROSEMIDE 10 MG/ML 4 ML VIAL IV SCH (14:00)
[2021-02-22] MEDS ORDERED: Magnesium Replacement Protocol 1 EACH MISC MISCELLANE PRN (14:21)
[2021-02-22] MEDS: MAGNESIUM SULFATE-D5W PMX 1 GM in DEXTROSE/WATER 1 100ML.BAG IVPB SCH ×2 (15:58→17:21)
--- NOTE | 2021-02-22 16:04 | P.PN ---
Subjective This is a pleasant 80 years old female with multiple medical problems including atrial fibrillation on Xarelto. Patient was admitted with GI bleed and Xarelto was held and resumed after normal EGD and colonoscopy showing sigmoid polyps status post polypectomy and diverticulosis without diverticulitis and internal hemorrhoids. GI team cleared the patient for discharge Patient was going to be discharged yesterday pending prior authorization which was obtained today however patient today has mild dyspnea and coughing with phlegm. And she is tachycardic with heart rate around 110 and plus minus. Chest x-ray showing CHF and patient has bilateral leg edema. Muscle 80 mL per hour was stopped. She is already on Lasix 40 mg by mouth twice a day, 1 time IV Lasix is given. EKG showing atrial fibrillation with rate of 99 with occasional aberrant conduction PA-C Cardiology team were consulted Keep monitoring the patient in the hospital Objective - Vital Signs Vital signs: Vital Signs Temp 97.8 F 02/22/21 07:42 Pulse 113 H 02/22/21 07:42 Resp 19 02/22/21 07:42 BP 105/63 02/22/21 07:42 Pulse Ox 94 L 02/22/21 07:42 Intake & Output 02/21/21 02/22/21 02/22/21 18:59 06:59 18:59 Output Total 400 Balance -400 Output: Urine 400 Other: Voiding Method External Catheter Bedside Commode # Voids 3 1 # Bowel Movements 1 1 - Exam GENERAL: The patient is alert and oriented x3, not in any acute distress. Well developed, well nourished. HEENT: Pupils are round and equally reacting to light. EOMI. No scleral icterus. No conjunctival pallor. Normocephalic, atraumatic. No pharyngeal erythema. No thyromegaly. CARDIOVASCULAR: S1 and S2 present. No murmurs, rubs, or gallops. -PULMONARY: Chest is clear to auscultation, no wheezing. Bilateral basal crepitation ABDOMEN: Soft, nontender, nondistended, normoactive bowel sounds. No palpable organomegaly. MUSCULOSKELETAL: No joint swelling or deformity. -EXTREMITIES: No cyanosis, clubbing. Bilateral pitting pedal edema. NEUROLOGICAL: Gross neurological examination did not reveal any focal deficits. SKIN: No rashes. no petechiae. - Labs CBC & Chem 7: 02/22/21 05:47 02/22/21 05:47 Labs: Abnormal Lab Results - Last 24 Hours (Table) 02/22/21 02/22/21 Range/Units 05:47 05:47 RBC 2.69 L (3.80-5.40) m/uL Hgb 7.7 L (11.4-16.0) gm/dL Hct 25.1 L (34.0-46.0) % MCHC 30.7 L (31.0-37.0) g/dL RDW 15.9 H (11.5-15.5) % Sodium 135 L (137-145) mmol/L Creatinine 1.09 H (0.52-1.04) mg/dL Glucose 101 H (74-99) mg/dL Magnesium 1.5 L (1.6-2.3) mg/dL Assessment and Plan Assessment: A. fib with mild RVR, resume Xarelto GI bleed on admission with normal EGD and colonoscopy showing diverticulosis, sigmoid polyp status post polypectomy and internal hemorrhoids Hyperlipidemia History of osteoarthritis Plan: This is a pleasant 80 years old female who presents with GI bleed and cleared for discharge however she is developing signs symptoms of CHF and A. fib with mild RVR Give extra dose of oral Lasix Cardiology consult Monitor electrolytes Replacement magnesium Continue with metoprolol, oral Lasix and Aldactone and Protonix. Discontinue IV fluids Labs and medication were reviewed.. Continue same treatment. Continue with symptomatic treatment. Resume home medication. Monitor lytes and vitals. DVT and GI prophylaxis. Further recommendationsas per clinical course of the patient DVT prophylaxis: xarelto GI prophylaxis: PPI Prognosis is guarded
[2021-02-22] MEDS: RIVAROXABAN 15 MG TAB PO SCH (17:20)
[2021-02-22] MEDS: DULoxetine HCL 30 MG CAPSULE.DR PO SCH (20:18)
[2021-02-23] MEDS: Acetaminophen-Codeine 300-30mg TAB PO PRN (03:57)
[2021-02-23] MEDS: FUROSEMIDE 40 MG TAB PO SCH ×2 (07:43→16:04)
[2021-02-23] MEDS: SPIRONOLACTONE 25 MG TAB PO SCH (07:43)
[2021-02-23] MEDS: PANTOPRAZOLE 40 MG TABLET PO SCH ×2 (07:43→16:04)
[2021-02-23] MEDS: METOPROLOL TARTRATE 50 MG TAB PO SCH ×2 (07:43→16:04)
[2021-02-23] MEDS: POTASSIUM CHLORIDE ER 20 MEQ TAB.ER PO SCH ×3 (07:43→16:04)
[2021-02-23] MEDS: DULoxetine HCL 30 MG CAPSULE.DR PO SCH ×2 (07:44→21:49)
[2021-02-23 07:46] LABS: African American GFR (CKD) 47 (>60 ml/min/1.73 sqM); Anion Gap 7 mmol/L; Blood Urea Nitrogen 15 mg/dL (7-17); Calcium 8.8 mg/dL (8.4-10.2); Carbon Dioxide 24 mmol/L (22-30); Chloride 103 mmol/L (98-107); Glucose 97 mg/dL (74-99); Non-African American GFR(CKD) 40 (>60 ml/min/1.73 sqM); Potassium 3.9 mmol/L (3.5-5.1); Sodium 134 mmol/L (137-145)
[2021-02-23] MEDS: SODIUM FERRIC GLUCONAT-SUCROSE 125 MG in SODIUM CHLORIDE 0.9% 100 ML IVPB SCH (08:33)
[2021-02-23] MEDS ORDERED: FUROSEMIDE 10 MG/ML 2 ML VIAL IV ONE (10:54)
--- NOTE | 2021-02-23 10:57 | P.PN ---
Subjective This is a pleasant 80 years old female with multiple medical problems including atrial fibrillation on Xarelto. Patient was admitted with GI bleed and Xarelto was held and resumed after normal EGD and colonoscopy showing sigmoid polyps status post polypectomy and diverticulosis without diverticulitis and internal hemorrhoids. GI team cleared the patient for discharge Patient was going to be discharged yesterday pending prior authorization which was obtained today however patient today has mild dyspnea and coughing with phlegm. And she is tachycardic with heart rate around 110 and plus minus. Chest x-ray showing CHF and patient has bilateral leg edema. Muscle 80 mL per hour was stopped. She is already on Lasix 40 mg by mouth twice a day, 1 time IV Lasix is given. EKG showing atrial fibrillation with rate of 99 with occasional aberrant conduction PA-C Cardiology team were consulted Keep monitoring the patient in the hospital 02/23/2021 Patient lying in bed comfortable today however she still have some difficulty walking secondary to exertion. On walking her heart rate went up to 160 today although his address was [address]. Her on went down to 81-91. Sure that her on the morning was 123/73. I asked staff to check orthostatic vitals. Magnesium of 1.7 has been replaced. Patient has ejection fraction of 55-60% with grade 1 diastolic dysfunction. Currently on oral Lasix 40 mg twice a day. Discontinue IV fluids and give one extra dose of 20 mg IV Lasix Cardiology team on the case Objective - Vital Signs Vital signs: Vital Signs Temp 97.8 F 02/23/21 07:20 Pulse 81 02/23/21 07:20 Resp 17 02/23/21 07:20 BP 123/73 02/23/21 07:37 Pulse Ox 93 L 02/23/21 07:20 Intake & Output 02/22/21 02/23/21 02/23/21 18:59 06:59 18:59 Other: Voiding Method Bedside Commode # Voids 3 7 # Bowel Movements 1 0 - Exam GENERAL: The patient is alert and oriented x3, not in any acute distress. Well developed, well nourished. HEENT: Pupils are round and equally reacting to light. EOMI. No scleral icterus. No conjunctival pallor. Normocephalic, atraumatic. No pharyngeal erythema. No thyromegaly. CARDIOVASCULAR: S1 and S2 present. No murmurs, rubs, or gallops. -PULMONARY: Chest is clear to auscultation, no wheezing. Bilateral basal crepitation ABDOMEN: Soft, nontender, nondistended, normoactive bowel sounds. No palpable organomegaly. MUSCULOSKELETAL: No joint swelling or deformity. -EXTREMITIES: No cyanosis, clubbing. Bilateral pitting pedal edema. NEUROLOGICAL: Gross neurological examination did not reveal any focal deficits. SKIN: No rashes. no petechiae. - Labs CBC & Chem 7: 02/22/21 05:47 02/23/21 Unknown Labs: Abnormal Lab Results - Last 24 Hours (Table) 02/22/21 02/23/21 Range/Units 05:47 Unknown Sodium 135 L 134 L (137-145) mmol/L Creatinine 1.09 H 1.28 H (0.52-1.04) mg/dL Glucose 101 H (74-99) mg/dL Magnesium 1.5 L (1.6-2.3) mg/dL Assessment and Plan Assessment: A. fib with mild RVR, resume Xarelto Acute on chronic diastolic CHF with ejection fraction of 55-60% GI bleed on admission with normal EGD and colonoscopy showing diverticulosis, sigmoid polyp status post polypectomy and internal hemorrhoids Hyperlipidemia History of osteoarthritis Plan: This is a pleasant 80 years old female who presents with GI bleed and cleared for discharge however she is developing signs symptoms of CHF and A. fib with mild RVR Give extra dose of IV Lasix. Continue with oral Lasix Discontinue IV fluid Cardiology consult Monitor electrolytes Replacement magnesium Continue with metoprolol, oral Lasix and Aldactone and Protonix. Discontinue IV fluids Labs and medication were reviewed.. Continue same treatment. Continue with symptomatic treatment. Resume home medication. Monitor lytes and vitals. DVT and GI prophylaxis. Further recommendationsas per clinical course of the patient DVT prophylaxis: xarelto GI prophylaxis: PPI Prognosis is guarded
[2021-02-23] MEDS ORDERED: Magnesium Replacement Protocol 1 EACH MISC MISCELLANE PRN (11:08)
--- NOTE | 2021-02-23 11:54 | P.PN ---
Subjective Progress Note Date: 02/23/21 This is a pleasant 80-year-old female patient who follows with Dr. Villanueva in the office. 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 Recently admitted earlier this month due to recurrent falls. At that time she underwent echocardiogram which raised the question of possible vegetation on the tricuspid valve but was felt to be related to prior surgical intervention and not reflective of vegetation. She had no symptoms of endocarditis. She has since been at [facility] for rehab. She was readmitted with dark stools and low hemoglobin. On admission hemoglobin was 6.2. She underwent EGD on 02/19/2021 which showed normal-appearing esophagus, stomach and duodenum with no evidence of peptic ulcer disease, esophagitis or angiectasia. She subsequently underwent colonoscopy which showed 1 cm distal sigmoid colon polyp, sigmoid diverticulosis and grade 2 internal hemorrhoids. Based on his anticoagulation was resumed. We were asked see the patient in consultation today which was initially anticipated date of discharge due to heart rates running in the low 100s as well as a 16 beat run of nonsustained ventricular tachycardia this morning. Overall the patient has been feeling fairly well. Her breathing is mostly at baseline but she was somewhat short of breath this morning. Her hemoglobin is stable in the 70s. She is currently on metoprolol tartrate 50 mg by mouth twice a day and her blood pressure is marginal. 02/23/2021 Patient was seen and examined this morning resting comfortably in a chair at the bedside. Chest x-ray yesterday did show possible CHF the patient with pre- existing COPD with small posterior basilar effusions and associated atelectasis. She received 1 dose of 20 mg IV Lasix yesterday. This morning she is feeling well overall. Her breathing is at her baseline. She continues to have lower extremity edema which is chronic. She is hopeful to be discharged back to [facility] tomorrow. Her heart rate is fairly well controlled in the 80s and 90s this morning. Magnesium yesterday was 1.5 and this was replaced. Magnesium this point is 1.7. She said no further runs of nonsustained ventricular tachycardia. Objective - Vital Signs Vital signs: Vital Signs Temp 97.8 F 02/23/21 07:20 Pulse 95 08/29/21 11:07 Resp 17 02/23/21 07:20 BP 90/65 02/23/21 11:07 Pulse Ox 93 L 02/23/21 07:20 Intake & Output 02/22/21 02/23/21 02/23/21 18:59 06:59 18:59 Other: Voiding Method Bedside Commode # Voids 3 7 # Bowel Movements 1 0 - Exam HEENT: Head is atraumatic, normocephalic. Pupils are equal, round. Sclerae anicteric. Conjunctivae are clear. Mucous membranes of the mouth are moist. Neck is supple. There is no elevated jugular venous pressure. No carotid bruit is heard. CHEST EXAMINATION: Clear to auscultation bilaterally. No wheezes rales or rhonchi. Respirations even and nonlabored. HEART EXAMINATION: Heart irregular rate and rhythm, positive S1 and S2. No S3. No S4. With a systolic murmur at the left upper sternal border. ABDOMEN: Soft, obese, nontender. Bowel sounds are heard. No organomegaly noted. EXTREMITIES: 2+ peripheral pulses with evidence of moderate peripheral edema and no calf tenderness noted. She does typically have mild to moderate lower extremity edema. NEUROLOGIC EXAMINATION: Patient is awake, alert and oriented x3. - Labs CBC & Chem 7: 02/22/21 05:47 02/23/21 Unknown Labs: Abnormal Lab Results - Last 24 Hours (Table) 02/22/21 02/23/21 Range/Units 05:47 Unknown Sodium 135 L 134 L (137-145) mmol/L Creatinine 1.09 H 1.28 H (0.52-1.04) mg/dL Glucose 101 H (74-99) mg/dL Magnesium 1.5 L (1.6-2.3) mg/dL Assessment and Plan Assessment: #1 chronic persistent atrial fibrillation, heart rates reasonably well controlled in the low 100s #2 16 beat run of nonsustained ventricular tachycardia #3 valvular heart disease, status post aortic valve replacement, mitral valve and tricuspid valve repairs #4 hyperlipidemia #5 chronic kidney disease Plan: From cardiology perspective medications were reviewed and we will continue the same. From our standpoint patient is stable for discharge to [facility] tomorrow. At this time we will follow the patient on an as-needed basis. Please do not hesitate to contact us with questions. The above dictated assessment and findings were discussed with signing physician. The impression and plan of care have been directed as dictated. Herminia Hong, Nurse Practitioner, acting as scribe for signing physician.
[2021-02-23] MEDS: MAGNESIUM SULFATE-D5W PMX 1 GM in DEXTROSE/WATER 1 100ML.BAG IVPB SCH ×2 (12:43→14:29)
[2021-02-23] MEDS: RIVAROXABAN 15 MG TAB PO SCH (16:04)
[2021-02-24 07:44] VITALS: BP 100/54; PULSE 100; RESP 18; TEMP 98.1
[2021-02-24] MEDS: POTASSIUM CHLORIDE ER 20 MEQ TAB.ER PO SCH (08:57)
[2021-02-24] MEDS: DULoxetine HCL 30 MG CAPSULE.DR PO SCH (08:57)
[2021-02-24] MEDS: PANTOPRAZOLE 40 MG TABLET PO SCH (08:57)
[2021-02-24] MEDS: METOPROLOL TARTRATE 50 MG TAB PO SCH (08:57)
[2021-02-24] MEDS: FUROSEMIDE 40 MG TAB PO SCH (08:57)
[2021-02-24] MEDS: SPIRONOLACTONE 25 MG TAB PO SCH (08:57)
[2021-02-24 09:28] LABS: African American GFR (CKD) 41 (>60 ml/min/1.73 sqM); Anion Gap 8 mmol/L; Blood Urea Nitrogen 15 mg/dL (7-17); Calcium 9.2 mg/dL (8.4-10.2); Carbon Dioxide 27 mmol/L (22-30); Chloride 103 mmol/L (98-107); Glucose 108 mg/dL (74-99); Non-African American GFR(CKD) 36 (>60 ml/min/1.73 sqM); Potassium 4.2 mmol/L (3.5-5.1); Sodium 138 mmol/L (137-145)
== END 2021-02-24 12:51 | DRG 811 ==
LOC: EC 03:06 → UNDOADMIN 05:15 → 5NMEDONC 05:15 → 4SSUR 23:03 → OBSVTOIN 02-19 16:28
PROVIDERS: ADMIT Family Medicine; ATTEND Family Medicine
PROC: 30233N1 Transfusion of Nonautologous Red Blood Cells into Peripheral Vein, Percutaneous Approach (ICD-10-PCS; 2021-02-19)
PROC: 0DJ08ZZ Inspection of Upper Intestinal Tract, Via Natural or Artificial Opening Endoscopic (ICD-10-PCS; principal; 2021-02-19 08:15)
PROC: 0DBN8ZZ Excision of Sigmoid Colon, Via Natural or Artificial Opening Endoscopic (ICD-10-PCS; 2021-02-20)
DX: D62 Acute posthemorrhagic anemia (principal); I50.33 Acute on chronic diastolic (congestive) heart failure; K27.4 Chronic or unspecified peptic ulcer, site unspecified, with hemorrhage; K29.71 Gastritis, unspecified, with bleeding; N17.9 Acute kidney failure, unspecified; N18.4 Chronic kidney disease, stage 4 (severe); I48.19 Other persistent atrial fibrillation; E87.1 Hypo-osmolality and hyponatremia; Z68.44 Body mass index [BMI] 60.0-69.9, adult; I47.2 Ventricular tachycardia; I13.0 Hypertensive heart and chronic kidney disease with heart failure and stage 1 through stage 4 chronic kidney disease, or unspecified chronic kidney disease; J98.11 Atelectasis; E78.5 Hyperlipidemia, unspecified; E66.01 Morbid (severe) obesity due to excess calories; I27.20 Pulmonary hypertension, unspecified; Z79.01 Long term (current) use of anticoagulants; Z20.822 Contact with and (suspected) exposure to COVID-19; Z91.81 History of falling; M19.90 Unspecified osteoarthritis, unspecified site; Z87.891 Personal history of nicotine dependence; K57.30 Diverticulosis of large intestine without perforation or abscess without bleeding; K63.5 Polyp of colon; K64.1 Second degree hemorrhoids; Z95.2 Presence of prosthetic heart valve; J44.9 Chronic obstructive pulmonary disease, unspecified; D50.9 Iron deficiency anemia, unspecified; Z79.899 Other long term (current) drug therapy; Z96.659 Presence of unspecified artificial knee joint
CPT/HCPCS: 36415; 43235; 45385; 71046; 80048; 80053; 82728; 83540; 83550; 83690; 83735; 84100; 84132; 85025; 86850; 86900; 86901; 86920; 87635; 88305; 93005; 99284

== ENCOUNTER 2021-02-28 19:27 | Emergency (ER) | payer MEDICARE ==
[2021-02-28 20:14] VITALS: RESP 20
--- NOTE | 2021-02-28 21:46 | XR ---
EXAMINATION TYPE: XR chest 2V DATE OF EXAM: 02/28/2021 COMPARISON: 02/22/2021 HISTORY: Difficulty breathing. Chest pain TECHNIQUE: FINDINGS: There is no heart failure nor confluent pneumonic infiltrate. There is slight blunting of t he posterior costophrenic angles. Thoracic aorta is atheromatous. There are sternal wires. There are no hilar masses. There is arthritic change in both shoulder joints. IMPRESSION: Small pleural effusions are improved compared to old exam. No obvious heart failure.
--- NOTE | 2021-02-28 22:26 | ED ---
General Adult HPI - General Chief complaint: ENT Stated complaint: Jaw Pain, Trouble Swallowing Time Seen by Provider: 02/28/21 20:10 Source: patient, EMS Mode of arrival: EMS Limitations: no limitations - History of Present Illness Initial comments: 80-year-old female presents emergency department after she had a choking episode at [facility]. She states that she was eating her dinner when she began choking on her spit. States that she began consistently spitting up phlegm which was clear in color. Because of the episode the patient was sent into the emergency department for evaluation. Upon arrival the patient states that she feels asymptomatic at this time. Denies foreign body sensation in her throat. No chest or throat pain. No shortness of breath. She denies nausea or vomiting. No history of similar episode in the past. Has never had any issues with swallowing. No other alleviating, precipitating or modifying factors - Related Data Home Medications Medication Instructions Recorded Confirmed DULoxetine HCL [Cymbalta] 30 mg PO BID@0800,209902/04/21 02/28/21 Rivaroxaban [Xarelto] 15 mg PO HS@169902/04/21 02/28/21 Magnesium Hydroxide [Milk of 7,200 mg PO Q48H PRN 02/18/21 02/28/21 Magnesia Concentrate] Metoprolol Tartrate [Lopressor] 50 mg PO BID@0800,1700 02/18/21 02/28/21 Na Phos,M-B/Na Phos,Di-Ba [Fleet 133 ml RECTAL DAILY PRN 02/18/21 02/28/21 Adult] Pantoprazole [Protonix] 40 mg PO AC-BRKFST@0600 02/18/21 02/28/21 bisacodyL [Dulcolax] 10 mg RECTAL DAILY PRN 02/18/21 02/28/21 Bacitracin Ointment 500unit/Gram 1 applic TOPICAL BID@0800,209902/28/21 02/28/21 Doxycycline Hyclate 100 mg PO BID@0800,209902/28/21 02/28/21 Ferrous Sulfate [Feosol] 325 mg PO DAILY@1700 02/28/21 02/28/21 Furosemide [Lasix] 20 mg PO DAILY@1400 02/28/21 02/28/21 Furosemide [Lasix] 40 mg PO DAILY@0600 02/28/21 02/28/21 Potassium Chloride ER [K-Dur 20] 40 meq PO BID@0800,1700 02/28/21 02/28/21 Sennosides-Docusate Sodium 2 tab PO BID@0800,1700 02/28/21 02/28/21 [Senokot-S] Spironolactone [Aldactone] 12.5 mg PO DAILY@0800 02/28/21 02/28/21 Previous Rx's Medication Instructions Recorded Acetaminophen Tab [Tylenol] 650 mg PO Q6HR PRN tab 02/07/21 Acetaminophen-Codeine 300-30mg 1 tab PO Q8H PRN #9 tab 02/21/21 [Tylenol w/codeine #3] Allergies Allergy/AdvReac Type Severity Reaction Status Date / Time oxycodone Allergy Rash/Hives Verified 02/28/21 21:17 Penicillins Allergy Rash/Hives Verified 02/28/21 21:17 Review of Systems ROS Statement: Those systems with pertinent positive or pertinent negative responses have been documented in the HPI. ROS Other: All systems not noted in ROS Statement are negative. Past Medical History Past Medical History: Atrial Fibrillation, Hyperlipidemia, Osteoarthritis (OA) Additional Past Medical History / Comment(s): cardiac valve issues History of Any Multi-Drug Resistant Organisms: None Reported Past Surgical History: Back Surgery, Cardiac Valve Replacement, Joint Replacement Additional Past Surgical History / Comment(s): hipx2 knee replacement Past Anesthesia/Blood Transfusion Reactions: No Reported Reaction Past Psychological History: No Psychological Hx Reported Smoking Status: Former smoker Past Alcohol Use History: None Reported Past Drug Use History: None Reported General Exam Limitations: no limitations General appearance: alert, in no apparent distress Head exam: Present: atraumatic, normocephalic, normal inspection Eye exam: Present: normal appearance, PERRL, EOMI. Absent: scleral icterus, conjunctival injection, periorbital swelling ENT exam: Present: normal exam, mucous membranes moist Neck exam: Present: normal inspection. Absent: tenderness, meningismus, lymphadenopathy Respiratory exam: Present: normal lung sounds bilaterally. Absent: respiratory distress, wheezes, rales, rhonchi, stridor Cardiovascular Exam: Present: regular rate, normal rhythm, normal heart sounds. Absent: systolic murmur, diastolic murmur, rubs, gallop, clicks GI/Abdominal exam: Present: soft, normal bowel sounds. Absent: distended, tenderness, guarding, rebound, rigid Extremities exam: Present: normal inspection, full ROM, normal capillary refill. Absent: tenderness, pedal edema, joint swelling, calf tenderness Back exam: Present: normal inspection Neurological exam: Present: alert, oriented X3, CN II-XII intact Psychiatric exam: Present: normal affect, normal mood Skin exam: Present: warm, dry, intact, normal color. Absent: rash Course Vital Signs 02/28/21 02/28/21 20:08 22:34 Temperature 97.8 F 98.0 F Pulse Rate 94 97 Respiratory 20 20 Rate Blood Pressure 109/64 102/57 O2 Sat by Pulse 98 98 Oximetry EKG Findings - EKG Comments: EKG Findings:: EKG demonstrates afib with rate of 98. QRS 78. QTC of 426. No acute ST segment elevations or depressions Medical Decision Making - Medical Decision Making Upon arrival the patient was placed into room 14. A thorough history and physical exam was performed. 12-lead EKG was obtained. Chest x-ray was performed which demonstrates small pleural effusions improved compared to previous. The patient is given something to drink and hold down fluids well. She feels a symptomatic at this time and therefore be discharged back to [facility]. Instructed that she follow up with her primary care doctor in 2 to 4 days. Return to the emergency department for any new or worsening symptoms. Patient was discharged in stable condition Disposition Clinical Impression: Choking episode Disposition: HOME SELF-CARE Condition: Stable Instructions (If sedation given, give patient instructions): Food Impaction (ED) Additional Instructions: Please follow up with your PCP in 2-4 days. Return to the ED for any new or worsening symptoms. Is patient prescribed a controlled substance at d/c from ED?: No Referrals: Bolivar Valiente DO [Primary Care Provider] - 1-2 days Time of Disposition: 22:26
[2021-02-28 22:37] VITALS: BP 102/57; PULSE 97; TEMP 98
== END 2021-02-28 23:23 | disposition home or self-care (01) ==
LOC: EC 19:27
DX: R09.89 Other specified symptoms and signs involving the circulatory and respiratory systems (principal); R68.84 Jaw pain; R13.10 Dysphagia, unspecified; I48.91 Unspecified atrial fibrillation; Z87.891 Personal history of nicotine dependence; Z88.0 Allergy status to penicillin; Z88.5 Allergy status to narcotic agent; Z79.01 Long term (current) use of anticoagulants
CPT/HCPCS: 71046; 93005; 99284

== ENCOUNTER 2021-03-29 11:42 | Observation (INO) | payer MEDICARE ==
--- NOTE | 2021-03-29 12:55 | ED ---
Weakness HPI - General Chief complaint: Weakness Stated complaint: increased weakness Time Seen by Provider: 03/29/21 11:53 Source: patient, EMS Mode of arrival: EMS Limitations: no limitations - History of Present Illness Initial comments: 81 year-old male patient presents to the emergency department for evaluation of generalized weakness. Patient states she was discharged from [facility] after being admitted for rehab for about 3 weeks. States she was doing well yesterday. When she woke this morning she felt more weak. States that she feels tired and fatigued. Reports left hip pain and right shoulder pain. States shoulder pain is from a fall about 5 weeks ago. States she has had xrays that showed no evidence for fracture or other injury. She denies any dizziness, headache, blurred vision, double vision. Denies focal weakness. Denies any chest pain or shortness of breath. Does report increased swelling to the bilateral lower extremities. She does take Lasix. She denies nausea, vomiting, diarrhea, or constipation. Denies any hematuria, dysuria, urinary frequency, urinary urgency. Prior to admission to [facility] she was in the hospital for about a week, she had low hemoglobin and did receive 2 units of red blood cells. Patient denies any recent rash, cough, back pain, numbness, tingling, or any other complaints. - Related Data Home Medications Medication Instructions Recorded Confirmed DULoxetine HCL [Cymbalta] 30 mg PO Q12H 02/04/21 03/29/21 Rivaroxaban [Xarelto] 15 mg PO DAILY 02/04/21 03/29/21 Metoprolol Tartrate [Lopressor] 50 mg PO BID 02/18/21 03/29/21 Pantoprazole [Protonix] 40 mg PO DAILY 02/18/21 03/29/21 Ferrous Sulfate [Feosol] 325 mg PO DAILY 02/28/21 03/29/21 Furosemide [Lasix] 20 mg PO BID 02/28/21 03/29/21 Potassium Chloride ER [K-Dur 20] 40 meq PO BID 02/28/21 03/29/21 Sennosides-Docusate Sodium 2 tab PO BID 02/28/21 03/29/21 [Senokot-S] Allergies Allergy/AdvReac Type Severity Reaction Status Date / Time oxycodone Allergy Rash/Hives Verified 02/28/21 21:17 Penicillins Allergy Rash/Hives Verified 02/28/21 21:17 Review of Systems ROS Statement: Those systems with pertinent positive or pertinent negative responses have been documented in the HPI. ROS Other: All systems not noted in ROS Statement are negative. Past Medical History Past Medical History: Atrial Fibrillation, Hyperlipidemia, Osteoarthritis (OA) Additional Past Medical History / Comment(s): cardiac valve issues History of Any Multi-Drug Resistant Organisms: None Reported Past Surgical History: Back Surgery, Cardiac Valve Replacement, Joint Replacement Additional Past Surgical History / Comment(s): hipx2 knee replacement Past Anesthesia/Blood Transfusion Reactions: No Reported Reaction Past Psychological History: No Psychological Hx Reported Smoking Status: Former smoker Past Alcohol Use History: None Reported Past Drug Use History: None Reported General Exam Limitations: no limitations General appearance: alert, in no apparent distress, other (This is a well- developed, well-nourished adult female patient in no acute distress. Vital signs upon presentation are temperature 97.9F, pulse 89, respirations 16, blood pressure 95/56, pulse ox 98% on room air.) Eye exam: Present: normal appearance, PERRL, EOMI. Absent: scleral icterus, conjunctival injection, nystagmus, periorbital swelling ENT exam: Present: normal exam, normal oropharynx, mucous membranes moist Respiratory exam: Present: normal lung sounds bilaterally. Absent: respiratory distress, wheezes, rales, rhonchi, stridor Cardiovascular Exam: Present: regular rate, normal rhythm, normal heart sounds. Absent: systolic murmur, diastolic murmur, rubs, gallop, clicks GI/Abdominal exam: Present: soft, normal bowel sounds. Absent: distended, tenderness, guarding, rebound, rigid Extremities exam: Present: full ROM, normal capillary refill, other (2+ pitting edema noted to the bilateral lower legs and feet.). Absent: tenderness, pedal edema, joint swelling, calf tenderness Neurological exam: Present: alert, oriented X3, CN II-XII intact, other (Strength to the extremities is 4/5) Psychiatric exam: Present: normal affect, normal mood Skin exam: Present: warm, dry, intact, normal color. Absent: rash Course Vital Signs 03/29/21 03/29/21 03/29/21 11:51 12:54 13:00 Temperature 97.9 F Pulse Rate 89 92 92 Respiratory 16 16 16 Rate Blood Pressure 95/56 111/63 O2 Sat by Pulse 98 95 95 Oximetry 03/29/21 03/29/21 03/29/21 14:00 15:00 16:00 Temperature Pulse Rate 88 84 69 Respiratory 16 16 16 Rate Blood Pressure 96/45 113/62 87/57 O2 Sat by Pulse 95 95 95 Oximetry 03/29/21 03/29/21 03/29/21 17:00 18:00 19:00 Temperature Pulse Rate 94 89 88 Respiratory 16 16 16 Rate Blood Pressure 101/49 101/63 101/57 O2 Sat by Pulse 95 95 99 Oximetry Medical Decision Making - Medical Decision Making 81-year-old female patient presented to the emergency department today for evaluation of increased weakness. Physical examination was unremarkable. Abdomen soft and nontender. She did have pitting edema to the lower legs. Labs reviewed and did reveal normal white blood cell count. Mild increase in BUN, urinary tract infection. COVID-19 negative. Chest x-ray was unremarkable. She did have some low blood pressures while here. She was given a small fluid bolus. She'll be admitted to the hospital for further evaluation, treatment of the urinary tract infection, and monitoring of blood pressures. Case discussed with my attending Dr. Rehman. - Lab Data Result diagrams: 03/29/21 13:15 03/29/21 14:46 Lab Results 03/29/21 03/29/21 03/29/21 Range/Units 13:15 13:15 13:15 WBC 7.3 (3.8-10.6) k/uL RBC 4.26 (3.80-5.40) m/uL Hgb 12.2 (11.4-16.0) gm/dL Hct 38.7 (34.0-46.0) % MCV 90.8 (80.0-100.0) fL MCH 28.6 (25.0-35.0) pg MCHC 31.5 (31.0-37.0) g/dL RDW 16.5 H (11.5-15.5) % Plt Count 136 L D (150-450) k/uL MPV 8.6 Neutrophils % 74 % Lymphocytes % 12 % Monocytes % 8 % Eosinophils % 2 % Basophils % 1 % Neutrophils # 5.4 (1.3-7.7) k/uL Lymphocytes # 0.9 L (1.0-4.8) k/uL Monocytes # 0.6 (0-1.0) k/uL Eosinophils # 0.2 (0-0.7) k/uL Basophils # 0.0 (0-0.2) k/uL Hypochromasia Slight Anisocytosis Slight PT 13.2 H (9.0-12.0) sec INR 1.3 H (<1.2) APTT 19.9 L (22.0-30.0) sec Sodium (137-145) mmol/L Potassium (3.5-5.1) mmol/L Chloride (98-107) mmol/L Carbon Dioxide (22-30) mmol/L Anion Gap mmol/L BUN (7-17) mg/dL Creatinine (0.52-1.04) mg/dL Est GFR (CKD-EPI)AfAm (>60 ml/min/1.73 sqM) Est GFR (CKD-EPI)NonAf (>60 ml/min/1.73 sqM) Glucose (74-99) mg/dL Plasma Lactic Acid Yonas 1.2 (0.7-2.0) mmol/L Calcium (8.4-10.2) mg/dL Magnesium (1.6-2.3) mg/dL Total Bilirubin (0.2-1.3) mg/dL AST (14-36) U/L ALT (4-34) U/L Alkaline Phosphatase (38-126) U/L Troponin I (0.000-0.034) ng/mL Total Protein (6.3-8.2) g/dL Albumin (3.5-5.0) g/dL Urine Color Urine Appearance (Clear) Urine pH (5.0-8.0) Ur Specific [place] (1.001-1.035) Urine Protein (Negative) Urine Glucose (UA) (Negative) Urine Ketones (Negative) Urine Blood (Negative) Urine Nitrite (Negative) Urine Bilirubin (Negative) Urine Urobilinogen (<2.0) mg/dL Ur Leukocyte Esterase (Negative) Urine RBC (0-5) /hpf Urine WBC (0-5) /hpf Ur Squamous Epith Cells (0-4) /hpf Amorphous Sediment (None) /hpf Urine Bacteria (None) /hpf Hyaline Casts (0-2) /lpf Urine Mucus (None) /hpf 03/29/21 03/29/21 03/29/21 Range/Units 13:15 14:46 15:22 WBC (3.8-10.6) k/uL RBC (3.80-5.40) m/uL Hgb (11.4-16.0) gm/dL Hct (34.0-46.0) % MCV (80.0-100.0) fL MCH (25.0-35.0) pg MCHC (31.0-37.0) g/dL RDW (11.5-15.5) % Plt Count (150-450) k/uL MPV Neutrophils % % Lymphocytes % % Monocytes % % Eosinophils % % Basophils % % Neutrophils # (1.3-7.7) k/uL Lymphocytes # (1.0-4.8) k/uL Monocytes # (0-1.0) k/uL Eosinophils # (0-0.7) k/uL Basophils # (0-0.2) k/uL Hypochromasia Anisocytosis PT (9.0-12.0) sec INR (<1.2) APTT (22.0-30.0) sec Sodium 135 L (137-145) mmol/L Potassium 4.9 (3.5-5.1) mmol/L Chloride 104 (98-107) mmol/L Carbon Dioxide 20 L (22-30) mmol/L Anion Gap 11 mmol/L BUN 18 H (7-17) mg/dL Creatinine 1.44 H (0.52-1.04) mg/dL Est GFR (CKD-EPI)AfAm 40 (>60 ml/min/1.73 sqM) Est GFR (CKD-EPI)NonAf 35 (>60 ml/min/1.73 sqM) Glucose 90 (74-99) mg/dL Plasma Lactic Acid Yonas (0.7-2.0) mmol/L Calcium 9.7 (8.4-10.2) mg/dL Magnesium 1.8 (1.6-2.3) mg/dL Total Bilirubin 1.0 (0.2-1.3) mg/dL AST 78 H (14-36) U/L ALT 35 H (4-34) U/L Alkaline Phosphatase 67 (38-126) U/L Troponin I <0.012 (0.000-0.034) ng/mL Total Protein 6.7 (6.3-8.2) g/dL Albumin 3.6 (3.5-5.0) g/dL Urine Color Light Yellow Urine Appearance Clear (Clear) Urine pH 5.0 (5.0-8.0) Ur Specific [place] 1.006 (1.001-1.035) Urine Protein Negative (Negative) Urine Glucose (UA) Negative (Negative) Urine Ketones Negative (Negative) Urine Blood Negative (Negative) Urine Nitrite Negative (Negative) Urine Bilirubin Negative (Negative) Urine Urobilinogen <2.0 (<2.0) mg/dL Ur Leukocyte Esterase Large H (Negative) Urine RBC 1 (0-5) /hpf Urine WBC 22 H (0-5) /hpf Ur Squamous Epith Cells <1 (0-4) /hpf Amorphous Sediment Rare H (None) /hpf Urine Bacteria Occasional H (None) /hpf Hyaline Casts 3 H (0-2) /lpf Urine Mucus Rare H (None) /hpf - Radiology Data Radiology results: report reviewed, image reviewed Two-view x-ray of the chest is obtained. Report reviewed in its entirety. Impression by Dr. Goldberg shows chronic changes and cardiomegaly without acute pulmonary process. Disposition Clinical Impression: UTI (urinary tract infection), Weakness, Hypotension Disposition: ADMITTED IP TO THIS [facility] Condition: Serious Decision to Admit Reason: Admit from EC Decision Date: 03/29/21 Decision Time: 17:14
--- NOTE | 2021-03-29 13:55 | XR ---
EXAMINATION TYPE: XR chest 2V DATE OF EXAM: 03/29/2021 COMPARISON: Chest x-ray February 28, 2021 HISTORY: Weakness. TECHNIQUE: Frontal and lateral views of the chest are obtained. FINDINGS: Overlying sternal wires redemonstrated. Stable mild cardiomegaly with aneurysmal thoracic aorta. No new focal airspace opacity or pneumothorax seen bilaterally. The osseous structures remain demineralized. High riding humeral heads consistent with chronic rotator cuff tears bilaterally rede monstrated IMPRESSION: Chronic changes and cardiomegaly without acute pulmonary process.
[2021-03-29 13:59] LABS: Anisocytosis Slight; Basophils % (A) 1 %; Eosinophils # (A) 0.2 k/uL (0-0.7); Eosinophils % (A) 2 %; HCT 38.7 % (34.0-46.0); HGB 12.2 gm/dL (11.4-16.0); Hypochromasia Slight; INR 1.3 (<1.2); Lymphocytes # (A) 0.9 k/uL (1.0-4.8); Lymphocytes % (A) 12 %; MCH 28.6 pg (25.0-35.0); MCHC 31.5 g/dL (31.0-37.0); MCV 90.8 fL (80.0-100.0); Mean Platelet Volume 8.6; Monocytes # (A) 0.6 k/uL (0-1.0); Monocytes % (A) 8 %; Neutrophils # (A) 5.4 k/uL (1.3-7.7); Neutrophils % (A) 74 %; Prothrombin Time 13.2 sec (9.0-12.0); RBC 4.26 m/uL (3.80-5.40); RDW 16.5 % (11.5-15.5); WBC 7.3 k/uL (3.8-10.6)
[2021-03-29 14:04] LABS: Platelet Count 136 k/uL (150-450)
[2021-03-29 14:08] LABS: Partial Thromboplastin Time 19.9 sec (22.0-30.0)
[2021-03-29 15:22] LABS: Albumin 3.6 g/dL (3.5-5.0); Calcium 9.7 mg/dL (8.4-10.2); Magnesium 1.8 mg/dL (1.6-2.3); Total Protein 6.7 g/dL (6.3-8.2)
[2021-03-29 15:23] LABS: Potassium 4.9 mmol/L (3.5-5.1)
[2021-03-29] MEDS ORDERED: SODIUM CHLORIDE 0.9% 500 ML 500 ML IV ONE (16:17)
[2021-03-29 16:19] LABS: Amorphous Sediment,Urine Rare /hpf; Appearance,Urine Clear (Clear); Bacteria,Urine Occasional /hpf; Bilirubin,Urine Negative (Negative); Blood,Urine Negative (Negative); Color,Urine Light Yellow; Glucose,Urine (UA) Negative (Negative); Hyaline Casts,Urine 3 /lpf (0-2); Ketones,Urine Negative (Negative); Leukocyte Esterase,Urine Large (Negative); Mucus,Urine Rare /hpf; Nitrite,Urine Negative (Negative); Protein,Urine Negative (Negative); RBC,Urine 1 /hpf (0-5); Specific Gravity,Urine 1.006 (1.001-1.035); Squamous Epithelial Cell,Urine <1 /hpf (0-4); Urobilinogen,Urine <2.0 mg/dL (<2.0); WBC,Urine 22 /hpf (0-5)
[2021-03-29] MEDS ORDERED: cefTRIAXone IN SWFI 1,000 MG/10 ML SYRINGE IVP STA (16:29)
[2021-03-29] MEDS ORDERED: NALOXONE 0.4 MG/ML 1 ML VIAL IV PRN (17:12)
[2021-03-29] MEDS: SODIUM CHLORIDE 0.9% 1,000 ML IV SCH (17:57)
[2021-03-30] MEDS: DULoxetine HCL 30 MG CAPSULE.DR PO SCH ×2 (11:27→21:50)
[2021-03-30 11:49] LABS: ALT 35 U/L (4-34); AST 72 U/L (14-36); African American GFR (CKD) 53 (>60 ml/min/1.73 sqM); Albumin 2.9 g/dL (3.5-5.0); Albumin/Globulin Ratio 1.1; Alkaline Phosphatase 65 U/L (38-126); Anion Gap 7 mmol/L; Bilirubin,Unconjugated 0.3 mg/dL (0.0-1.1); Blood Urea Nitrogen 15 mg/dL (7-17); Calcium 9.1 mg/dL (8.4-10.2); Carbon Dioxide 24 mmol/L (22-30); Chloride 105 mmol/L (98-107); Globulin 2.7 g/dL; Glucose 103 mg/dL (74-99); Non-African American GFR(CKD) 46 (>60 ml/min/1.73 sqM); Potassium 3.7 mmol/L (3.5-5.1); Sodium 136 mmol/L (137-145); Total Bilirubin 0.6 mg/dL (0.2-1.3); Total Protein 5.6 g/dL (6.3-8.2)
--- NOTE | 2021-03-30 17:22 | P.HPIM ---
History of Present Illness H&P Date: 03/30/21 81 year-old male patient presents to the emergency department for evaluation of generalized weakness. Patient states she was discharged from [facility] after being admitted for rehab for about 3 weeks. States she was doing well yesterday. When she woke this morning she felt more weak. States that she feels tired and fatigued. Reports left hip pain and right shoulder pain. States shoulder pain is from a fall about 5 weeks ago. States she has had xrays that showed no evidence for fracture or other injury. She denies any dizziness, headache, blurred vision, double vision. Denies focal weakness. Denies any chest pain or shortness of breath. Does report increased swelling to the bilateral lower e xtremities. She does take Lasix. She denies nausea, vomiting, diarrhea, or constipation. Denies any hematuria, dysuria, urinary frequency, urinary urgency. Prior to admission to [facility] she was in the hospital for about a week, she had low hemoglobin and did receive 2 units of red blood cells. Patient denies any recent rash, cough, back pain, numbness, tingling, or any other complaints. Workup in ED reveals chest x-ray is unremarkable, COVID-19 negative, CBC within normal white blood count of 7.3, sodium 135, BUN/creatinine of 18/1.44; UA is reviewed and is positive Review of Systems REVIEW OF SYSTEMS: CONSTITUTIONAL: No fever, no malaise, no fatigue. HEENT: No recent visual problems or hearing problems. Denied any sore throat. CARDIOVASCULAR: No chest pain, orthopnea, PND, no palpitations, no syncope. PULMONARY: No shortness of breath, no cough, no hemoptysis. GASTROINTESTINAL: No diarrhea, no nausea, no vomiting, no abdominal pain. NEUROLOGICAL: No headaches, no weakness, no numbness. HEMATOLOGICAL: Denies any bleeding or petechiae. GENITOURINARY: Denies any burning micturition, frequency, or urgency. MUSCULOSKELETAL/RHEUMATOLOGICAL: Denies any joint pain, swelling, or any muscle pain. ENDOCRINE: Denies any polyuria or polydipsia. The rest of the 14-point review of systems is negative. Past Medical History Past Medical History: Atrial Fibrillation, Hyperlipidemia, Osteoarthritis (OA) Additional Past Medical History / Comment(s): cardiac valve issues History of Any Multi-Drug Resistant Organisms: None Reported Past Surgical History: Back Surgery, Cardiac Valve Replacement, Joint Replacement Additional Past Surgical History / Comment(s): hipx2 knee replacement Past Anesthesia/Blood Transfusion Reactions: No Reported Reaction Past Psychological History: No Psychological Hx Reported Smoking Status: Former smoker Past Alcohol Use History: None Reported Past Drug Use History: None Reported Medications and Allergies Home Medications Medication Instructions Recorded Confirmed Type DULoxetine HCL [Cymbalta] 30 mg PO Q12H 02/04/21 03/29/21 History Rivaroxaban [Xarelto] 15 mg PO DAILY 02/04/21 03/29/21 History Metoprolol Tartrate [Lopressor] 50 mg PO BID 02/18/21 03/29/21 History Pantoprazole [Protonix] 40 mg PO DAILY 02/18/21 03/29/21 History Ferrous Sulfate [Feosol] 325 mg PO DAILY 02/28/21 03/29/21 History Furosemide [Lasix] 20 mg PO BID 02/28/21 03/29/21 History Potassium Chloride ER [K-Dur 20] 40 meq PO BID 02/28/21 03/29/21 History Sennosides-Docusate Sodium 2 tab PO BID 02/28/21 03/29/21 History [Senokot-S] Allergies Allergy/AdvReac Type Severity Reaction Status Date / Time oxycodone Allergy Rash/Hives Verified 02/28/21 21:17 Penicillins Allergy Rash/Hives Verified 02/28/21 21:17 Physical Exam Vitals: Vital Signs Temp Pulse Pulse Resp BP BP Pulse Ox 03/30/21 04:29 98.1 F 117 H 20 117/70 100 03/29/21 21:00 97.9 F 92 20 144/69 97 03/29/21 19:55 98 18 105/79 94 L 03/29/21 19:00 88 16 101/57 99 03/29/21 18:00 89 16 101/63 95 03/29/21 17:00 94 16 101/49 95 03/29/21 16:00 69 16 87/57 95 03/29/21 15:00 84 16 113/62 95 03/29/21 14:00 88 16 96/45 95 03/29/21 13:00 92 16 95 03/29/21 12:54 92 16 111/63 95 03/29/21 11:51 97.9 F 89 16 95/56 98 Intake and Output 03/29/21 03/30/21 03/30/21 22:59 06:59 14:59 Intake Total 640 Output Total 450 Balance 190 Intake: Intake, IV Titration 400 Amount Sodium Chloride 0.9% 1, 400 000 ml @ 50 mls/hr IV . Q20H [facility] Rx#:[id number] Oral 240 Output: Urine 450 Other: Voiding Method Toilet Bedside Commode Weight 104.326 kg - Constitutional General appearance: Present: average body habitus, cooperative, no acute distress - EENT Eyes: Present: anicteric sclerae, EOMI, PERRLA, normal appearance ENT: Present: hearing grossly normal, normal oropharynx Ears: bilateral: normal - Neck Neck: Present: normal ROM. Absent: lymphadenopathy, rigidity, thyromegaly Carotids: negative: bruit present Thyroid: bilateral: normal size, negative: enlarged, nodule - Respiratory Respiratory: bilateral: CTA, negative: rales, rhonchi, wheezing - Cardiovascular Rhythm: regular Heart sounds: normal: S1, S2 Abnormal Heart Sounds: Absent: systolic murmur, diastolic murmur - Gastrointestinal General gastrointestinal: Present: normal bowel sounds, soft. Absent: distended, organomegaly, tenderness - Genitourinary Genitourinary Comment(s): deferred - Integumentary Integumentary: Present: normal turgor. Absent: jaundiced, rash, ulcer - Neurologic Neurologic: Present: CNII-XII intact. Absent: focal deficits - Musculoskeletal Musculoskeletal: Present: gait normal, strength equal bilaterally - Psychiatric Psychiatric: Present: A&O x's 3, appropriate affect, intact judgment & insight Results CBC & Chem 7: 03/29/21 13:15 03/30/21 11:12 Labs: Abnormal Lab Results - Last 24 Hours (Table) 03/29/21 03/29/21 03/29/21 Range/Units 13:15 13:15 14:46 RDW 16.5 H (11.5-15.5) % Plt Count 136 L D (150-450) k/uL Lymphocytes # 0.9 L (1.0-4.8) k/uL PT 13.2 H (9.0-12.0) sec INR 1.3 H (<1.2) APTT 19.9 L (22.0-30.0) sec Sodium 135 L (137-145) mmol/L Carbon Dioxide 20 L (22-30) mmol/L BUN 18 H (7-17) mg/dL Creatinine 1.44 H (0.52-1.04) mg/dL AST 78 H (14-36) U/L ALT 35 H (4-34) U/L Ur Leukocyte Esterase (Negative) Urine WBC (0-5) /hpf Amorphous Sediment (None) /hpf Urine Bacteria (None) /hpf Hyaline Casts (0-2) /lpf Urine Mucus (None) /hpf 03/29/21 Range/Units 15:22 RDW (11.5-15.5) % Plt Count (150-450) k/uL Lymphocytes # (1.0-4.8) k/uL PT (9.0-12.0) sec INR (<1.2) APTT (22.0-30.0) sec Sodium (137-145) mmol/L Carbon Dioxide (22-30) mmol/L BUN (7-17) mg/dL Creatinine (0.52-1.04) mg/dL AST (14-36) U/L ALT (4-34) U/L Ur Leukocyte Esterase Large H (Negative) Urine WBC 22 H (0-5) /hpf Amorphous Sediment Rare H (None) /hpf Urine Bacteria Occasional H (None) /hpf Hyaline Casts 3 H (0-2) /lpf Urine Mucus Rare H (None) /hpf Microbiology - Last 24 Hours (Table) 03/29/21 15:22 Urine Culture - Preliminary Urine,Voided Thrombosis Risk Factor Assmnt - Choose All That Apply Each Factor Represents 1 point: Obesity (BMI >25), Swollen legs (current) Each Risk Factor Represents 3 Points: Age 75 years or older Thrombosis Risk Factor Assessment Total Risk Factor Score: 5 Thrombosis Risk Factor Assessment Level: High Risk Assessment and Plan Assessment: 1. Weakness/debility; multifactorial related to UTI/dehydration 2. Hypotension/dehydration; patient received a bolus of 500 mL of normal saline in ED; we will continue with normal saline at rate of 50 mL an hour 3. Acute renal injury; IV fluid hydration in form of normal saline; we will monitor strict IGNACIO's, daily weights, renal function and electrolytes; avoid nephrotoxins and hypotension 4. UTI; ceftriaxone 1 g IV every 24 hours; we will obtain blood culture and urine culture and adjust medications as needed 5. Hyperlipidemia; currently not on any statin therapy 6. Atrial fibrillation; currently rate controlled with Lopressor 50 mg twice a day and anticoagulated with Xarelto 15 mg daily DVT prophylaxis; SCDs CODE STATUS; full code
[2021-03-30] MEDS ORDERED: traMADol 50 MG TAB PO PRN (18:52)
[2021-03-31] MEDS: SODIUM CHLORIDE 0.9% 1,000 ML IV SCH ×2 (01:46→19:05)
[2021-03-31] MEDS: RIVAROXABAN 15 MG TAB PO SCH (07:55)
[2021-03-31] MEDS: FERROUS SULFATE 325 MG TAB PO SCH (07:55)
[2021-03-31] MEDS: PANTOPRAZOLE 40 MG TABLET PO SCH (07:55)
[2021-03-31 11:16] LABS: Anion Gap 12.7 mmol/L (4.00-12.00); BUN/Creat Ratio 11.04 Ratio (12.00-20.00); Blood Urea Nitrogen 11.7 mg/dL (9.0-27.0); Carbon Dioxide 21.1 mmol/L (21.6-31.8); Potassium 3.6 mmol/L (3.5-5.5)
[2021-03-31 11:17] LABS: African American GFR (CKD) 57.8 (60.0-200.0); Calcium 9.1 mg/dL (8.7-10.3); Non-African American GFR(CKD) 49.9 (60.0-200.0)
[2021-03-31] MEDS: DULoxetine HCL 30 MG CAPSULE.DR PO SCH ×2 (13:28→22:58)
--- NOTE | 2021-03-31 20:30 | P.PN ---
Subjective Progress Note Date: 03/31/21 This is 81-year-old still having problems with weakness. She thought she could do it at home it was adamant about discharge from [facility] for rehab despite them telling her that she wasn't ready she wants to return to [facility] for further care Objective - Vital Signs Vital signs: Vital Signs Temp 98 F 03/31/21 19:30 Pulse 115 H 03/31/21 19:30 Resp 20 03/31/21 19:30 BP 113/68 03/31/21 19:30 Pulse Ox 99 03/31/21 19:30 Intake & Output 03/31/21 03/31/21 04/01/21 06:59 18:59 06:59 Intake Total 550 Balance 550 Intake: Intake, IV Titration 250 Amount Sodium Chloride 0.9% 1, 250 000 ml @ 50 mls/hr IV . Q20H [facility]ION Rx#:[id number] Oral 300 Other: Voiding Method Bedside Commode Bedside Commode # Voids 1 2 - Exam GENERAL: This is a 81-year-old in no apparent distress at the time of examination. Pleasant and cooperative. HEENT: Head is atraumatic, normocephalic. Pupils are equal, round, and reactive to light. Sclerae anicteric. Conjunctivae are clear. Mucus membranes of the mouth are moist. Neck is supple. RESPIRATORY: Clear to auscultation. No wheezes, rales, or rhonchi. No use of accessory muscles. No chest wall tenderness is noted on palpation or with deep breathing. CARDIOVASCULAR: Regular rate and rhythm. GASTROINTESTINAL: No distention noted. Abdomen soft and round. Normal active bowel sounds auscultated x 4 quadrants. No pain or tenderness noted upon palpation. INTEGUMENTARY: No cyanosis. No jaundice. No rashes noted. No cellulitis noted. EXTREMITIES: 2+ peripheral pulses. No evidence of peripheral edema. No calf tenderness noted. NEUROLOGIC: Cranial nerves II-XII intact. PSYCHIATRIC: Awake, alert, and oriented X 3. Appropriate affect. Intact judgement and insight. - Labs CBC & Chem 7: 03/29/21 13:15 03/31/21 06:09 Labs: Abnormal Lab Results - Last 24 Hours (Table) 03/31/21 Range/Units 06:09 Carbon Dioxide 21.1 L (21.6-31.8) mmol/L Anion Gap 12.70 H (4.00-12.00) mmol/L Est GFR (CKD-EPI)AfAm 57.8 L (60.0-200.0) Est GFR (CKD-EPI)NonAf 49.9 L (60.0-200.0) BUN/Creatinine Ratio 11.04 L (12.00-20.00) Ratio Microbiology - Last 24 Hours (Table) 03/29/21 15:22 Urine Culture - Preliminary Urine,Voided Gram Neg Bacilli Assessment and Plan (1) Generalized weakness Current Visit: Yes Status: Acute Code(s): R53.1 - WEAKNESS SNOMED Code(s): 24345455 (2) Hypotension Current Visit: Yes Status: Acute Code(s): I95.9 - HYPOTENSION, UNSPECIFIED SNOMED Code(s): 78286035 (3) UTI (urinary tract infection) Current Visit: Yes Status: Acute Code(s): N39.0 - URINARY TRACT INFECTION, SITE NOT SPECIFIED SNOMED Code(s): 19716391 (4) Anemia Current Visit: No Status: Acute Code(s): D64.9 - ANEMIA, UNSPECIFIED SNOMED Code(s): 576822242 (5) Morbid obesity Current Visit: No Status: Acute Code(s): E66.01 - MORBID (SEVERE) OBESITY DUE TO EXCESS CALORIES SNOMED Code(s): 993666926 Plan: Patient will be admitted and rehydrated placed on IV antibiotics and transferred back to [facility] for further rehabilitation.
[2021-04-01 06:50] LABS: African American GFR (CKD) 73 (>60 ml/min/1.73 sqM); Anion Gap 7 mmol/L; Blood Urea Nitrogen 9 mg/dL (7-17); Carbon Dioxide 23 mmol/L (22-30); Chloride 104 mmol/L (98-107); Glucose 91 mg/dL (74-99); Non-African American GFR(CKD) 63 (>60 ml/min/1.73 sqM); Potassium 3.6 mmol/L (3.5-5.1); Sodium 134 mmol/L (137-145)
[2021-04-01 06:56] LABS: Anisocytosis Slight; HCT 32.2 % (34.0-46.0); HGB 10.3 gm/dL (11.4-16.0); Hypochromasia Slight; MCHC 31.8 g/dL (31.0-37.0); MCV 91.1 fL (80.0-100.0); Mean Platelet Volume 8.2; Platelet Count 128 k/uL (150-450); RBC 3.54 m/uL (3.80-5.40); RDW 16.8 % (11.5-15.5); WBC 5.5 k/uL (3.8-10.6)
[2021-04-01] MEDS: FERROUS SULFATE 325 MG TAB PO SCH (08:12)
[2021-04-01] MEDS: PANTOPRAZOLE 40 MG TABLET PO SCH (08:12)
[2021-04-01] MEDS: RIVAROXABAN 15 MG TAB PO SCH (08:12)
[2021-04-01] MEDS: DULoxetine HCL 30 MG CAPSULE.DR PO SCH ×2 (08:12→22:10)
[2021-04-01] MEDS: SODIUM CHLORIDE 0.9% 1,000 ML IV SCH (13:16)
--- NOTE | 2021-04-01 22:14 | P.PN ---
Subjective Progress Note Date: 04/01/21 Patient seen today still on IV antibiotics for a gram-negative urinary tract infection and dehydration we'll try to get her cleared for rehab potentially in 24 hours she has no further complaints today and is doing quite well Objective - Vital Signs Vital signs: Vital Signs Temp 98 F 04/01/21 20:14 Pulse 98 04/01/21 20:14 Resp 18 04/01/21 20:14 BP 95/59 04/01/21 20:14 Pulse Ox 95 04/01/21 20:14 Intake & Output 04/01/21 04/01/21 04/02/21 06:59 18:59 06:59 Intake Total 100 360 240 Balance 100 360 240 Intake: Oral 100 360 240 Other: Voiding Method Bedside Commode Toilet Toilet Bedside Commode Bedside Commode # Voids 2 3 - Exam GENERAL: This is a 81-year-old in no apparent distress at the time of examination. Pleasant and cooperative. HEENT: Head is atraumatic, normocephalic. Pupils are equal, round, and reactive to light. Sclerae anicteric. Conjunctivae are clear. Mucus membranes of the mouth are moist. Neck is supple. RESPIRATORY: Clear to auscultation. No wheezes, rales, or rhonchi. No use of accessory muscles. No chest wall tenderness is noted on palpation or with deep breathing. CARDIOVASCULAR: Regular rate and rhythm. GASTROINTESTINAL: No distention noted. Abdomen soft and round. Normal active bowel sounds auscultated x 4 quadrants. No pain or tenderness noted upon palpation. INTEGUMENTARY: No cyanosis. No jaundice. No rashes noted. No cellulitis noted. EXTREMITIES: 2+ peripheral pulses. No evidence of peripheral edema. No calf tenderness noted. NEUROLOGIC: Cranial nerves II-XII intact. PSYCHIATRIC: Awake, alert, and oriented X 3. Appropriate affect. Intact judgement and insight. - Labs CBC & Chem 7: 04/01/21 05:48 04/01/21 05:48 Labs: Abnormal Lab Results - Last 24 Hours (Table) 04/01/21 04/01/21 Range/Units 05:48 05:48 RBC 3.54 L (3.80-5.40) m/uL Hgb 10.3 L (11.4-16.0) gm/dL Hct 32.2 L (34.0-46.0) % RDW 16.8 H (11.5-15.5) % Plt Count 128 L (150-450) k/uL Sodium 134 L (137-145) mmol/L Microbiology - Last 24 Hours (Table) 03/29/21 15:22 Urine Culture - Preliminary Urine,Voided Escherichia coli Assessment and Plan (1) Generalized weakness Current Visit: Yes Status: Acute Code(s): R53.1 - WEAKNESS SNOMED Code(s): 53186437 (2) Hypotension Current Visit: Yes Status: Acute Code(s): I95.9 - HYPOTENSION, UNSPECIFIED SNOMED Code(s): 04042390 (3) UTI (urinary tract infection) Current Visit: Yes Status: Acute Code(s): N39.0 - URINARY TRACT INFECTION, SITE NOT SPECIFIED SNOMED Code(s): 05241751 (4) Anemia Current Visit: No Status: Acute Code(s): D64.9 - ANEMIA, UNSPECIFIED SNOMED Code(s): 794496400 (5) Morbid obesity Current Visit: No Status: Acute Code(s): E66.01 - MORBID (SEVERE) OBESITY DUE TO EXCESS CALORIES SNOMED Code(s): 323042868 Plan: Patient will continue rehydration and IV antibiotics and transferred [facility].
[2021-04-02] MEDS: SODIUM CHLORIDE 0.9% 1,000 ML IV SCH ×2 (00:49→03:08)
[2021-04-02] MEDS: RIVAROXABAN 15 MG TAB PO SCH (07:21)
[2021-04-02] MEDS: PANTOPRAZOLE 40 MG TABLET PO SCH (07:21)
[2021-04-02] MEDS: FERROUS SULFATE 325 MG TAB PO SCH (07:21)
[2021-04-02] MEDS: DULoxetine HCL 30 MG CAPSULE.DR PO SCH (07:22)
[2021-04-02 08:06] VITALS: BP 105/54; PULSE 131; RESP 15; TEMP 98.2
--- NOTE | 2021-04-02 13:30 | P.DS ---
Providers Date of admission: 03/29/21 16:52 Expected date of discharge: 04/02/21 Attending physician: Bolivar Valiente Primary care physician: Bolivar Valiente - Discharge Diagnosis(es) (1) Generalized weakness Current Visit: Yes Status: Acute (2) Hypotension Current Visit: Yes Status: Acute (3) UTI (urinary tract infection) Current Visit: Yes Status: Acute (4) Anemia Current Visit: No Status: Acute (5) Morbid obesity Current Visit: No Status: Acute (6) Sepsis due to gram-negative urinary tract infection Current Visit: Yes Status: Acute Hospital Course: Patient is a pleasant 81-year-old white female who was readmitted after spending some time at [facility] facility. She was discharged in 24 hours later came back to the hospital with dehydration and an gram-negative urinary tract infection with appropriate antibiotics and felt that she could be followed up at [facility]. Patient Condition at Discharge: Serious Plan - Discharge Summary Discharge Rx Participant: No New Discharge Prescriptions: New traMADol HCl [Ultram] 50 mg PO TID PRN tab PRN Reason: Pain Control Sulfamethox-Tmp 800-160Mg [Bactrim Ds] 1 each PO Q12HR #14 tab Continue Rivaroxaban [Xarelto] 15 mg PO DAILY DULoxetine HCL [Cymbalta] 30 mg PO Q12H Furosemide [Lasix] 20 mg PO BID Metoprolol Tartrate [Lopressor] 50 mg PO BID Pantoprazole [Protonix] 40 mg PO DAILY Ferrous Sulfate [Feosol] 325 mg PO DAILY Potassium Chloride ER [K-Dur 20] 40 meq PO BID Sennosides-Docusate Sodium [Senokot-S] 2 tab PO BID Discharge Medication List DULoxetine HCL [Cymbalta] 30 mg PO Q12H 02/04/21 [History] Rivaroxaban [Xarelto] 15 mg PO DAILY 02/04/21 [History] Metoprolol Tartrate [Lopressor] 50 mg PO BID 02/18/21 [History] Pantoprazole [Protonix] 40 mg PO DAILY 02/18/21 [History] Ferrous Sulfate [Feosol] 325 mg PO DAILY 02/28/21 [History] Furosemide [Lasix] 20 mg PO BID 02/28/21 [History] Potassium Chloride ER [K-Dur 20] 40 meq PO BID 02/28/21 [History] Sennosides-Docusate Sodium [Senokot-S] 2 tab PO BID 02/28/21 [History] Sulfamethox-Tmp 800-160Mg [Bactrim Ds] 1 each PO Q12HR #14 tab 04/02/21 [Rx] traMADol HCl [Ultram] 50 mg PO TID PRN tab 04/02/21 [Rx] Follow up Appointment(s)/Referral(s): Bolivar Valiente DO [Primary Care Provider] - 1 Week Discharge Disposition: TRANSFER TO SNF/ECF
== END 2021-04-02 14:58 ==
LOC: EC 11:42 → 5NMEDONC 16:52 → INTOOBSV 16:52 → UNDODISIN 04-02 14:58
PROVIDERS: ADMIT Family Medicine; ATTEND Family Medicine
DX: A41.50 Gram-negative sepsis, unspecified (principal); N39.0 Urinary tract infection, site not specified; N17.9 Acute kidney failure, unspecified; I95.9 Hypotension, unspecified; D64.9 Anemia, unspecified; E86.0 Dehydration; E66.01 Morbid (severe) obesity due to excess calories; Z68.39 Body mass index [BMI] 39.0-39.9, adult; M25.511 Pain in right shoulder; M25.552 Pain in left hip; I48.91 Unspecified atrial fibrillation; E78.5 Hyperlipidemia, unspecified; M19.90 Unspecified osteoarthritis, unspecified site; M79.89 Other specified soft tissue disorders; R60.9 Edema, unspecified; B96.89 Other specified bacterial agents as the cause of diseases classified elsewhere; Z20.822 Contact with and (suspected) exposure to COVID-19; Z91.81 History of falling; Z96.643 Presence of artificial hip joint, bilateral; Z95.2 Presence of prosthetic heart valve; Z96.659 Presence of unspecified artificial knee joint; Z87.891 Personal history of nicotine dependence; Z79.899 Other long term (current) drug therapy; Z88.5 Allergy status to narcotic agent; Z88.0 Allergy status to penicillin; Z79.01 Long term (current) use of anticoagulants
CPT/HCPCS: 96365; 96366 ×2; 96376; 99285; 36415; 94760 ×2; 93005; 97162; 80053; 80048 ×3; 80076; 83605; 83735; 84484; 85025; 85027; 85610; 85730; 81001; 87086; 87077; 87186; 87635 ×2; 71046; G0378 ×5; J0696 ×5

== ENCOUNTER 2021-10-22 15:21 | Emergency (ER) | payer MEDICARE ==
[2021-10-22 15:34] VITALS: TEMP 97.2
--- NOTE | 2021-10-22 15:40 | ED ---
General Adult HPI - General Chief complaint: Altered Mental Status Stated complaint: AMS Time Seen by Provider: 10/22/21 15:23 Source: patient, EMS Mode of arrival: EMS Limitations: no limitations - History of Present Illness Initial comments: Dictation was produced using [employer] dictation software. please excuse any grammatical, word or spelling errors. Chief Complaint: 81-year-old female presents to the emergency department for 48 hours of altered mental status History of Present Illness: History of present illness obtained from EMS and patient. Patient 81-year-old female transferred from our [facility] rehab facility. She is currently at that facility she reports for rehab. 48 hours ago patient was noted by rehab facility staff for altered mental status. They did a workup at facility. She had urine studies that were negative for urinary tract infection. She was sent to the emergency department. According to EMS patient is normally alert and oriented 3 out of 4. As of late she's been having his speech with anal of 1-2 out of 4. Patient states that she is here in emergency department because she was confused. She murmurs being confused yesterday. EMS reports that there were told patient at baseline normally has meaningful conversation. Patient has no other complaints. The ROS documented in this emergency department record has been reviewed and confirmed by me. Those systems with pertinent positive or negative responses have been documented in the HPI. All other systems are other negative and/or noncontributory. PHYSICAL EXAM: General Impression: Alert and oriented x2/4, able to answer was the president, what year it is and state her first and last name, not in acute distress HEENT: Normocephalic atraumatic, extra-ocular movements intact, pupils equal and reactive to light bilaterally, mucous membranes moist. Cardiovascular: Heart regular rate and rhythm Chest: Able to complete full sentences, no retractions, no tachypnea Abdomen: abdomen soft, non-tender, non-distended, no organomegaly Musculoskeletal: Pulses present and equal in all extremities, no peripheral edema Motor: no focal deficits noted Neurological: CN II-XII grossly intact, no focal motor or sensory deficits noted Skin: Intact with no visualized rashes Psych: Normal affect and mood ED course: 81-year-old female presents to the emergency department for altered mental status for 48 hours. EMS reports that patient is DO NOT RESUSCITATE however on patient's recent admission she was deemed full code. There is docume ntation from September 28 that states that patient is full code. We do not have any documentation from [facility] for DO NOT RESUSCITATE status. Patient's well- appearing. She is alert and oriented 2 out of 4. She is allegedly has baseline mentation of N and oriented 3 out of 4. She has no obvious focal neurologic deficits. EKG interpretation: Ventricular rate 93, A. fib, QS 125, QTc 448. no QTC pr olongation, no ST or T-wave changes noted. EKG compared to 03/29/2021 showing no changes. Overall, this EKG is unremarkable Occult blood is negative. It appears to occult blood is negative. 4 panel viral PCR is negative. Computed tomography scan of brain is negative. patient observed in the emergency department for approximately 4 hours and 30 minutes per she is really at bedside at 8:00 PM found to be stable medical condition. Disposition options were discussed she does confirm that she is DO NOT RESUSCITATE the last 7-8 years.She requests to be discharged. Upon reevaluation she is not having focal neurologic deficits. So far to say exactly what caused her confusion but very unlikely to have been a cerebrovascular accident. She is alert and oriented 3-4 the bedside. Sister at the bedside reports the patient appears baseline currently. She requests to be sent back to [facility]. I believe this is reasonable disposition option. - Related Data Home Medications Medication Instructions Recorded Confirmed DULoxetine HCL [Cymbalta] 30 mg PO BID@0800,1700 02/04/21 10/22/21 Rivaroxaban [Xarelto] 15 mg PO DAILY@0800 02/04/21 10/22/21 Ferrous Sulfate [Feosol] 325 mg PO BID@0800,1700 02/28/21 10/22/21 Potassium Chloride ER [K-Dur 20] 20 meq PO DAILY@0800 02/28/21 10/22/21 Sennosides-Docusate Sodium 2 tab PO BID@0800,169902/28/21 10/22/21 [Senokot-S] Brimonidine Tartrate [Alphagan P 1 drop RIGHT EYE TID@0800,1200,1700 09/22/21 10/22/21 0.2% Ophth Soln] Furosemide [Lasix] 40 mg PO DAILY@0800 09/22/21 10/22/21 Spironolactone [Aldactone] 25 mg PO HS 09/22/21 10/22/21 Timolol 0.5% Ophth Soln [Timoptic 1 drop RIGHT EYE DAILY@0800 09/22/21 10/22/21 0.5% Ophth Soln] Difluprednate [Durezol] 1 drop RIGHT EYE QID 10/22/21 10/22/21 Gabapentin [Neurontin] 300 mg PO TID@0600,1400,2200 10/22/21 10/22/21 Magnesium Hydroxide [Milk of 7,200 mg PO Q48H PRN 10/22/21 10/22/21 Magnesia Concentrate] Metoprolol Tartrate [Lopressor] 50 mg PO BID@0800,1700 10/22/21 10/22/21 Na Phos,M-B/Na Phos,Di-Ba [Fleet 133 ml RECTAL DAILY PRN 10/22/21 10/22/21 Adult] Pantoprazole [Protonix] 40 mg PO DAILY@0600 10/22/21 10/22/21 bisacodyL 10 mg RECTAL DAILY PRN 10/22/21 10/22/21 Previous Rx's Medication Instructions Recorded Baclofen [Lioresal] 5 mg PO BID PRN tab 09/24/21 Acetaminophen Tab [Tylenol] 650 mg PO Q6HR PRN tab 09/29/21 SILVER sulfADIAZINE CREAM 1 applic TOPICAL DAILY cream 09/29/21 [Silvadene Cream] Allergies Allergy/AdvReac Type Severity Reaction Status Date / Time oxycodone Allergy Itching on Verified 10/22/21 16:13 back of hands Penicillins Allergy Itching Verified 10/22/21 16:13 all over body Review of Systems ROS Statement: Those systems with pertinent positive or pertinent negative responses have been documented in the HPI. ROS Other: All systems not noted in ROS Statement are negative. Past Medical History Past Medical History: Atrial Fibrillation, Hyperlipidemia, Osteoarthritis (OA) Additional Past Medical History / Comment(s): cardiac valve issues History of Any Multi-Drug Resistant Organisms: None Reported Past Surgical History: Back Surgery, Cardiac Valve Replacement, Joint Replacement Additional Past Surgical History / Comment(s): hipx2 knee replacement Past Anesthesia/Blood Transfusion Reactions: No Reported Reaction Past Psychological History: No Psychological Hx Reported Smoking Status: Former smoker Past Alcohol Use History: None Reported Past Drug Use History: None Reported General Exam Limitations: no limitations Course Vital Signs 10/22/21 10/22/21 10/22/21 15:23 17:34 19:00 Temperature 97.2 F L Pulse Rate 67 87 94 Respiratory 18 16 16 Rate Blood Pressure 108/68 123/63 123/78 O2 Sat by Pulse 96 97 97 Oximetry Medical Decision Making - Lab Data Result diagrams: 10/22/21 15:56 10/22/21 15:56 Lab Results 10/22/21 10/22/21 10/22/21 Range/Units 15:56 15:56 15:56 WBC 8.7 (3.8-10.6) k/uL RBC 3.91 (3.80-5.40) m/uL Hgb 12.6 (11.4-16.0) gm/dL Hct 38.2 (34.0-46.0) % MCV 97.5 (80.0-100.0) fL MCH 32.1 (25.0-35.0) pg MCHC 32.9 (31.0-37.0) g/dL RDW 13.3 (11.5-15.5) % Plt Count 186 (150-450) k/uL MPV 7.7 Neutrophils % 73 % Lymphocytes % 11 % Monocytes % 9 % Eosinophils % 3 % Basophils % 1 % Neutrophils # 6.3 (1.3-7.7) k/uL Lymphocytes # 1.0 (1.0-4.8) k/uL Monocytes # 0.8 (0-1.0) k/uL Eosinophils # 0.3 (0-0.7) k/uL Basophils # 0.1 (0-0.2) k/uL PT 14.2 H (9.0-12.0) sec INR 1.4 H (<1.2) APTT 31.6 H (22.0-30.0) sec Sodium 137 (137-145) mmol/L Potassium 4.1 (3.5-5.1) mmol/L Chloride 95 L (98-107) mmol/L Carbon Dioxide 36 H (22-30) mmol/L Anion Gap 6 mmol/L BUN 20 H (7-17) mg/dL Creatinine 1.09 H (0.52-1.04) mg/dL Est GFR (CKD-EPI)AfAm 56 (>60 ml/min/1.73 sqM) Est GFR (CKD-EPI)NonAf 49 (>60 ml/min/1.73 sqM) Glucose 110 H (74-99) mg/dL Calcium 9.0 (8.4-10.2) mg/dL Magnesium 1.7 (1.6-2.3) mg/dL Total Bilirubin 1.5 H (0.2-1.3) mg/dL AST 43 H (14-36) U/L ALT 24 (4-34) U/L Alkaline Phosphatase 103 (38-126) U/L Total Protein 6.9 (6.3-8.2) g/dL Albumin 3.4 L (3.5-5.0) g/dL Urine Color Urine Appearance (Clear) Urine pH (5.0-8.0) Ur Specific [place] (1.001-1.035) Urine Protein (Negative) Urine Glucose (UA) (Negative) Urine Ketones (Negative) Urine Blood (Negative) Urine Nitrite (Negative) Urine Bilirubin (Negative) Urine Urobilinogen (<2.0) mg/dL Ur Leukocyte Esterase (Negative) Stool Occult Blood (Negative) Influenza Type A (PCR) (Not Detectd) Influenza Type B (PCR) (Not Detectd) RSV (PCR) (Not Detectd) SARS-CoV-2 (PCR) (Not Detectd) 10/22/21 10/22/21 10/22/21 Range/Units 15:56 17:42 19:40 WBC (3.8-10.6) k/uL RBC (3.80-5.40) m/uL Hgb (11.4-16.0) gm/dL Hct (34.0-46.0) % MCV (80.0-100.0) fL MCH (25.0-35.0) pg MCHC (31.0-37.0) g/dL RDW (11.5-15.5) % Plt Count (150-450) k/uL MPV Neutrophils % % Lymphocytes % % Monocytes % % Eosinophils % % Basophils % % Neutrophils # (1.3-7.7) k/uL Lymphocytes # (1.0-4.8) k/uL Monocytes # (0-1.0) k/uL Eosinophils # (0-0.7) k/uL Basophils # (0-0.2) k/uL PT (9.0-12.0) sec INR (<1.2) APTT (22.0-30.0) sec Sodium (137-145) mmol/L Potassium (3.5-5.1) mmol/L Chloride (98-107) mmol/L Carbon Dioxide (22-30) mmol/L Anion Gap mmol/L BUN (7-17) mg/dL Creatinine (0.52-1.04) mg/dL Est GFR (CKD-EPI)AfAm (>60 ml/min/1.73 sqM) Est GFR (CKD-EPI)NonAf (>60 ml/min/1.73 sqM) Glucose (74-99) mg/dL Calcium (8.4-10.2) mg/dL Magnesium (1.6-2.3) mg/dL Total Bilirubin (0.2-1.3) mg/dL AST (14-36) U/L ALT (4-34) U/L Alkaline Phosphatase (38-126) U/L Total Protein (6.3-8.2) g/dL Albumin (3.5-5.0) g/dL Urine Color Light Yellow Urine Appearance Clear (Clear) Urine pH 7.0 (5.0-8.0) Ur Specific [place] [address] [place] 1.008 (1.001-1.035) Urine Protein Negative (Negative) Urine Glucose (UA) Negative (Negative) Urine Ketones Negative (Negative) Urine Blood Negative (Negative) Urine Nitrite Negative (Negative) Urine Bilirubin Negative (Negative) Urine Urobilinogen <2.0 (<2.0) mg/dL Ur Leukocyte Esterase Negative (Negative) Stool Occult Blood Negative (Negative) Influenza Type A (PCR) Not Detected (Not Detectd) Influenza Type B (PCR) Not Detected (Not Detectd) RSV (PCR) Not Detected (Not Detectd) SARS-CoV-2 (PCR) Not Detected (Not Detectd) Disposition Clinical Impression: Altered mental status Disposition: HOME SELF-CARE Condition: Good Instructions (If sedation given, give patient instructions): Altered Mental Status (ED) Is patient prescribed a controlled substance at d/c from ED?: No Referrals: Bolivar Valiente DO [Primary Care Provider] - 1-2 days
[2021-10-22 16:16] LABS: Basophils # (A) 0.1 k/uL (0-0.2); Basophils % (A) 1 %; Eosinophils # (A) 0.3 k/uL (0-0.7); Eosinophils % (A) 3 %; HCT 38.2 % (34.0-46.0); HGB 12.6 gm/dL (11.4-16.0); Lymphocytes % (A) 11 %; MCH 32.1 pg (25.0-35.0); MCHC 32.9 g/dL (31.0-37.0); MCV 97.5 fL (80.0-100.0); Mean Platelet Volume 7.7; Monocytes # (A) 0.8 k/uL (0-1.0); Monocytes % (A) 9 %; Neutrophils # (A) 6.3 k/uL (1.3-7.7); Neutrophils % (A) 73 %; Platelet Count 186 k/uL (150-450); RBC 3.91 m/uL (3.80-5.40); RDW 13.3 % (11.5-15.5); WBC 8.7 k/uL (3.8-10.6)
[2021-10-22 16:23] LABS: Albumin 3.4 g/dL (3.5-5.0); Magnesium 1.7 mg/dL (1.6-2.3); Potassium 4.1 mmol/L (3.5-5.1); Total Bilirubin 1.5 mg/dL (0.2-1.3); Total Protein 6.9 g/dL (6.3-8.2)
[2021-10-22 16:29] LABS: INR 1.4 (<1.2); Partial Thromboplastin Time 31.6 sec (22.0-30.0); Prothrombin Time 14.2 sec (9.0-12.0)
--- NOTE | 2021-10-22 16:43 | CT ---
EXAMINATION TYPE: CT brain wo con DATE OF EXAM: 10/22/2021 COMPARISON: 09/28/2021 HISTORY: ams, confusion CT DLP: 1173.4 mGycm Automated exposure control for dose reduction was used. There is mild cerebral cortical atrophy. There is no mass effect or midline shift. There is no sign o f intracranial hemorrhage. The calvarium is intact there is calcification in the right lobe. IMPRESSION: Cerebral atrophy. No acute intracranial abnormality. No change.
[2021-10-22 17:43] VITALS: RESP 16
[2021-10-22 19:09] VITALS: BP 123/78; PULSE 94
[2021-10-22 19:46] LABS: Appearance,Urine Clear (Clear); Bilirubin,Urine Negative (Negative); Blood,Urine Negative (Negative); Color,Urine Light Yellow; Glucose,Urine (UA) Negative (Negative); Ketones,Urine Negative (Negative); Leukocyte Esterase,Urine Negative (Negative); Nitrite,Urine Negative (Negative); Protein,Urine Negative (Negative); Specific Gravity,Urine 1.008 (1.001-1.035); Urobilinogen,Urine <2.0 mg/dL (<2.0)
== END 2021-10-22 22:10 | disposition home or self-care (01) ==
LOC: EC 15:21
DX: R41.82 Altered mental status, unspecified (principal); Z20.822 Contact with and (suspected) exposure to COVID-19; I48.91 Unspecified atrial fibrillation; E78.5 Hyperlipidemia, unspecified; M19.90 Unspecified osteoarthritis, unspecified site; Z79.01 Long term (current) use of anticoagulants; Z79.899 Other long term (current) drug therapy; Z87.891 Personal history of nicotine dependence
CPT/HCPCS: 36415; 70450; 80053; 81003; 82272; 83735; 85025; 85610; 85730; 87636; 93005; 99285

== ENCOUNTER 2021-10-23 13:08 | Inpatient (IN) | payer MEDICARE ==
[2021-10-23] MEDS ORDERED: TETRACAINE 0.5% OPHTH (PF) DROPS 4 ML BTL RIGHT EYE STA (13:42)
[2021-10-23] MEDS ORDERED: FLUORESCEIN STRIPS 1 MG STRIP RIGHT EYE ONE (13:42)
--- NOTE | 2021-10-23 13:49 | ED ---
General Adult HPI - General Chief complaint: Altered Mental Status Stated complaint: AMS Time Seen by Provider: 10/23/21 13:19 Source: EMS, RN notes reviewed, old records reviewed Mode of arrival: EMS Limitations: no limitations - History of Present Illness Initial comments: Patient presents from [facility] for altered mental status. She was here yesterday for similar complaint ultimately discharged home. Workup yesterday revealed no source, including a CT brain. Patient currently is responding to questions, however appears confused. Does seem to know her name, however unable to obtain any further information from her. Baseline per EMS is alert and oriented 3. She is currently alert and oriented times one. She does have a history of atrial fibrillation on several toe. Cellulitis of the extremities. She is currently requiring a small amount of supplemental oxygenation. Patient is mildly febrile at her facility, and 100.8. Here she is 99.9. No other findings on history at this time. - Related Data Home Medications Medication Instructions Recorded Confirmed DULoxetine HCL [Cymbalta] 30 mg PO BID@0800,1700 02/04/21 10/23/21 Rivaroxaban [Xarelto] 15 mg PO DAILY@0800 02/04/21 10/23/21 Ferrous Sulfate [Feosol] 325 mg PO BID@0800,1700 02/28/21 10/23/21 Potassium Chloride ER [K-Dur 20] 20 meq PO DAILY@0800 02/28/21 10/23/21 Sennosides-Docusate Sodium 2 tab PO BID@0800,1700 02/28/21 10/23/21 [Senokot-S] Brimonidine Tartrate [Alphagan P 1 drop RIGHT EYE TID@0800,1200,1700 09/22/21 10/23/21 0.2% Ophth Soln] Furosemide [Lasix] 40 mg PO DAILY@0800 09/22/21 10/23/21 Spironolactone [Aldactone] 25 mg PO HS@2100 09/22/21 10/23/21 Timolol 0.5% Ophth Soln [Timoptic 1 drop RIGHT EYE DAILY@0800 09/22/21 10/23/21 0.5% Ophth Soln] Difluprednate [Durezol] 1 drop RIGHT EYE QID 10/22/21 10/23/21 Gabapentin [Neurontin] 300 mg PO TID@0600,1400,2200 10/22/21 10/23/21 Magnesium Hydroxide [Milk of 7,200 mg PO Q48H PRN 10/22/21 10/23/21 Magnesia Concentrate] Metoprolol Tartrate [Lopressor] 50 mg PO BID@0800,1700 10/22/21 10/23/21 Na Phos,M-B/Na Phos,Di-Ba [Fleet 133 ml RECTAL DAILY PRN 10/22/21 10/23/21 Adult] Pantoprazole [Protonix] 40 mg PO DAILY@0600 10/22/21 10/23/21 bisacodyL 10 mg RECTAL DAILY PRN 10/22/21 10/23/21 Previous Rx's Medication Instructions Recorded Baclofen [Lioresal] 5 mg PO BID PRN tab 09/24/21 Acetaminophen Tab [Tylenol] 650 mg PO Q6HR PRN tab 09/29/21 SILVER sulfADIAZINE CREAM 1 applic TOPICAL DAILY cream 09/29/21 [Silvadene Cream] Allergies Allergy/AdvReac Type Severity Reaction Status Date / Time oxycodone Allergy Itching on Verified 10/23/21 13:21 back of hands Penicillins Allergy Itching Verified 10/23/21 13:21 all over body Review of Systems ROS Statement: Those systems with pertinent positive or pertinent negative responses have been documented in the HPI. Unable to obtain secondary to patient's clinical status. ROS Other: All systems not noted in ROS Statement are negative. Past Medical History Past Medical History: Atrial Fibrillation, Hyperlipidemia, Osteoarthritis (OA) Additional Past Medical History / Comment(s): cardiac valve issues History of Any Multi-Drug Resistant Organisms: None Reported Past Surgical History: Back Surgery, Cardiac Valve Replacement, Joint Replacement Additional Past Surgical History / Comment(s): hipx2 knee replacement Past Anesthesia/Blood Transfusion Reactions: No Reported Reaction Past Psychological History: No Psychological Hx Reported Smoking Status: Former smoker Past Alcohol Use History: None Reported Past Drug Use History: None Reported General Exam - General Exam Comments Initial Comments: General: Appears in no acute distress. Borderline febrile HEAD: Normal with no signs of head trauma. EYES: PERRLA, EOMI, conjunctiva normal, no discharge. Right pupil is slightly more dilated than the left, however this is chronic for the patient per senior care facility. Is currently being treated with eyedrops. No acute change. ENT: Hearing grossly intact, normal oropharynx. RESPIRATORY: Clear breath sounds bilaterally. No wheezes, rales, or rhonchi. C/V: Regular rate and rhythm. S1 and S2 auscultated, no edema, peripheral pulses 2+ and intact throughout ABD: Abd is soft, nontender, nondistended EXT: Normal range of motion, no obvious deformity SKIN: No rashes or lesions observed on exposed skin. NEURO: Alert and oriented times one, to person. No focal deficits. Difficult to obtain NIH, but appears to be 0. GCS is 15. Able to move all 4 extremities without difficulty. Limitations: no limitations Course Vital Signs 10/23/21 10/23/21 13:14 16:20 Temperature 99.9 F H 99.2 F Pulse Rate 94 88 Respiratory 18 18 Rate Blood Pressure 117/71 106/62 O2 Sat by Pulse 94 L 98 Oximetry Medical Decision Making - Medical Decision Making Based on the patient's presentation and physical exam, I'm concerned for possible infectious etiology for her current altered mental status. Cannot rule out intracranial pathology. She appears to be back to alert and oriented 0-1. Is following commands. Therefore we'll obtain an infectious workup, as well as CT brain and cardiac workup. It is confirmed that the patient is DO NOT RESUSCITATE based on paperwork brought with her from the nursing facility. EKG reveals no signs of acute ischemia. Patient is in known atrial fibrillation, rate controlled.Laboratory studies are remarkable for a mild zach kocytosis at 10.9. Coags are slightly elevated. Troponin is undetectable. BNP is slightly elevated to 1900. Urinalysis, which there was a delay in obtaining, is positive for urinary tract infection. Occult blood is negative. UDS is negative. Alcohol is negative. Covid and flu negative. Chest x-ray shows no acute cardiopulmonary process. Due to the face and the brain are unremarkable. Shows chronic processes. On reevaluation, patient is slightly more alert at this time. I discussed with the patient's sister who is at bedside results. Patient be started on Rocephin daily for UTI. We'll hold fluids at this time as she appears volume overloaded slightly, and will be administered Lasix 40 mg twice a day. There were no agreement this plan. She'll be admitted to the hospital. I spoke with the admitting physician, Dr. Valiente after multiple attempts at contacting him which delayed the admission. Patient was admitted in stable condition. Patient is no code. C supportive paperwork. - Lab Data Result diagrams: 10/23/21 13:40 10/23/21 13:40 Lab Results 10/23/21 10/23/21 10/23/21 Range/Units 13:40 13:40 13:40 WBC 10.9 H (3.8-10.6) k/uL RBC 3.95 (3.80-5.40) m/uL Hgb 12.4 (11.4-16.0) gm/dL Hct 38.6 (34.0-46.0) % MCV 97.8 (80.0-100.0) fL MCH 31.5 (25.0-35.0) pg MCHC 32.2 (31.0-37.0) g/dL RDW 13.5 (11.5-15.5) % Plt Count 192 (150-450) k/uL MPV 8.1 Neutrophils % 79 % Lymphocytes % 9 % Monocytes % 7 % Eosinophils % 2 % Basophils % 0 % Neutrophils # 8.6 H (1.3-7.7) k/uL Lymphocytes # 1.0 (1.0-4.8) k/uL Monocytes # 0.8 (0-1.0) k/uL Eosinophils # 0.2 (0-0.7) k/uL Basophils # 0.1 (0-0.2) k/uL PT 15.3 H (9.0-12.0) sec INR 1.5 H (<1.2) APTT 31.3 H (22.0-30.0) sec VBG pH (7.31-7.41) VBG pCO2 (37-51) mmHg VBG HCO3 (24-28) mmol/L Sodium 136 L (137-145) mmol/L Potassium 4.3 (3.5-5.1) mmol/L Chloride 97 L (98-107) mmol/L Carbon Dioxide 32 H (22-30) mmol/L Anion Gap 7 mmol/L BUN 17 (7-17) mg/dL Creatinine 1.03 (0.52-1.04) mg/dL Est GFR (CKD-EPI)AfAm 60 (>60 ml/min/1.73 sqM) Est GFR (CKD-EPI)NonAf 52 (>60 ml/min/1.73 sqM) Glucose 105 H (74-99) mg/dL Plasma Lactic Acid Yonas (0.7-2.0) mmol/L Calcium 9.0 (8.4-10.2) mg/dL Total Bilirubin 1.9 H (0.2-1.3) mg/dL AST 40 H (14-36) U/L ALT 22 (4-34) U/L Alkaline Phosphatase 106 (38-126) U/L Ammonia (<30) umol/L Troponin I (0.000-0.034) ng/mL NT-Pro-B Natriuret Pep pg/mL Total Protein 7.0 (6.3-8.2) g/dL Albumin 3.4 L (3.5-5.0) g/dL Urine Color Urine Appearance (Clear) Urine pH (5.0-8.0) Ur Specific Mcguffey (1.001-1.035) Urine Protein (Negative) Urine Glucose (UA) (Negative) Urine Ketones (Negative) Urine Blood (Negative) Urine Nitrite (Negative) Urine Bilirubin (Negative) Urine Urobilinogen (<2.0) mg/dL Ur Leukocyte Esterase (Negative) Urine RBC (0-5) /hpf Urine WBC (0-5) /hpf Urine WBC Clumps (None) /hpf Ur Squamous Epith Cells (0-4) /hpf Stool Occult Blood (Negative) Urine Opiates Screen (NotDetected) Ur Oxycodone Screen (NotDetected) Urine Methadone Screen (NotDetected) Ur Propoxyphene Screen (NotDetected) Ur Barbiturates Screen (NotDetected) U Tricyclic Antidepress (NotDetected) Ur Phencyclidine Scrn (NotDetected) Ur Amphetamines Screen (NotDetected) U Methamphetamines Scrn (NotDetected) U Benzodiazepines Scrn (NotDetected) Urine Cocaine Screen (NotDetected) U Marijuana (THC) Screen (NotDetected) Serum Alcohol <10 mg/dL Coronavirus (PCR) (Not Detectd) Influenza Type A RNA (Not Detectd) Influenza Type B (PCR) (Not Detectd) 10/23/21 10/23/21 10/23/21 Range/Units 13:40 13:40 13:40 WBC (3.8-10.6) k/uL RBC (3.80-5.40) m/uL Hgb (11.4-16.0) gm/dL Hct (34.0-46.0) % MCV (80.0-100.0) fL MCH (25.0-35.0) pg MCHC (31.0-37.0) g/dL RDW (11.5-15.5) % Plt Count (150-450) k/uL MPV Neutrophils % % Lymphocytes % % Monocytes % % Eosinophils % % Basophils % % Neutrophils # (1.3-7.7) k/uL Lymphocytes # (1.0-4.8) k/uL Monocytes # (0-1.0) k/uL Eosinophils # (0-0.7) k/uL Basophils # (0-0.2) k/uL PT (9.0-12.0) sec INR (<1.2) APTT (22.0-30.0) sec VBG pH (7.31-7.41) VBG pCO2 (37-51) mmHg VBG HCO3 (24-28) mmol/L Sodium (137-145) mmol/L Potassium (3.5-5.1) mmol/L Chloride (98-107) mmol/L Carbon Dioxide (22-30) mmol/L Anion Gap mmol/L BUN (7-17) mg/dL Creatinine (0.52-1.04) mg/dL Est GFR (CKD-EPI)AfAm (>60 ml/min/1.73 sqM) Est GFR (CKD-EPI)NonAf (>60 ml/min/1.73 sqM) Glucose (74-99) mg/dL Plasma Lactic Acid Yonas 1.2 (0.7-2.0) mmol/L Calcium (8.4-10.2) mg/dL Total Bilirubin (0.2-1.3) mg/dL AST (14-36) U/L ALT (4-34) U/L Alkaline Phosphatase (38-126) U/L Ammonia <9 (<30) umol/L Troponin I <0.012 (0.000-0.034) ng/mL NT-Pro-B Natriuret Pep 1950 pg/mL Total Protein (6.3-8.2) g/dL Albumin (3.5-5.0) g/dL Urine Color Urine Appearance (Clear) Urine pH (5.0-8.0) Ur Specific Mcguffey (1.001-1.035) Urine Protein (Negative) Urine Glucose (UA) (Negative) Urine Ketones (Negative) Urine Blood (Negative) Urine Nitrite (Negative) Urine Bilirubin (Negative) Urine Urobilinogen (<2.0) mg/dL Ur Leukocyte Esterase (Negative) Urine RBC (0-5) /hpf Urine WBC (0-5) /hpf Urine WBC Clumps (None) /hpf Ur Squamous Epith Cells (0-4) /hpf Stool Occult Blood (Negative) Urine Opiates Screen (NotDetected) Ur Oxycodone Screen (NotDetected) Urine Methadone Screen (NotDetected) Ur Propoxyphene Screen (NotDetected) Ur Barbiturates Screen (NotDetected) U Tricyclic Antidepress (NotDetected) Ur Phencyclidine Scrn (NotDetected) Ur Amphetamines Screen (NotDetected) U Methamphetamines Scrn (NotDetected) U Benzodiazepines Scrn (NotDetected) Urine Cocaine Screen (NotDetected) U Marijuana (THC) Screen (NotDetected) Serum Alcohol mg/dL Coronavirus (PCR) (Not Detectd) Influenza Type A RNA (Not Detectd) Influenza Type B (PCR) (Not Detectd) 10/23/21 10/23/21 10/23/21 Range/Units 13:51 13:51 14:45 WBC (3.8-10.6) k/uL RBC (3.80-5.40) m/uL Hgb (11.4-16.0) gm/dL Hct (34.0-46.0) % MCV (80.0-100.0) fL MCH (25.0-35.0) pg MCHC (31.0-37.0) g/dL RDW (11.5-15.5) % Plt Count (150-450) k/uL MPV Neutrophils % % Lymphocytes % % Monocytes % % Eosinophils % % Basophils % % Neutrophils # (1.3-7.7) k/uL Lymphocytes # (1.0-4.8) k/uL Monocytes # (0-1.0) k/uL Eosinophils # (0-0.7) k/uL Basophils # (0-0.2) k/uL PT (9.0-12.0) sec INR (<1.2) APTT (22.0-30.0) sec VBG pH (7.31-7.41) VBG pCO2 (37-51) mmHg VBG HCO3 (24-28) mmol/L Sodium (137-145) mmol/L Potassium (3.5-5.1) mmol/L Chloride (98-107) mmol/L Carbon Dioxide (22-30) mmol/L Anion Gap mmol/L BUN (7-17) mg/dL Creatinine (0.52-1.04) mg/dL Est GFR (CKD-EPI)AfAm (>60 ml/min/1.73 sqM) Est GFR (CKD-EPI)NonAf (>60 ml/min/1.73 sqM) Glucose (74-99) mg/dL Plasma Lactic Acid Yonas (0.7-2.0) mmol/L Calcium (8.4-10.2) mg/dL Total Bilirubin (0.2-1.3) mg/dL AST (14-36) U/L ALT (4-34) U/L Alkaline Phosphatase (38-126) U/L Ammonia (<30) umol/L Troponin I (0.000-0.034) ng/mL NT-Pro-B Natriuret Pep pg/mL Total Protein (6.3-8.2) g/dL Albumin (3.5-5.0) g/dL Urine Color Urine Appearance (Clear) Urine pH (5.0-8.0) Ur Specific Mcguffey (1.001-1.035) Urine Protein (Negative) Urine Glucose (UA) (Negative) Urine Ketones (Negative) Urine Blood (Negative) Urine Nitrite (Negative) Urine Bilirubin (Negative) Urine Urobilinogen (<2.0) mg/dL Ur Leukocyte Esterase (Negative) Urine RBC (0-5) /hpf Urine WBC (0-5) /hpf Urine WBC Clumps (None) /hpf Ur Squamous Epith Cells (0-4) /hpf Stool Occult Blood Negative (Negative) Urine Opiates Screen (NotDetected) Ur Oxycodone Screen (NotDetected) Urine Methadone Screen (NotDetected) Ur Propoxyphene Screen (NotDetected) Ur Barbiturates Screen (NotDetected) U Tricyclic Antidepress (NotDetected) Ur Phencyclidine Scrn (NotDetected) Ur Amphetamines Screen (NotDetected) U Methamphetamines Scrn (NotDetected) U Benzodiazepines Scrn (NotDetected) Urine Cocaine Screen (NotDetected) U Marijuana (THC) Screen (NotDetected) Serum Alcohol mg/dL Coronavirus (PCR) Not Detected (Not Detectd) Influenza Type A RNA Not Detected (Not Detectd) Influenza Type B (PCR) Not Detected (Not Detectd) 10/23/21 10/23/21 Range/Units 15:05 16:14 WBC (3.8-10.6) k/uL RBC (3.80-5.40) m/uL Hgb (11.4-16.0) gm/dL Hct (34.0-46.0) % MCV (80.0-100.0) fL MCH (25.0-35.0) pg MCHC (31.0-37.0) g/dL RDW (11.5-15.5) % Plt Count (150-450) k/uL MPV Neutrophils % % Lymphocytes % % Monocytes % % Eosinophils % % Basophils % % Neutrophils # (1.3-7.7) k/uL Lymphocytes # (1.0-4.8) k/uL Monocytes # (0-1.0) k/uL Eosinophils # (0-0.7) k/uL Basophils # (0-0.2) k/uL PT (9.0-12.0) sec INR (<1.2) APTT (22.0-30.0) sec VBG pH 7.42 H (7.31-7.41) VBG pCO2 52 H (37-51) mmHg VBG HCO3 33 H (24-28) mmol/L Sodium (137-145) mmol/L Potassium (3.5-5.1) mmol/L Chloride (98-107) mmol/L Carbon Dioxide (22-30) mmol/L Anion Gap mmol/L BUN (7-17) mg/dL Creatinine (0.52-1.04) mg/dL Est GFR (CKD-EPI)AfAm (>60 ml/min/1.73 sqM) Est GFR (CKD-EPI)NonAf (>60 ml/min/1.73 sqM) Glucose (74-99) mg/dL Plasma Lactic Acid Yonas (0.7-2.0) mmol/L Calcium (8.4-10.2) mg/dL Total Bilirubin (0.2-1.3) mg/dL AST (14-36) U/L ALT (4-34) U/L Alkaline Phosphatase (38-126) U/L Ammonia (<30) umol/L Troponin I (0.000-0.034) ng/mL NT-Pro-B Natriuret Pep pg/mL Total Protein (6.3-8.2) g/dL Albumin (3.5-5.0) g/dL Urine Color Yellow Urine Appearance Turbid H (Clear) Urine pH 7.0 (5.0-8.0) Ur Specific Mcguffey 1.019 (1.001-1.035) Urine Protein 2+ H (Negative) Urine Glucose (UA) Negative (Negative) Urine Ketones Negative (Negative) Urine Blood Small H (Negative) Urine Nitrite Positive H (Negative) Urine Bilirubin Negative (Negative) Urine Urobilinogen <2.0 (<2.0) mg/dL Ur Leukocyte Esterase Large H (Negative) Urine RBC 39 H (0-5) /hpf Urine WBC >182 H (0-5) /hpf Urine WBC Clumps Many H (None) /hpf Ur Squamous Epith Cells 9 H (0-4) /hpf Stool Occult Blood (Negative) Urine Opiates Screen Not Detected (NotDetected) Ur Oxycodone Screen Not Detected (NotDetected) Urine Methadone Screen Not Detected (NotDetected) Ur Propoxyphene Screen Not Detected (NotDetected) Ur Barbiturates Screen Not Detected (NotDetected) U Tricyclic Antidepress Not Detected (NotDetected) Ur Phencyclidine Scrn Not Detected (NotDetected) Ur Amphetamines Screen Not Detected (NotDetected) U Methamphetamines Scrn Not Detected (NotDetected) U Benzodiazepines Scrn Not Detected (NotDetected) Urine Cocaine Screen Not Detected (NotDetected) U Marijuana (THC) Screen Not Detected (NotDetected) Serum Alcohol mg/dL Coronavirus (PCR) (Not Detectd) Influenza Type A RNA (Not Detectd) Influenza Type B (PCR) (Not Detectd) - EKG Data -: EKG Interpreted by Me EKG Comments: 12-lead Electrocardiogram Interpretation Note EKG was reviewed and interpreted by myself. 12-lead ECG performed at 1324 is interpreted by me as revealing atrial fibrillation at a rate of 95 beats per minute. [place] is normal. PA interval is unobtainable, QRS duration is 114 ms, QTc is 408 ms.. There were no ST or T wave abnormalities to suggest myocardial ischemia or injury. R wave progression across the precordium was satisfactory. By my interpretation this EKG is non-diagnostic for acute ischemia. Disposition Clinical Impression: Altered mental status, UTI (urinary tract infection), Volume overload Disposition: ADMITTED IP TO THIS HOSP Condition: Stable Time of Disposition: 16:50
[2021-10-23 14:01] LABS: Basophils # (A) 0.1 k/uL (0-0.2); Basophils % (A) 0 %; Eosinophils # (A) 0.2 k/uL (0-0.7); Eosinophils % (A) 2 %; HCT 38.6 % (34.0-46.0); HGB 12.4 gm/dL (11.4-16.0); Lymphocytes % (A) 9 %; MCH 31.5 pg (25.0-35.0); MCHC 32.2 g/dL (31.0-37.0); MCV 97.8 fL (80.0-100.0); Mean Platelet Volume 8.1; Monocytes # (A) 0.8 k/uL (0-1.0); Monocytes % (A) 7 %; Neutrophils # (A) 8.6 k/uL (1.3-7.7); Neutrophils % (A) 79 %; Platelet Count 192 k/uL (150-450); RBC 3.95 m/uL (3.80-5.40); RDW 13.5 % (11.5-15.5); WBC 10.9 k/uL (3.8-10.6)
[2021-10-23 14:09] LABS: INR 1.5 (<1.2); Lactic Acid, Venous 1.2 mmol/L (0.7-2.0); Partial Thromboplastin Time 31.3 sec (22.0-30.0); Prothrombin Time 15.3 sec (9.0-12.0)
[2021-10-23 14:15] LABS: ALT 22 U/L (4-34); AST 40 U/L (14-36); African American GFR (CKD) 60 (>60 ml/min/1.73 sqM); Albumin 3.4 g/dL (3.5-5.0); Alcohol <10 mg/dL; Alkaline Phosphatase 106 U/L (38-126); Anion Gap 7 mmol/L; Blood Urea Nitrogen 17 mg/dL (7-17); Carbon Dioxide 32 mmol/L (22-30); Chloride 97 mmol/L (98-107); Glucose 105 mg/dL (74-99); Non-African American GFR(CKD) 52 (>60 ml/min/1.73 sqM); Potassium 4.3 mmol/L (3.5-5.1); Sodium 136 mmol/L (137-145); Total Bilirubin 1.9 mg/dL (0.2-1.3)
--- NOTE | 2021-10-23 14:29 | XR ---
EXAMINATION TYPE: XR chest 1V portable DATE OF EXAM: 10/23/2021 COMPARISON: Chest x-ray March 29, 2021 HISTORY: Altered mental status and weakness. TECHNIQUE: Single frontal view of the chest is obtained. FINDINGS: Overlying sternal wires are present. There is chronic parenchymal change without suspicious focal air space opacity, pleural effusion, or pneumothorax seen. Mild cardiomegaly redemonstrated wi th atherosclerotic thoracic aorta. The osseous structures are demineralized. Degenerative changes b ilateral shoulders are seen. IMPRESSION: Chronic changes and mild cardiomegaly without acute pulmonary process. No significant ch farooq from prior.
--- NOTE | 2021-10-23 14:38 | CT ---
EXAMINATION TYPE: CT brain wo con, CT facial bones w con DATE OF EXAM: 10/23/2021 HISTORY: fall (accession [id number]), right eye periorbital swelling, fall (accession [id number]). CT DLP: 1111.4 (accession [id number]), 888.6 (accession [id number]) mGycm. Automated Exposure Control fo r Dose Reduction was Utilized. TECHNIQUE: CT scan of the head performed without contrast. CT facial bones with IV contrast. Patient injected with 80 cc of Isovue-[id number]. COMPARISON: CT brain from yesterday and older CTs. FINDINGS: There is no acute intracranial hemorrhage or midline shift identified. There is mild to m oderate diffuse ventricular and sulcal prominence consistent with diffuse age-related cerebral atroph y. There is mild low-attenuation in the periventricular white matter consistent with chronic small v essel ischemic change. The calvarium is intact. Images of the facial bones show nasal bones appear intact. Abnormal right globe presumed prosthesis i s redemonstrated. Correlate clinically to exclude intraorbital mass. Orbital floors and doty are int act. Intraconal fat is preserved bilaterally. Zygomatic arches are intact. The mandible is intact. Te mporomandibular joints are maintained bilaterally. The pterygoid plates are intact. The maxilla is in tact. Numerous crowns and cavitary fillings causing streak artifact. Paranasal sinuses are grossly cl ear. No abnormal enhancement is seen. IMPRESSION: 1. No acute intracranial hemorrhage or midline shift. There is mild to moderate diffuse age-related cerebral atrophy and mild chronic small vessel ischemic change redemonstrated. 2. No acute displaced facial bone fracture is seen.
[2021-10-23 15:09] LABS: VBG PH 7.42 (7.31-7.41)
[2021-10-23] MEDS ORDERED: FUROSEMIDE 10 MG/ML 4 ML VIAL IV STA (15:23)
[2021-10-23 16:40] LABS: Appearance,Urine Turbid (Clear); Bilirubin,Urine Negative (Negative); Blood,Urine Small (Negative); Color,Urine Yellow; Glucose,Urine (UA) Negative (Negative); Ketones,Urine Negative (Negative); Leukocyte Esterase,Urine Large (Negative); Nitrite,Urine Positive (Negative); Protein,Urine 2+ (Negative); RBC,Urine 39 /hpf (0-5); Specific Gravity,Urine 1.019 (1.001-1.035); Squamous Epithelial Cell,Urine 9 /hpf (0-4); Urobilinogen,Urine <2.0 mg/dL (<2.0); WBC,Urine >182 /hpf (0-5)
[2021-10-23 16:44] LABS: Amphetamine Screen,Urine Not Detected (NotDetected); Barbiturate Screen,Urine Not Detected (NotDetected); Benzodiazepines Screen,Urine Not Detected (NotDetected); Cocaine Screen,Urine Not Detected (NotDetected); Methadone Screen, Urine Not Detected (NotDetected); Opiate Screen,Urine Not Detected (NotDetected); Oxycodone Screen, Urine Not Detected (NotDetected); Phencyclidine Screen,Urine Not Detected (NotDetected); Tricyclic Antidepressant,Urine Not Detected (NotDetected); Urn Cannabinoid Scrn Not Detected (NotDetected)
[2021-10-23] MEDS ORDERED: NALOXONE 0.4 MG/ML 1 ML VIAL IV PRN (16:49)
[2021-10-23] MEDS ORDERED: ONDANSETRON 4 MG/2 ML VIAL IVP PRN (16:49)
[2021-10-23] MEDS ORDERED: BACLOFEN 10 MG TAB PO PRN (16:51)
[2021-10-23] MEDS: FERROUS SULFATE 325 MG TAB PO SCH (18:36)
[2021-10-23] MEDS: METOPROLOL TARTRATE 50 MG TAB PO SCH (18:36)
[2021-10-23] MEDS: SPIRONOLACTONE 25 MG TAB PO SCH (20:56)
[2021-10-23] MEDS: GABAPENTIN 300 MG CAP PO SCH (20:56)
[2021-10-23] MEDS: SENNOSIDES-DOCUSATE SODIUM 1 EACH TAB PO SCH (20:56)
[2021-10-23] MEDS: FUROSEMIDE 10 MG/ML 4 ML VIAL IV SCH ×2 (20:56→21:09)
[2021-10-23] MEDS: BRIMONIDINE TARTRATE 0.2% DROPS 5 ML BTL RIGHT EYE SCH (20:57)
[2021-10-23] MEDS: DULoxetine HCL 30 MG CAPSULE.DR PO SCH (20:57)
[2021-10-23] MEDS: DIFLUPREDNATE RIGHT EYE SCH (21:11)
[2021-10-24] MEDS: GABAPENTIN 300 MG CAP PO SCH ×3 (05:03→20:43)
[2021-10-24] MEDS: PANTOPRAZOLE 40 MG TABLET PO SCH (05:03)
[2021-10-24] MEDS: FUROSEMIDE 10 MG/ML 4 ML VIAL IV SCH ×2 (08:18→20:43)
[2021-10-24 09:27] LABS: Basophils # (A) 0.06 X 10*3/uL (0.00-0.10); Basophils % (A) 0.5 %; Eosinophils % (A) 2.7 %; HCT 41.1 % (37.2-46.3); HGB 12.6 g/dL (12.0-15.0); Immature Grans, Automated 0.5 %; Lymphocytes # (A) 1.36 X 10*3/uL (0.90-5.00); Lymphocytes % (A) 12.5 %; MCH 30.5 pg (27.0-32.0); MCHC 30.7 g/dL (32.0-37.0); MCV 99.5 fL (80.0-97.0); Mean Platelet Volume 10.6 fL (9.5-12.2); Monocytes % (A) 12.8 %; NRBC Per 100 WBC 0 /100 WBCS (0.0-0.0); Neutrophils # (A) 7.74 X 10*3/uL (1.80-7.70); Platelet Count 182 X 10*3/uL (140-440); RBC 4.13 X 10*6/uL (4.10-5.20); RDW 12.9 % (11.5-14.5); WBC 10.91 X 10*3/uL (4.50-10.00)
[2021-10-24] MEDS: FERROUS SULFATE 325 MG TAB PO SCH ×2 (09:44→17:12)
[2021-10-24] MEDS: RIVAROXABAN 15 MG TAB PO SCH (09:44)
[2021-10-24] MEDS: SENNOSIDES-DOCUSATE SODIUM 1 EACH TAB PO SCH ×2 (09:44→17:15)
[2021-10-24] MEDS: DULoxetine HCL 30 MG CAPSULE.DR PO SCH ×2 (09:44→17:12)
[2021-10-24] MEDS: METOPROLOL TARTRATE 50 MG TAB PO SCH ×2 (09:44→17:12)
[2021-10-24] MEDS: POTASSIUM CHLORIDE ER 20 MEQ TAB.ER PO SCH (09:44)
[2021-10-24] MEDS: BRIMONIDINE TARTRATE 0.2% DROPS 5 ML BTL RIGHT EYE SCH ×3 (09:44→17:13)
[2021-10-24] MEDS: DIFLUPREDNATE RIGHT EYE SCH ×4 (09:45→20:46)
[2021-10-24] MEDS: TIMOLOL 0.5% OPHTH DROPS 5 ML BTL RIGHT EYE SCH (09:45)
--- NOTE | 2021-10-24 09:55 | P.CONS ---
History of Present Illness - Reason for Consult Consult date: 10/24/21 wound care - History of Present Illness This is a 81-year-old patient being seen on 4 cells for a nonhealing ulceration to the sacrum. Upon examination patient has no open ulcerations. She does appear to have scarring from a previous ulceration. The skin is intact clean and dry with no redness excoriation or maceration. Patient's past medical history significant for atrophic fibrillation, hyperlipidemia, osteoarthritis. She is a lifelong nonsmoker. Denies diabetes. Review Of Systems: Constitutional: No fever, no chills, no night sweats. No weight change. No weakness, fatigue or lethargy. No daytime sleepiness. Integumentary:reports wounds, no lesions. No rash or pruritus. No unusual bruising. No change in hair or nails. Physical exam: General Appearance: Alert, cooperative, no distress, appears stated age. Skin: See HPI all other Skin color, texture, tugor normal, no rashes or lesions. Neurologic: Alert oriented x3 Assessment: 1. Nonhealing ulceration sacrum resolved 2. Stage I pressure ulcer sacrum Plan: 1. Apply zinc barrier cream as needed. Turn patient every 2 hours as needed. Thank you for the consultation any questions please contact the wound care center DNP note has been reviewed and discussed with Dr. Do and the impression and plan of care has been directed as dictated. Past Medical History Past Medical History: Atrial Fibrillation, Hyperlipidemia, Osteoarthritis (OA) Additional Past Medical History / Comment(s): cardiac valve issues History of Any Multi-Drug Resistant Organisms: None Reported Past Surgical History: Back Surgery, Cardiac Valve Replacement, Joint Replacement Additional Past Surgical History / Comment(s): hipx2 knee replacement Past Anesthesia/Blood Transfusion Reactions: No Reported Reaction Past Psychological History: No Psychological Hx Reported Smoking Status: Never smoker Past Alcohol Use History: None Reported Past Drug Use History: None Reported Medications and Allergies Home Medications Medication Instructions Recorded Confirmed Type DULoxetine HCL [Cymbalta] 30 mg PO BID@0800,1700 02/04/21 10/23/21 History Rivaroxaban [Xarelto] 15 mg PO DAILY@0800 02/04/21 10/23/21 History Ferrous Sulfate [Feosol] 325 mg PO BID@0800,1700 02/28/21 10/23/21 History Potassium Chloride ER [K-Dur 20] 20 meq PO DAILY@0800 02/28/21 10/23/21 History Sennosides-Docusate Sodium 2 tab PO BID@0800,1700 02/28/21 10/23/21 History [Senokot-S] Brimonidine Tartrate [Alphagan P 1 drop RIGHT EYE TID@0800,1200,1700 09/22/21 10/23/21 History 0.2% Ophth Soln] Furosemide [Lasix] 40 mg PO DAILY@0800 09/22/21 10/23/21 History Spironolactone [Aldactone] 25 mg PO HS@2100 09/22/21 10/23/21 History Timolol 0.5% Ophth Soln [Timoptic 1 drop RIGHT EYE DAILY@0800 09/22/21 10/23/21 History 0.5% Ophth Soln] Baclofen [Lioresal] 5 mg PO BID PRN tab 09/24/21 10/23/21 Rx Acetaminophen Tab [Tylenol] 650 mg PO Q6HR PRN tab 09/29/21 10/23/21 Rx SILVER sulfADIAZINE CREAM 1 applic TOPICAL DAILY cream 09/29/21 10/23/21 Rx [Silvadene Cream] Difluprednate [Durezol] 1 drop RIGHT EYE QID 10/22/21 10/23/21 History Gabapentin [Neurontin] 300 mg PO TID@0600,1400,2200 10/22/21 10/23/21 History Magnesium Hydroxide [Milk of 7,200 mg PO Q48H PRN 10/22/21 10/23/21 History Magnesia Concentrate] Metoprolol Tartrate [Lopressor] 50 mg PO BID@0800,1700 10/22/21 10/23/21 History Na Phos,M-B/Na Phos,Di-Ba [Fleet 133 ml RECTAL DAILY PRN 10/22/21 10/23/21 History Adult] Pantoprazole [Protonix] 40 mg PO DAILY@0600 10/22/21 10/23/21 History bisacodyL 10 mg RECTAL DAILY PRN 10/22/21 10/23/21 History Allergies Allergy/AdvReac Type Severity Reaction Status Date / Time oxycodone Allergy Itching on Verified 04/28/22 13:21 back of hands Penicillins Allergy Itching Verified 10/23/21 13:21 all over body Physical Exam Vitals: Vital Signs Temp Pulse Pulse Resp BP BP Pulse Ox 10/24/21 01:59 98.0 F 103 H 17 114/81 98 10/23/21 23:20 98.1 F 101 H 17 104/73 98 10/23/21 22:13 98.1 F 101 H 17 104/73 98 10/23/21 18:29 97 18 119/74 98 10/23/21 16:20 99.2 F 88 18 106/62 98 10/23/21 13:14 99.9 F H 94 18 117/71 94 L Intake and Output 10/23/21 10/24/21 10/24/21 22:59 06:59 14:59 Intake Total 550 Balance 550 Intake: Intake, IV Titration 100 Amount cefTRIAXone 2 gm In 100 Sodium Chloride 0.9% 50 ml @ 100 mls/hr IVPB Q24H [facility] Rx#:[id number] Oral 450 Other: Voiding Method Indwelling Catheter Indwelling Catheter # Voids 4 Weight 99.79 kg 99.79 kg Results CBC & Chem 7: 10/24/21 04:05 10/23/21 13:40 Labs: Abnormal Lab Results - Last 24 Hours (Table) 10/23/21 10/23/21 10/23/21 Range/Units 13:40 13:40 13:40 WBC 10.9 H (3.8-10.6) k/uL MCV (80.0-97.0) fL MCHC (32.0-37.0) g/dL Immature Gran # (0.00-0.04) X 10*3/uL Neutrophils # 8.6 H (1.3-7.7) k/uL Monocytes # (0.20-1.00) X 10*3/uL PT 15.3 H (9.0-12.0) sec INR 1.5 H (<1.2) APTT 31.3 H (22.0-30.0) sec VBG pH (7.31-7.41) VBG pCO2 (37-51) mmHg VBG HCO3 (24-28) mmol/L Sodium 136 L (137-145) mmol/L Chloride 97 L (98-107) mmol/L Carbon Dioxide 32 H (22-30) mmol/L Glucose 105 H (74-99) mg/dL Total Bilirubin 1.9 H (0.2-1.3) mg/dL AST 40 H (14-36) U/L Albumin 3.4 L (3.5-5.0) g/dL Urine Appearance (Clear) Urine Protein (Negative) Urine Blood (Negative) Urine Nitrite (Negative) Ur Leukocyte Esterase (Negative) Urine RBC (0-5) /hpf Urine WBC (0-5) /hpf Urine WBC Clumps (None) /hpf Ur Squamous Epith Cells (0-4) /hpf 10/23/21 10/23/21 10/24/21 Range/Units 15:05 16:14 04:05 WBC 10.91 H (3.8-10.6) k/uL MCV 99.5 H (80.0-97.0) fL MCHC 30.7 L (32.0-37.0) g/dL Immature Gran # 0.05 H (0.00-0.04) X 10*3/uL Neutrophils # 7.74 H (1.3-7.7) k/uL Monocytes # 1.40 H (0.20-1.00) X 10*3/uL PT (9.0-12.0) sec INR (<1.2) APTT (22.0-30.0) sec VBG pH 7.42 H (7.31-7.41) VBG pCO2 52 H (37-51) mmHg VBG HCO3 33 H (24-28) mmol/L Sodium (137-145) mmol/L Chloride (98-107) mmol/L Carbon Dioxide (22-30) mmol/L Glucose (74-99) mg/dL Total Bilirubin (0.2-1.3) mg/dL AST (14-36) U/L Albumin (3.5-5.0) g/dL Urine Appearance Turbid H (Clear) Urine Protein 2+ H (Negative) Urine Blood Small H (Negative) Urine Nitrite Positive H (Negative) Ur Leukocyte Esterase Large H (Negative) Urine RBC 39 H (0-5) /hpf Urine WBC >182 H (0-5) /hpf Urine WBC Clumps Many H (None) /hpf Ur Squamous Epith Cells 9 H (0-4) /hpf Microbiology - Last 24 Hours (Table) 10/23/21 16:14 Urine Culture - Preliminary Urine,Catheterized Assessment and Plan (1) Pressure ulcer of sacral region, stage 1 Current Visit: Yes Status: Acute Code(s): L89.151 - PRESSURE ULCER OF SACRAL REGION, STAGE 1 SNOMED Code(s): 63329855081651290
[2021-10-24 09:59] LABS: African American GFR (CKD) 55.3 (60.0-200.0); Anion Gap 16.1 mmol/L (10.00-18.00); BUN/Creat Ratio 16.45 Ratio (12.00-20.00); Blood Urea Nitrogen 18.1 mg/dL (9.0-27.0); Calcium 9.6 mg/dL (8.7-10.3); Carbon Dioxide 30.9 mmol/L (20.0-27.5); Non-African American GFR(CKD) 47.7 (60.0-200.0); Potassium 3.8 mmol/L (3.5-5.5)
--- NOTE | 2021-10-24 14:16 | P.HPIM ---
History of Present Illness H&P Date: 10/24/21 A 81-year-old female recently admitted with acute on chronic lower back pain with increasing generalized weakness, suspected lumbar radiculopathy, acute on chronic renal failure with cellulitis and multiple other medical issues, discharged to [facility] subacute rehab. Patient also has a chronic scarring of sacrum secondary to prior previous nonhealing sacrum ulceration. Patient developed change in LOC and was transferred to our ER. On admission temperature 99.9, WBC 10.9, hemoglobin 12.6, platelets 182, maintaining O2 sats in the 90s on room air. BUN 18.1, creatinine 1.1. UA reporting many WBC clumps, greater than 182 WBCs, large leukocytes, positive nitrates, 2+ protein, appearance cloudy. Denies chest pain, palpitations or increased shortness of breath. Denies lightheadedness, dizziness or focal deficits. Review of Systems ROS Statement: Those systems with pertinent positive or pertinent negative responses have been documented in the HPI. ROS Other: All systems not noted in ROS Statement are negative. Past Medical History Past Medical History: Atrial Fibrillation, Hyperlipidemia, Osteoarthritis (OA) Additional Past Medical History / Comment(s): cardiac valve issues History of Any Multi-Drug Resistant Organisms: None Reported Past Surgical History: Back Surgery, Cardiac Valve Replacement, Joint Re placement Additional Past Surgical History / Comment(s): hipx2 knee replacement Past Anesthesia/Blood Transfusion Reactions: No Reported Reaction Past Psychological History: No Psychological Hx Reported Smoking Status: Never smoker Past Alcohol Use History: None Reported Past Drug Use History: None Reported Medications and Allergies Home Medications Medication Instructions Recorded Confirmed Type DULoxetine HCL [Cymbalta] 30 mg PO BID@0800,1700 02/04/21 10/23/21 History Rivaroxaban [Xarelto] 15 mg PO DAILY@0800 02/04/21 10/23/21 History Ferrous Sulfate [Feosol] 325 mg PO BID@0800,1700 02/28/21 10/23/21 History Potassium Chloride ER [K-Dur 20] 20 meq PO DAILY@0800 02/28/21 10/23/21 History Sennosides-Docusate Sodium 2 tab PO BID@0800,1700 02/28/21 10/23/21 History [Senokot-S] Brimonidine Tartrate [Alphagan P 1 drop RIGHT EYE TID@0800,1200,1700 09/22/21 10/23/21 History 0.2% Ophth Soln] Furosemide [Lasix] 40 mg PO DAILY@0800 09/22/21 10/23/21 History Spironolactone [Aldactone] 25 mg PO HS@2100 09/22/21 10/23/21 History Timolol 0.5% Ophth Soln [Timoptic 1 drop RIGHT EYE DAILY@0800 09/22/21 10/23/21 History 0.5% Ophth Soln] Baclofen [Lioresal] 5 mg PO BID PRN tab 09/24/21 10/23/21 Rx Acetaminophen Tab [Tylenol] 650 mg PO Q6HR PRN tab 09/29/21 10/23/21 Rx SILVER sulfADIAZINE CREAM 1 applic TOPICAL DAILY cream 09/29/21 10/23/21 Rx [Silvadene Cream] Difluprednate [Durezol] 1 drop RIGHT EYE QID 10/22/21 10/23/21 History Gabapentin [Neurontin] 300 mg PO TID@0600,1400,2200 10/22/21 10/23/21 History Magnesium Hydroxide [Milk of 7,200 mg PO Q48H PRN 10/22/21 10/23/21 History Magnesia Concentrate] Metoprolol Tartrate [Lopressor] 50 mg PO BID@0800,1700 10/22/21 10/23/21 History Na Phos,M-B/Na Phos,Di-Ba [Fleet 133 ml RECTAL DAILY PRN 10/22/21 10/23/21 History Adult] Pantoprazole [Protonix] 40 mg PO DAILY@0600 10/22/21 10/23/21 History bisacodyL 10 mg RECTAL DAILY PRN 10/22/21 10/23/21 History Allergies Allergy/AdvReac Type Severity Reaction Status Date / Time oxycodone Allergy Itching on Verified 10/23/21 13:21 back of hands Penicillins Allergy Itching Verified 10/23/21 13:21 all over body Physical Exam Vitals: Vital Signs Temp Pulse Pulse Resp BP BP Pulse Ox 10/24/21 08:00 98.0 F 100 18 129/87 97 10/24/21 01:59 98.0 F 103 H 17 114/81 98 10/23/21 23:20 98.1 F 101 H 17 104/73 98 10/23/21 22:13 98.1 F 101 H 17 104/73 98 10/23/21 18:29 97 18 119/74 98 10/23/21 16:20 99.2 F 88 18 106/62 98 10/23/21 13:14 99.9 F H 94 18 117/71 94 L Intake and Output 10/23/21 10/24/21 10/24/21 22:59 06:59 14:59 Intake Total 550 Balance 550 Intake: Intake, IV Titration 100 Amount cefTRIAXone 2 gm In 100 Sodium Chloride 0.9% 50 ml @ 100 mls/hr IVPB Q24H [facility] Rx#:[id number] Oral 450 Other: Voiding Method Indwelling Catheter Indwelling Catheter # Voids 4 Weight 99.79 kg 99.79 kg - Exam PHYSICAL EXAM: VITAL SIGNS: As above GENERAL: Alert and oriented 2, Sitting up in bed, no acute distress, withdrawn HEENT: Conjunctivae normal. eyes normal. MMM. NECK: Supple, No JVD. CARDIOVASCULAR: S1, S2 regular, irregular.No murmur RESPIRATION: Breath sounds diminished in the bases. ABDOMEN: Soft, nontender. No guarding. no masses palpable. Positive Bowel sounds. LEGS: Lymphedema, tender to touch, positive DP pulses. Right lower extremity with scab. NERVOUS SYSTEM: Cranial N 2-12 grossly normal. Moves all 4 limbs. Diffuse weakness ,No focal deficits. Strength and sensation grossly intact. Skin: Warm and dry, sacrum scarring , secondary to prior chronic nonhealing sacrum ulcer. Results CBC & Chem 7: 10/24/21 04:05 10/24/21 04:05 Labs: Abnormal Lab Results - Last 24 Hours (Table) 10/23/21 10/23/21 10/23/21 Range/Units 13:40 13:40 13:40 WBC 10.9 H (3.8-10.6) k/uL MCV (80.0-97.0) fL MCHC (32.0-37.0) g/dL Immature Gran # (0.00-0.04) X 10*3/uL Neutrophils # 8.6 H (1.3-7.7) k/uL Monocytes # (0.20-1.00) X 10*3/uL PT 15.3 H (9.0-12.0) sec INR 1.5 H (<1.2) APTT 31.3 H (22.0-30.0) sec VBG pH (7.31-7.41) VBG pCO2 (37-51) mmHg VBG HCO3 (24-28) mmol/L Sodium 136 L (137-145) mmol/L Chloride 97 L (98-107) mmol/L Carbon Dioxide 32 H (22-30) mmol/L Est GFR (CKD-EPI)AfAm (60.0-200.0) Est GFR (CKD-EPI)NonAf (60.0-200.0) Glucose 105 H (74-99) mg/dL Total Bilirubin 1.9 H (0.2-1.3) mg/dL AST 40 H (14-36) U/L Albumin 3.4 L (3.5-5.0) g/dL Urine Appearance (Clear) Urine Protein (Negative) Urine Blood (Negative) Urine Nitrite (Negative) Ur Leukocyte Esterase (Negative) Urine RBC (0-5) /hpf Urine WBC (0-5) /hpf Urine WBC Clumps (None) /hpf Ur Squamous Epith Cells (0-4) /hpf 10/23/21 10/23/21 10/24/21 Range/Units 15:05 16:14 04:05 WBC 10.91 H (3.8-10.6) k/uL MCV 99.5 H (80.0-97.0) fL MCHC 30.7 L (32.0-37.0) g/dL Immature Gran # 0.05 H (0.00-0.04) X 10*3/uL Neutrophils # 7.74 H (1.3-7.7) k/uL Monocytes # 1.40 H (0.20-1.00) X 10*3/uL PT (9.0-12.0) sec INR (<1.2) APTT (22.0-30.0) sec VBG pH 7.42 H (7.31-7.41) VBG pCO2 52 H (37-51) mmHg VBG HCO3 33 H (24-28) mmol/L Sodium (137-145) mmol/L Chloride (98-107) mmol/L Carbon Dioxide (22-30) mmol/L Est GFR (CKD-EPI)AfAm (60.0-200.0) Est GFR (CKD-EPI)NonAf (60.0-200.0) Glucose (74-99) mg/dL Total Bilirubin (0.2-1.3) mg/dL AST (14-36) U/L Albumin (3.5-5.0) g/dL Urine Appearance Turbid H (Clear) Urine Protein 2+ H (Negative) Urine Blood Small H (Negative) Urine Nitrite Positive H (Negative) Ur Leukocyte Esterase Large H (Negative) Urine RBC 39 H (0-5) /hpf Urine WBC >182 H (0-5) /hpf Urine WBC Clumps Many H (None) /hpf Ur Squamous Epith Cells 9 H (0-4) /hpf 10/24/21 Range/Units 04:05 WBC (3.8-10.6) k/uL MCV (80.0-97.0) fL MCHC (32.0-37.0) g/dL Immature Gran # (0.00-0.04) X 10*3/uL Neutrophils # (1.3-7.7) k/uL Monocytes # (0.20-1.00) X 10*3/uL PT (9.0-12.0) sec INR (<1.2) APTT (22.0-30.0) sec VBG pH (7.31-7.41) VBG pCO2 (37-51) mmHg VBG HCO3 (24-28) mmol/L Sodium (137-145) mmol/L Chloride 94 L (98-107) mmol/L Carbon Dioxide 30.9 H (22-30) mmol/L Est GFR (CKD-EPI)AfAm 55.3 L (60.0-200.0) Est GFR (CKD-EPI)NonAf 47.7 L (60.0-200.0) Glucose (74-99) mg/dL Total Bilirubin (0.2-1.3) mg/dL AST (14-36) U/L Albumin (3.5-5.0) g/dL Urine Appearance (Clear) Urine Protein (Negative) Urine Blood (Negative) Urine Nitrite (Negative) Ur Leukocyte Esterase (Negative) Urine RBC (0-5) /hpf Urine WBC (0-5) /hpf Urine WBC Clumps (None) /hpf Ur Squamous Epith Cells (0-4) /hpf Microbiology - Last 24 Hours (Table) 10/23/21 16:14 Urine Culture - Preliminary Urine,Catheterized Thrombosis Risk Factor Assmnt - Choose All That Apply Each Factor Represents 1 point: Obesity (BMI >25) Each Risk Factor Represents 3 Points: Age 75 years or older Thrombosis Risk Factor Assessment Total Risk Factor Score: 4 Thrombosis Risk Factor Assessment Level: Moderate Risk Assessment and Plan Assessment: Acute metabolic encephalopathy with change in LOC secondary to acute UTI, culture pending Acute hypoxic respiratory failure was secondary to the above chronic lower back pain, in a patient reporting increasing generalized weakness ,with history of lumbar fusion L4-L5, history of falls. Possible bilateral lumbar radiculopathy. Acute renal failure, baseline 1.1 Chronic renal failure, stage IV Mild hyperkalemia on admission, resolved Anemia, of chronic disease Chronic persistent atrial fibrillation, anticoagulated on Xarelto. Status post mitral valve ring, aortic valve replacement History of aortic root replacement at [facility] 2010, upper abdominal aortic aneurysm 5 cm reported per lumbar spine CT. Further follow-up outpatient. Gastroesophageal reflux disease Hyperlipidemia Hypertension Former nicotine dependence Multiple joint replacements Morbid obesity, BMI 40.9 Moderate pulmonary hypertension Sigmoid diverticulosis Grade 2 internal hemorrhoids Gait dysfunction, uses a walker Arthritis Plan: Continue on current medication regime ,monitoring and symptomatic treatment. maintain ceftriaxone, urine culture finalizing. Zinc barrier cream/frequent turning. Weaning of oxygen in progress. The impression and plan of care has been dictated as directed. : I performed a history and examination of this patient, discussed the same with the dictator. I agree with the dictator's note ,documented as a scribe. Any a dditional findings or plans will be noted.
[2021-10-24] MEDS: SPIRONOLACTONE 25 MG TAB PO SCH (20:43)
[2021-10-25] MEDS: GABAPENTIN 300 MG CAP PO SCH ×3 (05:26→20:56)
[2021-10-25] MEDS: PANTOPRAZOLE 40 MG TABLET PO SCH (05:26)
[2021-10-25] MEDS: SENNOSIDES-DOCUSATE SODIUM 1 EACH TAB PO SCH ×2 (09:25→16:31)
[2021-10-25] MEDS: DULoxetine HCL 30 MG CAPSULE.DR PO SCH ×2 (09:25→16:29)
[2021-10-25] MEDS: FERROUS SULFATE 325 MG TAB PO SCH ×2 (09:25→16:29)
[2021-10-25] MEDS: RIVAROXABAN 15 MG TAB PO SCH (09:25)
[2021-10-25] MEDS: METOPROLOL TARTRATE 50 MG TAB PO SCH ×2 (09:25→16:29)
[2021-10-25] MEDS: POTASSIUM CHLORIDE ER 20 MEQ TAB.ER PO SCH (09:25)
[2021-10-25] MEDS: TIMOLOL 0.5% OPHTH DROPS 5 ML BTL RIGHT EYE SCH (09:26)
[2021-10-25] MEDS: FUROSEMIDE 10 MG/ML 4 ML VIAL IV SCH ×2 (09:26→20:56)
[2021-10-25] MEDS: DIFLUPREDNATE RIGHT EYE SCH ×4 (09:26→21:01)
[2021-10-25] MEDS: BRIMONIDINE TARTRATE 0.2% DROPS 5 ML BTL RIGHT EYE SCH ×3 (09:26→16:32)
--- NOTE | 2021-10-25 17:49 | P.PN ---
Subjective This is a pleasant 81 years old female with multiple medical problems presents with signs symptoms of urinary tract infection and metabolic encephalopathy and acute kidney injury on the top of her chronic kidney disease stage IV. Patient is treated with ceftriaxone. Today she is drowsy and sleepy but easily arousable. She couldn't tell only the name of the president but she is disoriented to base our time Her urine culture growing sensitive E. coli to ceftriaxone which is already receiving. Patient has [facility] catheter Also patient with evidence of fluid overload secondary to kidney disease and she is currently on IV Lasix 40 mg twice daily. Also she continued on home dose of WBCs 10.9. Rest of labs reviewed. CT of the brain was negative. On admission Objective - Vital Signs Vital signs: Vital Signs Temp 97.5 F L 10/25/21 08:00 Pulse 102 H 10/25/21 08:00 Resp 18 10/25/21 08:00 BP 120/83 10/25/21 08:00 Pulse Ox 97 10/25/21 08:00 Intake & Output 10/24/21 10/25/21 10/25/21 18:59 06:59 18:59 Intake Total 300 Output Total 800 Balance -500 Intake: Oral 300 Output: Urine 800 Other: Voiding Method Indwelling Catheter Indwelling Catheter Indwelling Catheter - Exam -GENERAL: The patient is alert and oriented x1 to person only, patient is drowsy but easily arousable, not in any acute distress. obese HEENT: Pupils are round and equally reacting to light. EOMI. No scleral icterus. No conjunctival pallor. Normocephalic, atraumatic. No pharyngeal erythema. No thyromegaly. CARDIOVASCULAR: S1 and S2 present. No murmurs, rubs, or gallops. PULMONARY: Chest is clear to auscultation, no wheezing or crackles. ABDOMEN: Soft, nontender, nondistended, normoactive bowel sounds. No palpable organomegaly. MUSCULOSKELETAL: No joint swelling or deformity. EXTREMITIES: No cyanosis, clubbing, or pedal edema. NEUROLOGICAL: Gross neurological examination did not reveal any focal deficits. SKIN: No rashes. no petechiae. - Labs CBC & Chem 7: 10/24/21 04:05 10/24/21 04:05 Labs: Microbiology - Last 24 Hours (Table) 10/23/21 16:14 Urine Culture - Preliminary Urine,Catheterized Gram Neg Bacilli 10/23/21 16:30 Blood Culture - Preliminary Blood No Growth after 24 hours 10/23/21 16:15 Blood Culture - Preliminary Blood No Growth after 24 hours Assessment and Plan Assessment: Acute urinary tract infection secondary to sensitive E. coli Acute on chronic kidney disease, resolved Metabolic encephalopathy secondary to above Fluid overload Chronic kidney disease stage IV Obesity with BMI of 55.5 Plan: This is a pleasant 81 years old female who presents with UTI and metabolic encephalopathy Continue with ceftriaxone Continue close monitoring of patient Labs and medication were reviewed.. Continue same treatment. Continue with symptomatic treatment. Resume home medication. Monitor lytes and vitals. DVT and GI prophylaxis. Further recommendationsas per clinical course of the patient DVT prophylaxis: Supple. GI Prophylaxis: Ppi PT/OT: Pending Prognosis is guarded
[2021-10-25] MEDS: SPIRONOLACTONE 25 MG TAB PO SCH (20:56)
[2021-10-26] MEDS: GABAPENTIN 300 MG CAP PO SCH ×3 (05:17→20:46)
[2021-10-26] MEDS: PANTOPRAZOLE 40 MG TABLET PO SCH (05:17)
[2021-10-26] MEDS: DULoxetine HCL 30 MG CAPSULE.DR PO SCH ×2 (09:38→16:50)
[2021-10-26] MEDS: RIVAROXABAN 15 MG TAB PO SCH (09:38)
[2021-10-26] MEDS: METOPROLOL TARTRATE 50 MG TAB PO SCH (09:38)
[2021-10-26] MEDS: POTASSIUM CHLORIDE ER 20 MEQ TAB.ER PO SCH (09:38)
[2021-10-26] MEDS: SENNOSIDES-DOCUSATE SODIUM 1 EACH TAB PO SCH ×2 (09:38→16:50)
[2021-10-26] MEDS: FERROUS SULFATE 325 MG TAB PO SCH ×2 (09:38→16:50)
[2021-10-26] MEDS: FUROSEMIDE 10 MG/ML 4 ML VIAL IV SCH (09:40)
[2021-10-26] MEDS: TIMOLOL 0.5% OPHTH DROPS 5 ML BTL RIGHT EYE SCH (09:41)
[2021-10-26] MEDS: BRIMONIDINE TARTRATE 0.2% DROPS 5 ML BTL RIGHT EYE SCH ×3 (09:41→16:51)
[2021-10-26] MEDS: DIFLUPREDNATE RIGHT EYE SCH ×4 (09:43→20:46)
--- NOTE | 2021-10-26 12:30 | P.PN ---
Subjective This is a pleasant 81 years old female with multiple medical problems presents with signs symptoms of urinary tract infection and metabolic encephalopathy and acute kidney injury on the top of her chronic kidney disease stage IV. Patient is treated with ceftriaxone. Today she is drowsy and sleepy but easily arousable. She couldn't tell only the name of the president but she is disoriented to base our time Her urine culture growing sensitive E. coli to ceftriaxone which is already receiving. Patient has [facility] catheter Also patient with evidence of fluid overload secondary to kidney disease and she is currently on IV Lasix 40 mg twice daily. Also she continued on home dose of WBCs 10.9. Rest of labs reviewed. CT of the brain was negative. On admission 10/26/2021 Patient clinically doing well, she is with no specific symptoms. Her blood pressure was on the low side yesterday evening 88/53, this morning blood pressure 112/79. It is around 70s. We will keep her metoprolol 50 mg twice a day. But we will change her IV Lasix and oral Lasix once daily Her encephalopathy improved and she is back to her baseline mentation She remains on ceftriaxone and IV Lasix 40 g twice daily check labs including CBC and BMP tomorrow Dr. Valiente will resume the care of the patient tomorrow. Physical therapy and occupational therapy recommended subacute rehab, social media campaign manager on the case Objective - Vital Signs Vital signs: Vital Signs Temp 98.4 F 10/26/21 08:00 Pulse 96 10/26/21 08:00 Resp 16 10/26/21 08:00 BP 112/79 10/26/21 08:00 Pulse Ox 98 10/26/21 08:00 Intake & Output 10/25/21 10/26/21 10/26/21 18:59 06:59 18:59 Intake Total 600 Output Total 800 Balance -200 Intake: Oral 600 Output: Urine 800 Other: Voiding Method Indwelling Catheter Indwelling Catheter Indwelling Catheter - Exam -GENERAL: The patient is alert and oriented x1 to person only, patient is drowsy but easily arousable, not in any acute distress. obese HEENT: Pupils are round and equally reacting to light. EOMI. No scleral icterus. No conjunctival pallor. Normocephalic, atraumatic. No pharyngeal erythema. No thyromegaly. CARDIOVASCULAR: S1 and S2 present. No murmurs, rubs, or gallops. PULMONARY: Chest is clear to auscultation, no wheezing or crackles. ABDOMEN: Soft, nontender, nondistended, normoactive bowel sounds. No palpable organomegaly. MUSCULOSKELETAL: No joint swelling or deformity. EXTREMITIES: No cyanosis, clubbing, or pedal edema. NEUROLOGICAL: Gross neurological examination did not reveal any focal deficits. SKIN: No rashes. no petechiae. - Labs CBC & Chem 7: 10/24/21 04:05 10/24/21 04:05 Labs: Microbiology - Last 24 Hours (Table) 10/23/21 16:30 Blood Culture - Preliminary Blood No Growth after 48 hours 10/23/21 16:15 Blood Culture - Preliminary Blood No Growth after 48 hours 10/23/21 16:14 Urine Culture - Final Urine,Catheterized Escherichia coli Assessment and Plan Assessment: Acute urinary tract infection secondary to sensitive E. coli Acute on chronic kidney disease, resolved Metabolic encephalopathy secondary to above Fluid overload Chronic kidney disease stage IV Obesity with BMI of 55.5 Plan: This is a pleasant 81 years old female who presents with UTI and metabolic enc ephalopathy Continue with ceftriaxone change IV Lasix and to 1 time dose of 40 oral Lasix. Continue with metoprolol given her history of A. fib Continue close monitoring of patient Labs and medication were reviewed.. Continue same treatment. Continue with symptomatic treatment. Resume home medication. Monitor lytes and vitals. DVT and GI prophylaxis. Further recommendationsas per clinical course of the patient DVT prophylaxis Xarelto GI Prophylaxis: Ppi PT/OT Recommended subacute rehab, social media campaign manager consulted
[2021-10-26] MEDS ORDERED: FUROSEMIDE 40 MG TAB PO SCH (16:00)
[2021-10-26] MEDS: METOPROLOL TARTRATE 25 MG TAB PO SCH (16:51)
[2021-10-26] MEDS: SPIRONOLACTONE 25 MG TAB PO SCH (20:46)
[2021-10-27] MEDS: GABAPENTIN 300 MG CAP PO SCH ×2 (06:07→14:36)
[2021-10-27] MEDS: PANTOPRAZOLE 40 MG TABLET PO SCH (06:07)
[2021-10-27] MEDS: DIFLUPREDNATE RIGHT EYE SCH ×2 (07:30→12:25)
[2021-10-27] MEDS: SENNOSIDES-DOCUSATE SODIUM 1 EACH TAB PO SCH (07:44)
[2021-10-27] MEDS: POTASSIUM CHLORIDE ER 20 MEQ TAB.ER PO SCH (07:44)
[2021-10-27] MEDS: METOPROLOL TARTRATE 25 MG TAB PO SCH (07:44)
[2021-10-27] MEDS: RIVAROXABAN 15 MG TAB PO SCH (07:45)
[2021-10-27] MEDS: DULoxetine HCL 30 MG CAPSULE.DR PO SCH (07:45)
[2021-10-27] MEDS: FERROUS SULFATE 325 MG TAB PO SCH (07:45)
[2021-10-27] MEDS: BRIMONIDINE TARTRATE 0.2% DROPS 5 ML BTL RIGHT EYE SCH ×2 (07:45→12:27)
[2021-10-27] MEDS: TIMOLOL 0.5% OPHTH DROPS 5 ML BTL RIGHT EYE SCH (07:45)
[2021-10-27 08:09] VITALS: BP 132/84; PULSE 100; TEMP 98.6
[2021-10-27 08:57] VITALS: RESP 18
[2021-10-27] MEDS ORDERED: FUROSEMIDE 40 MG TAB PO SCH (09:00)
[2021-10-27 10:47] LABS: Basophils # (A) 0.05 X 10*3/uL (0.00-0.10); Basophils % (A) 0.6 %; Eosinophils # (A) 0.39 X 10*3/uL (0.04-0.35); Eosinophils % (A) 4.8 %; HCT 36.6 % (37.2-46.3); HGB 11.2 g/dL (12.0-15.0); Immature Grans, Automated 0.5 %; Lymphocytes # (A) 1.25 X 10*3/uL (0.90-5.00); Lymphocytes % (A) 15.4 %; MCH 30.2 pg (27.0-32.0); MCHC 30.6 g/dL (32.0-37.0); MCV 98.7 fL (80.0-97.0); Mean Platelet Volume 10.9 fL (9.5-12.2); Monocytes % (A) 11.1 %; NRBC Per 100 WBC 0 /100 WBCS (0.0-0.0); Neutrophils # (A) 5.47 X 10*3/uL (1.80-7.70); Neutrophils % (A) 67.6 %; Platelet Count 178 X 10*3/uL (140-440); RBC 3.71 X 10*6/uL (4.10-5.20); RDW 12.5 % (11.5-14.5)
--- NOTE | 2021-10-27 11:19 | CDI ---
Documentation Clarification Form Date: 10/27/2021 10:54:21 AM From: Germaine DurbinMastHAKEEM lucero, CCDS Admit Date: 10/23/2021 04:49:00 PM Patient Name: Ewa Siegel Visit Number: [id number] Discharge Date: ATTENTION: The Clinical Documentation Specialists (CDI) and [facility] Coding Staff appreciate your assistance in clarifying documentation. Please respond to the clarification below the line at the bottom and electronically sign. The CDI & [facility] Coding staff will review the response and follow-up if needed. Please note: Queries are made part of the Legal Health Record. If you have any questions, please contact the author of this message via ITS. Dr. Bolivar Valiente: The patient presented with the following clinical indicators: Altered Mental Status from [facility]. Appeared confused. Has Cellulitis of the extremities and required a small amount of supplemental oxygen. Mildly febrile at the facility 100.8, 99.9. Positive for Urinary Tract Infection. Started on Rocephin daily for UTI. IV fluids were held for what appeared to be volume overload. Additional clarification regarding the etiology/cause of the clinical indicators is requested. History/Risk Factors per the 10/24 H/P: Atrial Fibrillation, Hyperlipidemia, Aortic Valve Replacement for Aortic Valve Stenosis, Osteoarthritis. Clinical Indicators: Presented to the ED on 10/23 via EMS from a nursing facility with Altered mental status and Cellulitis of the extremities. Admit with Altered mental status, UTI & Volume Overload 10/23 VS: T 99.9, P 94, R 18, BP 117/71, 106/62; PO 94 RA 10/23 LAB: WBC 10.9, Neutrophils 8.6; PT 15.3, INR 1.5, APTT 31.3; Na 136, Chloride 97, CO2 32, Glucose 105, total bilirubin 1.9, AST 40, Albumin 3.4 10/23 VBG: pH 7.42, pCO2 52, HCO3 33 10/23 UA: Turbid, 2+ Protein, Small blood, Positive Nitrite, Large Esterase, RBC 39, WBC >182 Treatment 10/23: Blood glucose monitoring, Telemetry, Kaiser catheter, Kaiser Catheter (retention), Blood cultures, O2 2Lnc/prn, Wound Care Consult (10/24), IV Lasix 40 mg x1, IV Rocephin 50 mls @ 100 mls/hr q24H In your professional opinion, please clarify if these findings signify one of the following conditions: [ ] Sepsis POA [ ] Sepsis, Not POA [ ] Severe Sepsis with organ failure [ ] Other, please specify: [ ] Unable to determine (Template Last Reviewed: July 2020) 10/30 Query response documented in an addendum to the 10/27 Discharge Summary, Dr. Valiente: Sepsis POA secondary to acute UTI with Ecoli. (CDS: Germaine CLINTON
--- NOTE | 2021-10-27 12:19 | P.DS ---
Providers Date of admission: 10/23/21 16:49 Expected date of discharge: 10/27/21 Attending physician: Bolivar Valiente Primary care physician: Bolivar Valiente [place] [facility] Course: Final Diagnoses: Acute metabolic encephalopathy with change in LOC secondary to acute UTI with E. coli Acute hypoxic respiratory failure was secondary to the above, currently maintaining O2 sats in the high 90s on 2 L nasal cannula Stage I pressure ulcer sacrum, present on admission chronic lower back pain, in a patient reporting increasing generalized weakness ,with history of lumbar fusion L4-L5, history of falls. Possible bilateral lumbar radiculopathy. Acute renal failure, baseline 1.1 Chronic renal failure, stage IV Anemia, of chronic disease Chronic persistent atrial fibrillation, anticoagulated on Xarelto. Status post mitral valve ring, aortic valve replacement History of [facility], upper abdominal aortic aneurysm 5 cm reported per lumbar spine CT. Further follow-up outpatient. Gastroesophageal reflux disease Hyperlipidemia Hypertension Former nicotine dependence Multiple joint replacements Morbid obesity, BMI 40.9 Moderate pulmonary hypertension Sigmoid diverticulosis Grade 2 internal hemorrhoids Gait dysfunction, uses a walker Arthritis Hospital course:A 81-year-old female recently admitted with acute on chronic lower back pain with increasing generalized weakness, suspected lumbar radiculopathy, acute on chronic renal failure with cellulitis and multiple other medical issues, discharged to [facility] subacute rehab. Patient also has a chronic scarring of sacrum secondary to prior previous nonhealing sacrum u lceration. Patient developed change in LOC and was transferred to our ER. On admission temperature 99.9, WBC 10.9, hemoglobin 12.6, platelets 182, maintaining O2 sats in the 90s on room air. BUN 18.1, creatinine 1.1. UA reporting many WBC clumps, greater than 182 WBCs, large leukocytes, positive nitrates, 2+ protein, appearance cloudy. Denies chest pain, palpitations or increased shortness of breath. Denies lightheadedness, dizziness or focal deficits. Maintained on ceftriaxone for E. coli UTI, resistant to quinolones. Wound care as per wound care team recommending using zinc barrier cream as needed, turning patient every 2 hours in regards to stage I pressure ulcer sacrum. Significant clinical improvement. Patient will be discharged to [facility] subacute rehab today in a stable condition with guarded prognosis. The impression and plan of care has been dictated as directed. : I performed a history and examination of this patient, discussed the same with the dictator. I agree with the dictator's note ,documented as a scribe. Any additional findings or plans will be noted. Patient Condition at Discharge: Stable Plan - Discharge Summary New Discharge Prescriptions: New Cefuroxime Axetil [Ceftin] 500 mg PO BID 3 Days #6 tab Continue Rivaroxaban [Xarelto] 15 mg PO DAILY@0800 DULoxetine HCL [Cymbalta] 30 mg PO BID@0800,1700 Brimonidine Tartrate [Alphagan P 0.2% Ophth Soln] 1 drop RIGHT EYE TID@0800,1200,1700 Timolol 0.5% Ophth Soln [Timoptic 0.5% Ophth Soln] 1 drop RIGHT EYE DAILY@0800 Baclofen [Lioresal] 5 mg PO BID PRN tab PRN Reason: Muscle Spasm Acetaminophen Tab [Tylenol] 650 mg PO Q6HR PRN tab PRN Reason: Fever And/ Or Pain Na Phos,M-B/Na Phos,Di-Ba [Fleet Adult] 133 ml RECTAL DAILY PRN PRN Reason: Constipation Pantoprazole [Protonix] 40 mg PO DAILY@0600 Magnesium Hydroxide [Milk of Magnesia Concentrate] 7,200 mg PO Q48H PRN PRN Reason: Constipation Ferrous Sulfate [Feosol] 325 mg PO BID@0800,1700 Potassium Chloride ER [K-Dur 20] 20 meq PO DAILY@0800 Sennosides-Docusate Sodium [Senokot-S] 2 tab PO BID@0800,1700 Furosemide [Lasix] 40 mg PO DAILY@0800 Spironolactone [Aldactone] 25 mg PO HS@2100 SILVER sulfADIAZINE CREAM [Silvadene Cream] 1 applic TOPICAL DAILY cream bisacodyL 10 mg RECTAL DAILY PRN PRN Reason: Constipation Difluprednate [Durezol] 1 drop RIGHT EYE QID Gabapentin [Neurontin] 300 mg PO TID@0600,1400,2200 Metoprolol Tartrate [Lopressor] 50 mg PO BID@0800,1700 Discharge Medication List DULoxetine HCL [Cymbalta] 30 mg PO BID@0800,1700 02/04/21 [History] Rivaroxaban [Xarelto] 15 mg PO DAILY@0800 02/04/21 [History] Ferrous Sulfate [Feosol] 325 mg PO BID@0800,1700 02/28/21 [History] Potassium Chloride ER [K-Dur 20] 20 meq PO DAILY@0800 02/28/21 [History] Sennosides-Docusate Sodium [Senokot-S] 2 tab PO BID@0800,1700 02/28/21 [History] Brimonidine Tartrate [Alphagan P 0.2% Ophth Soln] 1 drop RIGHT EYE TID@0800,1200,1700 09/22/21 [History] Furosemide [Lasix] 40 mg PO DAILY@0800 09/22/21 [History] Spironolactone [Aldactone] 25 mg PO HS@2100 09/22/21 [History] Timolol 0.5% Ophth Soln [Timoptic 0.5% Ophth Soln] 1 drop RIGHT EYE DAILY@0800 09/22/21 [History] Baclofen [Lioresal] 5 mg PO BID PRN tab 09/24/21 [Rx] Acetaminophen Tab [Tylenol] 650 mg PO Q6HR PRN tab 09/29/21 [Rx] SILVER sulfADIAZINE CREAM [Silvadene Cream] 1 applic TOPICAL DAILY cream 09/29/21 [Rx] Difluprednate [Durezol] 1 drop RIGHT EYE QID 10/22/21 [History] Gabapentin [Neurontin] 300 mg PO TID@0600,1400,2200 10/22/21 [History] Magnesium Hydroxide [Milk of Magnesia Concentrate] 7,200 mg PO Q48H PRN 10/22/21 [History] Metoprolol Tartrate [Lopressor] 50 mg PO BID@0800,1700 10/22/21 [History] Na Phos,M-B/Na Phos,Di-Ba [Fleet Adult] 133 ml RECTAL DAILY PRN 10/22/21 [History] Pantoprazole [Protonix] 40 mg PO DAILY@0600 10/22/21 [History] bisacodyL 10 mg RECTAL DAILY PRN 10/22/21 [History] Cefuroxime Axetil [Ceftin] 500 mg PO BID 3 Days #6 tab 10/27/21 [Rx] Follow up Appointment(s)/Referral(s): Bolivar Valiente DO [Primary Care Provider] - 1-2 days Discharge Disposition: TRANSFER TO SNF/ECF
== END 2021-10-27 14:12 | DRG 871 ==
LOC: EC 13:08 → 4SSUR 16:49
PROVIDERS: ADMIT Family Medicine; ATTEND Family Medicine
DX: A41.51 Sepsis due to Escherichia coli [E. coli] (principal); G93.41 Metabolic encephalopathy; J96.01 Acute respiratory failure with hypoxia; N39.0 Urinary tract infection, site not specified; I48.19 Other persistent atrial fibrillation; L03.90 Cellulitis, unspecified; N17.9 Acute kidney failure, unspecified; N18.4 Chronic kidney disease, stage 4 (severe); Z16.23 Resistance to quinolones and fluoroquinolones; Z68.43 Body mass index [BMI] 50.0-59.9, adult; D63.1 Anemia in chronic kidney disease; E66.01 Morbid (severe) obesity due to excess calories; E78.5 Hyperlipidemia, unspecified; E87.5 Hyperkalemia; E87.70 Fluid overload, unspecified; G89.29 Other chronic pain; I12.9 Hypertensive chronic kidney disease with stage 1 through stage 4 chronic kidney disease, or unspecified chronic kidney disease; I27.20 Pulmonary hypertension, unspecified; K21.9 Gastro-esophageal reflux disease without esophagitis; Z66 Do not resuscitate; K57.30 Diverticulosis of large intestine without perforation or abscess without bleeding; I71.4 Abdominal aortic aneurysm, without rupture; K64.1 Second degree hemorrhoids; L89.151 Pressure ulcer of sacral region, stage 1; M19.90 Unspecified osteoarthritis, unspecified site; Z20.822 Contact with and (suspected) exposure to COVID-19; Z28.310 Unvaccinated for COVID-19; Z79.01 Long term (current) use of anticoagulants; Z79.899 Other long term (current) drug therapy; Z87.891 Personal history of nicotine dependence; Z91.81 History of falling; Z95.2 Presence of prosthetic heart valve; Z96.659 Presence of unspecified artificial knee joint; Z98.1 Arthrodesis status; R26.9 Unspecified abnormalities of gait and mobility; Z88.5 Allergy status to narcotic agent; Z88.0 Allergy status to penicillin; Z96.643 Presence of artificial hip joint, bilateral; Z98.890 Other specified postprocedural states
CPT/HCPCS: 36415; 51702; 70450; 70487; 71045; 80048; 80053; 80306; 80320; 81001; 82140; 82272; 82803; 83605; 83880; 84484; 85025; 85610; 85730; 87040; 87077; 87086; 87186; 87502; 87635; 93005; 96365; 96375; 99285

== ENCOUNTER → 2021-10-29 | Outpatient (CLI) | payer MEDICARE ==
[2021-10-29 18:25] LABS: HCT 38.1 % (37.2-46.3); HGB 11.6 g/dL (12.0-15.0); MCH 30.2 pg (27.0-32.0); MCHC 30.4 g/dL (32.0-37.0); MCV 99.2 fL (80.0-97.0); Mean Platelet Volume 10.7 fL (9.5-12.2); NRBC Per 100 WBC 0 /100 WBCS (0.0-0.0); Platelet Count 208 X 10*3/uL (140-440); RBC 3.84 X 10*6/uL (4.10-5.20); RDW 12.8 % (11.5-14.5); WBC 8.11 X 10*3/uL (4.50-10.00)
[2021-10-29 20:09] LABS: African American GFR (CKD) 55.3 (60.0-200.0); Albumin 3.4 g/dL (3.8-4.9); Albumin/Globulin Ratio 1.13 (1.60-3.17); Anion Gap 15.1 mmol/L (10.00-18.00); BUN/Creat Ratio 23.09 Ratio (12.00-20.00); Blood Urea Nitrogen 25.4 mg/dL (9.0-27.0); Calcium 9.6 mg/dL (8.7-10.3); Carbon Dioxide 27.9 mmol/L (20.0-27.5); Non-African American GFR(CKD) 47.7 (60.0-200.0); Potassium 4.3 mmol/L (3.5-5.5); Total Bilirubin 0.5 mg/dL (0.30-1.20); Total Protein 6.4 g/dL (6.2-8.2)
== END | disposition home or self-care (01) ==
LOC: LABMARSNF 10:17 → EDSTATUS 10:51
PROVIDERS: ATTEND Internal Medicine Geriatric Medicine
DX: I10 Essential (primary) hypertension (principal); K21.9 Gastro-esophageal reflux disease without esophagitis; N17.9 Acute kidney failure, unspecified
CPT/HCPCS: 80053; 85027

== ENCOUNTER 2022-02-27 02:53 | Inpatient (IN) | payer MEDICARE ==
[2022-02-27] MEDS ORDERED: SODIUM CHLORIDE 0.9% 1,000 ML IV STA (03:03)
[2022-02-27] MEDS: SODIUM CHLORIDE 0.9% 500 ML 500 ML IV STA (03:14)
[2022-02-27 03:33] LABS: Basophils # (A) 0.1 k/uL (0-0.2); Basophils % (A) 0 %; Eosinophils # (A) 0.6 k/uL (0-0.7); Eosinophils % (A) 4 %; HCT 38.3 % (34.0-46.0); HGB 12.2 gm/dL (11.4-16.0); Lymphocytes # (A) 0.9 k/uL (1.0-4.8); Lymphocytes % (A) 6 %; MCHC 31.8 g/dL (31.0-37.0); MCV 94.1 fL (80.0-100.0); Monocytes # (A) 0.8 k/uL (0-1.0); Monocytes % (A) 6 %; Neutrophils # (A) 12.4 k/uL (1.3-7.7); Neutrophils % (A) 83 %; Platelet Count 180 k/uL (150-450); RBC 4.07 m/uL (3.80-5.40); RDW 13.9 % (11.5-15.5)
[2022-02-27 03:53] LABS: Albumin 3.1 g/dL (3.5-5.0); Calcium 8.5 mg/dL (8.4-10.2); Potassium 4.3 mmol/L (3.5-5.1); Total Protein 6.2 g/dL (6.3-8.2)
--- NOTE | 2022-02-27 04:05 | ED ---
General Adult HPI - General Chief complaint: Urogenital Stated complaint: Poss sepsis Time Seen by Provider: 02/27/22 02:55 Source: patient, RN notes reviewed, old records reviewed Mode of arrival: EMS Limitations: no limitations - History of Present Illness Initial comments: Patient is a 81-year-old female with past medical history remarkable for chronic dementia/delirium baseline A&O 2-3, multiple falls, anemia, AAA, CHF on Xeralto who presents emergency department over concern for sepsis. Patient is currently being treated for UTI. Apparently has been having intermittent fevers at her nursing facility of 101. Also concern for worsening shortness of breath as well as possible low blood pressure. He presents for further evaluation at this time. Patient appears to be at her baseline. His no acute complaints at this time. He is on nasal cannula as she did state she was slightly short of breath. Oxygen saturation is 94% on 2 L. Denies cough. Denies chest pain. Denies abdominal pain, nausea, vomiting. Denies dysuria or hematuria. Denies orthopnea, PND. States her legs are chronically swollen but appear better than average. His no other acute complaints at this time. Presents for further evaluation. Patient is a DO NOT RESUSCITATE, no code per paperwork provided by nursing facility. - Related Data Home Medications Medication Instructions Recorded Confirmed DULoxetine HCL [Cymbalta] 30 mg PO BID@0800,1700 02/04/21 10/23/21 Rivaroxaban [Xarelto] 15 mg PO DAILY@0800 02/04/21 10/23/21 Ferrous Sulfate [Feosol] 325 mg PO BID@0800,1700 02/28/21 10/23/21 Potassium Chloride ER [K-Dur 20] 20 meq PO DAILY@0800 02/28/21 10/23/21 Sennosides-Docusate Sodium 2 tab PO BID@0800,1700 02/28/21 10/23/21 [Senokot-S] Brimonidine Tartrate [Alphagan P 1 drop RIGHT EYE TID@0800,1200,1700 09/22/21 10/23/21 0.2% Ophth Soln] Furosemide [Lasix] 40 mg PO DAILY@0800 09/22/21 10/23/21 Spironolactone [Aldactone] 25 mg PO HS@2100 09/22/21 10/23/21 Timolol 0.5% Ophth Soln [Timoptic 1 drop RIGHT EYE DAILY@0800 09/22/21 10/23/21 0.5% Ophth Soln] Difluprednate [Durezol] 1 drop RIGHT EYE QID 10/22/21 10/23/21 Gabapentin [Neurontin] 300 mg PO TID@0600,1400,2200 10/22/21 10/23/21 Magnesium Hydroxide [Milk of 7,200 mg PO Q48H PRN 10/22/21 10/23/21 Magnesia Concentrate] Metoprolol Tartrate [Lopressor] 50 mg PO BID@0800,1700 10/22/21 10/23/21 Na Phos,M-B/Na Phos,Di-Ba [Fleet 133 ml RECTAL DAILY PRN 10/22/21 10/23/21 Adult] Pantoprazole [Protonix] 40 mg PO DAILY@0600 10/22/21 10/23/21 bisacodyL 10 mg RECTAL DAILY PRN 10/22/21 10/23/21 Previous Rx's Medication Instructions Recorded Baclofen [Lioresal] 5 mg PO BID PRN tab 09/24/21 Acetaminophen Tab [Tylenol] 650 mg PO Q6HR PRN tab 09/29/21 SILVER sulfADIAZINE CREAM 1 applic TOPICAL DAILY cream 09/29/21 [Silvadene Cream] cefUROXime axetiL [Ceftin] 500 mg PO BID 3 Days #6 tab 10/27/21 Allergies Allergy/AdvReac Type Severity Reaction Status Date / Time oxycodone Allergy Itching on Verified 10/23/21 13:21 back of hands Penicillins Allergy Itching Verified 10/23/21 13:21 all over body Review of Systems ROS Statement: Those systems with pertinent positive or pertinent negative responses have been documented in the HPI. Review of Systems: CONST: Denies fever EYES: Denies blurry vision ENT: Denies nasal congestion C/V: Denies Chest pain RESP: Denies shortness of breath GI: Denies abdominal pain : Denies dysuria SKIN: Denies rash. MSK: Denies joint pain. NEURO: Denies headache ROS Other: All systems not noted in ROS Statement are negative. Past Medical History Past Medical History: Atrial Fibrillation, Hyperlipidemia, Osteoarthritis (OA) Additional Past Medical History / Comment(s): cardiac valve issues History of Any Multi-Drug Resistant Organisms: VRE Date of last positivie culture/infection: 11/05/21 MDRO Source:: Urine Past Surgical History: Back Surgery, Cardiac Valve Replacement, Joint Replacement Additional Past Surgical History / Comment(s): hipx2 knee replacement Past Anesthesia/Blood Transfusion Reactions: No Reported Reaction Past Psychological History: No Psychological Hx Reported Smoking Status: Never smoker Past Alcohol Use History: None Reported Past Drug Use History: None Reported General Exam - General Exam Comments Initial Comments: General: Appears in no acute distress. HEAD: Normal with no signs of head trauma. EYES: PERRLA, EOMI, conjunctiva normal, no discharge. ENT: Hearing grossly intact, normal oropharynx. RESPIRATORY: Clear breath sounds bilaterally. No wheezes, rales, or rhonchi. Mildly hypoxic Minor. Saturating 94% on 2 L nasal cannula. Not on oxygen typically. C/V: Regular rate and rhythm. S1 and S2 auscultated, very mild pitting edema bi laterally., peripheral pulses 2+ and intact throughout ABD: Abd is soft, nontender, nondistended EXT: Normal range of motion, no obvious deformity SKIN: No rashes or lesions observed on exposed skin. NEURO: Alert and oriented 2-3 which is her baseline. No focal deficits otherwise. Limitations: no limitations Course Vital Signs 02/27/22 02/27/22 02/27/22 02:53 05:00 06:00 Temperature 98.4 F 98.2 F Pulse Rate 95 94 91 Respiratory 16 15 15 Rate Blood Pressure 108/73 106/70 107/65 O2 Sat by Pulse 94 L 97 96 Oximetry Medical Decision Making - Medical Decision Making Based on the patient's presentation and physical exam, I'm concerned for possi ble worsening infectious etiology. She was requiring low-level nasal cannula oxygen at this time.. Received a 500 mL bolus from EMS already. Vital signs are within normal limits otherwise. Known UTI. We will obtain infectious labs as well as CT brain due to her being on blood thinners and having intermittent confusion per nursing facility. We'll hold further fluid resuscitation this time with her history of volume overload state and obtained chest x-ray, BNP and cardiac workup. She was in agreement with this plan. Patient is already being treated with Macrobid for her UTI. EKG shows chronic atrial fibrillation with no signs of ischemia. Laboratory studies were remarkable for a leukocytosis of 15.0. Patient does appear mildly fluid overloaded with a BNP of 30-40. Troponin is indeterminate. Covid is not detected. Chest x-ray does show signs of worsening pulmonary edema. CT brain shows no acute intracranial process. Urinalysis shows UTI. At the patient. I will like to admit the hospital. She'll be started on IV antibiotics Rocephin. Will also be started on IV Lasix due to her CHF exacerbation with hypoxia. She was in agreement this plan. Cardiology was consulted. Echo was ordered. I did not provide the patient any fluids will she is here. She did receive 500 mL total from EMS. I contacted the admitting physician at 0600, Dr. Valiente, to notify him of the ad mission. Patient was admitted in stable condition. Was notified at [address] Valiente is off, is being covered by [facility], who was contacted at 7am. I spoke with [facility] JAYDA Reich who accepted the patient. - Lab Data Result diagrams: 02/27/22 03:03 02/27/22 03:03 Lab Results 02/27/22 02/27/22 02/27/22 Range/Units 03:03 03:03 03:03 WBC 15.0 H (3.8-10.6) k/uL RBC 4.07 (3.80-5.40) m/uL Hgb 12.2 (11.4-16.0) gm/dL Hct 38.3 (34.0-46.0) % MCV 94.1 (80.0-100.0) fL MCH 30.0 (25.0-35.0) pg MCHC 31.8 (31.0-37.0) g/dL RDW 13.9 (11.5-15.5) % Plt Count 180 (150-450) k/uL MPV 8.0 Neutrophils % 83 % Lymphocytes % 6 % Monocytes % 6 % Eosinophils % 4 % Basophils % 0 % Neutrophils # 12.4 H (1.3-7.7) k/uL Lymphocytes # 0.9 L (1.0-4.8) k/uL Monocytes # 0.8 (0-1.0) k/uL Eosinophils # 0.6 (0-0.7) k/uL Basophils # 0.1 (0-0.2) k/uL Sodium 135 L (137-145) mmol/L Potassium 4.3 (3.5-5.1) mmol/L Chloride 98 (98-107) mmol/L Carbon Dioxide 28 (22-30) mmol/L Anion Gap 9 mmol/L BUN 19 H (7-17) mg/dL Creatinine 0.90 (0.52-1.04) mg/dL Est GFR (CKD-EPI)AfAm 71 (>60 ml/min/1.73 sqM) Est GFR (CKD-EPI)NonAf 61 (>60 ml/min/1.73 sqM) Glucose 114 H (74-99) mg/dL Plasma Lactic Acid Yonas 1.0 (0.7-2.0) mmol/L Calcium 8.5 (8.4-10.2) mg/dL Total Bilirubin 1.0 (0.2-1.3) mg/dL AST 21 (14-36) U/L ALT 8 (4-34) U/L Alkaline Phosphatase 99 (38-126) U/L Troponin I (0.000-0.034) ng/mL NT-Pro-B Natriuret Pep pg/mL Total Protein 6.2 L (6.3-8.2) g/dL Albumin 3.1 L (3.5-5.0) g/dL Amylase 45 (30-110) U/L Lipase 29 (23-300) U/L Urine Color Urine Appearance (Clear) Urine pH (5.0-8.0) Ur Specific [place] (1.001-1.035) Urine Protein (Negative) Urine Glucose (UA) (Negative) Urine Ketones (Negative) Urine Blood (Negative) Urine Nitrite (Negative) Urine Bilirubin (Negative) Urine Urobilinogen (<2.0) mg/dL Ur Leukocyte Esterase (Negative) Urine RBC (0-5) /hpf Urine WBC (0-5) /hpf Urine WBC Clumps (None) /hpf Ur Squamous Epith Cells (0-4) /hpf Ur Transition Epith Cell (0-1) /hpf Urine Bacteria (None) /hpf Urine Mucus (None) /hpf Coronavirus (PCR) (Not Detectd) 02/27/22 02/27/22 02/27/22 Range/Units 03:15 03:15 03:22 WBC (3.8-10.6) k/uL RBC (3.80-5.40) m/uL Hgb (11.4-16.0) gm/dL Hct (34.0-46.0) % MCV (80.0-100.0) fL MCH (25.0-35.0) pg MCHC (31.0-37.0) g/dL RDW (11.5-15.5) % Plt Count (150-450) k/uL MPV Neutrophils % % Lymphocytes % % Monocytes % % Eosinophils % % Basophils % % Neutrophils # (1.3-7.7) k/uL Lymphocytes # (1.0-4.8) k/uL Monocytes # (0-1.0) k/uL Eosinophils # (0-0.7) k/uL Basophils # (0-0.2) k/uL Sodium (137-145) mmol/L Potassium (3.5-5.1) mmol/L Chloride (98-107) mmol/L Carbon Dioxide (22-30) mmol/L Anion Gap mmol/L BUN (7-17) mg/dL Creatinine (0.52-1.04) mg/dL Est GFR (CKD-EPI)AfAm (>60 ml/min/1.73 sqM) Est GFR (CKD-EPI)NonAf (>60 ml/min/1.73 sqM) Glucose (74-99) mg/dL Plasma Lactic Acid Yonas (0.7-2.0) mmol/L Calcium (8.4-10.2) mg/dL Total Bilirubin (0.2-1.3) mg/dL AST (14-36) U/L ALT (4-34) U/L Alkaline Phosphatase (38-126) U/L Troponin I 0.014 (0.000-0.034) ng/mL NT-Pro-B Natriuret Pep 3240 pg/mL Total Protein (6.3-8.2) g/dL Albumin (3.5-5.0) g/dL Amylase (30-110) U/L Lipase (23-300) U/L Urine Color Urine Appearance (Clear) Urine pH (5.0-8.0) Ur Specific [place] (1.001-1.035) Urine Protein (Negative) Urine Glucose (UA) (Negative) Urine Ketones (Negative) Urine Blood (Negative) Urine Nitrite (Negative) Urine Bilirubin (Negative) Urine Urobilinogen (<2.0) mg/dL Ur Leukocyte Esterase (Negative) Urine RBC (0-5) /hpf Urine WBC (0-5) /hpf Urine WBC Clumps (None) /hpf Ur Squamous Epith Cells (0-4) /hpf Ur Transition Epith Cell (0-1) /hpf Urine Bacteria (None) /hpf Urine Mucus (None) /hpf Coronavirus (PCR) Not Detected (Not Detectd) 02/27/22 Range/Units 04:35 WBC (3.8-10.6) k/uL RBC (3.80-5.40) m/uL Hgb (11.4-16.0) gm/dL Hct (34.0-46.0) % MCV (80.0-100.0) fL MCH (25.0-35.0) pg MCHC (31.0-37.0) g/dL RDW (11.5-15.5) % Plt Count (150-450) k/uL MPV Neutrophils % % Lymphocytes % % Monocytes % % Eosinophils % % Basophils % % Neutrophils # (1.3-7.7) k/uL Lymphocytes # (1.0-4.8) k/uL Monocytes # (0-1.0) k/uL Eosinophils # (0-0.7) k/uL Basophils # (0-0.2) k/uL Sodium (137-145) mmol/L Potassium (3.5-5.1) mmol/L Chloride (98-107) mmol/L Carbon Dioxide (22-30) mmol/L Anion Gap mmol/L BUN (7-17) mg/dL Creatinine (0.52-1.04) mg/dL Est GFR (CKD-EPI)AfAm (>60 ml/min/1.73 sqM) Est GFR (CKD-EPI)NonAf (>60 ml/min/1.73 sqM) Glucose (74-99) mg/dL Plasma Lactic Acid Yonas (0.7-2.0) mmol/L Calcium (8.4-10.2) mg/dL Total Bilirubin (0.2-1.3) mg/dL AST (14-36) U/L ALT (4-34) U/L Alkaline Phosphatase (38-126) U/L Troponin I (0.000-0.034) ng/mL NT-Pro-B Natriuret Pep pg/mL Total Protein (6.3-8.2) g/dL Albumin (3.5-5.0) g/dL Amylase (30-110) U/L Lipase (23-300) U/L Urine Color Yellow Urine Appearance Cloudy H (Clear) Urine pH 6.0 (5.0-8.0) Ur Specific [place] 1.015 (1.001-1.035) Urine Protein 1+ H (Negative) Urine Glucose (UA) Negative (Negative) Urine Ketones Negative (Negative) Urine Blood Trace H (Negative) Urine Nitrite Negative (Negative) Urine Bilirubin Negative (Negative) Urine Urobilinogen <2.0 (<2.0) mg/dL Ur Leukocyte Esterase Large H (Negative) Urine RBC 3 (0-5) /hpf Urine WBC >182 H (0-5) /hpf Urine WBC Clumps Occasional H (None) /hpf Ur Squamous Epith Cells 3 (0-4) /hpf Ur Transition Epith Cell <1 (0-1) /hpf Urine Bacteria Rare H (None) /hpf Urine Mucus Rare H (None) /hpf Coronavirus (PCR) (Not Detectd) - EKG Data -: EKG Interpreted by Me EKG Comments: 12-lead Electrocardiogram Interpretation Note EKG was reviewed and interpreted by myself. 12-lead ECG performed at 0400 is interpreted by me as revealing atrial fibrillation at a rate of 87 beats per minute. Kimper is normal. QRS durations 121 ms, QTc is 440 ms. Patient has a chronic right bundle branch block seen on prior EKGs.. There were no acute ST or T wave abnormalities to suggest myocardial ischemia or injury. R wave progression across the precordium was satisfactory. By my interpretation this EKG is non-diagnostic for acute ischemia. Chronic finding seen on prior EKGs from September 2021. Disposition Clinical Impression: UTI (urinary tract infection), CHF exacerbation, Hypoxia Disposition: ADMITTED IP TO THIS HOSP Condition: Stable Time of Disposition: 04:55
--- NOTE | 2022-02-27 04:44 | XR ---
EXAMINATION TYPE: XR chest 1V portable DATE OF EXAM: 02/27/2022 COMPARISON: 10/23/2021 HISTORY: Altered mental status TECHNIQUE: FINDINGS: Heart is slightly enlarged. There is coarsening of interstitial markings. No obvious heart failure. Interstitial infiltrates present in both lung bases. There are sternal wires. IMPRESSION: There are some interstitial infiltrates and atelectasis at the lung bases which is worse than last exam.
--- NOTE | 2022-02-27 04:45 | CT ---
EXAMINATION TYPE: CT brain wo con DATE OF EXAM: 02/27/2022 COMPARISON: 10/23/2021 HISTORY: AMS CT DLP: 1143.4 mGycm Automated exposure control for dose reduction was used. There is mild cerebral atrophy. There is no mass effect or midline shift. No sign of intracranial hem orrhage. Calvarium is intact. There is high attenuation in the right lobe. No retro-orbital mass. Pos terior fossa appears intact. There is normal aeration of the mastoid sinuses. IMPRESSION: Mild atrophy. No acute intracranial abnormality. No change.
[2022-02-27 05:05] LABS: Appearance,Urine Cloudy (Clear); Bacteria,Urine Rare /hpf; Bilirubin,Urine Negative (Negative); Blood,Urine Trace (Negative); Color,Urine Yellow; Glucose,Urine (UA) Negative (Negative); Ketones,Urine Negative (Negative); Leukocyte Esterase,Urine Large (Negative); Mucus,Urine Rare /hpf; Nitrite,Urine Negative (Negative); Protein,Urine 1+ (Negative); RBC,Urine 3 /hpf (0-5); Specific Gravity,Urine 1.015 (1.001-1.035); Squamous Epithelial Cell,Urine 3 /hpf (0-4); Transitional Epi Cells,Urine <1 /hpf (0-1); Urobilinogen,Urine <2.0 mg/dL (<2.0); WBC,Urine >182 /hpf (0-5)
[2022-02-27] MEDS ORDERED: NALOXONE 0.4 MG/ML 1 ML VIAL IV PRN (05:11)
[2022-02-27] MEDS ORDERED: bisacodyL 10 MG SUPP RECTAL PRN (05:14)
[2022-02-27] MEDS ORDERED: BACLOFEN 10 MG TAB PO PRN (05:14)
[2022-02-27] MEDS: GABAPENTIN 300 MG CAP PO SCH ×3 (06:10→22:08)
[2022-02-27] MEDS: PANTOPRAZOLE 40 MG TABLET PO SCH (06:10)
[2022-02-27] MEDS: FUROSEMIDE 10 MG/ML 4 ML VIAL IV SCH ×2 (06:10→17:36)
[2022-02-27] MEDS: DIFLUPREDNATE RIGHT EYE SCH ×3 (07:56→17:40)
[2022-02-27] MEDS: METOPROLOL TARTRATE 50 MG TAB PO SCH ×2 (07:58→17:36)
[2022-02-27] MEDS: DULoxetine HCL 30 MG CAPSULE.DR PO SCH ×2 (07:59→17:36)
[2022-02-27] MEDS: TIMOLOL 0.5% OPHTH DROPS 5 ML BTL RIGHT EYE SCH (08:06)
[2022-02-27] MEDS: BRIMONIDINE TARTRATE 0.2% DROPS 5 ML BTL RIGHT EYE SCH ×3 (08:07→17:39)
--- NOTE | 2022-02-27 13:27 | P.CRDCN ---
History of Present Illness History of present illness: HISTORY OF PRESENT ILLNESS: This is a 81-year-old female with a past medical history significant for chronic atrial fibrillation, mitral valve disease, previous aortic valve replacement, mitral valve repair and tricuspid valve repair with ascending aortic replacement in June 2010 at [facility]. Patient follows in the office with Dr. Villanueva. We have been asked to see the patient in consultation for CHF. Patient examined at the bedside. Patient presented to hospitals a chief complaint of shortness of breath. Patient states she has been feeling short of breath for the past 2 days. She states her shortness of breath is mostly with exertion. She reports an occasional cough. She denies fever or chills. She denies chest pain or pressure. Patient states she has been compliant with all of her medications. She states that she has not been compliant with a low- sodium diet as she is currently rate at [facility] and receives a lot of food items that are high in salt. * EKG reveals atrial fibrillation with controlled ventricular rate * Chest xray interstitial infiltrate and atelectasis at the lung bases which is worse than old exam * Laboratory data: WBC 15.0. Hemoglobin 12.2. Platelet count 180. Sodium 135. Potassium 4.3. BUN 19. Creatinine 0.90. Troponin negative 3. ProBNP 3240. * Current home cardiac medications include metoprolol tartrate 50 mg twice a day, Aldactone 25 mg at night, Xarelto 15 mg daily, Lasix 40 mg daily * Most recent echocardiogram obtained in January 2021 revealed ejection fraction 55-60%, trace aortic regurgitation, mild mitral regurgitation, mild tricuspid regurgitation, moderate pulmonary hypertension * Cardiac catheterization history: January 2017 revealing minimal coronary artery disease REVIEW OF SYSTEMS: At the time of my exam: CONSTITUTIONAL: Denies fever or chills. HEENT: Denies blurred vision, vision changes, or eye pain. Denies hemoptysis CARDIOVASCULAR: Denies chest pain. Denies orthopnea. Denies PND. Denies palpitations RESPIRATORY: Denies shortness of breath. GASTROINTESTINAL: Denies abdominal pain. Denies nausea or vomiting. HEMATOLOGIC: Denies bleeding disorders. GENITOURINARY: Denies any blood in urine. SKIN: Denies pruitis. Denies rash. PHYSICAL EXAM: VITAL SIGNS: Reviewed. GENERAL: Well-developed in no acute distress. HEENT: Head is normocephalic. Pupils are equal, round. Sclerae anicteric. Mucous membranes of the mouth are moist. Neck supple. No JVD or thyromegaly LUNGS: Respirations even and unlabored. Lungs diminished to auscultation bilaterally. HEART: Irregular rate and rhythm. S1 and S2 heard. Systolic murmur. ABDOMEN: Soft. Nondistended. Nontender. EXTREMITIES: Normal range of motion. No clubbing or cyanosis. Peripheral pulses intact. Moderate bilateral lower extremity edema NEUROLOGIC: Awake and alert. Oriented x 3. ASSESSMENT: Shortness of breath Acute on chronic heart failure with preserved ejection fraction Urinary tract infection Chronic atrial fibrillation Valvular heart disease History of mitral/tricuspid valve repair History of aortic valve replacement PLAN: Obtain 2D echo to assess cardiac structure and function Continue home cardiac medications Continue IV lasix Monitor kidney function Daily weights and Accurate I&O Further recommendations pending patient course Nurse practitioner note has been reviewed by physician. Signing provider agrees with the documented findings, assessment, and plan of care. Past Medical History Past Medical History: Atrial Fibrillation, Hyperlipidemia, Osteoarthritis (OA) Additional Past Medical History / Comment(s): cardiac valve issues History of Any Multi-Drug Resistant Organisms: VRE Date of last positivie culture/infection: 11/05/21 MDRO Source:: Urine Past Surgical History: Back Surgery, Cardiac Valve Replacement, Joint Replacement Additional Past Surgical History / Comment(s): hipx2 knee replacement Past Anesthesia/Blood Transfusion Reactions: No Reported Reaction Past Psychological History: No Psychological Hx Reported Smoking Status: Never smoker Past Alcohol Use History: None Reported Past Drug Use History: None Reported Medications and Allergies Home Medications Medication Instructions Recorded Confirmed Type DULoxetine HCL [Cymbalta] 30 mg PO BID@0800,1700 02/04/21 02/27/22 History Rivaroxaban [Xarelto] 15 mg PO DAILY@0800 02/04/21 02/27/22 History Ferrous Sulfate [Feosol] 325 mg PO BID@0800,1700 02/28/21 02/27/22 History Potassium Chloride ER [K-Dur 20] 20 meq PO DAILY@0800 02/28/21 02/27/22 History Sennosides-Docusate Sodium 2 tab PO BID@0800,1700 02/28/21 02/27/22 History [Senokot-S] Brimonidine Tartrate [Alphagan P 1 drop RIGHT EYE TID@0800,1200,1700 09/22/21 02/27/22 History 0.2% Ophth Soln] Furosemide [Lasix] 40 mg PO DAILY@0800 09/22/21 02/27/22 History Spironolactone [Aldactone] 25 mg PO HS@2100 09/22/21 02/27/22 History Timolol 0.5% Ophth Soln [Timoptic 1 drop RIGHT EYE DAILY@0800 09/22/21 02/27/22 History 0.5% Ophth Soln] Acetaminophen Tab [Tylenol] 650 mg PO Q6HR PRN tab 09/29/21 02/27/22 Rx Difluprednate [Durezol] 1 drop RIGHT EYE QID@08,12,17,21 10/22/21 02/27/22 History Gabapentin [Neurontin] 300 mg PO TID@0600,1400,2200 10/22/21 02/27/22 History Magnesium Hydroxide [Milk of 7,200 mg PO Q48H PRN 10/22/21 02/27/22 History Magnesia Concentrate] Metoprolol Tartrate [Lopressor] 50 mg PO BID@0800,1700 10/22/21 02/27/22 History Na Phos,M-B/Na Phos,Di-Ba [Fleet 133 ml RECTAL DAILY PRN 10/22/21 02/27/22 History Adult] Pantoprazole [Protonix] 40 mg PO DAILY@0600 10/22/21 02/27/22 History bisacodyL 10 mg RECTAL DAILY PRN 10/22/21 02/27/22 History Baclofen 5 mg PO Q8H PRN 02/27/22 02/27/22 History HYDROcodone/APAP 5-325MG [[place] 1 tab PO Q6H PRN 02/27/22 02/27/22 History 5-325] Menthol [Biofreeze] 1 applic TOPICAL Q8H PRN 02/27/22 02/27/22 History Nitrofurantoin Monohyd/M-Cryst 100 mg PO DIRECTED 02/27/22 02/27/22 History [Macrobid] Allergies Allergy/AdvReac Type Severity Reaction Status Date / Time oxycodone Allergy Itching on Verified 02/27/22 08:20 back of hands Penicillins Allergy Itching Verified 02/27/22 08:20 all over body Physical Exam Vitals: Vital Signs Temp Pulse Resp BP Pulse Ox 02/27/22 13:00 97.6 F 86 18 100/60 96 02/27/22 11:18 98.2 F 92 18 109/52 97 02/27/22 09:47 72 16 101/56 96 02/27/22 08:09 98.2 F 84 18 110/89 98 02/27/22 07:47 114/80 02/27/22 07:23 97.8 F 95 18 92/50 94 L 02/27/22 06:00 91 15 107/65 96 02/27/22 05:00 98.2 F 94 15 106/70 97 02/27/22 02:53 98.4 F 95 16 108/73 94 L Intake and Output 02/26/22 02/27/22 02/27/22 22:59 06:59 14:59 Other: Voiding Method Bedpan Weight 108.862 kg Results 02/27/22 03:03 02/27/22 03:03 Cardiac Enzymes 02/27/22 02/27/22 02/27/22 Range/Units 03:03 03:15 05:57 AST 21 (14-36) U/L Troponin I 0.014 0.014 (0.000-0.034) ng/mL 02/27/22 Range/Units 10:12 AST (14-36) U/L Troponin I <0.012 (0.000-0.034) ng/mL CBC 02/27/22 Range/Units 03:03 WBC 15.0 H (3.8-10.6) k/uL RBC 4.07 (3.80-5.40) m/uL Hgb 12.2 (11.4-16.0) gm/dL Hct 38.3 (34.0-46.0) % Plt Count 180 (150-450) k/uL Comprehensive Metabolic Panel 02/27/22 Range/Units 03:03 Sodium 135 L (137-145) mmol/L Potassium 4.3 (3.5-5.1) mmol/L Chloride 98 (98-107) mmol/L Carbon Dioxide 28 (22-30) mmol/L BUN 19 H (7-17) mg/dL Creatinine 0.90 (0.52-1.04) mg/dL Glucose 114 H (74-99) mg/dL Calcium 8.5 (8.4-10.2) mg/dL AST 21 (14-36) U/L ALT 8 (4-34) U/L Alkaline Phosphatase 99 (38-126) U/L Total Protein 6.2 L (6.3-8.2) g/dL Albumin 3.1 L (3.5-5.0) g/dL Current Medications Generic Name Dose Route Start Last Admin Trade Name Freq PRN Reason Stop Dose Admin Baclofen 5 mg 02/27/22 05:14 Baclofen 10 Mg Tab PO BID PRN Muscle Spasm Bisacodyl 10 mg 02/27/22 05:14 Bisacodyl 10 Mg Supp RECTAL DAILY PRN Constipation Brimonidine Tartrate 1 drops 02/27/22 08:00 02/27/22 11:17 Brimonidine Tartrate 0.2% Drops 5 Ml Btl RIGHT EYE 1 drops TID@0800,1200,1700 ORION Administration Duloxetine HCl 30 mg 02/27/22 08:00 02/27/22 07:59 Duloxetine Hcl 30 Mg Capsule.Dr PO 30 mg BID@0800,1700 ORION Administration Furosemide 40 mg 02/27/22 06:00 02/27/22 06:10 Furosemide 10 Mg/Ml 4 Ml Vial IV 40 mg Q12H ORION Administration Gabapentin 300 mg 02/27/22 06:00 02/27/22 06:10 Gabapentin 300 Mg Cap PO 300 mg TID@0600,1400,2200 ORION Administration Ceftriaxone Sodium 2 gm/ 50 mls @ 100 mls/hr 02/27/22 09:00 02/27/22 07:59 Sodium Chloride IVPB 100 mls/hr Q24HR ORION Administration Protocol Metoprolol Tartrate 50 mg 02/27/22 08:00 02/27/22 07:58 Metoprolol Tartrate 50 Mg Tab PO 50 mg BID@0800,1700 ORION Administration Naloxone HCl 0.2 mg 02/27/22 05:11 Naloxone 0.4 Mg/Ml 1 Ml Vial IV Q2M PRN Opioid Reversal Non-Formulary Medication 1 drop 02/27/22 09:00 02/27/22 12:02 Difluprednate [Durezol] RIGHT EYE Not Given QID ORION Pantoprazole Sodium 40 mg 02/27/22 06:00 02/27/22 06:10 Pantoprazole 40 Mg Tablet PO 40 mg DAILY@0600 [facility] Administration Spironolactone 25 mg 02/27/22 21:00 Spironolactone 25 Mg Tab PO HS@2100 [facility] Timolol Maleate 1 drops 02/27/22 08:00 02/27/22 08:06 Timolol 0.5% Ophth Drops 5 Ml Btl RIGHT EYE 1 drops DAILY@0800 [facility] Administration Intake and Output 02/26/22 02/27/22 02/27/22 22:59 06:59 14:59 Other: Voiding Method Bedpan Weight 108.862 kg 02/27/22 03:03 02/27/22 03:03
[2022-02-27] MEDS ORDERED: HYDROcodone/APAP 5-325MG 1 EACH TAB PO PRN (16:54)
--- NOTE | 2022-02-27 17:31 | CA ---
Transthoracic Echo Report Name: Ewa Siegel Age: 81 Gender: F : 1940 Exam Date: 02/27/2022 08:22 Exam Location: [place] [facility] Ht (in): 64 Wt (lb): 240 Ordering Physician: Iván Layne MD Attending/Referring Phys: Trimming Cutter Lina Zavala RDCS Procedure CPT: Indications: chf Cardiac Hx: Technical Quality: Technically difficult study Contrast 1: Lumason Total Dose (mL): 4 Contrast 2: Total Dose (mL): MEASUREMENTS (Male / Female) Normal Values 2D ECHO LV Diastolic Diameter PLAX 4.2 cm 4.2 - 5.9 / 3.9 - 5.3 cm LV Systolic Diameter PLAX 2.9 cm IVS Diastolic Thickness 1.5 cm 0.6 - 1.0 / 0.6 - 0.9 cm LVPW Diastolic Thickness 1.4 cm 0.6 - 1.0 / 0.6 - 0.9 cm LV Relative Wall Thickness 0.7 RV Internal Dim ED PLAX 3.1 cm LA Volume 90.2 cm??? 18 - 58 / 22 - 52 cm??? M-MODE Aortic Root Diameter MM 2.9 cm DOPPLER AV Peak Velocity 156.5 cm/s AV Peak Gradient 9.8 mmHg AV Mean Velocity 110.6 cm/s AV Mean Gradient 5.3 mmHg AV Velocity Time Integral 25.3 cm TR Peak Velocity 199.3 cm/s TR Peak Gradient 15.9 mmHg Right Ventricular Systolic Press 20.3 mmHg FINDINGS Left Ventricle Moderately increased septal wall thickness. Moderately increased posterior wall thickness. Abnormal (paradoxical) septal motion consistent with postoperative state. Left ventricular ejection fraction is estimated at 40-45 %. Right Ventricle Mild right ventricular dilatation. Right ventricular systolic pressure within normal limits. Right Atrium Right atrium not well visualized. Left Atrium Severely increased left atrial volume. Mildly increased left atrial area. Mitral Valve Mild mitral annular calcification. Mitral valve thickened. [id number] mitral regurgitation. Aortic Valve Normally functioning bioprosthetic aortic valve without stenosis with a peak velocity of 157 m/s, peak gradient 10 mmHg, mean gradient 5.3 mmHg. Tricuspid Valve Mild tricuspid regurgitation. Pulmonic Valve Trace pulmonic regurgitation. Pericardium No pericardial effusion. Aorta Normal size aortic root and proximal ascending aorta. CONCLUSIONS Moderate LVH Left ventricular EF 40-45% Moderately dilated left atrium Mild to moderate mitral regurgitation Normally functioning bioprosthetic aortic valve with mean gradient of 5 mmHg Mild tricuspid regurgitation, RVSP 20 Descending aortic aneurysm measuring 4.3 cm. Consider CTA if clinically indicated to further evaluate aneurysm. No pericardial effusion Previewed by: Dr. Jamie Tavares DO (Electronically Signed) Final Date: 27 February 2022 17:30
[2022-02-27] MEDS: FERROUS SULFATE 325 MG TAB PO SCH (17:36)
[2022-02-27] MEDS: MIDODRINE 5 MG TAB PO SCH (22:04)
[2022-02-28] MEDS: SPIRONOLACTONE 25 MG TAB PO SCH ×2 (03:03→21:24)
[2022-02-28] MEDS: DIFLUPREDNATE RIGHT EYE SCH ×5 (03:04→21:35)
[2022-02-28] MEDS: GABAPENTIN 300 MG CAP PO SCH ×3 (03:05→21:47)
[2022-02-28] MEDS: PANTOPRAZOLE 40 MG TABLET PO SCH (07:11)
[2022-02-28] MEDS: FUROSEMIDE 10 MG/ML 4 ML VIAL IV SCH (07:20)
[2022-02-28] MEDS: FERROUS SULFATE 325 MG TAB PO SCH ×2 (07:21→16:42)
[2022-02-28] MEDS: RIVAROXABAN 15 MG TAB PO SCH (07:21)
[2022-02-28] MEDS: MIDODRINE 5 MG TAB PO SCH ×3 (07:21→16:42)
[2022-02-28] MEDS: POTASSIUM CHLORIDE ER 20 MEQ TAB.ER PO SCH (07:21)
[2022-02-28] MEDS: METOPROLOL TARTRATE 50 MG TAB PO SCH ×2 (07:21→16:42)
[2022-02-28] MEDS: DULoxetine HCL 30 MG CAPSULE.DR PO SCH ×2 (07:21→16:42)
[2022-02-28] MEDS: BRIMONIDINE TARTRATE 0.2% DROPS 5 ML BTL RIGHT EYE SCH ×3 (08:42→16:42)
[2022-02-28] MEDS: TIMOLOL 0.5% OPHTH DROPS 5 ML BTL RIGHT EYE SCH (08:42)
[2022-02-28] MEDS ORDERED: FUROSEMIDE 40 MG TAB PO SCH (09:00)
--- NOTE | 2022-02-28 09:21 | P.PN ---
Subjective Progress Note Date: 02/28/22 This is David Devine NP, I'm dictating on behalf of Dr. Henderson's H&P and A&P. Patient was interviewed and examined. Patient is a pleasant 81-year-old female who we are consult before for congestive heart failure. Patient reports that she is breathing better today. She is reporting that overall she is feeling better today. She is currently denying shortness of breath, chest pain, heart palpitations. She overall appears better at this time. GENERAL: Well-appearing, well-nourished and in no acute distress. NECK: Supple without JVD or thyromegaly. LUNGS: Breath sounds clear to auscultation bilaterally. Respiration equal and unlabored. No wheezes, rales or rhonchi. HEART: Regular rate and rhythm without murmurs, rubs or gallops. S1 and S2 heard. EXTREMITIES: Normal range of motion, scant edema in the bilateral lower extremities. No clubbing or cyanosis. Peripheral pulses intact and strong. VITALS: Temp 97.7, pulse 84, respirations 18, blood pressure 97/65, O2 saturation 96% on room air TELEMETRY: Normal sinus rhythm LABS: White count 15.0, hemoglobin 12.2, platelets 180, sodium 135, potassium 4.3, BUN 19, creatinine 0.90, troponin less than 0.012, BNP 3240 IMPRESSION: 1. Acute on chronic congestive heart failure 2. Chronic A. fib 3. Valvular heart disease 4. History of mitral/tricuspid valve repair 5. History of aortic valve replacement 6. Shortness of breath PLAN: Ejection fraction is decreased from previous reads, 40-45% at this time Change Lasix to 40 mg oral twice a day Continue spironolactone Further recommendations based on the patient's clinical course Objective - Vital Signs Vital signs: Vital Signs Temp 97.7 F 02/28/22 08:00 Pulse 84 02/28/22 08:00 Resp 18 02/28/22 08:00 BP 97/65 02/28/22 08:00 Pulse Ox 96 02/28/22 08:00 FiO2 Intake & Output 02/27/22 02/28/22 02/28/22 18:59 06:59 18:59 Output Total 625 Balance -625 Weight 108.862 kg Output: Urine 625 Other: Voiding Method External Catheter - Labs CBC & Chem 7: 09/02/22 03:03 02/27/22 03:03 Labs: Microbiology - Last 24 Hours (Table) 02/27/22 03:15 Blood Culture - Preliminary Blood No Growth after 24 hours 02/27/22 03:03 Blood Culture - Preliminary Blood No Growth after 24 hours 02/27/22 04:35 Urine Culture - Preliminary Urine,Voided
[2022-02-28 11:46] LABS: Basophils # (A) 0.04 X 10*3/uL (0.00-0.10); Basophils % (A) 0.3 %; Eosinophils # (A) 0.66 X 10*3/uL (0.04-0.35); Eosinophils % (A) 5.1 %; HCT 36.8 % (37.2-46.3); HGB 11.7 g/dL (12.0-15.0); Immature Grans, Automated 0.6 %; Lymphocytes # (A) 1.36 X 10*3/uL (0.90-5.00); Lymphocytes % (A) 10.5 %; MCH 29.9 pg (27.0-32.0); MCHC 31.8 g/dL (32.0-37.0); MCV 94.1 fL (80.0-97.0); Monocytes # (A) 1.15 X 10*3/uL (0.20-1.00); Monocytes % (A) 8.9 %; NRBC Per 100 WBC 0 /100 WBCS (0.0-0.0); Neutrophils # (A) 9.62 X 10*3/uL (1.80-7.70); Neutrophils % (A) 74.6 %; Platelet Count 166 X 10*3/uL (140-440); RBC 3.91 X 10*6/uL (4.10-5.20); RDW 13.9 % (11.5-14.5); WBC 12.91 X 10*3/uL (4.50-10.00)
[2022-02-28 12:55] LABS: African American GFR (CKD) 69.6 (60.0-200.0); Anion Gap 14.1 mmol/L (10.00-18.00); Calcium 9.3 mg/dL (8.7-10.3); Carbon Dioxide 28.4 mmol/L (20.0-27.5); Non-African American GFR(CKD) 60.1 (60.0-200.0); Potassium 3.8 mmol/L (3.5-5.5)
--- NOTE | 2022-02-28 14:11 | P.HPIM ---
History of Present Illness H&P Date: 02/27/22 Chief Complaint: Possible sepsis 81-year-old female with past medical history remarkable for chronic dementia/delirium baseline A&O 2-3, multiple falls, anemia, AAA, CHF on Xeralto who presents emergency department over concern for sepsis. Patient is currently being treated for UTI. Apparently has been having intermittent fevers at her nursing facility of [facility]. Also concern for worsening shortness of breath as well as possible low blood pressure. He presents for further evaluation at this time. Patient appears to be at her baseline. His no acute complaints at this time. He is on nasal cannula as she did state she was slightly short of breath. Oxygen saturation is 94% on 2 L. Denies cough. Denies chest pain. Denies abdominal pain, nausea, vomiting. Denies dysuria or hematuria. Denies orthopnea, PND. States her legs are chronically swollen but appear better than average. His no other acute complaints at this time. Presents for further evaluation. Patient is a DO NOT RESUSCITATE, no code per paperwork provided by nursing facility. Workup completed in ED reveals EKG shows chronic atrial fibrillation with no signs of ischemia. Laboratory studies were remarkable for a leukocytosis of 15.0. Patient does appear mildly fluid overloaded with a BNP of 30-40. Troponin is indeterminate. Covid is not detected. Chest x-ray does show signs of worsening pulmonary edema. CT brain shows no acute intracranial process. Review of Systems REVIEW OF SYSTEMS: CONSTITUTIONAL: No fever, no malaise, no fatigue. HEENT: No recent visual problems or hearing problems. Denied any sore throat. CARDIOVASCULAR: No chest pain, orthopnea, PND, no palpitations, no syncope. PULMONARY: No shortness of breath, no cough, no hemoptysis. GASTROINTESTINAL: No diarrhea, no nausea, no vomiting, no abdominal pain. NEUROLOGICAL: No headaches, no weakness, no numbness. HEMATOLOGICAL: Denies any bleeding or petechiae. GENITOURINARY: Denies any burning micturition, frequency, or urgency. MUSCULOSKELETAL/RHEUMATOLOGICAL: Denies any joint pain, swelling, or any muscle pain. ENDOCRINE: Denies any polyuria or polydipsia. The rest of the 14-point review of systems is negative. Past Medical History Past Medical History: Atrial Fibrillation, Hyperlipidemia, Osteoarthritis (OA) Additional Past Medical History / Comment(s): cardiac valve issues History of Any Multi-Drug Resistant Organisms: VRE Date of last positivie culture/infection: 11/05/21 MDRO Source:: Urine Past Surgical History: Back Surgery, Cardiac Valve Replacement, Joint Replacement Additional Past Surgical History / Comment(s): hipx2 knee replacement Past Anesthesia/Blood Transfusion Reactions: No Reported Reaction Past Psychological History: No Psychological Hx Reported Smoking Status: Never smoker Past Alcohol Use History: None Reported Past Drug Use History: None Reported Medications and Allergies Home Medications Medication Instructions Recorded Confirmed Type DULoxetine HCL [Cymbalta] 30 mg PO BID@0800,1700 02/04/21 02/27/22 History Rivaroxaban [Xarelto] 15 mg PO DAILY@0800 02/04/21 02/27/22 History Ferrous Sulfate [Feosol] 325 mg PO BID@0800,1700 02/28/21 02/27/22 History Potassium Chloride ER [K-Dur 20] 20 meq PO DAILY@0800 02/28/21 02/27/22 History Sennosides-Docusate Sodium 2 tab PO BID@0800,1700 02/28/21 02/27/22 History [Senokot-S] Brimonidine Tartrate [Alphagan P 1 drop RIGHT EYE TID@0800,1200,1700 09/22/21 02/27/22 History 0.2% Ophth Soln] Furosemide [Lasix] 40 mg PO DAILY@0800 09/22/21 02/27/22 History Spironolactone [Aldactone] 25 mg PO HS@2100 09/22/21 02/27/22 History Timolol 0.5% Ophth Soln [Timoptic 1 drop RIGHT EYE DAILY@0800 09/22/21 02/27/22 History 0.5% Ophth Soln] Acetaminophen Tab [Tylenol] 650 mg PO Q6HR PRN tab 09/29/21 02/27/22 Rx Difluprednate [Durezol] 1 drop RIGHT EYE QID@08,12,17,21 10/22/21 02/27/22 History Gabapentin [Neurontin] 300 mg PO TID@0600,1400,2200 10/22/21 02/27/22 History Magnesium Hydroxide [Milk of 7,200 mg PO Q48H PRN 10/22/21 02/27/22 History Magnesia Concentrate] Metoprolol Tartrate [Lopressor] 50 mg PO BID@0800,1700 10/22/21 02/27/22 History Na Phos,M-B/Na Phos,Di-Ba [Fleet 133 ml RECTAL DAILY PRN 10/22/21 02/27/22 History Adult] Pantoprazole [Protonix] 40 mg PO DAILY@0600 10/22/21 02/27/22 History bisacodyL 10 mg RECTAL DAILY PRN 10/22/21 02/27/22 History Baclofen 5 mg PO Q8H PRN 02/27/22 02/27/22 History HYDROcodone/APAP 5-325MG [[place] 1 tab PO Q6H PRN 02/27/22 02/27/22 History 5-325] Menthol [Biofreeze] 1 applic TOPICAL Q8H PRN 02/27/22 02/27/22 History Nitrofurantoin Monohyd/M-Cryst 100 mg PO DIRECTED 02/27/22 02/27/22 History [Macrobid] Allergies Allergy/AdvReac Type Severity Reaction Status Date / Time oxycodone Allergy Itching on Verified 02/27/22 08:20 back of hands Penicillins Allergy Itching Verified 02/27/22 08:20 all over body Physical Exam Vitals: Vital Signs Temp Pulse Resp BP Pulse Ox 02/27/22 11:18 98.2 F 92 18 109/52 97 02/27/22 09:47 72 16 101/56 96 02/27/22 08:09 98.2 F 84 18 110/89 98 02/27/22 07:47 114/80 02/27/22 07:23 97.8 F 95 18 92/50 94 L 02/27/22 06:00 91 15 107/65 96 02/27/22 05:00 98.2 F 94 15 106/70 97 02/27/22 02:53 98.4 F 95 16 108/73 94 L Intake and Output 02/26/22 02/27/22 02/27/22 22:59 06:59 14:59 Other: Voiding Method Bedpan Weight 108.862 kg General: Appears in no acute distress. HEAD: Normal with no signs of head trauma. EYES: PERRLA, EOMI, conjunctiva normal, no discharge. ENT: Hearing grossly intact, normal oropharynx. RESPIRATORY: Clear breath sounds bilaterally. No wheezes, rales, or rhonchi. Mildly hypoxic Minor. Saturating 94% on 2 L nasal cannula. Not on oxygen typically. C/V: Regular rate and rhythm. S1 and S2 auscultated, very mild pitting edema bilaterally., peripheral pulses 2+ and intact throughout ABD: Abd is soft, nontender, nondistended EXT: Normal range of motion, no obvious deformity SKIN: No rashes or lesions observed on exposed skin. NEURO: Alert and oriented 2-3 which is her baseline. No focal deficits otherwise. Results CBC & Chem 7: 02/28/22 07:51 02/28/22 07:51 Labs: Abnormal Lab Results - Last 24 Hours (Table) 02/27/22 02/27/22 02/27/22 Range/Units 03:03 03:03 04:35 WBC 15.0 H (3.8-10.6) k/uL Neutrophils # 12.4 H (1.3-7.7) k/uL Lymphocytes # 0.9 L (1.0-4.8) k/uL Sodium 135 L (137-145) mmol/L BUN 19 H (7-17) mg/dL Glucose 114 H (74-99) mg/dL Total Protein 6.2 L (6.3-8.2) g/dL Albumin 3.1 L (3.5-5.0) g/dL Urine Appearance Cloudy H (Clear) Urine Protein 1+ H (Negative) Urine Blood Trace H (Negative) Ur Leukocyte Esterase Large H (Negative) Urine WBC >182 H (0-5) /hpf Urine WBC Clumps Occasional H (None) /hpf Urine Bacteria Rare H (None) /hpf Urine Mucus Rare H (None) /hpf Microbiology - Last 24 Hours (Table) 02/27/22 04:35 Urine Culture - Preliminary Urine,Voided Assessment and Plan Assessment: 1. Acute exacerbation CHF - Patient has an EF of 40-45% on previous echocardiogram - Hasn't placed on Lasix 40 mg IV every 12 hours; continue with home dose of Aldactone; recommend repeating 2-D echo - We will monitor strict IGNACIO's, daily weights, low salt restricted diet - Cardiology is consulted and recommendations are pending 2. UTI/sepsis; patient has been placed on IV Rocephin; we will continue until final urine and blood culture results are available 3. Mild THOMAS; we will hold off on IV fluid hydration, given acute exacerbation CHF; we will monitor strict IGNACIO's, daily weights, renal function and electrolytes; avoid nephrotoxins and hypotension 4. Hyperlipidemia; currently not on any statin therapy 5. Chronic Atrial fibrillation; patient is rate controlled on metoprolol 50 mg twice a day; anticoagulated with Xarelto 6. Valvular heart disease; history of mitral/tricuspid valve repair/aortic valve replacement 7. Chronic back pain; continue with home dose of Cymbalta, [place] and Neurontin DVT prophylaxis; SCDs/systemic anticoagulation CODE STATUS; full
[2022-02-28] MEDS: FUROSEMIDE 40 MG TAB PO SCH (16:42)
--- NOTE | 2022-02-28 20:42 | P.PN ---
Subjective Progress Note Date: 02/28/22 81-year-old female with past medical history remarkable for chronic dementia/delirium baseline A&O 2-3, multiple falls, anemia, AAA, CHF on Xeralto who presents emergency department over concern for sepsis. Patient is currently being treated for UTI. Apparently has been having intermittent fevers at her nursing facility [facility]. Also concern for worsening shortness of breath as well as possible low blood pressure. He presents for further evaluation at this time. Patient appears to be at her baseline. His no acute complaints at this time. He is on nasal cannula as she did state she was slightly short of breath. Oxygen saturation is 94% on 2 L. Denies cough. Denies chest pain. Denies abd ominal pain, nausea, vomiting. Denies dysuria or hematuria. Denies orthopnea, PND. States her legs are chronically swollen but appear better than average. His no other acute complaints at this time. Presents for further evaluation. Patient is a DO NOT RESUSCITATE, no code per paperwork provided by nursing facility. Workup completed in ED reveals EKG shows chronic atrial fibrillation with no signs of ischemia. Laboratory studies were remarkable for a leukocytosis of 15.0. Patient does appear mildly fluid overloaded with a BNP of 30-40. Troponin is indeterminate. Covid is not detected. Chest x-ray does show signs of worsening pulmonary edema. CT brain shows no acute intracranial process. Objective - Vital Signs Vital signs: Vital Signs Temp 97.3 F L 02/28/22 13:56 Pulse 73 02/28/22 13:56 Resp 18 02/28/22 13:56 BP 90/53 02/28/22 13:56 Pulse Ox 97 02/28/22 13:56 FiO2 Intake & Output 02/27/22 02/28/22 02/28/22 18:59 06:59 18:59 Output Total 625 1000 Balance -625 -1000 Weight 108.862 kg Output: Urine 625 1000 Other: Voiding Method External Catheter - Exam General: Appears in no acute distress. HEAD: Normal with no signs of head trauma. EYES: PERRLA, EOMI, conjunctiva normal, no discharge. ENT: Hearing grossly intact, normal oropharynx. RESPIRATORY: Clear breath sounds bilaterally. No wheezes, rales, or rhonchi. Mildly hypoxic Minor. Saturating 94% on 2 L nasal cannula. Not on oxygen typically. C/V: Regular rate and rhythm. S1 and S2 auscultated, very mild pitting edema bilaterally., peripheral pulses 2+ and intact throughout ABD: Abd is soft, nontender, nondistended EXT: Normal range of motion, no obvious deformity SKIN: No rashes or lesions observed on exposed skin. NEURO: Alert and oriented 2-3 which is her baseline. No focal deficits otherwise. - Labs CBC & Chem 7: 02/28/22 07:51 02/28/22 07:51 Labs: Abnormal Lab Results - Last 24 Hours (Table) 02/28/22 02/28/22 Range/Units 07:51 07:51 WBC 12.91 H (4.50-10.00) X 10*3/uL RBC 3.91 L (4.10-5.20) X 10*6/uL Hgb 11.7 L (12.0-15.0) g/dL Hct 36.8 L (37.2-46.3) % MCHC 31.8 L (32.0-37.0) g/dL Immature Gran # 0.08 H (0.00-0.04) X 10*3/uL Neutrophils # 9.62 H (1.80-7.70) X 10*3/uL Monocytes # 1.15 H (0.20-1.00) X 10*3/uL Eosinophils # 0.66 H (0.04-0.35) X 10*3/uL Carbon Dioxide 28.4 H (20.0-27.5) mmol/L BUN/Creatinine Ratio 22.00 H (12.00-20.00) Ratio Microbiology - Last 24 Hours (Table) 02/27/22 04:35 Urine Culture - Final Urine,Voided 02/27/22 03:15 Blood Culture - Preliminary Blood No Growth after 24 hours 02/27/22 03:03 Blood Culture - Preliminary Blood No Growth after 24 hours Assessment and Plan Assessment: 1. Acute exacerbation CHF - Patient has an EF of 40-45% on previous echocardiogram - Hasn't placed on Lasix 40 mg IV every 12 hours; continue with home dose of Aldactone; recommend repeating 2-D echo - We will monitor strict IGNACIO's, daily weights, low salt restricted diet - Cardiology is consulted and recommendations are pending 2. UTI/sepsis; patient has been placed on IV Rocephin; we will continue until final urine and blood culture results are available 3. Mild THOMAS; we will hold off on IV fluid hydration, given acute exacerbation CHF; we will monitor strict IGNACIO's, daily weights, renal function and electrolytes; avoid nephrotoxins and hypotension 4. Hyperlipidemia; currently not on any statin therapy 5. Chronic Atrial fibrillation; patient is rate controlled on metoprolol 50 mg twice a day; anticoagulated with Xarelto 6. Valvular heart disease; history of mitral/tricuspid valve repair/aortic valve replacement 7. Chronic back pain; continue with home dose of Cymbalta, [place] and Neurontin DVT prophylaxis; SCDs/systemic anticoagulation CODE STATUS; full
[2022-03-01] MEDS: PANTOPRAZOLE 40 MG TABLET PO SCH (05:36)
[2022-03-01] MEDS: MIDODRINE 5 MG TAB PO SCH ×3 (05:36→16:36)
[2022-03-01] MEDS: GABAPENTIN 300 MG CAP PO SCH ×3 (05:36→21:44)
[2022-03-01] MEDS: METOPROLOL TARTRATE 50 MG TAB PO SCH ×2 (07:24→16:36)
[2022-03-01] MEDS: POTASSIUM CHLORIDE ER 20 MEQ TAB.ER PO SCH (07:24)
[2022-03-01] MEDS: TIMOLOL 0.5% OPHTH DROPS 5 ML BTL RIGHT EYE SCH (07:24)
[2022-03-01] MEDS: FERROUS SULFATE 325 MG TAB PO SCH ×2 (07:24→16:36)
[2022-03-01] MEDS: DULoxetine HCL 30 MG CAPSULE.DR PO SCH ×2 (07:24→16:36)
[2022-03-01] MEDS: FUROSEMIDE 40 MG TAB PO SCH ×2 (07:24→14:52)
[2022-03-01] MEDS: RIVAROXABAN 15 MG TAB PO SCH (07:24)
[2022-03-01] MEDS: BRIMONIDINE TARTRATE 0.2% DROPS 5 ML BTL RIGHT EYE SCH ×3 (07:25→16:36)
[2022-03-01] MEDS: DIFLUPREDNATE RIGHT EYE SCH ×4 (07:33→21:45)
[2022-03-01 10:38] LABS: HCT 35.6 % (37.2-46.3); HGB 11.1 g/dL (12.0-15.0); MCH 29.7 pg (27.0-32.0); MCHC 31.2 g/dL (32.0-37.0); MCV 95.2 fL (80.0-97.0); Mean Platelet Volume 10.2 fL (9.5-12.2); NRBC Per 100 WBC 0 /100 WBCS (0.0-0.0); Platelet Count 192 X 10*3/uL (140-440); RBC 3.74 X 10*6/uL (4.10-5.20); RDW 13.8 % (11.5-14.5); WBC 10.26 X 10*3/uL (4.50-10.00)
--- NOTE | 2022-03-01 16:53 | P.PN ---
Subjective Progress Note Date: 03/01/22 Principal diagnosis: Acute systolic CHF UTI Leukocytosis 81-year-old female with past medical history remarkable for chronic dementia/delirium baseline A&O 2-3, multiple falls, anemia, AAA, CHF on Xeralto who presents emergency department over concern for sepsis. Patient is currently being treated for UTI. Apparently has been having intermittent fevers at her nursing facility of [facility]. Also concern for worsening shortness of breath as well as possible low blood pressure. He presents for further evaluation at this time. Patient appears to be at her baseline. His no acute complaints at this time. He is on nasal cannula as she did state she was slightly short of breath. Oxygen saturation is 94% on 2 L. Denies cough. Denies chest pain. Denies abdominal pain, nausea, vomiting. Denies dysuria or hematuria. Denies orthopnea, PND. States her legs are chronically swollen but appear better than average. His no other acute complaints at this time. Presents for further evaluation. Patient is a DO NOT RESUSCITATE, no code per paperwork provided by nursing facility. Workup completed in ED reveals EKG shows chronic atrial fibrillation with no signs of ischemia. Laboratory studies were remarkable for a leukocytosis of 15.0. Patient does appear mildly fluid overloaded with a BNP of 30-40. Troponin is indeterminate. Covid is not detected. Chest x-ray does show signs of worsening pulmonary edema. CT brain shows no acute intracranial process. 03/01/2022 Patient is seen and evaluated in room at bedside; no specific complaints at this time Vital signs are reviewed and are stable Admitted with acute exacerbation of CHF; echocardiogram reveals an EF of 40-45%; Lasix has been changed to an oral dose of 40 mg twice a day; patient will remain on current dose of Aldactone Patient remains on IV antibiotics for UTI; final blood and urine cultures have been negative; white blood count was found to be elevated up to 15,000 and down to 10.6 this morning; we'll continue with IV Rocephin and empiric course of antibiotics for 5 days Objective - Vital Signs Vital signs: Vital Signs Temp 97.9 F 03/01/22 08:00 Pulse 70 03/01/22 08:00 Resp 18 03/01/22 08:00 BP 109/61 03/01/22 08:00 Pulse Ox 96 03/01/22 09:28 FiO2 Intake & Output 02/28/22 03/01/22 03/01/22 18:59 06:59 18:59 Intake Total 1080 Output Total 1600 500 700 Balance -520 500 -700 Intake: Oral 1080 Output: Urine 1600 500 700 Other: Voiding Method External Catheter - Exam General: Appears in no acute distress. HEAD: Normal with no signs of head trauma. EYES: PERRLA, EOMI, conjunctiva normal, no discharge. ENT: Hearing grossly intact, normal oropharynx. RESPIRATORY: Clear breath sounds bilaterally. No wheezes, rales, or rhonchi. Mildly hypoxic Minor. Saturating 94% on 2 L nasal cannula. Not on oxygen typically. C/V: Regular rate and rhythm. S1 and S2 auscultated, very mild pitting edema bilaterally., peripheral pulses 2+ and intact throughout ABD: Abd is soft, nontender, nondistended EXT: Normal range of motion, no obvious deformity SKIN: No rashes or lesions observed on exposed skin. NEURO: Alert and oriented 2-3 which is her baseline. No focal deficits otherwise. - Labs CBC & Chem 7: 03/01/22 03:24 02/28/22 07:51 Labs: Abnormal Lab Results - Last 24 Hours (Table) 02/28/22 03/01/22 Range/Units 07:51 03:24 WBC 10.26 H (4.50-10.00) X 10*3/uL RBC 3.74 L (4.10-5.20) X 10*6/uL Hgb 11.1 L (12.0-15.0) g/dL Hct 35.6 L (37.2-46.3) % MCHC 31.2 L (32.0-37.0) g/dL Carbon Dioxide 28.4 H (20.0-27.5) mmol/L BUN/Creatinine Ratio 22.00 H (12.00-20.00) Ratio Microbiology - Last 24 Hours (Table) 02/27/22 03:03 Blood Culture - Preliminary Blood No Growth after 48 hours 02/27/22 03:15 Blood Culture - Preliminary Blood No Growth after 48 hours 02/27/22 04:35 Urine Culture - Final Urine,Voided Assessment and Plan Assessment: 1. Acute exacerbation CHF - Patient has an EF of 40-45% on previous echocardiogram - Hasn't placed on Lasix 40 mg IV every 12 hours; continue with home dose of Aldactone; recommend repeating 2-D echo - We will monitor strict IGNACIO's, daily weights, low salt restricted diet - Cardiology is consulted and recommendations are pending 2. UTI/sepsis; patient has been placed on IV Rocephin; we will continue until final urine and blood culture results are available 3. Mild THOMAS; we will hold off on IV fluid hydration, given acute exacerbation CHF; we will monitor strict IGNACIO's, daily weights, renal function and electrolytes; avoid nephrotoxins and hypotension 4. Hyperlipidemia; currently not on any statin therapy 5. Chronic Atrial fibrillation; patient is rate controlled on metoprolol 50 mg twice a day; anticoagulated with Xarelto 6. Valvular heart disease; history of mitral/tricuspid valve repair/aortic valve replacement 7. Chronic back pain; continue with home dose of Cymbalta, [place] and Neurontin DVT prophylaxis; SCDs/systemic anticoagulation CODE STATUS; full
[2022-03-01] MEDS: SPIRONOLACTONE 25 MG TAB PO SCH (21:44)
--- NOTE | 2022-03-01 21:56 | US ---
EXAMINATION TYPE: US renals and bladder DATE OF EXAM: 03/01/2022 COMPARISON: US 2018 CLINICAL HISTORY: recrnt uti. Exam done portable EXAM MEASUREMENTS: Right Kidney: 9.4 x 4.5 x 4.3 cm Left Kidney: not seen Difficult and limited study due to patient body habitus Right Kidney: visualized portions appear wnl Left Kidney: obscured by overlying bowel gas Bladder: wnl Bilateral Jets seen: no IMPRESSION: Exam severely limited due to patient size. Right kidney shows no evidence of mass or obstruction. Lef t kidney not seen. No evidence of a bladder mass.
[2022-03-02] MEDS: PANTOPRAZOLE 40 MG TABLET PO SCH (06:05)
[2022-03-02] MEDS: GABAPENTIN 300 MG CAP PO SCH ×3 (06:05→20:32)
[2022-03-02 06:14] LABS: Appearance,Urine Cloudy (Clear); Bacteria,Urine Rare /hpf; Bilirubin,Urine Negative (Negative); Blood,Urine Negative (Negative); Color,Urine Yellow; Glucose,Urine (UA) Negative (Negative); Ketones,Urine Negative (Negative); Leukocyte Esterase,Urine Large (Negative); Nitrite,Urine Negative (Negative); PH, Urine 5.5 (5.0-8.0); Protein,Urine Trace (Negative); RBC,Urine 2 /hpf (0-5); Specific Gravity,Urine 1.011 (1.001-1.035); Squamous Epithelial Cell,Urine <1 /hpf (0-4); Urobilinogen,Urine <2.0 mg/dL (<2.0); WBC,Urine >182 /hpf (0-5)
[2022-03-02 09:17] LABS: HCT 38.2 % (37.2-46.3); HGB 12.1 g/dL (12.0-15.0); MCH 30.2 pg (27.0-32.0); MCHC 31.7 g/dL (32.0-37.0); MCV 95.3 fL (80.0-97.0); Mean Platelet Volume 10.3 fL (9.5-12.2); NRBC Per 100 WBC 0 /100 WBCS (0.0-0.0); Platelet Count 208 X 10*3/uL (140-440); RBC 4.01 X 10*6/uL (4.10-5.20); RDW 13.7 % (11.5-14.5); WBC 8.57 X 10*3/uL (4.50-10.00)
[2022-03-02] MEDS: MIDODRINE 5 MG TAB PO SCH ×3 (09:57→16:43)
[2022-03-02] MEDS: TIMOLOL 0.5% OPHTH DROPS 5 ML BTL RIGHT EYE SCH (09:57)
[2022-03-02] MEDS: BRIMONIDINE TARTRATE 0.2% DROPS 5 ML BTL RIGHT EYE SCH ×3 (09:57→16:44)
[2022-03-02] MEDS: METOPROLOL TARTRATE 50 MG TAB PO SCH ×2 (09:58→16:43)
[2022-03-02] MEDS: RIVAROXABAN 15 MG TAB PO SCH (09:58)
[2022-03-02] MEDS: FERROUS SULFATE 325 MG TAB PO SCH ×2 (09:58→16:43)
[2022-03-02] MEDS: POTASSIUM CHLORIDE ER 20 MEQ TAB.ER PO SCH (09:58)
[2022-03-02] MEDS: FUROSEMIDE 40 MG TAB PO SCH ×2 (09:58→16:43)
[2022-03-02] MEDS: DIFLUPREDNATE RIGHT EYE SCH ×4 (09:58→20:14)
[2022-03-02] MEDS: DULoxetine HCL 30 MG CAPSULE.DR PO SCH ×2 (09:58→16:43)
[2022-03-02 10:02] LABS: ALT 8 U/L (8-44); AST 16 U/L (13-35); African American GFR (CKD) 57.8 (60.0-200.0); Albumin 3.4 g/dL (3.8-4.9); Alkaline Phosphatase 74 U/L (41-126); BUN/Creat Ratio 19.62 Ratio (12.00-20.00); Bilirubin, Conjugated <0.20 mg/dL (0.20-0.40); Blood Urea Nitrogen 20.8 mg/dL (9.0-27.0); Calcium 9.6 mg/dL (8.7-10.3); Carbon Dioxide 33.3 mmol/L (20.0-27.5); Chloride 94 mmol/L (96-109); Globulin 3.1 g/dL (1.6-3.3); Glucose 102 mg/dL (70-110); Magnesium 1.9 mg/dL (1.5-2.4); Non-African American GFR(CKD) 49.9 (60.0-200.0); Potassium 3.9 mmol/L (3.5-5.5); Sodium 139 mmol/L (135-145); Total Protein 6.4 g/dL (6.2-8.2)
--- NOTE | 2022-03-02 14:58 | P.PN ---
Subjective 81-year-old female with past medical history remarkable for chronic dementia/delirium baseline A&O 2-3, multiple falls, anemia, AAA, CHF on Xeralto who presents emergency department over concern for sepsis. Patient is currently being treated for UTI. Apparently has been having intermittent fevers at her nursing facility of [facility]. Also concern for worsening shortness of breath as well as possible low blood pressure. He presents for further evaluation at this time. Patient appears to be at her baseline. His no acute complaints at this time. He is on nasal cannula as she did state she was slightly short of breath. Oxygen saturation is 94% on 2 L. Denies cough. Denies chest pain. Denies abdominal pain, nausea, vomiting. Denies dysuria or hematuria. Denies orthopnea, PND. States her legs are chronically swollen but appear better than average. His no other acute complaints at this time. Presents for further evaluation. Patient is a DO NOT RESUSCITATE, no code per paperwork provided by nursing facility. Workup completed in ED reveals EKG shows chronic atrial fibrillation with no signs of ischemia. Laboratory studies were remarkable for a leukocytosis of 15.0. Patient does appear mildly fluid overloaded with a BNP of 30-40. Troponin is indeterminate. Covid is not detected. Chest x-ray does show signs of worsening pulmonary edema. CT brain shows no acute intracranial process. 03/01/2022 Patient is seen and evaluated in room at bedside; no specific complaints at this time Vital signs are reviewed and are stable Admitted with acute exacerbation of CHF; echocardiogram reveals an EF of 40-45%; Lasix has been changed to an oral dose of 40 mg twice a day; patient will remain on current dose of Aldactone Patient remains on IV antibiotics for UTI; final blood and urine cultures have been negative; white blood count was found to be elevated up to 15,000 and down to 10.6 this morning; we'll continue with IV Rocephin and empiric course of antibiotics for 5 days 03/02/2022 This is a pleasant 81 years old female who was admitted for subjective fever suspicions UTI, worsening dyspnea and blood pressure control. Her urinalysis was positive and she was placed on ceftriaxone. proCalcitonin elevated 0.38. And patient showed interval improvement in her weakness however she still feels okay and week, repeat nonetheless is still abnormal. The first urine culture is negative. So antibiotics was suggested to Danyelle. Enterostomal Nurse evaluated the patient for CHF, currently she is on oral Lasix and her home dose of Zosyn, given her history of A. fib and follow-up repair. Patient started eating yesterday, no bowel movement yet. We'll check KUB and start Colace 3 days Objective - Vital Signs Vital signs: Vital Signs Temp 98.2 F 03/02/22 07:48 Pulse 82 03/02/22 07:56 Resp 18 03/02/22 07:56 BP 97/62 03/02/22 07:48 Pulse Ox 98 03/02/22 07:48 FiO2 Intake & Output 03/01/22 03/02/22 03/02/22 18:59 06:59 18:59 Intake Total 1080 Output Total 700 700 700 Balance 380 -700 -700 Intake: Oral 1080 Output: Urine 700 700 700 Other: Voiding Method External Catheter External Catheter - Exam -GENERAL: The patient is alert and oriented x3, not in any acute distress. Morbidly obese, generally weak HEENT: Pupils are round and equally reacting to light. EOMI. No scleral icterus. No conjunctival pallor. Normocephalic, atraumatic. No pharyngeal erythema. No thyromegaly. CARDIOVASCULAR: S1 and S2 present. No murmurs, rubs, or gallops. PULMONARY: Chest is clear to auscultation, no wheezing or crackles. ABDOMEN: Soft, nontender, nondistended, normoactive bowel sounds. No palpable organomegaly. MUSCULOSKELETAL: No joint swelling or deformity. EXTREMITIES: No cyanosis, clubbing, or pedal edema. NEUROLOGICAL: Gross neurological examination did not reveal any focal deficits. SKIN: No rashes. no petechiae. - Labs CBC & Chem 7: 03/02/22 03:22 03/02/22 03:22 Labs: Abnormal Lab Results - Last 24 Hours (Table) 03/02/22 03/02/22 03/02/22 Range/Units 03:22 03:22 03:22 RBC 4.01 L (4.10-5.20) X 10*6/uL MCHC 31.7 L (32.0-37.0) g/dL Chloride 94 L (96-109) mmol/L Carbon Dioxide 33.3 H (20.0-27.5) mmol/L Est GFR (CKD-EPI)AfAm 57.8 L (60.0-200.0) Est GFR (CKD-EPI)NonAf 49.9 L (60.0-200.0) Conjugated Bilirubin <0.20 L (0.20-0.40) mg/dL Albumin 3.4 L (3.8-4.9) g/dL Albumin/Globulin Ratio 1.10 L (1.60-3.17) g/dL Procalcitonin 0.38 H (0.02-0.09) ng/mL Urine Appearance (Clear) Urine Protein (Negative) Ur Leukocyte Esterase (Negative) Urine WBC (0-5) /hpf Urine WBC Clumps (None) /hpf Urine Bacteria (None) /hpf 03/02/22 Range/Units 05:30 RBC (4.10-5.20) X 10*6/uL MCHC (32.0-37.0) g/dL Chloride (96-109) mmol/L Carbon Dioxide (20.0-27.5) mmol/L Est GFR (CKD-EPI)AfAm (60.0-200.0) Est GFR (CKD-EPI)NonAf (60.0-200.0) Conjugated Bilirubin (0.20-0.40) mg/dL Albumin (3.8-4.9) g/dL Albumin/Globulin Ratio (1.60-3.17) g/dL Procalcitonin (0.02-0.09) ng/mL Urine Appearance Cloudy H (Clear) Urine Protein Trace H (Negative) Ur Leukocyte Esterase Large H (Negative) Urine WBC >182 H (0-5) /hpf Urine WBC Clumps Moderate H (None) /hpf Urine Bacteria Rare H (None) /hpf Microbiology - Last 24 Hours (Table) 02/27/22 03:03 Blood Culture - Preliminary Blood No Growth after 72 hours 02/27/22 03:15 Blood Culture - Preliminary Blood No Growth after 72 hours Assessment and Plan Assessment: 1. Acute exacerbation CHF - Patient has an EF of 40-45% on previous echocardiogram - Change Lasix 40 mg every 12 hours to oral dose; - Enterostomal Nurse on the case, continue with the current medication 2. UTI/sepsis; switch ceftriaxone and to Levaquin. No urinary retention. Renal ultrasound is negative 3. Mild THOMAS; improved 4. Hyperlipidemia; currently not on any statin therapy 5. Chronic Atrial fibrillation; patient is rate controlled on metoprolol 50 mg twice a day; anticoagulated with Xarelto 6. Valvular heart disease; history of mitral/tricuspid valve repair/aortic valve replacement. Currently on Xarelto 7. Chronic back pain; continue with home dose of Cymbalta, [place] and Neurontin DVT prophylaxis; SCDs/systemic anticoagulation CODE STATUS; full Chest physical therapy and occupational therapy assessment as patient is a from home
[2022-03-02] MEDS: LEVOFLOXACIN 500MG-D5W PMX 500 MG in DEXTROSE/WATER 1 100ML.BAG IVPB SCH (16:43)
--- NOTE | 2022-03-02 18:26 | XR ---
EXAMINATION TYPE: XR KUB DATE OF EXAM: 03/02/2022 COMPARISON: NONE HISTORY: Constipation TECHNIQUE: 2 views supine FINDINGS: There is some retained fecal material in the large bowel. No evidence of pneumoperitoneum. No pathologic calcifications over the kidneys. There is bilateral hip prosthesis. This posterior fusi on surgery at L4-5. IMPRESSION: There is evidence for constipation. No free air.
[2022-03-02] MEDS: SPIRONOLACTONE 25 MG TAB PO SCH (20:32)
[2022-03-02] MEDS: DOCUSATE 100 MG CAP PO SCH (20:32)
[2022-03-03] MEDS: PANTOPRAZOLE 40 MG TABLET PO SCH (05:56)
[2022-03-03] MEDS: GABAPENTIN 300 MG CAP PO SCH ×3 (05:56→21:35)
[2022-03-03] MEDS: RIVAROXABAN 15 MG TAB PO SCH (08:10)
[2022-03-03] MEDS: MIDODRINE 5 MG TAB PO SCH ×3 (08:10→21:19)
[2022-03-03] MEDS: DULoxetine HCL 30 MG CAPSULE.DR PO SCH ×2 (08:11→21:18)
[2022-03-03] MEDS: FERROUS SULFATE 325 MG TAB PO SCH ×2 (08:11→21:19)
[2022-03-03] MEDS: FUROSEMIDE 40 MG TAB PO SCH ×2 (08:12→21:18)
[2022-03-03] MEDS: POTASSIUM CHLORIDE ER 20 MEQ TAB.ER PO SCH (08:13)
[2022-03-03] MEDS: DOCUSATE 100 MG CAP PO SCH ×2 (08:13→21:35)
[2022-03-03] MEDS: METOPROLOL TARTRATE 50 MG TAB PO SCH ×2 (08:14→21:19)
[2022-03-03] MEDS: TIMOLOL 0.5% OPHTH DROPS 5 ML BTL RIGHT EYE SCH (08:14)
[2022-03-03] MEDS: BRIMONIDINE TARTRATE 0.2% DROPS 5 ML BTL RIGHT EYE SCH ×3 (08:15→21:19)
[2022-03-03] MEDS: DIFLUPREDNATE RIGHT EYE SCH ×4 (08:16→21:38)
[2022-03-03 09:13] LABS: Basophils # (A) 0.05 X 10*3/uL (0.00-0.10); Basophils % (A) 0.6 %; Eosinophils # (A) 0.45 X 10*3/uL (0.04-0.35); Eosinophils % (A) 5.3 %; HGB 12.5 g/dL (12.0-15.0); Immature Grans, Automated 0.5 %; Lymphocytes # (A) 1.53 X 10*3/uL (0.90-5.00); Lymphocytes % (A) 18.1 %; MCH 30.2 pg (27.0-32.0); MCHC 32.1 g/dL (32.0-37.0); MCV 94.2 fL (80.0-97.0); Mean Platelet Volume 9.9 fL (9.5-12.2); Monocytes % (A) 10.7 %; NRBC Per 100 WBC 0 /100 WBCS (0.0-0.0); Neutrophils # (A) 5.47 X 10*3/uL (1.80-7.70); Neutrophils % (A) 64.8 %; Platelet Count 190 X 10*3/uL (140-440); RBC 4.14 X 10*6/uL (4.10-5.20); RDW 13.4 % (11.5-14.5); WBC 8.44 X 10*3/uL (4.50-10.00)
[2022-03-03 09:32] LABS: African American GFR (CKD) 62.1 (60.0-200.0); Anion Gap 10.8 mmol/L (10.00-18.00); BUN/Creat Ratio 18.6 Ratio (12.00-20.00); Blood Urea Nitrogen 18.6 mg/dL (9.0-27.0); Calcium 9.3 mg/dL (8.7-10.3); Carbon Dioxide 34.2 mmol/L (20.0-27.5); Magnesium 1.9 mg/dL (1.5-2.4); Non-African American GFR(CKD) 53.5 (60.0-200.0); Potassium 3.6 mmol/L (3.5-5.5)
[2022-03-03] MEDS: SPIRONOLACTONE 25 MG TAB PO SCH (21:35)
[2022-03-04] MEDS: PANTOPRAZOLE 40 MG TABLET PO SCH (05:33)
[2022-03-04] MEDS: GABAPENTIN 300 MG CAP PO SCH ×3 (05:33→20:23)
[2022-03-04] MEDS: DULoxetine HCL 30 MG CAPSULE.DR PO SCH ×2 (08:09→17:25)
[2022-03-04] MEDS: RIVAROXABAN 15 MG TAB PO SCH (08:10)
[2022-03-04] MEDS: FERROUS SULFATE 325 MG TAB PO SCH ×2 (08:11→17:24)
[2022-03-04] MEDS: DOCUSATE 100 MG CAP PO SCH ×2 (08:11→20:23)
[2022-03-04] MEDS: MIDODRINE 5 MG TAB PO SCH ×3 (08:12→17:25)
[2022-03-04] MEDS: FUROSEMIDE 40 MG TAB PO SCH ×2 (08:12→17:24)
[2022-03-04] MEDS: POTASSIUM CHLORIDE ER 20 MEQ TAB.ER PO SCH (08:13)
[2022-03-04] MEDS: BRIMONIDINE TARTRATE 0.2% DROPS 5 ML BTL RIGHT EYE SCH ×3 (08:14→17:24)
[2022-03-04] MEDS: METOPROLOL TARTRATE 50 MG TAB PO SCH ×2 (08:16→17:25)
[2022-03-04] MEDS: TIMOLOL 0.5% OPHTH DROPS 5 ML BTL RIGHT EYE SCH (08:16)
[2022-03-04] MEDS: DIFLUPREDNATE RIGHT EYE SCH ×4 (08:26→20:16)
--- NOTE | 2022-03-04 12:13 | P.DS ---
Providers Date of admission: 02/27/22 05:12 Expected date of discharge: 03/04/22 Attending physician: Bolivar Valiente Consults: 02/27/22 05:11 Consult Physician Routine Consulting Provider: [facility] Consult Reason/Comments: chf, hypoxia Do you want consulting provider notified?: Yes, Notify in am Primary care physician: Bolivar Valiente [place] [facility] Course: Final Diagnosis: Acute CHF exacerbation, systolic dysfunction Hyperlipidemia Sepsis secondary to acute UTI. Acute renal failure Chronic atrial fibrillation, anticoagulated with Xarelto Valvular heart disease:history of mitral/tricuspid valve repair/aortic valve replacement. Chronic back pain This is 81-year-old female admitted with acute CHF exacerbation, sepsis, acute UTI and multiple other medical issues. Maintained on IV antibiotics, significant clinical improvement. Afebrile, normal WBC, renal function within normal limits. Denies dysuria, frequency, flank pain or hematuria. Evaluated by cardiology, Lasix dose increased. Continue with increased dose and reevaluate in a week. Follow-up with Dr. Villanueva outpatient in 1 week. Significant clinical improvement. Patient will be discharged to [facility] subacute rehab in stable condition with guarded prognosis. The impression and plan of care has been dictated as directed. : I performed a history and examination of this patient, discussed the same with the dictator. I agree with the dictator's note ,documented as a scribe. Any additional findings or plans will be noted. Patient Condition at Discharge: Stable Plan - Discharge Summary Discharge Rx Participant: No New Discharge Prescriptions: New Docusate [Colace] 100 mg PO BID cap Midodrine [ProAmatine] 10 mg PO AC-TID tab Furosemide [Lasix] 40 mg PO BID@0900,1600 tab Continue Rivaroxaban [Xarelto] 15 mg PO DAILY@0800 DULoxetine HCL [Cymbalta] 30 mg PO BID@0800,1700 Brimonidine Tartrate [Alphagan P 0.2% Ophth Soln] 1 drop RIGHT EYE TID@0800,1200,1700 Timolol 0.5% Ophth Soln [Timoptic 0.5% Ophth Soln] 1 drop RIGHT EYE DAILY@0800 Acetaminophen Tab [Tylenol] 650 mg PO Q6HR PRN tab PRN Reason: Fever And/ Or Pain Na Phos,M-B/Na Phos,Di-Ba [Fleet Adult] 133 ml RECTAL DAILY PRN PRN Reason: Constipation Pantoprazole [Protonix] 40 mg PO DAILY@0600 Magnesium Hydroxide [Milk of Magnesia Concentrate] 7,200 mg PO Q48H PRN PRN Reason: Constipation Menthol [Biofreeze] 1 applic TOPICAL Q8H PRN PRN Reason: left hip pain Gabapentin [Neurontin] 300 mg PO TID@0600,1400,2200 #9 cap HYDROcodone/APAP 5-325MG [[place] 5-325] 1 tab PO Q6H PRN #12 tab PRN Reason: Pain Ferrous Sulfate [Feosol] 325 mg PO BID@0800,1700 Potassium Chloride ER [K-Dur 20] 20 meq PO DAILY@0800 Sennosides-Docusate Sodium [Senokot-S] 2 tab PO BID@0800,1700 Spironolactone [Aldactone] 25 mg PO HS@2100 bisacodyL 10 mg RECTAL DAILY PRN PRN Reason: Constipation Difluprednate [Durezol] 1 drop RIGHT EYE QID@08,12,17,21 Metoprolol Tartrate [Lopressor] 50 mg PO BID@0800,1700 Baclofen 5 mg PO Q8H PRN PRN Reason: Muscle Spasm Nitrofurantoin Monohyd/M-Cryst [Macrobid] 100 mg PO DIRECTED Discontinued Furosemide [Lasix] 40 mg PO DAILY@0800 Discharge Medication List DULoxetine HCL [Cymbalta] 30 mg PO BID@0800,1700 02/04/21 [History] Rivaroxaban [Xarelto] 15 mg PO DAILY@0800 02/04/21 [History] Ferrous Sulfate [Feosol] 325 mg PO BID@0800,1700 02/28/21 [History] Potassium Chloride ER [K-Dur 20] 20 meq PO DAILY@0800 02/28/21 [History] Sennosides-Docusate Sodium [Senokot-S] 2 tab PO BID@0800,1700 02/28/21 [History] Brimonidine Tartrate [Alphagan P 0.2% Ophth Soln] 1 drop RIGHT EYE TID@0800,1200,1700 09/22/21 [History] Spironolactone [Aldactone] 25 mg PO HS@2100 09/22/21 [History] Timolol 0.5% Ophth Soln [Timoptic 0.5% Ophth Soln] 1 drop RIGHT EYE DAILY@0800 09/22/21 [History] Acetaminophen Tab [Tylenol] 650 mg PO Q6HR PRN tab 09/29/21 [Rx] Difluprednate [Durezol] 1 drop RIGHT EYE QID@08,12,17,21 10/22/21 [History] Magnesium Hydroxide [Milk of Magnesia Concentrate] 7,200 mg PO Q48H PRN 10/22/21 [History] Metoprolol Tartrate [Lopressor] 50 mg PO BID@0800,1700 10/22/21 [History] Na Phos,M-B/Na Phos,Di-Ba [Fleet Adult] 133 ml RECTAL DAILY PRN 10/22/21 [History] Pantoprazole [Protonix] 40 mg PO DAILY@0600 10/22/21 [History] bisacodyL 10 mg RECTAL DAILY PRN 10/22/21 [History] Baclofen 5 mg PO Q8H PRN 02/27/22 [History] Menthol [Biofreeze] 1 applic TOPICAL Q8H PRN 02/27/22 [History] Nitrofurantoin Monohyd/M-Cryst [Macrobid] 100 mg PO DIRECTED 02/27/22 [History] Docusate [Colace] 100 mg PO BID cap 03/04/22 [Rx] Furosemide [Lasix] 40 mg PO BID@0900,1600 tab 03/04/22 [Rx] Gabapentin [Neurontin] 300 mg PO TID@0600,1400,2200 #9 cap 03/04/22 [Rx] HYDROcodone/APAP 5-325MG [[place] 5-325] 1 tab PO Q6H PRN #12 tab 03/04/22 [Rx] Midodrine [ProAmatine] 10 mg PO AC-TID tab 03/04/22 [Rx] Follow up Appointment(s)/Referral(s): Bolivar Valiente DO [Primary Care Provider] - 1 Week (After DC from subacute rehab) Activity/Diet/Wound Care/Special Instructions: [place] diuretics as per Cardiology cbc,bmp in 3 days Discharge Disposition: TRANSFER TO SNF/ECF
[2022-03-04] MEDS: LEVOFLOXACIN 500MG-D5W PMX 500 MG in DEXTROSE/WATER 1 100ML.BAG IVPB SCH (14:14)
[2022-03-04] MEDS: SPIRONOLACTONE 25 MG TAB PO SCH (20:23)
[2022-03-05] MEDS: PANTOPRAZOLE 40 MG TABLET PO SCH (05:24)
[2022-03-05] MEDS: GABAPENTIN 300 MG CAP PO SCH ×2 (05:24→13:09)
[2022-03-05] MEDS: METOPROLOL TARTRATE 50 MG TAB PO SCH (08:34)
[2022-03-05] MEDS: FUROSEMIDE 40 MG TAB PO SCH (08:34)
[2022-03-05] MEDS: POTASSIUM CHLORIDE ER 20 MEQ TAB.ER PO SCH (08:34)
[2022-03-05] MEDS: MIDODRINE 5 MG TAB PO SCH ×2 (08:35→12:32)
[2022-03-05] MEDS: FERROUS SULFATE 325 MG TAB PO SCH (08:35)
[2022-03-05] MEDS: DOCUSATE 100 MG CAP PO SCH (08:35)
[2022-03-05] MEDS: DULoxetine HCL 30 MG CAPSULE.DR PO SCH (08:37)
[2022-03-05] MEDS: BRIMONIDINE TARTRATE 0.2% DROPS 5 ML BTL RIGHT EYE SCH ×2 (08:38→12:32)
[2022-03-05] MEDS: TIMOLOL 0.5% OPHTH DROPS 5 ML BTL RIGHT EYE SCH (08:38)
[2022-03-05] MEDS: RIVAROXABAN 15 MG TAB PO SCH (08:41)
[2022-03-05] MEDS: DIFLUPREDNATE RIGHT EYE SCH ×2 (08:50→12:27)
[2022-03-05 08:57] VITALS: RESP 18
[2022-03-05 11:37] VITALS: BMI 41.1
[2022-03-05 12:48] VITALS: BP 98/59; PULSE 76; TEMP 97.6
== END 2022-03-05 17:55 | DRG 871 ==
LOC: EC 02:53 → 4SSUR 05:12
PROVIDERS: ADMIT Family Medicine; ATTEND Family Medicine
DX: A41.9 Sepsis, unspecified organism (principal); I50.33 Acute on chronic diastolic (congestive) heart failure; I48.20 Chronic atrial fibrillation, unspecified; N39.0 Urinary tract infection, site not specified; J98.11 Atelectasis; N17.9 Acute kidney failure, unspecified; F03.90 Unspecified dementia, unspecified severity, without behavioral disturbance, psychotic disturbance, mood disturbance, and anxiety; I71.4 Abdominal aortic aneurysm, without rupture; Z66 Do not resuscitate; Z20.822 Contact with and (suspected) exposure to COVID-19; E78.5 Hyperlipidemia, unspecified; D64.9 Anemia, unspecified; I08.1 Rheumatic disorders of both mitral and tricuspid valves; G89.29 Other chronic pain; M54.9 Dorsalgia, unspecified; R29.6 Repeated falls; R09.02 Hypoxemia; M19.90 Unspecified osteoarthritis, unspecified site; Z91.19 Patient's noncompliance with other medical treatment and regimen; Z79.01 Long term (current) use of anticoagulants; Z79.899 Other long term (current) drug therapy; Z86.19 Personal history of other infectious and parasitic diseases; Z96.649 Presence of unspecified artificial hip joint; Z96.659 Presence of unspecified artificial knee joint; Z95.2 Presence of prosthetic heart valve; Z88.5 Allergy status to narcotic agent; Z88.0 Allergy status to penicillin
CPT/HCPCS: 36415; 51702; 70450; 71045; 74018; 76770; 80048; 80053; 80076; 81001; 82150; 83605; 83690; 83735; 83880; 84145; 84484; 85025; 85027; 87040; 87086; 87635; 93005; 93306; 94760; 96361; 96365; 99285

== ENCOUNTER 2022-03-21 00:57 | Emergency (ER) | payer MEDICARE ==
[2022-03-21 01:03] VITALS: BP 116/78; PULSE 78; RESP 18; TEMP 97.5
--- NOTE | 2022-03-21 02:17 | CT ---
EXAMINATION TYPE: CT brain linus wo con DATE OF EXAM: 03/21/2022 COMPARISON: February 27, [address] scan HISTORY: fall CT DLP: 1650.9 mGycm Automated exposure control for dose reduction was used. Images of the brain and cervical spine obtained with no contrast. There is cerebral cortical atrophy. There is no mass effect or midline shift. No sign of intracranial hemorrhage. The calvarium is intact. The cervical vertebra have normal alignment. There is degenerative disc space narrowing from C4 to T1 with spurring of the endplates. Posterior elements are intact. No compression fracture. There is ant erior hypertrophic osteophyte formation IMPRESSION: [id number] cerebral atrophy. No acute intracranial abnormality. No change compared to the old e xam. Cervical spondylotic changes. No fracture.
--- NOTE | 2022-03-21 02:19 | XR ---
EXAMINATION TYPE: XR shoulder complete RT DATE OF EXAM: 03/21/2022 COMPARISON: 01/31/2021 HISTORY: Pain TECHNIQUE: 3 views FINDINGS: There is severe narrowing of the subacromial joint space. There is spurring at the glenohum eral joint. No fracture seen. There is no evidence of a fracture . IMPRESSION: Advanced arthritic changes and subacromial impingement. No fracture. No change compared t o old exam.
--- NOTE | 2022-03-21 02:21 | ED ---
Fall HPI - General Chief Complaint: Fall Stated Complaint: Fall, Head Injury Time Seen by Provider: 03/21/22 01:06 Source: EMS Mode of arrival: EMS - History of Present Illness MD Complaint: fall -: hour(s) Fall From: out of bed When Fall Occurred: just prior to arrival Fall Witnessed: no Place Fall Occurred: home Loss of Consciousness: none Prolonged Down Time?: no Location - Extremities: Right: Shoulder Context: history of frequent falls - Related Data Home Medications Medication Instructions Recorded Confirmed DULoxetine HCL [Cymbalta] 30 mg PO BID@0800,1700 02/04/21 02/27/22 Rivaroxaban [Xarelto] 15 mg PO DAILY@0800 02/04/21 02/27/22 Ferrous Sulfate [Feosol] 325 mg PO BID@0800,1700 02/28/21 02/27/22 Potassium Chloride ER [K-Dur 20] 20 meq PO DAILY@0800 02/28/21 02/27/22 Sennosides-Docusate Sodium 2 tab PO BID@0800,1700 02/28/21 02/27/22 [Senokot-S] Brimonidine Tartrate [Alphagan P 1 drop RIGHT EYE TID@0800,1200,1700 09/22/21 02/27/22 0.2% Ophth Soln] Spironolactone [Aldactone] 25 mg PO HS@2100 09/22/21 02/27/22 Timolol 0.5% Ophth Soln [Timoptic 1 drop RIGHT EYE DAILY@0800 09/22/21 02/27/22 0.5% Ophth Soln] Difluprednate [Durezol] 1 drop RIGHT EYE QID@08,12,17,21 10/22/21 02/27/22 Magnesium Hydroxide [Milk of 7,200 mg PO Q48H PRN 10/22/21 02/27/22 Magnesia Concentrate] Metoprolol Tartrate [Lopressor] 50 mg PO BID@0800,1700 10/22/21 02/27/22 Na Phos,M-B/Na Phos,Di-Ba [Fleet 133 ml RECTAL DAILY PRN 10/22/21 02/27/22 Adult] Pantoprazole [Protonix] 40 mg PO DAILY@0600 10/22/21 02/27/22 bisacodyL 10 mg RECTAL DAILY PRN 10/22/21 02/27/22 Baclofen 5 mg PO Q8H PRN 02/27/22 02/27/22 Menthol [Biofreeze] 1 applic TOPICAL Q8H PRN 02/27/22 02/27/22 Nitrofurantoin Monohyd/M-Cryst 100 mg PO DIRECTED 02/27/22 02/27/22 [Macrobid] Previous Rx's Medication Instructions Recorded Acetaminophen Tab [Tylenol] 650 mg PO Q6HR PRN tab 09/29/21 Docusate [Colace] 100 mg PO BID cap 03/04/22 Furosemide [Lasix] 40 mg PO BID@0900,1600 tab 03/04/22 Gabapentin [Neurontin] 300 mg PO TID@0600,1400,2200 #9 cap 03/04/22 HYDROcodone/APAP 5-325MG [[place] [facility] 1 tab PO Q6HR PRN 3 Days #12 tab 03/04/22 5-325] Midodrine [ProAmatine] 10 mg PO AC-TID tab 03/04/22 Allergies Allergy/AdvReac Type Severity Reaction Status Date / Time oxycodone Allergy Itching on Verified 03/21/22 01:03 back of hands Penicillins Allergy Itching Verified 03/21/22 01:03 all over body Review of Systems ROS Statement: Those systems with pertinent positive or pertinent negative responses have been documented in the HPI. ROS Other: All systems not noted in ROS Statement are negative. Constitutional: Denies: fever, chills Respiratory: Denies: cough, dyspnea Cardiovascular: Denies: chest pain, palpitations Gastrointestinal: Denies: abdominal pain, vomiting, diarrhea Musculoskeletal: Reports: as per HPI, arthralgia Skin: Denies: rash Neurological: Denies: headache, weakness, numbness Past Medical History Past Medical History: Atrial Fibrillation, Hyperlipidemia, Osteoarthritis (OA) Additional Past Medical History / Comment(s): cardiac valve issues History of Any Multi-Drug Resistant Organisms: VRE Date of last positivie culture/infection: 11/05/21 MDRO Source:: Urine Past Surgical History: Back Surgery, Cardiac Valve Replacement, Joint Replacement Additional Past Surgical History / Comment(s): hipx2 knee replacement Past Anesthesia/Blood Transfusion Reactions: No Reported Reaction Additional Past Anesthesia/Blood Transfusion Reaction / Comment(s): 2 blood transfusions in the past at [facility] for low HBG Past Psychological History: No Psychological Hx Reported Smoking Status: Never smoker Past Alcohol Use History: None Reported Past Drug Use History: None Reported General Exam General appearance: alert, in no apparent distress Head exam: Present: atraumatic, normocephalic Eye exam: Present: normal appearance. Absent: scleral icterus, conjunctival injection Neck exam: Present: normal inspection, full ROM. Absent: tenderness, meningismus Respiratory exam: Present: normal lung sounds bilaterally. Absent: respiratory distress, wheezes, rales, rhonchi, chest wall tenderness Cardiovascular Exam: Present: regular rate, normal rhythm, normal heart sounds. Absent: systolic murmur, diastolic murmur, rubs, gallop GI/Abdominal exam: Present: soft. Absent: distended, tenderness, guarding, rebound, rigid, mass Back exam: Present: normal inspection. Absent: vertebral tenderness Neurological exam: Present: alert. Absent: motor sensory deficit Skin exam: Present: warm, dry, intact, normal color. Absent: rash Course Vital Signs 03/21/22 01:01 Temperature 97.5 F L Pulse Rate 78 Respiratory 18 Rate Blood Pressure 116/78 O2 Sat by Pulse 97 Oximetry Disposition Clinical Impression: Fall, Shoulder injury Disposition: HOME SELF-CARE Condition: Good Instructions (If sedation given, give patient instructions): Fall Prevention for Older Adults (ED) Is patient prescribed a controlled substance at d/c from ED?: No Referrals: Bolivar Valiente DO [Primary Care Provider] - 1-2 days
== END 2022-03-21 03:17 | disposition home or self-care (01) ==
LOC: EC 00:57
DX: S49.91XA Unspecified injury of right shoulder and upper arm, initial encounter (principal); E78.5 Hyperlipidemia, unspecified; M19.90 Unspecified osteoarthritis, unspecified site; Z86.79 Personal history of other diseases of the circulatory system; Z79.01 Long term (current) use of anticoagulants; Z88.5 Allergy status to narcotic agent; Z88.0 Allergy status to penicillin; W06.XXXA Fall from bed, initial encounter; Y92.009 Unspecified place in unspecified non-institutional (private) residence as the place of occurrence of the external cause
CPT/HCPCS: 70450; 72125; 99284

== ENCOUNTER 2022-04-09 10:01 | Emergency (ER) | payer MEDICARE ==
[2022-04-09 10:08] VITALS: RESP 18; TEMP 98.6
[2022-04-09 10:58] LABS: Basophils # (A) 0.1 k/uL (0-0.2); Basophils % (A) 1 %; Eosinophils # (A) 0.4 k/uL (0-0.7); Eosinophils % (A) 5 %; HCT 34.7 % (34.0-46.0); Hypochromasia Moderate; Lymphocytes # (A) 1.4 k/uL (1.0-4.8); Lymphocytes % (A) 18 %; MCHC 31.8 g/dL (31.0-37.0); MCV 97.3 fL (80.0-100.0); Monocytes # (A) 0.6 k/uL (0-1.0); Monocytes % (A) 8 %; Neutrophils # (A) 5.3 k/uL (1.3-7.7); Neutrophils % (A) 66 %; Platelet Count 155 k/uL (150-450); RBC 3.56 m/uL (3.80-5.40); RDW 14.4 % (11.5-15.5)
[2022-04-09 11:10] LABS: INR 1.1 (<1.2); Partial Thromboplastin Time 25.5 sec (22.0-30.0)
--- NOTE | 2022-04-09 11:14 | XR ---
EXAMINATION TYPE: XR tibia fibula RT DATE OF EXAM: 04/09/2022 11:08 AM INDICATION: Patient age:Female; 82 years old; Reason for study: right leg pain; PHH. COMPARISON: None TECHNIQUE: The right tibia/fibula was examined in AP and lateral projections. 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 Hardware appears intact with appro priate alignment. No acute fracture or dislocation. No osseous erosion. Prominent density along the a nterior lateral distal tibial soft tissues measuring grossly 13.6 x 3.3 cm consistent with reported h ematoma. No soft tissue gas. IMPRESSION: 1. No evidence of acute fracture or dislocation. 2. 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 Hardware appears intact. 3. Large density along the anterior lateral distal tibial soft tissues which corresponds to reported large hematoma. Clinical correlation is recommended.
[2022-04-09] MEDS ORDERED: HYDROcodone/APAP 7.5-325MG 1 EACH TAB PO ONE (11:38)
--- NOTE | 2022-04-09 11:54 | ED ---
Lower Extremity Injury HPI - General Chief Complaint: Extremity Injury, Lower Stated Complaint: Rt. leg injury Time Seen by Provider: 04/09/22 10:08 Source: patient Mode of arrival: EMS Limitations: physical limitation - History of Present Illness Initial Comments: 82-year-old female with past medical history of valve surgery, A. fib on Xarelto who presents to the emergency department for right munson swelling and hematoma. She states that she was attempting to use her wheelchair to wheel around her bed last when she hit her munson off the bed frame. Patient developed a hematoma which appears to be getting larger in size. She does take blood thinners. She did have some weeping from the site which prompted transfer to the hospital from her ECF. Patient denies active bleeding. No lightheadedness or shortness of breath. No numbness or tingling into the leg. States that her pain was worse last night however they iced it overnight she does have improved symptoms today. Patient normally is a wheelchair and is minimally ambulatory. No other alleviating, precipitating or modifying factors - Related Data Home Medications Medication Instructions Recorded Confirmed DULoxetine HCL [Cymbalta] 30 mg PO BID@0800,1700 02/04/21 02/27/22 Rivaroxaban [Xarelto] 15 mg PO DAILY@0800 02/04/21 02/27/22 Ferrous Sulfate [Feosol] 325 mg PO BID@0800,1700 02/28/21 02/27/22 Potassium Chloride ER [K-Dur 20] 20 meq PO DAILY@0800 02/28/21 02/27/22 Sennosides-Docusate Sodium 2 tab PO BID@0800,1700 02/28/21 02/27/22 [Senokot-S] Brimonidine Tartrate [Alphagan P 1 drop RIGHT EYE TID@0800,1200,1700 09/22/21 0.2% Ophth Soln] Spironolactone [Aldactone] 25 mg PO HS@2100 09/22/21 02/27/22 Timolol 0.5% Ophth Soln [Timoptic 1 drop RIGHT EYE DAILY@0800 09/22/21 02/27/22 0.5% Ophth Soln] Difluprednate [Durezol] 1 drop RIGHT EYE QID@08,12,17,21 10/22/21 02/27/22 Magnesium Hydroxide [Milk of 7,200 mg PO Q48H PRN 10/22/21 02/27/22 Magnesia Concentrate] Metoprolol Tartrate [Lopressor] 50 mg PO BID@0800,1700 10/22/21 02/27/22 Na Phos,M-B/Na Phos,Di-Ba [Fleet 133 ml RECTAL DAILY PRN 10/22/21 02/27/22 Adult] Pantoprazole [Protonix] 40 mg PO DAILY@0600 10/22/21 02/27/22 bisacodyL 10 mg RECTAL DAILY PRN 10/22/21 02/27/22 Baclofen 5 mg PO Q8H PRN 02/27/22 02/27/22 Menthol [Biofreeze] 1 applic TOPICAL Q8H PRN 02/27/22 02/27/22 Nitrofurantoin Monohyd/M-Cryst 100 mg PO DIRECTED 02/27/22 02/27/22 [Macrobid] Previous Rx's Medication Instructions Recorded Acetaminophen Tab [Tylenol] 650 mg PO Q6HR PRN tab 09/29/21 Docusate [Colace] 100 mg PO BID cap 03/04/22 Furosemide [Lasix] 40 mg PO BID@0900,1600 tab 03/04/22 Gabapentin [Neurontin] 300 mg PO TID@0600,1400,2200 #9 cap 03/04/22 HYDROcodone/APAP 5-325MG [[place] 1 tab PO Q6HR PRN 3 Days #12 tab 03/04/22 5-325] Midodrine [ProAmatine] 10 mg PO AC-TID tab 03/04/22 Allergies Allergy/AdvReac Type Severity Reaction Status Date / Time oxycodone Allergy Itching on Verified 04/09/22 10:08 back of hands Penicillins Allergy Itching Verified 04/09/22 10:08 all over body Review of Systems ROS Statement: Those systems with pertinent positive or pertinent negative responses have been documented in the HPI. ROS Other: All systems not noted in ROS Statement are negative. Past Medical History Past Medical History: Atrial Fibrillation, Hyperlipidemia, Osteoarthritis (OA) Additional Past Medical History / Comment(s): cardiac valve issues History of Any Multi-Drug Resistant Organisms: VRE Date of last positivie culture/infection: 11/05/21 MDRO Source:: Urine Past Surgical History: Back Surgery, Cardiac Valve Replacement, Joint Replacement Additional Past Surgical History / Comment(s): hipx2 knee replacement Past Anesthesia/Blood Transfusion Reactions: No Reported Reaction Additional Past Anesthesia/Blood Transfusion Reaction / Comment(s): 2 blood transfusions in the past at [facility] for low HBG Past Psychological History: No Psychological Hx Reported Smoking Status: Never smoker Past Alcohol Use History: None Reported Past Drug Use History: None Reported General Exam Limitations: physical limitation General appearance: alert, in no apparent distress Head exam: Present: atraumatic, normocephalic, normal inspection Extremities exam: Present: other (Large superficial hematoma to right anterior munson measuring approximately 15 x 8 cm. There is some weeping of sero sanguineous fluid. No bloody drainage. Surrounding compartments are soft. Normal cap refill. 2+ DP and PT pulses) Neurological exam: Present: alert, oriented X3, CN II-XII intact Course Vital Signs 04/09/22 04/09/22 10:04 11:57 Temperature 98.6 F Pulse Rate 70 73 Respiratory 18 18 Rate Blood Pressure 119/72 121/64 O2 Sat by Pulse 98 97 Oximetry Medical Decision Making - Medical Decision Making Upon arrival patient was placed into room 16. History and physical exam was performed. Evaluation does demonstrate a munson hematoma. No signs of magno rtment syndrome. Patient remains neurovascularly intact. I requested to conducted which demonstrated a hemoglobin of 11. Previous was 12.3. X-ray demonstrates soft tissue swelling however no underlying fracture. Results are discussed with the patient. Given strict return parameters. Will be discharged home and instructed to rest, ice and elevate the extremity. Be evaluated by her primary care doctor within 2-4 days and return for any new or worsening symptoms. Continue taking her anticoagulation. Patient was agreeable to the plan and discharged back to [facility] in stable condition - Lab Data Result diagrams: 04/09/22 10:45 Lab Results 04/09/22 04/09/22 Range/Units 10:45 10:45 WBC 8.0 (3.8-10.6) k/uL RBC 3.56 L (3.80-5.40) m/uL Hgb 11.0 L (11.4-16.0) gm/dL Hct 34.7 (34.0-46.0) % MCV 97.3 (80.0-100.0) fL MCH 31.0 (25.0-35.0) pg MCHC 31.8 (31.0-37.0) g/dL RDW 14.4 (11.5-15.5) % Plt Count 155 (150-450) k/uL MPV 9.0 Neutrophils % 66 % Lymphocytes % 18 % Monocytes % 8 % Eosinophils % 5 % Basophils % 1 % Neutrophils # 5.3 (1.3-7.7) k/uL Lymphocytes # 1.4 (1.0-4.8) k/uL Monocytes # 0.6 (0-1.0) k/uL Eosinophils # 0.4 (0-0.7) k/uL Basophils # 0.1 (0-0.2) k/uL Hypochromasia Moderate PT 12.0 (9.0-12.0) sec INR 1.1 (<1.2) APTT 25.5 (22.0-30.0) sec Disposition Clinical Impression: Hematoma of right lower leg Disposition: HOME SELF-CARE Condition: Stable Instructions (If sedation given, give patient instructions): Hematoma (ED) Additional Instructions: Please rest, ice and elevate the extremity. Wear the compression wrap. Continue taking your anticoagulation. Return to the emergency room for any new or worsening symptoms Is patient prescribed a controlled substance at d/c from ED?: No Referrals: Bolivar Valiente DO [Primary Care Provider] - 1-2 days Time of Disposition: 11:54
[2022-04-09 11:58] VITALS: BP 121/64; PULSE 73
== END 2022-04-09 12:16 | disposition home or self-care (01) ==
LOC: EC 10:01
DX: S80.11XA Contusion of right lower leg, initial encounter (principal); I48.91 Unspecified atrial fibrillation; E78.5 Hyperlipidemia, unspecified; M19.90 Unspecified osteoarthritis, unspecified site; Z88.5 Allergy status to narcotic agent; Z88.0 Allergy status to penicillin; Z79.899 Other long term (current) drug therapy; W22.09XA Striking against other stationary object, initial encounter
CPT/HCPCS: 36415; 85025; 85610; 85730; 99284

== ENCOUNTER 2023-12-14 03:31 | Emergency (ER) | payer MEDICARE ==
[2023-12-14 03:49] VITALS: TEMP 98.2
[2023-12-14] MEDS: LIDOCAINE 4% PATCH TOPICAL STA (05:11)
[2023-12-14] MEDS: HYDROcodone/APAP 5-325MG 1 EACH TAB PO STA (05:14)
[2023-12-14 06:07] LABS: Appearance,Urine Cloudy (Clear); Bilirubin,Urine Negative (Negative); Blood,Urine Large (Negative); Color,Urine Light Red; Glucose,Urine (UA) Negative (Negative); Hyaline Casts,Urine 14 /lpf (0-2); Ketones,Urine Trace (Negative); Leukocyte Esterase,Urine Large (Negative); Mucus,Urine Rare /hpf; Nitrite,Urine Negative (Negative); PH, Urine 5.5 (5.0-8.0); Protein,Urine 1+ (Negative); RBC,Urine >182 /hpf (0-5); Specific Gravity,Urine 1.035 (1.001-1.035); Squamous Epithelial Cell,Urine 6 /hpf (0-4); WBC,Urine 68 /hpf (0-5)
--- NOTE | 2023-12-14 06:43 | ED ---
General Adult HPI - General Chief complaint: Back Pain/Injury Stated complaint: back pain Time Seen by Provider: 12/14/23 04:20 Source: patient, EMS, RN notes reviewed, old records reviewed Mode of arrival: EMS Limitations: no limitations - History of Present Illness Initial comments: Patient is an 83-year-old female who presents emergency department complaining of lower back pain. States it is lower lumbar spine with radiation to bilateral paraspinal muscles. Worse with movement. Denies any other complaints at this time. Presents for further evaluation. Vital signs within acceptable limits. Denies any falls. Denies any obvious injuries. Presents for further evaluation. Presents from her long-term.Denies any lower extremity paralysis, saddle anesthesias, and denies urinary or bowel incontinence or retention. - Related Data Home Medications Medication Instructions Recorded Confirmed DULoxetine HCL [Cymbalta] 30 mg PO BID@0800,1700 02/04/21 02/27/22 Rivaroxaban [Xarelto] 15 mg PO DAILY@0800 02/04/21 02/27/22 Ferrous Sulfate [Feosol] 325 mg PO BID@0800,1700 02/28/21 02/27/22 Potassium Chloride ER [K-Dur 20] 20 meq PO DAILY@0800 02/28/21 02/27/22 Sennosides-Docusate Sodium 2 tab PO BID@0800,1700 02/28/21 02/27/22 [Senokot-S] Brimonidine Tartrate [Alphagan P 1 drop RIGHT EYE TID@0800,1200,1700 09/22/21 02/27/22 0.2% Ophth Soln] Spironolactone [Aldactone] 25 mg PO HS@2100 09/22/21 02/27/22 Timolol 0.5% Ophth Soln [Timoptic 1 drop RIGHT EYE DAILY@0800 09/22/21 02/27/22 0.5% Ophth Soln] Difluprednate [Durezol] 1 drop RIGHT EYE QID@08,12,17,21 10/22/21 02/27/22 Magnesium Hydroxide [Milk of 7,200 mg PO Q48H PRN 10/22/21 02/27/22 Magnesia Concentrate] Metoprolol Tartrate [Lopressor] 50 mg PO BID@0800,1700 10/22/21 02/27/22 Na Phos,M-B/Na Phos,Di-Ba [Fleet 133 ml RECTAL DAILY PRN 10/22/21 02/27/22 Adult] Pantoprazole [Protonix] 40 mg PO DAILY@0600 10/22/21 02/27/22 bisacodyL 10 mg RECTAL DAILY PRN 10/22/21 02/27/22 Baclofen 5 mg PO Q8H PRN 02/27/22 02/27/22 Menthol [Biofreeze] 1 applic TOPICAL Q8H PRN 02/27/22 02/27/22 Nitrofurantoin Monohyd/M-Cryst 100 mg PO DIRECTED 02/27/22 02/27/22 [Macrobid] Previous Rx's Medication Instructions Recorded Acetaminophen Tab [Tylenol] 650 mg PO Q6HR PRN tab 09/29/21 Docusate [Colace] 100 mg PO BID cap 03/04/22 Furosemide [Lasix] 40 mg PO BID@0900,1600 tab 03/04/22 Gabapentin [Neurontin] 300 mg PO TID@0600,1400,2200 #9 cap 03/04/22 HYDROcodone/APAP 5-325MG [[place] 1 tab PO Q6HR PRN 3 Days #12 tab 03/04/22 5-325] Midodrine [ProAmatine] 10 mg PO AC-TID tab 03/04/22 Cephalexin [Keflex] 500 mg PO Q12HR 7 Days #14 cap 12/14/23 Lidocaine 5% Patch [Lidoderm 5% 1 patch TOPICAL DAILY PRN 14 Days 12/14/23 Patch] #14 patch Allergies Allergy/AdvReac Type Severity Reaction Status Date / Time oxycodone Allergy Itching on Verified 04/09/22 10:08 back of hands Penicillins Allergy Itching Verified 04/09/22 10:08 all over body Review of Systems ROS Statement: Those systems with pertinent positive or pertinent negative responses have been documented in the HPI. Review of Systems: CONST: Denies fever EYES: Denies blurry vision ENT: Denies nasal congestion C/V: Denies Chest pain RESP: Denies shortness of breath GI: Denies abdominal pain : Denies dysuria SKIN: Denies rash. MSK: Endorses lower back pain NEURO: Denies headache ROS Other: All systems not noted in ROS Statement are negative. Past Medical History Past Medical History: Atrial Fibrillation, Hyperlipidemia, Osteoarthritis (OA) Additional Past Medical History / Comment(s): cardiac valve issues History of Any Multi-Drug Resistant Organisms: VRE Date of last positivie culture/infection: 11/05/21 MDRO Source:: Urine Past Surgical History: Back Surgery, Cardiac Valve Replacement, Joint Replacement Additional Past Surgical History / Comment(s): hipx2 knee replacement Past Anesthesia/Blood Transfusion Reactions: No Reported Reaction Additional Past Anesthesia/Blood Transfusion Reaction / Comment(s): 2 blood transfusions in the past at [facility] for low HBG Past Psychological History: No Psychological Hx Reported Smoking Status: Never smoker Past Alcohol Use History: None Reported Past Drug Use History: None Reported General Exam - General Exam Comments Initial Comments: General: Appears in mild distress secondary to abdominal pain. HEAD: Normal with no signs of head trauma. EYES: PERRLA, EOMI, conjunctiva normal, no discharge. ENT: Hearing grossly intact, normal oropharynx. RESPIRATORY: Clear breath sounds bilaterally. No wheezes, rales, or rhonchi. C/V: Regular rate and rhythm. S1 and S2 auscultated, peripheral pulses 2+ and intact throughout ABD: Abd is soft, nontender, nondistended EXT: Tenderness to palpation of the lower lumbar spine. Some paraspinal tenderness to palpation in the lower spine. No obvious deformities appreciated. No thoracic or cervical spine tenderness to palpation. Pelvis is stable. SKIN: No rashes or lesions observed on exposed skin. NEURO: Alert and oriented x 4. GCS of 15. Limitations: no limitations Course Vital Signs 12/14/23 12/14/23 12/14/23 03:38 03:50 05:19 Temperature 98.2 F Pulse Rate 90 98 Respiratory 16 16 Rate Blood Pressure 98/66 105/65 118/85 O2 Sat by Pulse 95 92 L Oximetry 12/14/23 12/14/23 06:52 09:37 Temperature Pulse Rate 95 68 Respiratory 18 16 Rate Blood Pressure 109/71 140/86 O2 Sat by Pulse 94 L 98 Oximetry Medical Decision Making - Medical Decision Making Was pt. sent in by a medical professional or institution (, PA, [employer], urgent care, hospital, or long-term...) When possible be specific @ -Sent from her long-term for evaluation of lumbar back pain. Did you speak to anyone other than the patient for history (EMS, parent, family, police, friend...)? What history was obtained from this source @ -No Did you review nursing and triage notes (agree or disagree)? Why? @ -I reviewed and agree with nursing and triage notes Were old charts reviewed (outside hosp., previous admission, EMS record, old EKG, old radiological studies, urgent care reports/EKG's, long-term records)? Report findings @ -No old charts were reviewed Differential Diagnosis (chest pain, altered mental status, abdominal pain women, abdominal pain men, vaginal bleeding, weakness, fever, dyspnea, syncope, headache, dizziness, GI bleed, back pain, seizure, CVA, palpatations, mental health, musculoskeletal)? @ -Differential Musculoskeletal Muscular strain, contusion, ligament sprain, fracture, arthritis, septic arthritis, bursitis, cellulitis, muscle spasm, nerve compression, DVT, arterial occlusion, herpes zoster, electrolyte abnormality, tumor.... This is not meant to be in all inclusive list EKG interpreted by me (3pts min.). @ -None done X-rays interpreted by me (1pt min.). @ -None done CT interpreted by me (1pt min.). @ -Lumbar spine CT shows multilevel degenerative disc disease with foraminal stenosis. Stable from prior study. U/S interpreted by me (1pt. min.). @ -None done What testing was considered but not performed or refused? (CT, X-rays, U/S, labs)? Why? @ -None What meds were considered but not given or refused? Why? @ -None Did you discuss the management of the patient with other professionals (professionals i.e. , PA, [employer], lab, RT, psych nurse, social service technician, immigration investigator, teacher, probation officer, comp field case manager)? Give summary @ -No Was smoking cessation discussed for >3mins.? @ -No Was critical care preformed (if so, how long)? @ -No Were there social determinants of health that impacted care today? How? (Homelessness, low income, unemployed, alcoholism, drug addiction, transportation, low edu. Level, literacy, decrease access to med. care, penitentiary, rehab)? @ -No Was there de-escalation of care discussed even if they declined (Discuss DNR or withdrawal of care, Hospice)? DNR status @ -No What co-morbidities impacted this encounter? (DM, HTN, Smoking, COPD, CAD, Cancer, CVA, ARF, Chemo, Hep., AIDS, mental health diagnosis, sleep apnea, morbid obesity)? @ -None Was patient admitted / discharged? Hospital course, mention meds given and rout e, prescriptions, significant lab abnormalities, going to OR and other pertinent info. @ -Based on the patient's presentation and physical exam, presents emergency department for what appears to be mechanical lumbar spine back pain. Appears to be atraumatic. Vital signs within acceptable limits. No red flag symptoms to suggest cauda equina syndrome. We will obtain CT imaging of the lumbar spine as well as a urinalysis for screening. She will be symptomatically treated with analgesia medications. Patient was in agreement this plan. Vital signs within acceptable limits. Patient's urinalysis is concerning for UTI with some white cells as well as red cells in the urine. Positive leuk esterase. She will be started on antibiotics. Lumbar spine CT shows no obvious acute findings. Some chronic degenerative changes present. Patient updated of results. Patient on antibiotics. She will be discharged home at this time. She was in agreement this plan. I will provide the patient with a prescription for Keflex, lidocaine patches. I instructed the patient to follow up with their PCP in the next 1-3 days.. I explained that the patient should return to the emergency department if they experience any worsening symptoms. Strict return precautions were discussed with the patient. The patient expressed understanding of these instructions. I answered all questions that the patient had. The patient was discharged home in good condition with their prescriptions and follow up information. Undiagnosed new problem with uncertain prognosis? @ -No Drug Therapy requiring intensive monitoring for toxicity (Heparin, Nitro, Insulin, Cardizem)? @ -No Were any procedures done? @ -No Diagnosis/symptom? @ -UTI, back strain Acute, or Chronic, or Acute on Chronic? @ -Acute Uncomplicated (without systemic symptoms) or Complicated (systemic symptoms)? @ -Uncomplicated Side effects of treatment? @ -No Exacerbation, Progression, or Severe Exacerbation? @ -No Poses a threat to life or bodily function? How? (Chest pain, [place], ID, pneumonia, PE, COPD, DKA, ARF, appy, cholecystitis, CVA, Diverticulitis, Homicidal, Suicidal, threat to staff... and all critical care pts) @ -Unlikely - Lab Data Lab Results 12/14/23 Range/Units 05:03 Urine Color Light Red Urine Appearance Cloudy H (Clear) Urine pH 5.5 (5.0-8.0) Ur Specific [place] 1.035 (1.001-1.035) Urine Protein 1+ H (Negative) Urine Glucose (UA) Negative (Negative) Urine Ketones Trace H (Negative) Urine Blood Large H (Negative) Urine Nitrite Negative (Negative) Urine Bilirubin Negative (Negative) Urine Urobilinogen 2.0 (<2.0) mg/dL Ur Leukocyte Esterase Large H (Negative) Urine RBC >182 H (0-5) /hpf Urine WBC 68 H (0-5) /hpf Ur Squamous Epith Cells 6 H (0-4) /hpf Hyaline Casts 14 H (0-2) /lpf Urine Mucus Rare H (None) /hpf Disposition Clinical Impression: UTI (urinary tract infection), Low back strain Disposition: HOME SELF-CARE Condition: Good Instructions (If sedation given, give patient instructions): Urinary Tract Infection in Women (ED), Acute Low Back Pain (ED) Prescriptions: Cephalexin [Keflex] 500 mg PO Q12HR 7 Days #14 cap Lidocaine 5% Patch [Lidoderm 5% Patch] 1 patch TOPICAL DAILY PRN 14 Days #14 patch PRN Reason: Pain Is patient prescribed a controlled substance at d/c from ED?: No Referrals: Bolivar Valiente DO [Primary Care Provider] - 1-2 days Time of Disposition: 07:30
[2023-12-14] MEDS: CEPHALEXIN 500 MG CAP PO STA (06:50)
--- NOTE | 2023-12-14 08:28 | CT ---
EXAMINATION TYPE: CT lumbar spine wo con DATE OF EXAM: 12/14/2023 COMPARISON: 09/21/2021 HISTORY: PAIN CT DLP: 934.5 mGycm CONTRAST: None TECHNIQUE: CT of the lumbar spine is performed on a spiral scan at 3 mm thick sections. Reconstructed images are performed in the coronal and sagittal planes. FINDINGS: T12-L1: No focal disc herniation or significant disc bulge is evident. Small central calcifications present with mild anterior thecal sac compression. No cord contact is evident. No spinal canal stenos is or neural foraminal stenosis is present. L1-L2: Minimal disc bulge may have anterior thecal sac contact. No spinal canal stenosis or neural fo raminal stenosis is present L2-L3: Loss of disc height is present. There is endplate changes and some residual disc material may be present with mild to moderate anterior thecal sac compression. No AP spinal canal stenosis is pres ent. Facet degenerative changes are present. Moderate to severe bilateral foraminal narrowing is pres ent. This appears more severe on the right. L3-L4: Endplate changes are present greater to the right paracentral and right lateral direction. Thi s is moderate anterior thecal sac compression. Moderate left and more severe right foraminal stenosis is present. Correlate with radicular symptoms. L4-L5: No focal disc herniation or significant disc bulge is evident. Degenerative disc changes pre sent. No spinal canal stenosis or neural foraminal stenosis is present. Some beam hardening artifact is present in some limitation. L5-S1: No focal disc herniation or significant disc bulge is evident. Facet changes are present. No spinal canal stenosis or neural foraminal stenosis is present Vertebral alignment appears normal. Pedicle screws are present L4-5. There is a 4.7 cm abdominal aortic aneurysm present previously. A 0.7 cm calcification appears to be in the right renal pelvis. This is new. No hydronephrosis is saranya dent. IMPRESSION: 1. Multilevel degenerative disc changes. Disc bulge and endplate spurring is anterior thecal sac comp ression without AP spinal canal stenosis. 2. Foraminal stenosis appears most severe on the right L2-3 level with additional moderate to severe foraminal narrowing discussed above. 3. Findings appear stable from the comparison.
[2023-12-14 09:38] VITALS: BP 140/86; PULSE 68; RESP 16
== END 2023-12-14 09:38 | disposition home or self-care (01) ==
LOC: EC 03:31
DX: S39.012A Strain of muscle, fascia and tendon of lower back, initial encounter (principal); N39.0 Urinary tract infection, site not specified; M51.36 Other intervertebral disc degeneration, lumbar region; M48.061 Spinal stenosis, lumbar region without neurogenic claudication; Z88.0 Allergy status to penicillin; Z88.5 Allergy status to narcotic agent; X58.XXXA Exposure to other specified factors, initial encounter
CPT/HCPCS: 72131; 81001; 99284; 99285